=== PATIENT | male | born 1950 | race Caucasian/White ===

== ENCOUNTER → 2016-07-17 | Outpatient (CLI) | payer MEDICARE, OTHER ==
[2016-07-17 09:18] LABS: CH 30.3; CHCM 33.4; HGB 15.2 gm/dL (13.0-17.5); MCH 30.1 pg (25.0-35.0); MCV 91.2 fL (80.0-100.0); Mean Platelet Volume 7.9; RBC 5.04 m/uL (4.30-5.90); RDW 13.2 % (11.5-15.5)
[2016-07-17 09:26] LABS: Anion Gap 8 mmol/L; Blood Urea Nitrogen 16 mg/dL (9-20); Calcium 9.8 mg/dL (8.4-10.2); Carbon Dioxide 29 mmol/L (22-30); Chloride 107 mmol/L (98-107); Glucose 96 mg/dL (74-99); Non-African American GFR(MDRD) >60 (>60 ml/min/1.73 sqM); Potassium 4.5 mmol/L (3.5-5.1); Sodium 144 mmol/L (137-145)
== END | disposition home or self-care (01) ==
LOC: LABWHC1 08:37
PROVIDERS: ATTEND Internal Medicine Clinical Cardiac Electrophysiology
DX: I25.10 Atherosclerotic heart disease of native coronary artery without angina pectoris (principal); I25.5 Ischemic cardiomyopathy; I49.01 Ventricular fibrillation; Z95.1 Presence of aortocoronary bypass graft
CPT/HCPCS: 36415; 80048; 85027

== ENCOUNTER → 2016-07-27 | Day surgery (SDC) | payer MEDICARE, OTHER ==
[2016-07-25 12:21] VITALS: BMI 29.6
[~2016-07-27] MED LIST: LACTATED RINGERS 1,000 ML IV SCH; PROPOFOL 10 MG/ML 20 ML VIAL IV ONE; SODIUM CHLORIDE 0.9% 1,000 ML IV SCH
[2016-07-27 12:51] VITALS: TEMP 97.7
--- NOTE | 2016-07-27 15:18 | CE ---
DATE OF SERVICE: Randal Anne has severe ischemic cardiomyopathy, history of ventricular fibrillation. He is brought in for DFT testing under anesthesia. His ICD was interrogated. There are no new arrhythmias noted. His sensing is within normal limits, his thresholds are within normal limits. Impedance stable. ( ) protocol was used to induce ventricular fibrillation. This was adequately and appropriately detected at least sensitivity and successfully internally defibrillated with a 10 joule shock, no dropouts. Charge time was 1.8 seconds. No postshock noise. Shocking impedance 75 ohms. The device was then reprogrammed, VF zone at 207 beats per minute. The device has been reprogrammed. VT zone at 176 beats per minute, VF zone at 207 beats a minute. Appropriate antitachycardia pacing, cardioversion and defibrillation programmed. Testing was also performed at 1.2 mV, sensitivity was reprogrammed to 0.3 mV. RESULT: DFT at or below 10 joules, ICD interrogation with reprogramming, ICD function within normal limits.
[2016-07-27 15:23] VITALS: RESP 16
[2016-07-27 16:07] VITALS: BP 142/79; PULSE 73
== END ==
LOC: CATHEP 12:18
PROVIDERS: ATTEND Internal Medicine Clinical Cardiac Electrophysiology
DX: I25.5 Ischemic cardiomyopathy (principal); Z45.02 Encounter for adjustment and management of automatic implantable cardiac defibrillator; I25.10 Atherosclerotic heart disease of native coronary artery without angina pectoris; I49.01 Ventricular fibrillation; I10 Essential (primary) hypertension; I25.2 Old myocardial infarction; Z95.1 Presence of aortocoronary bypass graft; E78.5 Hyperlipidemia, unspecified; I73.9 Peripheral vascular disease, unspecified; Z79.02 Long term (current) use of antithrombotics/antiplatelets; Z79.82 Long term (current) use of aspirin; Z79.899 Other long term (current) drug therapy
CPT/HCPCS: 93642; J2704

== ENCOUNTER 2019-02-16 18:01 | Emergency (ER) | payer MEDICARE, OTHER ==
[2019-02-16 18:13] VITALS: RESP 18
--- NOTE | 2019-02-16 18:28 | ED ---
Lower Extremity Injury HPI - General Chief Complaint: Extremity Injury, Lower Stated Complaint: Lt knee pain Time Seen by Provider: 02/16/19 18:14 Source: patient Mode of arrival: wheelchair Limitations: no limitations - History of Present Illness Initial Comments: Patient is a 68-year-old male presenting to emergency Department with chief complaint of knee pain. Patient reports a history of left knee effusion for the past several years however day 10 to resolve on their own. Patient reports most recent episode does not appear to resolve and is now impeding his daily activities. Patient states he initially noticed some swelling about one week ago and it has remained constant. Patient reports over the last day he attempt to go bowling and I was pain with ambulation. Patient denies any trauma to the region. Patient denies skin discoloration. He does report some limited range of motion with full flexion due to a feeling of "tightness". He denies taking medication to alleviate the symptoms. He does have a knee brace which she uses occasionally. Denies Tenderness shortness of breath cough or hemoptysis. - Related Data Home Medications Medication Instructions Recorded Confirmed Aspirin 81 mg PO DAILY 03/20/14 07/27/16 Spironolactone [Aldactone] 25 mg PO QAM 03/20/14 07/27/16 Atorvastatin [Lipitor] 80 mg PO HS 05/20/15 07/27/16 Carvedilol 4.68 mg PO QAM 05/20/15 07/27/16 Clopidogrel [Plavix] 75 mg PO QAM 05/20/15 07/27/16 Losartan [Cozaar] 25 mg PO QAM 05/20/15 07/27/16 Allergies Allergy/AdvReac Type Severity Reaction Status Date / Time No Known Allergies Allergy Verified 02/16/19 18:11 Review of Systems ROS Statement: Those systems with pertinent positive or pertinent negative responses have been documented in the HPI. ROS Other: All systems not noted in ROS Statement are negative. Past Medical History Past Medical History: Coronary Artery Disease (CAD), Hyperlipidemia, Myocardial Infarction ([place]), Osteoarthritis (OA), Vascular Disorder Additional Past Medical History / Comment(s): ISCHEMIC CARDIOMYOPATHY, V-FIB., Peripheral Vascular disease. Last Myocardial Infarction Date:: 03/2012 History of Any Multi-Drug Resistant Organisms: None Reported Past Surgical History: AICD, Coronary Bypass/CABG, Heart Catheterization With Stent Additional Past Surgical History / Comment(s): Has 5 heart stents. Past Anesthesia/Blood Transfusion Reactions: No Reported Reaction Date of Last Stent Placement:: 03/2012 Type of Cardiac Device: AICD Device Placement Date:: 03/20/14 Past Psychological History: No Psychological Hx Reported Smoking Status: Former smoker Past Alcohol Use History: None Reported Past Drug Use History: None Reported - Past Family History Father Family Medical History: Cancer, CVA/TIA, Dialysis, Myocardial Infarction ([place]) Additional Family Medical History / Comment(s): CABG. General Exam Limitations: no limitations General appearance: alert, in no apparent distress Head exam: Present: atraumatic, normocephalic, normal inspection Eye exam: Present: normal appearance Pupils: Present: normal accommodation ENT exam: Present: normal exam, mucous membranes moist Neck exam: Present: normal inspection, full ROM Respiratory exam: Present: normal lung sounds bilaterally Cardiovascular Exam: Present: regular rate, normal rhythm, normal heart sounds Extremities exam: Present: normal capillary refill, joint swelling (Very mild left knee), other (+2 dorsalis pedis and posterior tibialis bilaterally). Absent: normal inspection (Very mild swelling in the left knee), full ROM (Mode of range of motion at full flexion of the left knee.), tenderness, pedal edema Back exam: Present: normal inspection, full ROM Neurological exam: Present: alert, oriented X3 Psychiatric exam: Present: normal affect, normal mood Skin exam: Present: warm, dry, intact, normal color Course Vital Signs 02/16/19 18:11 Temperature 97.9 F Pulse Rate 78 Respiratory 18 Rate Blood Pressure 162/89 O2 Sat by Pulse 97 Oximetry Medical Decision Making - Medical Decision Making Patient is 68-year-old male presenting to emergency Department with a chief complaint of left knee pain. Physical examination shows very mild swelling of the left knee was no skin discoloration. Limited range of motion of full flexion. Pain with ambulation. Patient is ready wearing a brace at home. X- ray shows a calcification and osteophytes but is otherwise unremarkable. Osteoarthritic changes noted. I suspect this to be the cause of the patient's pain and recurrent knee effusions. Most likely these appear after prolonged periods of activity or standing. Patient advised to follow-up with orthopedics for further management. Patient advised to rest the left lower extremity of the next few days. Strict return parameters were thoroughly discussed with patient was understanding and agreeable. Case discussed with physician. Disposition Clinical Impression: Left knee pain Disposition: HOME SELF-CARE Condition: Stable Instructions (If sedation given, give patient instructions): Knee Sprain (ED) Additional Instructions: Please follow up with orthopedics. Please return to emergency department if symptoms worsen. Continue wearing the brace. Is patient prescribed a controlled substance at d/c from ED?: No Referrals: Quan Silva DO [Primary Care Provider] - 1-2 days Wai Spring MD [STAFF PHYSICIAN] - 1-2 days Time of Disposition: 19:12
--- NOTE | 2019-02-16 19:08 | XR ---
EXAMINATION TYPE: XR knee complete LT DATE OF EXAM: 02/16/2019 CLINICAL HISTORY: Pain and swelling TECHNIQUE: Three views of the left knee are obtained. COMPARISON: None. FINDINGS: No fracture or joint malalignment. Small medial compartment osteophyte formation with mild joint spac e loss. Meniscal chondrocalcinosis present in both compartments. Ossification along the proximal aspe ct of the medial collateral ligament likely from remote injury. Patellar enthesophyte at the quadrice ps tendon insertion. No capsular distention at the knee. Arterial vascular calcifications. IMPRESSION: No fracture or dislocation.
[2019-02-16 19:45] VITALS: BP 150/81; PULSE 82; TEMP 98.1
== END 2019-02-16 19:47 | disposition home or self-care (01) ==
LOC: EC 18:01
DX: M17.12 Unilateral primary osteoarthritis, left knee (principal); M25.762 Osteophyte, left knee; M25.862 Other specified joint disorders, left knee; I25.10 Atherosclerotic heart disease of native coronary artery without angina pectoris; E78.5 Hyperlipidemia, unspecified; I25.2 Old myocardial infarction; I49.01 Ventricular fibrillation; I73.9 Peripheral vascular disease, unspecified; I25.5 Ischemic cardiomyopathy; Z95.810 Presence of automatic (implantable) cardiac defibrillator; Z95.5 Presence of coronary angioplasty implant and graft; Z95.1 Presence of aortocoronary bypass graft; Z87.891 Personal history of nicotine dependence; Z79.82 Long term (current) use of aspirin; Z79.02 Long term (current) use of antithrombotics/antiplatelets; Z79.899 Other long term (current) drug therapy
CPT/HCPCS: 99283

== ENCOUNTER 2019-06-30 08:47 | Inpatient (IN) | payer MEDICARE, OTHER ==
[2019-06-30] MEDS ORDERED: ACETAMINOPHEN TAB 325 MG TAB PO STA (09:13)
[2019-06-30] MEDS ORDERED: SODIUM CHLORIDE 0.9% 500 ML 500 ML IV STA (09:15)
--- NOTE | 2019-06-30 09:15 | ED ---
General Adult HPI - General Chief complaint: Upper Respiratory Infection Stated complaint: "hallucinating last night" Time Seen by Provider: 06/30/19 08:59 Source: patient, RN notes reviewed Mode of arrival: wheelchair Limitations: no limitations - History of Present Illness Initial comments: 68-year-old male with a past medical history of hyperlipidemia, [place] with defibrillator, CAD with multiple stents presents to the emergency department for a chief complaint of cough. Patient states he has had a cough for about one week now. States cough is minimally productive with green sputum. Patient does not have any shortness of breath associated with this cough. He does have a [id number] smoking history but quit smoking 20 years ago and does not have a history of COPD. Patient states he has felt like he's had a fever all night as well. States his body has been very achy. States his been waking him up throughout the night and when he wakes up in the middle of the night he feels "out of it." Patient states he had a sore throat several days ago but that has since resolved. Patient does not have congestion or runny nose. Patient is concerned he could have coronavirus. Patient has not had any Tylenol as of yet today.Patient has no other complaints at this time including shortness of breath, chest pain, abdominal pain, nausea or vomiting, headache, or visual changes. - Related Data Home Medications Medication Instructions Recorded Confirmed RX: Aspirin 81 mg PO DAILY 03/20/14 07/27/16 RX: Spironolactone [Aldactone] 25 mg PO QAM 03/20/14 07/27/16 RX: Atorvastatin [Lipitor] 80 mg PO HS 05/20/15 07/27/16 RX: Carvedilol 4.68 mg PO QAM 05/20/15 07/27/16 RX: Clopidogrel [Plavix] 75 mg PO QAM 05/20/15 07/27/16 RX: Losartan [Cozaar] 25 mg PO QAM 05/20/15 07/27/16 Allergies Allergy/AdvReac Type Severity Reaction Status Date / Time No Known Allergies Allergy Verified 02/16/19 18:11 Review of Systems ROS Statement: Those systems with pertinent positive or pertinent negative responses have been documented in the HPI. ROS Other: All systems not noted in ROS Statement are negative. Past Medical History Past Medical History: Coronary Artery Disease (CAD), Hyperlipidemia, Myocardial Infarction ([place]), Osteoarthritis ([place]), Vascular Disorder Additional Past Medical History / Comment(s): ISCHEMIC CARDIOMYOPATHY, V-FIB., Peripheral Vascular disease. Last Myocardial Infarction Date:: 03/2012 History of Any Multi-Drug Resistant Organisms: None Reported Past Surgical History: AICD, Coronary Bypass/CABG, Heart Catheterization With Stent Additional Past Surgical History / Comment(s): Has 5 heart stents. Past Anesthesia/Blood Transfusion Reactions: No Reported Reaction Date of Last Stent Placement:: 03/2012 Type of Cardiac Device: AICD Device Placement Date:: 03/20/14 Past Psychological History: No Psychological Hx Reported Smoking Status: Former smoker Past Alcohol Use History: None Reported Past Drug Use History: None Reported - Past Family History Father Family Medical History: Cancer, CVA/TIA, Dialysis, Myocardial Infarction ([place]) Additional Family Medical History / Comment(s): CABG. General Exam Limitations: no limitations General appearance: alert, in no apparent distress Head exam: Present: atraumatic, normocephalic, normal inspection Eye exam: Present: normal appearance, PERRL, EOMI. Absent: scleral icterus, conjunctival injection, periorbital swelling ENT exam: Present: normal exam, normal oropharynx, mucous membranes moist, TM's normal bilaterally, normal external ear exam Neck exam: Present: normal inspection, full ROM. Absent: tenderness, mening ismus, lymphadenopathy Respiratory exam: Present: normal lung sounds bilaterally, other (Patient did have a coughing fit while I was in the exam room). Absent: respiratory di stress, wheezes, rales, rhonchi, stridor Cardiovascular Exam: Present: regular rate, normal rhythm, normal heart sounds. Absent: systolic murmur, diastolic murmur, rubs, gallop, clicks GI/Abdominal exam: Present: soft, normal bowel sounds. Absent: distended, tenderness, guarding, rebound, rigid Neurological exam: Present: alert, oriented X3, normal gait, other (GCS 15) Psychiatric exam: Present: normal affect, normal mood Skin exam: Present: warm, dry, intact, normal color. Absent: rash Course Vital Signs 06/30/19 06/30/19 06/30/19 08:54 09:41 09:43 Temperature 98.9 F 101.9 F H Pulse Rate 105 H 101 H Respiratory 18 22 Rate Blood Pressure 108/68 O2 Sat by Pulse 92 L 89 L 92 L Oximetry 06/30/19 06/30/19 10:08 10:19 Temperature Pulse Rate 103 H Respiratory 24 20 Rate Blood Pressure 146/73 O2 Sat by Pulse 91 L Oximetry EKG Findings - EKG Comments: EKG Findings:: Normal sinus rhythm, ventricular rate 96, UT int 164, QTC 452 Medical Decision Making - Medical Decision Making Patient with extensive cardiac history presents to the emergency room for cough, fevers, slight short of breath. Patient is hypoxic on room air descending and 89%. He was then put on 2 L of nasal cannula satting at 92%. Patient was found to be Covid positive CRP elevated. CBC CMP otherwise unremarkable. Chest x- ray shows no acute process. Dr. Chow spoke with Dr. Silva who does accept admission, requests pulmonary consult. - Lab Data Result diagrams: 06/30/19 09:31 06/30/19 09:31 Lab Results 06/30/19 06/30/19 06/30/19 Range/Units 09:26 09:31 09:31 WBC 6.1 (3.8-10.6) k/uL RBC 4.90 (4.30-5.90) m/uL Hgb 14.3 (13.0-17.5) gm/dL Hct 43.8 (39.0-53.0) % MCV 89.2 (80.0-100.0) fL MCH 29.2 (25.0-35.0) pg MCHC 32.7 (31.0-37.0) g/dL RDW 13.2 (11.5-15.5) % Plt Count 126 L (150-450) k/uL Neutrophils % 70 % Lymphocytes % 22 % Monocytes % 6 % Eosinophils % 0 % Basophils % 0 % Neutrophils # 4.3 (1.3-7.7) k/uL Lymphocytes # 1.3 (1.0-4.8) k/uL Monocytes # 0.4 (0-1.0) k/uL Eosinophils # 0.0 (0-0.7) k/uL Basophils # 0.0 (0-0.2) k/uL PT 10.2 (9.0-12.0) sec INR 1.0 (<1.2) APTT 26.3 (22.0-30.0) sec D-Dimer (<0.60) mg/L FEU Sodium (137-145) mmol/L Potassium (3.5-5.1) mmol/L Chloride (98-107) mmol/L Carbon Dioxide (22-30) mmol/L Anion Gap mmol/L BUN (9-20) mg/dL Creatinine (0.66-1.25) mg/dL Est GFR (CKD-EPI)AfAm (>60 ml/min/1.73 sqM) Est GFR (CKD-EPI)NonAf (>60 ml/min/1.73 sqM) Glucose (74-99) mg/dL Plasma Lactic Acid Sabas (0.7-2.0) mmol/L Calcium (8.4-10.2) mg/dL Magnesium (1.6-2.3) mg/dL Total Bilirubin (0.2-1.3) mg/dL AST (17-59) U/L ALT (4-49) U/L Alkaline Phosphatase (38-126) U/L Lactate Dehydrogenase (313-618) U/L Troponin I (0.000-0.034) ng/mL C-Reactive Protein (<10.0) mg/L Total Protein (6.3-8.2) g/dL Albumin (3.5-5.0) g/dL Coronavirus (PCR) Detected A (Not Detectd) Influenza Type A RNA Not Detected (Not Detectd) Influenza Type B (PCR) Not Detected (Not Detectd) 06/30/19 06/30/19 06/30/19 Range/Units 09:31 09:31 09:31 WBC (3.8-10.6) k/uL RBC (4.30-5.90) m/uL Hgb (13.0-17.5) gm/dL Hct (39.0-53.0) % MCV (80.0-100.0) fL MCH (25.0-35.0) pg MCHC (31.0-37.0) g/dL RDW (11.5-15.5) % Plt Count (150-450) k/uL Neutrophils % % Lymphocytes % % Monocytes % % Eosinophils % % Basophils % % Neutrophils # (1.3-7.7) k/uL Lymphocytes # (1.0-4.8) k/uL Monocytes # (0-1.0) k/uL Eosinophils # (0-0.7) k/uL Basophils # (0-0.2) k/uL PT (9.0-12.0) sec INR (<1.2) APTT (22.0-30.0) sec D-Dimer (<0.60) mg/L FEU Sodium 134 L (137-145) mmol/L Potassium 4.6 (3.5-5.1) mmol/L Chloride 99 (98-107) mmol/L Carbon Dioxide 24 (22-30) mmol/L Anion Gap 11 mmol/L BUN 22 H (9-20) mg/dL Creatinine 1.03 (0.66-1.25) mg/dL Est GFR (CKD-EPI)AfAm 85 (>60 ml/min/1.73 sqM) Est GFR (CKD-EPI)NonAf 74 (>60 ml/min/1.73 sqM) Glucose 117 H (74-99) mg/dL Plasma Lactic Acid Sabas 1.1 (0.7-2.0) mmol/L Calcium 8.9 (8.4-10.2) mg/dL Magnesium 1.7 (1.6-2.3) mg/dL Total Bilirubin 0.7 (0.2-1.3) mg/dL AST 31 (17-59) U/L ALT 22 (4-49) U/L Alkaline Phosphatase 64 (38-126) U/L Lactate Dehydrogenase (313-618) U/L Troponin I <0.012 (0.000-0.034) ng/mL C-Reactive Protein (<10.0) mg/L Total Protein 6.8 (6.3-8.2) g/dL Albumin 3.9 (3.5-5.0) g/dL Coronavirus (PCR) (Not Detectd) Influenza Type A RNA (Not Detectd) Influenza Type B (PCR) (Not Detectd) 06/30/19 06/30/19 Range/Units 09:31 09:31 WBC (3.8-10.6) k/uL RBC (4.30-5.90) m/uL Hgb (13.0-17.5) gm/dL Hct (39.0-53.0) % MCV (80.0-100.0) fL MCH (25.0-35.0) pg MCHC (31.0-37.0) g/dL RDW (11.5-15.5) % Plt Count (150-450) k/uL Neutrophils % % Lymphocytes % % Monocytes % % Eosinophils % % Basophils % % Neutrophils # (1.3-7.7) k/uL Lymphocytes # (1.0-4.8) k/uL Monocytes # (0-1.0) k/uL Eosinophils # (0-0.7) k/uL Basophils # (0-0.2) k/uL PT (9.0-12.0) sec INR (<1.2) APTT (22.0-30.0) sec D-Dimer 0.38 (<0.60) mg/L FEU Sodium (137-145) mmol/L Potassium (3.5-5.1) mmol/L Chloride (98-107) mmol/L Carbon Dioxide (22-30) mmol/L Anion Gap mmol/L BUN (9-20) mg/dL Creatinine (0.66-1.25) mg/dL Est GFR (CKD-EPI)AfAm (>60 ml/min/1.73 sqM) Est GFR (CKD-EPI)NonAf (>60 ml/min/1.73 sqM) Glucose (74-99) mg/dL Plasma Lactic Acid Sabas (0.7-2.0) mmol/L Calcium (8.4-10.2) mg/dL Magnesium (1.6-2.3) mg/dL Total Bilirubin (0.2-1.3) mg/dL AST (17-59) U/L ALT (4-49) U/L Alkaline Phosphatase (38-126) U/L Lactate Dehydrogenase 534 (313-618) U/L Troponin I (0.000-0.034) ng/mL C-Reactive Protein 64.2 H (<10.0) mg/L Total Protein (6.3-8.2) g/dL Albumin (3.5-5.0) g/dL Coronavirus (PCR) (Not Detectd) Influenza Type A RNA (Not Detectd) Influenza Type B (PCR) (Not Detectd) Disposition Clinical Impression: COVID-19 Disposition: ADMITTED IP TO THIS HOSP Condition: Fair Is patient prescribed a controlled substance at d/c from ED?: No Referrals: Quan Silva DO [Primary Care Provider] - 1-2 days Time of Disposition: 10:44
--- NOTE | 2019-06-30 09:56 | XR ---
EXAMINATION TYPE: XR chest 1V portable DATE OF EXAM: 06/30/2019 HISTORY: Shortness of breath. COMPARISON: 03/25/2014 TECHNIQUE: Single view of the chest is submitted. FINDINGS: Demonstrated are scattered senescent parenchymal change. There is no evidence for focal infiltrate. The heart is stable. Pacer device is in place. Sternotomy wires noted. Hilar and mediastinal structures are within normal limits. Degenerative changes are seen of the dorsal spine. IMPRESSION: 1. Chronic changes without evidence for acute pulmonary disease.
[2019-06-30 09:59] LABS: Basophils % (A) 0 %; Eosinophils % (A) 0 %; HCT 43.8 % (39.0-53.0); HGB 14.3 gm/dL (13.0-17.5); Lymphocytes # (A) 1.3 k/uL (1.0-4.8); Lymphocytes % (A) 22 %; MCH 29.2 pg (25.0-35.0); MCHC 32.7 g/dL (31.0-37.0); MCV 89.2 fL (80.0-100.0); Mean Platelet Volume 9.8; Monocytes # (A) 0.4 k/uL (0-1.0); Monocytes % (A) 6 %; Neutrophils # (A) 4.3 k/uL (1.3-7.7); Neutrophils % (A) 70 %; Platelet Count 126 k/uL (150-450); RDW 13.2 % (11.5-15.5); WBC 6.1 k/uL (3.8-10.6)
[2019-06-30 10:07] LABS: Albumin 3.9 g/dL (3.5-5.0); Calcium 8.9 mg/dL (8.4-10.2); Magnesium 1.7 mg/dL (1.6-2.3); Potassium 4.6 mmol/L (3.5-5.1); Total Bilirubin 0.7 mg/dL (0.2-1.3); Total Protein 6.8 g/dL (6.3-8.2)
[2019-06-30 10:23] LABS: Partial Thromboplastin Time 26.3 sec (22.0-30.0); Prothrombin Time 10.2 sec (9.0-12.0)
[2019-06-30 10:27] LABS: C Reactive Protein 64.2 mg/L (<10.0)
[2019-06-30] MEDS ORDERED: NALOXONE 0.4 MG/ML 1 ML VIAL IV PRN (10:37)
[2019-06-30] MEDS ORDERED: ACETAMINOPHEN TAB 325 MG TAB PO PRN (10:45)
[2019-06-30] MEDS: SODIUM CHLORIDE 0.9% 1,000 ML IV SCH ×2 (10:56→20:46)
--- NOTE | 2019-06-30 12:40 | P.CNPUL ---
History of Present Illness Consult date: 06/30/19 Reason for consult: hypoxemia, pneumonia History of present illness: 68-year-old male patient, known history of coronary artery disease, multiple coronary stents, along with previous history of [place], ischemic cardiomyopathy and the patient has an AICD in place and addition to hyperlipidemia and history of smoking. The patient came into the hospital because of worsening shortness of breath in addition to her cough. The patient had diffuse body aches of few days' duration. No nausea. No vomiting. No diarrhea. His white cell count is at 6.1. Platelet counts of dropped down to 126. Lymphopenia. Creatinine is at 1.03 with a BUN of 22. Lactic acid level is at 1.1 and COVID 19 nasal swab came back positive. Influenza A and B are negative. He was hypoxic at 89% on room air and he was placed on 3 L of oxygen by nasal cannula with a pulse of 71%. Chest x-ray showing interstitial infiltrates bilaterally and peripherally. There is also an AICD in place. The d-dimer is low at 0.38. Coagulation profile is within normal limits. LDH is 534. CRP is at 64. His QT interval is 358 ms Review of Systems Constitutional: Reports fatigue, Reports fever, Reports weakness Eyes: denies as per HPI, denies blurred vision, denies bulging eye, denies decreased vision, denies diplopia, denies discharge, denies dry eye, denies irritation, denies itching, denies pain, denies photophobia, denies loss of peripheral vision, denies loss of vision, denies tunnel vision/blind spots Ears: deny: decreased hearing, ear discharge, earache, tinnitus Ears, nose, mouth and throat: Reports as per HPI Breasts: absent: as per HPI, gynecomastia Cardiovascular: Reports decreased exercise tolerance, Reports dyspnea on exertion Respiratory: Reports cough, Reports dyspnea Gastrointestinal: Reports as per HPI Genitourinary: Reports as per HPI Musculoskeletal: Reports as per HPI Musculoskeletal: absent: ankle pain, ankle stiffness, ankle swelling Integumentary: Reports as per HPI Neurological: Reports as per HPI Psychiatric: Reports as per HPI Endocrine: Reports as per HPI, Reports increase in ring/shoe/hat size Allergic/Immunologic: Reports as per HPI Past Medical History Past Medical History: Coronary Artery Disease (CAD), Hyperlipidemia, Myocardial Infarction ([place]), Osteoarthritis (OA), Vascular Disorder Additional Past Medical History / Comment(s): ISCHEMIC CARDIOMYOPATHY, V-FIB., Peripheral Vascular disease. Last Myocardial Infarction Date:: 03/2012 History of Any Multi-Drug Resistant Organisms: None Reported Past Surgical History: AICD, Coronary Bypass/CABG, Heart Catheterization With Stent Additional Past Surgical History / Comment(s): Has 5 heart stents. Past Anesthesia/Blood Transfusion Reactions: No Reported Reaction Date of Last Stent Placement:: 03/2012 Type of Cardiac Device: AICD Device Placement Date:: 03/20/14 Past Psychological History: No Psychological Hx Reported Smoking Status: Former smoker Past Alcohol Use History: None Reported Past Drug Use History: None Reported - Past Family History Father Family Medical History: Cancer, CVA/TIA, Dialysis, Myocardial Infarction ([place]) Additional Family Medical History / Comment(s): CABG. Medications and Allergies Home Medications Medication Instructions Recorded Confirmed Type Aspirin 81 mg PO DAILY 03/20/14 06/30/19 History Spironolactone [Aldactone] 25 mg PO DAILY 03/20/14 06/30/19 History Atorvastatin [Lipitor] 80 mg PO HS 05/20/15 06/30/19 History Carvedilol 3.125 mg PO DAILY 05/20/15 06/30/19 History Clopidogrel [Plavix] 75 mg PO DAILY 05/20/15 06/30/19 History Losartan [Cozaar] 25 mg PO DAILY 05/20/15 06/30/19 History Ezetimibe [Zetia] 10 mg PO DAILY 06/30/19 06/30/19 History Multivitamins, Thera [Multivitamin 1 tab PO DAILY 06/30/19 06/30/19 History (formulary)] Allergies Allergy/AdvReac Type Severity Reaction Status Date / Time No Known Allergies Allergy Verified 06/30/19 12:14 Physical Exam Vitals: Vital Signs Temp Pulse Resp BP Pulse Ox 06/30/19 10:59 99.0 F 90 20 136/79 91 L 06/30/19 10:19 103 H 20 146/73 91 L 06/30/19 10:08 24 06/30/19 09:43 92 L 06/30/19 09:41 101.9 F H 101 H 22 89 L 06/30/19 08:54 98.9 F 105 H 18 108/68 92 L Intake and Output 06/29/19 06/30/19 06/30/19 22:59 06:59 14:59 Other: Weight 92.079 kg The patient appeared well nourished and normally developed. Vital signs as documented. Head exam is unremarkable. No scleral icterus or corneal arcus noted. Neck is without jugular venous distension, thyromegaly, or carotid bruits. Carotid upstrokes are brisk bilaterally. Lungs are clear to auscultation and percussion. Cardiac exam reveals the PMI to be normally sized and situated. Rhythm is regular. First and second heart sounds normal. No murmurs, rubs or gallops. Abdominal exam reveals normal bowel sounds, no masses, no organomegaly and no aortic enlargement. Extremities are nonedematous and both femoral and pedal pulses are normal.Examination of the skin revealed no evidence of significant rashes, suspicious appearing nevi or other concerning lesions. The patient has an AICD pocket over the anterior chest area. Neurologically the patient is awake and alert and there is no focal neurological deficits. Note that the patient was having episodic coughing fits with some limited shortness of breath. Results - Laboratory Findings CBC and BMP: 06/30/19 09:31 06/30/19 09:31 PT/INR, D-dimer PT 10.2 sec (9.0-12.0) 06/30/19 09:31 INR 1.0 (<1.2) 06/30/19 09:31 D-Dimer 0.38 mg/L FEU (<0.60) 06/30/19 09:31 Abnormal lab findings: Abnormal Labs 06/30/19 06/30/19 06/30/19 09:26 09:31 09:31 Plt Count 126 L Sodium 134 L BUN 22 H Glucose 117 H C-Reactive Protein Coronavirus (PCR) Detected A 06/30/19 09:31 Plt Count Sodium BUN Glucose C-Reactive Protein 64.2 H Coronavirus (PCR) - Diagnostic Findings Chest x-ray: image reviewed Assessment and Plan Plan: 1 acute COVID 19 related pneumonia with some minimal this infiltrate peripherally in the lung bases 2 acute hypoxic respiratory failure secondary to above 3 cough accompanied to above 4 shortness of breath secondary to above 5 mild thrombocytopenia secondary to above 6 elevated inflammatory markers including LDH and CRP secondary to above 7 coronary artery disease with previous [place] and multivessel stenting 8 ischemic cardiomyopathy with an AICD in place. The patient has a previous history of V. fib 9 previous history of coronary artery bypass surgery in 2012 10 history of left carotid endarterectomy 11 hyperlipidemia 12 single chamber AICD Plan Admit the patient entered output isolation Oxygen supplementation to maintain a saturation above 90% Normal saline at the rate of 20 cc an hour Start the patient on Plaquenil per protocol for Covid 19 infections IV Solu Medrol 40 mg every 12 hours Monitor inflammatory markers including CRP and LDH Resume home medications including cardiac medications Monitor QT interval We'll follow
[2019-06-30] MEDS: AZITHROMYCIN 500 MG TAB PO SCH (13:36)
[2019-06-30] MEDS: methylPREDNISolone SOD SUCCI 40 MG/ML 1 ML VIAL IV SCH ×2 (13:36→20:46)
[2019-06-30] MEDS: HYDROXYCHLOROQUINE SULFATE 200 MG TAB PO SCH ×2 (13:36→21:05)
[2019-06-30 16:21] LABS: Ferritin 1146.7 ng/mL (22.0-322.0)
[2019-06-30] MEDS: ATORVASTATIN 80 MG TAB PO SCH (20:45)
[2019-07-01] MEDS: CARVEDILOL 3.125 MG TAB PO SCH (08:05)
[2019-07-01] MEDS: methylPREDNISolone SOD SUCCI 40 MG/ML 1 ML VIAL IV SCH ×2 (08:05→20:08)
[2019-07-01] MEDS: SPIRONOLACTONE 25 MG TAB PO SCH (08:05)
[2019-07-01] MEDS: LOSARTAN 25 MG TAB PO SCH (08:05)
[2019-07-01] MEDS: CLOPIDOGREL 75 MG TAB PO SCH (08:05)
[2019-07-01] MEDS: HYDROXYCHLOROQUINE SULFATE 200 MG TAB PO SCH ×2 (08:05→20:07)
[2019-07-01] MEDS: AZITHROMYCIN 500 MG TAB PO SCH (08:06)
[2019-07-01] MEDS: EZETIMIBE 10 MG TAB PO SCH (08:06)
[2019-07-01] MEDS: ASPIRIN 81 MG PO SCH (08:07)
--- NOTE | 2019-07-01 08:09 | XR ---
EXAMINATION TYPE: XR chest 1V portable DATE OF EXAM: 07/01/2019 COMPARISON: 06/30/2019 INDICATION: Covid 19 TECHNIQUE: Single frontal view of the chest is obtained. FINDINGS: The heart size is normal. The pulmonary vasculature is normal. Some mild linear opacities at the right base most likely on the basis of atelectasis. Lungs otherwise appear clear. Pacemaker overlies left chest. Sternotomy wires are in the midline. IMPRESSION: 1. Mild infiltrate at the right base can be compatible with atelectasis. Atypical pneumonia is within the differential.
[2019-07-01 09:16] LABS: C Reactive Protein 57.7 mg/L (<10.0)
--- NOTE | 2019-07-01 11:10 | P.PN ---
Subjective Progress Note Date: 07/01/19 Principal diagnosis: Acute hypoxic respiratory failure,Covid 19 related pneumonia 68-year-old male patient, known history of coronary artery disease, multiple coronary stents, along with previous history of [place], ischemic cardiomyopathy and the patient has an AICD in place and addition to hyperlipidemia and history of smoking. The patient came into the hospital because of worsening shortness of breath in addition to her cough. The patient had diffuse body aches of few days' duration. No nausea. No vomiting. No diarrhea. His white cell count is at 6.1. Platelet counts of dropped down to 126. Lymphopenia. Creatinine is at 1.03 with a BUN of 22. Lactic acid level is at 1.1 and COVID 19 nasal swab came back positive. Influenza A and B are negative. He was hypoxic at 89% on room air and he was placed on 3 L of oxygen by nasal cannula with a pulse of 71%. Chest x-ray showing interstitial infiltrates bilaterally and peripherally. There is also an AICD in place. The d-dimer is low at 0.38. Coagulation profile is within normal limits. LDH is 534. CRP is at 64. His QT interval is 358 ms On 07/01/2019 patient seen in follow-up on general medical floor, he is awake and alert, her pulse ox is 96%, chest x-ray today looks slightly better, with mild infiltrate at the right base. Afebrile, hemodynamically stable, breathing appears to be comfortable. His labs have been reviewed, d-dimer is 0.37, LDH is within normal limits at 574, and CRP is 57.7 which is trending down. Patient remains on azithromycin, Plaquenil, IV steroids. Objective - Vital Signs Vital signs: Vital Signs Temp 98.0 F 07/01/19 10:57 Pulse 75 07/01/19 10:57 Resp 21 07/01/19 10:57 BP 119/74 07/01/19 10:57 Pulse Ox 91 L 07/01/19 10:57 Intake & Output 06/30/19 07/01/19 07/01/19 18:59 06:59 18:59 Intake Total 560 Balance 560 Weight 92.079 kg Intake: Intake, IV Titration 120 Amount Sodium Chloride 0.9% 1, 120 000 ml @ 10 mls/hr IV . Q24H [facility] Rx#:[id number] Oral 440 Other: Voiding Method Toilet Toilet Toilet # Voids 1 1 - Exam GENERAL EXAM: Alert, very pleasant, 5-year-old white male, on room air, with a pulse ox of 96% comfortable in no apparent distress. HEAD: Normocephalic/atraumatic. EYES: Normal reaction of pupils, equal size. Conjunctiva pink, sclera white. NOSE: Clear with pink turbinates. THROAT: No erythema or exudates. NECK: No masses, no JVD, no thyroid enlargement, no adenopathy. CHEST: No chest wall deformity. Symmetrical expansion. LUNGS: Equal air entry with no crackles, wheeze, rhonchi or dullness. CVS: Regular rate and rhythm, normal S1 and S2, no gallops, no murmurs, no rubs ABDOMEN: Soft, nontender. No hepatosplenomegaly, normal bowel sounds, no guarding or rigidity. EXTREMITIES: No clubbing, no edema, no cyanosis, 2+ pulses and upper and lower extremities. MUSCULOSKELETAL: Muscle strength and tone normal. SPINE: No scoliosis or deformity SKIN: No rashes CENTRAL NERVOUS SYSTEM: Alert and oriented -3. No focal deficits, tone is normal in all 4 extremities. PSYCHIATRIC: Alert and oriented -3. Appropriate affect. Intact judgment and insight. - Labs CBC & Chem 7: 06/30/19 09:31 06/30/19 09:31 Labs: Abnormal Lab Results - Last 24 Hours (Table) 06/30/19 07/01/19 Range/Units 09:31 07:32 Ferritin 1146.7 H (22.0-322.0) ng/mL C-Reactive Protein 57.7 H (<10.0) mg/L Assessment and Plan Plan: Assessment: #1. Acute COVID 19 related pneumonia with some minimal infiltrates peripherally in the lung bases #2. Acute hypoxic respiratory failure secondary to the above #3. Cough related to the above #4. Shortness of breath related to COVID 19 related infection #5. Mild thrombocytopenia secondary to Covid 19 related infection #6. Elevated inflammatory markers including LDH, CRP, tender to Covid 19 related infection #7. Coronary artery disease with previous [place] and multivessel stenting #8. Ischemic cardiomyopathy with an AICD in place, history of V. fib #9. Previous history of coronary artery bypass surgery in 2012 #10. History of left carotid endarterectomy #11. Hyperlipidemia #12. Single-chamber AICD Plan: Continue current medical treatment, continue Plaquenil, azithromycin, inflammatory markers are not significantly elevated, patient is on room air, his been afebrile, and continue IV Solu-Medrol. We will continue to monitor, chest x-ray has been reviewed and some improvement with some residual right lower lobe infiltrate. Continue following clinical course I performed a history & physical examination of the patient and discussed their management with my nurse practitioner, Nicky Carrillo. I reviewed the nurse practitioner's note and agree with the documented findings and plan of care. Lung sounds are positive for diminished breath sounds. The findings and the impression was discussed with the patient. I attest to the documentation by the nurse practitioner. Time with Patient: Less than 30
--- NOTE | 2019-07-01 19:32 | P.HPIM ---
History of Present Illness H&P Date: 07/01/19 Chief Complaint: Worsening dyspnea, wheezing, fevers This is a pleasant 68-year-old gentleman with history of CAD, hyperlipidemia, [place], CABG, osteoarthritis, ischemic cardiomyopathy, AICD, V. fib, peripheral vascular disease, former nicotine dependence and multiple other medical issues presented to the ER with worsening shortness of breath, cough, congestion, body aches, fever, chills, wheezing. Reported sore throat which had resolved. Denies nausea vomiting or diarrhea. Patient had been in [place] prior to with symptoms initiating on the Sunday after . Denies chest pain, palpitations or shortness of breath. Denies lightheadedness, dizziness or focal deficits. EKG reporting normal sinus rhythm, left anterior fascicular block. Chest x-ray on admission reported chronic changes without evidence for acute pulmonary disease. Follow-up chest x-ray reported mild infiltrate at the right base compatible with atelectasis, atypical pneumonia. Tested positive for coronavirus. C reactive protein 64.2, ferritin 1146.7 LDH 534, d-dimer 0.38. BUN 22, creatinine 1.03. Afebrile, T-max 101.9, normal WBC. Hypoxic on room air, down to 89%, placed on 2 L nasal cannula maintaining O2 sats in the low 90s. Pulmonary consulted. Review of Systems ROS Statement: Those systems with pertinent positive or pertinent negative responses have been documented in the HPI. ROS Other: All systems not noted in ROS Statement are negative. Past Medical History Past Medical History: Coronary Artery Disease (CAD), Hyperlipidemia, Myocardial Infarction ([place]), Osteoarthritis ([place]), Vascular Disorder Additional Past Medical History / Comment(s): ISCHEMIC CARDIOMYOPATHY, V-FIB., Peripheral Vascular disease. Last Myocardial Infarction Date:: 03/2012 History of Any Multi-Drug Resistant Organisms: None Reported Past Surgical History: AICD, Coronary Bypass/CABG, Heart Catheterization With Stent Additional Past Surgical History / Comment(s): Has 5 heart stents. Past Anesthesia/Blood Transfusion Reactions: No Reported Reaction Date of Last Stent Placement:: 03/2012 Type of Cardiac Device: AICD Device Placement Date:: 03/20/14 Past Psychological History: No Psychological Hx Reported Smoking Status: Former smoker Past Alcohol Use History: None Reported Past Drug Use History: None Reported - Past Family History Father Family Medical History: Cancer, CVA/TIA, Dialysis, Myocardial Infarction ([place]) Additional Family Medical History / Comment(s): CABG. Medications and Allergies Home Medications Medication Instructions Recorded Confirmed Type Aspirin 81 mg PO DAILY 03/20/14 06/30/19 History Spironolactone [Aldactone] 25 mg PO DAILY 03/20/14 06/30/19 History Atorvastatin [Lipitor] 80 mg PO HS 05/20/15 06/30/19 History Carvedilol 3.125 mg PO DAILY 05/20/15 06/30/19 History Clopidogrel [Plavix] 75 mg PO DAILY 05/20/15 06/30/19 History Losartan [Cozaar] 25 mg PO DAILY 05/20/15 06/30/19 History Ezetimibe [Zetia] 10 mg PO DAILY 06/30/19 06/30/19 History Multivitamins, Thera [Multivitamin 1 tab PO DAILY 06/30/19 06/30/19 History (formulary)] Allergies Allergy/AdvReac Type Severity Reaction Status Date / Time No Known Allergies Allergy Verified 06/30/19 12:14 Physical Exam Vitals: Vital Signs Temp Pulse Resp BP Pulse Ox 07/01/19 15:00 98.1 F 85 18 119/64 90 L 07/01/19 10:57 98.0 F 75 21 119/74 91 L 07/01/19 08:07 79 18 07/01/19 07:00 97.6 F 79 18 120/77 96 07/01/19 03:30 20 07/01/19 02:30 98.3 F 80 20 123/77 94 L 06/30/19 23:00 98.8 F 75 20 133/76 92 L 06/30/19 20:00 20 06/30/19 19:45 98.2 F 83 20 136/66 96 Intake and Output 07/01/19 07/01/19 07/01/19 06:59 14:59 22:59 Intake Total 120 70 Balance 120 70 Intake: Intake, IV Titration 120 70 Amount Sodium Chloride 0.9% 1, 120 70 000 ml @ 10 mls/hr IV . Q24H [facility] Rx#:[id number] Other: Voiding Method Toilet # Voids 1 PHYSICAL EXAM: VITAL SIGNS: [As above] GENERAL: Sitting up in bed, no acute distress HEENT: Conjunctivae normal. eyes normal. NECK: No JVD. No thyroid enlargement. No LNs CARDIOVASCULAR: S1, S2 regular.. No murmur RESPIRATION: Breath sounds diminished in the bases. No rhonchi or crackles. No bronchial breathing. ABDOMEN: Soft, nontender . No guarding. no masses palpable. No ascites, No hepatosplenomegaly.Bowel sounds heard. LEGS: No edema. no swelling PSYCHIATRY: Alert and oriented X3, mood and affect normal. NERVOUS SYSTEM: Cranial N 2-12 grossly normal. Moves all 4 limbs. Diffuse weakness No focal deficits. Strength and sensation grossly intact.. Skin: no lesions, no rash Joints: No active swelling. No inflammation. Lymphatic system. No LN neck axilla or groin. Results CBC & Chem 7: 06/30/19 09:31 06/30/19 09:31 Labs: Abnormal Lab Results - Last 24 Hours (Table) 07/01/19 Range/Units 07:32 C-Reactive Protein 57.7 H (<10.0) mg/L Microbiology - Last 24 Hours (Table) 06/30/19 09:31 Blood Culture - Preliminary Blood No Growth after 24 hours Thrombosis Risk Factor Assmnt - Choose All That Apply Each Factor Represents 1 point: Obesity (BMI >25) Other Risk Factors: Yes Each Risk Factor Represents 2 Points: Age 61-74 years Other congenital or acquired thrombophilia - If yes, enter type in comment: No Thrombosis Risk Factor Assessment Total Risk Factor Score: 3 Thrombosis Risk Factor Assessment Level: Moderate Risk Assessment and Plan Assessment: Acute COVID 19 pneumonia, right lower lobe infiltrate Acute hypoxic and hypercapnic respiratory failure secondary to the above Thrombocytopenia, mild with elevated inflammatory markers secondary to Covid CAD with history of [place], CABG, stenting Ischemic cardiomyopathy, history of V. fib, with AICD Hyperlipidemia Plan: Continue on current medication regime ,monitoring and symptomatic treatment. Gentle IV fluid hydration. Plaquenil, Zithromax, IV steroids, initiated. QT interval monitoring .Evaluated by pulmonary with recommendations noted and appreciated. Home meds have been reviewed and resumed. The impression and plan of care has been dictated as directed. : I performed a history and examination of this patient, discussed the same with the dictator. I agree with the dictator's note ,documented as a scribe. Any additional findings or plans will be noted.
[2019-07-01] MEDS: ATORVASTATIN 80 MG TAB PO SCH (20:07)
[2019-07-01] MEDS: PANTOPRAZOLE 40 MG/10 ML VIAL IVP SCH (20:07)
[2019-07-02] MEDS: SODIUM CHLORIDE 0.9% 1,000 ML IV SCH (01:13)
[2019-07-02 04:03] VITALS: RESP 18
[2019-07-02 06:39] LABS: Basophils % (A) 0 %; Eosinophils % (A) 0 %; HCT 40.8 % (39.0-53.0); HGB 13.4 gm/dL (13.0-17.5); Lymphocytes # (A) 1.1 k/uL (1.0-4.8); Lymphocytes % (A) 8 %; MCH 29.6 pg (25.0-35.0); MCHC 32.7 g/dL (31.0-37.0); MCV 90.4 fL (80.0-100.0); Mean Platelet Volume 9.5; Monocytes # (A) 0.5 k/uL (0-1.0); Monocytes % (A) 3 %; Neutrophils # (A) 12.3 k/uL (1.3-7.7); Neutrophils % (A) 88 %; Platelet Count 151 k/uL (150-450); RBC 4.52 m/uL (4.30-5.90); RDW 13.1 % (11.5-15.5)
[2019-07-02 06:42] LABS: Calcium 8.7 mg/dL (8.4-10.2); Potassium 4.7 mmol/L (3.5-5.1)
[2019-07-02 08:35] VITALS: BP 125/76; PULSE 77; TEMP 97.8
[2019-07-02] MEDS: HYDROXYCHLOROQUINE SULFATE 200 MG TAB PO SCH (08:56)
[2019-07-02] MEDS: CARVEDILOL 3.125 MG TAB PO SCH (08:56)
[2019-07-02] MEDS: LOSARTAN 25 MG TAB PO SCH (08:56)
[2019-07-02] MEDS: SPIRONOLACTONE 25 MG TAB PO SCH (08:56)
[2019-07-02] MEDS: CLOPIDOGREL 75 MG TAB PO SCH (08:56)
[2019-07-02] MEDS: EZETIMIBE 10 MG TAB PO SCH (08:56)
[2019-07-02] MEDS: ASPIRIN 81 MG PO SCH (08:56)
[2019-07-02] MEDS: AZITHROMYCIN 500 MG TAB PO SCH (08:56)
[2019-07-02] MEDS: PANTOPRAZOLE 40 MG/10 ML VIAL IVP SCH (08:57)
[2019-07-02] MEDS: methylPREDNISolone SOD SUCCI 40 MG/ML 1 ML VIAL IV SCH (08:57)
[2019-07-02 11:33] LABS: Ferritin 963.2 ng/mL (22.0-322.0)
--- NOTE | 2019-07-02 11:51 | P.DS ---
Providers Date of admission: 06/30/19 11:24 Expected date of discharge: 07/02/19 Attending physician: Quan Silva Consults: 06/30/19 10:42 Consult Physician Routine Consulting Provider: Jamal Luther Consult Reason/Comments: COVID, hypoxia Do you want consulting provider notified?: Yes Primary care physician: Quan Silva [place] [facility] Course: Final Diagnoses: Acute COVID 19 pneumonia, right lower lobe infiltrate Acute hypoxic and hypercapnic respiratory failure secondary to the above Thrombocytopenia, mild with elevated inflammatory markers secondary to Covid CAD with history of [place], CABG, stenting Ischemic cardiomyopathy, history of V. fib, with AICD Hyperlipidemia Hospital course:This is a pleasant 68-year-old gentleman with history of CAD, hyperlipidemia, [place], CABG, osteoarthritis, ischemic cardiomyopathy, AICD, V. fib, peripheral vascular disease, former nicotine dependence and multiple other medical issues presented to the ER with worsening shortness of breath, cough, congestion, body aches, fever, chills, wheezing. Reported sore throat which had resolved. Denies nausea vomiting or diarrhea. Patient had been in [place] prior to with symptoms initiating on the Sunday after . Denies chest pain, palpitations or shortness of breath. Denies lightheadedness, dizziness or focal deficits. EKG reporting normal sinus rhythm, left anterior fascicular block. Chest x-ray on admission reported chronic changes without evidence for acute pulmonary disease. Follow-up chest x-ray reported mild infiltrate at the right base compatible with atelectasis, atypical pneumonia. Tested positive for coronavirus. C reactive protein 64.2, ferritin 1146.7 LDH 534, d-dimer 0.38. BUN 22, creatinine 1.03. Afebrile, T-max 101.9, normal WBC. Hypoxic on room air, down to 89%, placed on 2 L nasal cannula maintaining O2 sats in the low 90s. Pulmonary consulted. Maintained on Zithromax, Plaquenil, IV steroids .Significant clinical improvement. Cleared, pulmonary for discharge. Patient will be discharged home in stable condition with guarded prognosis. The impression and plan of care has been dictated as directed. : I performed a history and examination of this patient, discussed the same with the dictator. I agree with the dictator's note ,documented as a scribe. Any additional findings or plans will be noted. Patient Condition at Discharge: Stable Plan - Discharge Summary Discharge Rx Participant: No New Discharge Prescriptions: New Hydroxychloroquine Sulfate [Plaquenil] 200 mg PO BID #5 tab predniSONE 10 mg PO DIRECTED #30 tab Continue Spironolactone [Aldactone] 25 mg PO DAILY Aspirin 81 mg PO DAILY Losartan [Cozaar] 25 mg PO DAILY Atorvastatin [Lipitor] 80 mg PO HS Clopidogrel [Plavix] 75 mg PO DAILY Carvedilol 3.125 mg PO DAILY Multivitamins, Thera [Multivitamin (formulary)] 1 tab PO DAILY Ezetimibe [Zetia] 10 mg PO DAILY Discharge Medication List Aspirin 81 mg PO DAILY 03/20/14 [History] Spironolactone [Aldactone] 25 mg PO DAILY 03/20/14 [History] Atorvastatin [Lipitor] 80 mg PO HS 05/20/15 [History] Carvedilol 3.125 mg PO DAILY 05/20/15 [History] Clopidogrel [Plavix] 75 mg PO DAILY 05/20/15 [History] Losartan [Cozaar] 25 mg PO DAILY 05/20/15 [History] Ezetimibe [Zetia] 10 mg PO DAILY 06/30/19 [History] Multivitamins, Thera [Multivitamin (formulary)] 1 tab PO DAILY 06/30/19 [History] Hydroxychloroquine Sulfate [Plaquenil] 200 mg PO BID #5 tab 07/02/19 [Rx] predniSONE 10 mg PO DIRECTED #30 tab 07/02/19 [Rx] Follow up Appointment(s)/Referral(s): Quan Silva DO [Primary Care Provider] - 07/09/19 9:00 am [facility], [NON-STAFF] - As Needed Jamal Luther MD [STAFF PHYSICIAN] - 07/28/19 10:15 am Patient Instructions/Handouts: Viral Pneumonia (DC)
--- NOTE | 2019-07-02 12:44 | P.PN ---
Subjective Progress Note Date: 07/02/19 Principal diagnosis: Acute hypoxic respiratory failure,Covid 19 related pneumonia 68-year-old male patient, known history of coronary artery disease, multiple coronary stents, along with previous history of NM, ischemic cardiomyopathy and the patient has an AICD in place and addition to hyperlipidemia and history of smoking. The patient came into the hospital because of worsening shortness of breath in addition to her cough. The patient had diffuse body aches of few days' duration. No nausea. No vomiting. No diarrhea. His white cell count is at 6.1. Platelet counts of dropped down to 126. Lymphopenia. Creatinine is at 1.03 with a BUN of 22. Lactic acid level is at 1.1 and COVID 19 nasal swab came back positive. Influenza A and B are negative. He was hypoxic at 89% on room air and he was placed on 3 L of oxygen by nasal cannula with a pulse of 71%. Chest x-ray showing interstitial infiltrates bilaterally and peripherally. There is also an AICD in place. The d-dimer is low at 0.38. Coagulation profile is within normal limits. LDH is 534. CRP is at 64. His QT interval is 358 ms On 07/01/2019 patient seen in follow-up on general medical floor, he is awake and alert, her pulse ox is 96%, chest x-ray today looks slightly better, with mild infiltrate at the right base. Afebrile, hemodynamically stable, breathing appears to be comfortable. His labs have been reviewed, d-dimer is 0.37, LDH is within normal limits at 574, and CRP is 57.7 which is trending down. Patient remains on azithromycin, Plaquenil, IV steroids. On 07/02/2019 patient seen in follow-up on the general medical floor, he is doing well, no acute events overnight, breathing easier, is on 1 L of oxygen, his pulse ox is 96%, hemodynamically patient is stable, he is afebrile, respirations are nonlabored. Today's labs have been reviewed showing white blood cell count of 14.0, hemoglobin is 13.4, d-dimer is normal at 0.31, electrolytes were unremarkable, B1 is 27 creatinine is 1.06, ferritin is trending down down to 963.2, which is improving at 481. Procalcitonin was negative at 0.08, patient has been treated for Covid 19 infection with comminution plasma, IV steroids and azithromycin, clinically improved, and from pulmonary perspective a Chem-8 considered for discharge home today. Objective - Vital Signs Vital signs: Vital Signs Temp 97.8 F 07/02/19 07:00 Pulse 77 07/02/19 07:00 Resp 18 07/02/19 07:00 BP 125/76 07/02/19 07:00 Pulse Ox 96 07/02/19 07:00 Intake & Output 07/01/19 07/02/19 07/02/19 18:59 06:59 18:59 Intake Total 70 Output Total 300 Balance 70 -300 Intake: Intake, IV Titration 70 Amount Sodium Chloride 0.9% 1, 70 000 ml @ 10 mls/hr IV . Q24H [facility] Rx#:[id number] Output: Urine 300 Other: Voiding Method Toilet Toilet # Voids 1 - Exam GENERAL EXAM: Alert, very pleasant, 5-year-old white male, on room air, with a pulse ox of 96% on 1 L of oxygen comfortable in no apparent distress. HEAD: Normocephalic/atraumatic. EYES: Normal reaction of pupils, equal size. Conjunctiva pink, sclera white. NOSE: Clear with pink turbinates. THROAT: No erythema or exudates. NECK: No masses, no JVD, no thyroid enlargement, no adenopathy. CHEST: No chest wall deformity. Symmetrical expansion. LUNGS: Equal air entry with no crackles, wheeze, rhonchi or dullness. CVS: Regular rate and rhythm, normal S1 and S2, no gallops, no murmurs, no rubs ABDOMEN: Soft, nontender. No hepatosplenomegaly, normal bowel sounds, no guarding or rigidity. EXTREMITIES: No clubbing, no edema, no cyanosis, 2+ pulses and upper and lower extremities. MUSCULOSKELETAL: Muscle strength and tone normal. SPINE: No scoliosis or deformity SKIN: No rashes CENTRAL NERVOUS SYSTEM: Alert and oriented -3. No focal deficits, tone is normal in all 4 extremities. PSYCHIATRIC: Alert and oriented -3. Appropriate affect. Intact judgment and insight. - Labs CBC & Chem 7: 07/02/19 05:28 07/02/19 05:28 Labs: Abnormal Lab Results - Last 24 Hours (Table) 07/02/19 07/02/19 Range/Units 05:28 05:28 WBC 14.0 H (3.8-10.6) k/uL Neutrophils # 12.3 H (1.3-7.7) k/uL BUN 27 H (9-20) mg/dL Glucose 125 H (74-99) mg/dL Ferritin 963.2 H (22.0-322.0) ng/mL Microbiology - Last 24 Hours (Table) 06/30/19 09:31 Blood Culture - Preliminary Blood No Growth after 48 hours Assessment and Plan Plan: Assessment: #1. Acute COVID 19 related pneumonia with some minimal infiltrates peripherally in the lung bases #2. Acute hypoxic respiratory failure secondary to the above #3. Cough related to the above #4. Shortness of breath related to COVID 19 related infection #5. Mild thrombocytopenia secondary to Covid 19 related infection #6. Elevated inflammatory markers including LDH, CRP, tender to Covid 19 related infection #7. Coronary artery disease with previous NM and multivessel stenting #8. Ischemic cardiomyopathy with an AICD in place, history of V. fib #9. Previous history of coronary artery bypass surgery in 2012 #10. History of left carotid endarterectomy #11. Hyperlipidemia #12. Single-chamber AICD Plan: Patient is feeling better, breathing easier, no acute events overnight, his been afebrile, his inflammatory markers are trending down, vital signs have been stable, his been treated with chronic Plaquenil, Zithromax and Solu-Medrol for his Covid 19 related pneumonitis, he improved, and patient is going home today. I performed a history & physical examination of the patient and discussed their management with my nurse practitioner, Nicky Carrillo. I reviewed the nurse practitioner's note and agree with the documented findings and plan of care. Lung sounds are positive for diminished breath sounds. The findings and the impression was discussed with the patient. I attest to the documentation by the nurse practitioner. Time with Patient: Less than 30
[2019-07-03] MEDS ORDERED: predniSONE 20 MG TAB PO SCH (09:00)
== END 2019-07-02 12:35 | disposition home or self-care (01) | DRG 177 ==
LOC: EC 08:47 → 4SSUR 11:22 → UNDOADMIN 11:22 → 4SSUR 11:24
PROVIDERS: ADMIT Family Medicine; ATTEND Family Medicine
DX: U07.1 COVID-19 (principal); J12.89 Other viral pneumonia; J96.01 Acute respiratory failure with hypoxia; J96.02 Acute respiratory failure with hypercapnia; J98.11 Atelectasis; D69.59 Other secondary thrombocytopenia; D72.810 Lymphocytopenia; E78.5 Hyperlipidemia, unspecified; I25.10 Atherosclerotic heart disease of native coronary artery without angina pectoris; I25.2 Old myocardial infarction; I25.5 Ischemic cardiomyopathy; I44.4 Left anterior fascicular block; I73.9 Peripheral vascular disease, unspecified; Z87.891 Personal history of nicotine dependence; Z79.02 Long term (current) use of antithrombotics/antiplatelets; Z79.82 Long term (current) use of aspirin; Z79.899 Other long term (current) drug therapy; Z82.49 Family history of ischemic heart disease and other diseases of the circulatory system; Z95.1 Presence of aortocoronary bypass graft; Z95.5 Presence of coronary angioplasty implant and graft; Z95.810 Presence of automatic (implantable) cardiac defibrillator; R94.5 Abnormal results of liver function studies
CPT/HCPCS: 36415; 71045; 80048; 80053; 82728; 83605; 83615; 83735; 84145; 84484; 85025; 85379; 85610; 85730; 86140; 87040; 87502; 87635; 93005; 96360; 99284

== ENCOUNTER 2019-07-04 05:25 | Inpatient (IN) | payer MEDICARE, OTHER ==
--- NOTE | 2019-07-04 05:47 | XR ---
EXAMINATION TYPE: XR chest 1V portable DATE OF EXAM: 07/04/2019 COMPARISON: 07/01/2019 HISTORY: Pneumonia TECHNIQUE: FINDINGS: There is patchy airspace infiltrates in the lower lung gilliam and more on the left side. Th ere is no heart failure. There is left axillary pacemaker. There are sternal wires. IMPRESSION: Bilateral patchy pneumonia is slightly worse than last exam. No heart failure seen.
[2019-07-04 05:54] LABS: Basophils % (A) 0 %; Eosinophils % (A) 0 %; HCT 44.2 % (39.0-53.0); HGB 14.5 gm/dL (13.0-17.5); Lymphocytes # (A) 0.9 k/uL (1.0-4.8); Lymphocytes % (A) 5 %; MCHC 32.8 g/dL (31.0-37.0); MCV 91.5 fL (80.0-100.0); Monocytes # (A) 0.4 k/uL (0-1.0); Monocytes % (A) 2 %; Neutrophils # (A) 16.4 k/uL (1.3-7.7); Neutrophils % (A) 92 %; Platelet Count 231 k/uL (150-450); RBC 4.83 m/uL (4.30-5.90); RDW 13.3 % (11.5-15.5); WBC 17.9 k/uL (3.8-10.6)
[2019-07-04 06:04] LABS: ALT 26 U/L (4-49); AST 35 U/L (17-59); African American GFR (CKD) >90 (>60 ml/min/1.73 sqM); Albumin 3.7 g/dL (3.5-5.0); Alkaline Phosphatase 57 U/L (38-126); Anion Gap 13 mmol/L; Blood Urea Nitrogen 22 mg/dL (9-20); Calcium 8.9 mg/dL (8.4-10.2); Carbon Dioxide 24 mmol/L (22-30); Chloride 100 mmol/L (98-107); Glucose 117 mg/dL (74-99); LDH 642 U/L (313-618); Magnesium 1.8 mg/dL (1.6-2.3); Non-African American GFR(CKD) 80 (>60 ml/min/1.73 sqM); Potassium 4.6 mmol/L (3.5-5.1); Sodium 137 mmol/L (137-145); Total Protein 6.7 g/dL (6.3-8.2)
[2019-07-04 06:05] LABS: Prothrombin Time 10.5 sec (9.0-12.0)
[2019-07-04 06:07] LABS: D-Dimer 1.46 mg/L FEU (<0.60)
[2019-07-04] MEDS ORDERED: NALOXONE 0.4 MG/ML 1 ML VIAL IV PRN (06:10)
--- NOTE | 2019-07-04 07:24 | ED ---
SOB HPI - General Chief Complaint: Shortness of Breath Stated Complaint: SOB Time Seen by Provider: 07/04/19 05:31 Source: patient, EMS Mode of arrival: EMS Limitations: no limitations - History of Present Illness Initial Comments: This patient is a 68-year-old man who arrives here by ambulance to be evaluated for worsening of shortness of breath. The patient had recently been admitted for similar symptoms, was diagnosed with coronavirus infection, and after short stay had been discharged home. The patient states that over the course of last night his breathing significantly worsened. When he was not able to have any improvement at home he called EMS. EMS reports that when they arrived there they found his oxygen saturations in the mid 70s. He was tachypneic and tachycardic. When EMS placed the patient on nonrebreather oxygen they state that his respiratory effort did improve. Patient denies chest pain. Denies other changes on the review of systems. MD Complaint: shortness of breath -: hour(s) Severity scale (1-10): 0 Consistency: constant Improves With: nothing Worsens With: lying flat Known History Of: other Associated Symptoms: fever, cough Treatments Prior to Arrival: oxygen - Related Data Home Medications Medication Instructions Recorded Confirmed Aspirin 81 mg PO DAILY 03/20/14 07/04/19 Spironolactone [Aldactone] 25 mg PO DAILY 03/20/14 07/04/19 Atorvastatin [Lipitor] 80 mg PO HS 05/20/15 07/04/19 Carvedilol 3.125 mg PO DAILY 05/20/15 07/04/19 Clopidogrel [Plavix] 75 mg PO DAILY 05/20/15 07/04/19 Losartan [Cozaar] 25 mg PO DAILY 05/20/15 07/04/19 Ezetimibe [Zetia] 10 mg PO DAILY 06/30/19 07/04/19 Multivitamins, Thera [Multivitamin 1 tab PO DAILY 06/30/19 07/04/19 (formulary)] Previous Rx's Medication Instructions Recorded Hydroxychloroquine Sulfate 200 mg PO BID #5 tab 07/02/19 [Plaquenil] predniSONE 10 mg PO DIRECTED #30 tab 07/02/19 Allergies Allergy/AdvReac Type Severity Reaction Status Date / Time No Known Allergies Allergy Verified 07/04/19 07:19 Review of Systems ROS Statement: Those systems with pertinent positive or pertinent negative responses have been documented in the HPI. ROS Other: All systems not noted in ROS Statement are negative. Constitutional: Reports: fever ENT: Denies: throat pain Respiratory: Reports: cough, dyspnea. Denies: hemoptysis Cardiovascular: Reports: orthopnea. Denies: chest pain, edema, syncope Gastrointestinal: Denies: abdominal pain, vomiting, diarrhea Genitourinary: Denies: dysuria, hematuria Musculoskeletal: Denies: back pain Skin: Denies: rash Neurological: Denies: headache, weakness, numbness Past Medical History Past Medical History: Coronary Artery Disease (CAD), Hyperlipidemia, Myocardial Infarction (MS), Osteoarthritis (OA), Vascular Disorder Additional Past Medical History / Comment(s): ISCHEMIC CARDIOMYOPATHY, V-FIB., Peripheral Vascular disease. Last Myocardial Infarction Date:: 03/2012 History of Any Multi-Drug Resistant Organisms: None Reported Past Surgical History: AICD, Coronary Bypass/CABG, Heart Catheterization With Stent Additional Past Surgical History / Comment(s): Has 5 heart stents. Past Anesthesia/Blood Transfusion Reactions: No Reported Reaction Date of Last Stent Placement:: 03/2012 Type of Cardiac Device: AICD Device Placement Date:: 03/20/14 Past Psychological History: No Psychological Hx Reported Smoking Status: Former smoker Past Alcohol Use History: None Reported Past Drug Use History: None Reported - Past Family History Father Family Medical History: Cancer, CVA/TIA, Dialysis, Myocardial Infarction ([place]) Additional Family Medical History / Comment(s): CABG. General Exam Limitations: no limitations General appearance: alert, in distress (Patient is mildly tachypneic) Head exam: Present: atraumatic, normocephalic Eye exam: Present: normal appearance. Absent: scleral icterus, conjunctival inj ection ENT exam: Present: normal oropharynx Neck exam: Present: normal inspection Respiratory exam: Present: respiratory distress, wheezes, rales. Absent: rhonchi, stridor, accessory muscle use Cardiovascular Exam: Present: regular rate, normal rhythm, normal heart sounds. Absent: systolic murmur, diastolic murmur, rubs, gallop GI/Abdominal exam: Present: soft. Absent: distended, tenderness, guarding, rebound, rigid, mass Extremities exam: Present: normal inspection, normal capillary refill. Absent: pedal edema, calf tenderness Back exam: Present: normal inspection. Absent: CVA tenderness (R), CVA tenderness (L) Neurological exam: Present: alert Skin exam: Present: warm, dry, intact, normal color. Absent: rash Course Vital Signs 07/04/19 07/04/19 07/04/19 05:33 06:03 07:21 Temperature 98.3 F Pulse Rate 100 93 98 Respiratory 25 H 22 20 Rate Blood Pressure 145/83 145/83 145/83 O2 Sat by Pulse 96 94 L 97 Oximetry Medical Decision Making - Medical Decision Making Patient is 68-year-old man in with respiratory distress related to cocaine infection. The patient has not manifesting evidence of sepsis. No hypovolemia, and will at this point hold from fluid bolus with concerns of fluid overloading patient. Patient admitted with pulmonary consultation. - Lab Data Result diagrams: 07/04/19 05:38 07/04/19 05:38 Lab Results 07/04/19 07/04/19 07/04/19 Range/Units 05:38 05:38 05:38 WBC 17.9 H (3.8-10.6) k/uL RBC 4.83 (4.30-5.90) m/uL Hgb 14.5 (13.0-17.5) gm/dL Hct 44.2 (39.0-53.0) % MCV 91.5 (80.0-100.0) fL MCH 30.0 (25.0-35.0) pg MCHC 32.8 (31.0-37.0) g/dL RDW 13.3 (11.5-15.5) % Plt Count 231 (150-450) k/uL Neutrophils % 92 % Lymphocytes % 5 % Monocytes % 2 % Eosinophils % 0 % Basophils % 0 % Neutrophils # 16.4 H (1.3-7.7) k/uL Lymphocytes # 0.9 L (1.0-4.8) k/uL Monocytes # 0.4 (0-1.0) k/uL Eosinophils # 0.0 (0-0.7) k/uL Basophils # 0.0 (0-0.2) k/uL PT 10.5 (9.0-12.0) sec INR 1.0 (<1.2) APTT 23.0 (22.0-30.0) sec D-Dimer 1.46 H (<0.60) mg/L FEU Sodium 137 (137-145) mmol/L Potassium 4.6 (3.5-5.1) mmol/L Chloride 100 (98-107) mmol/L Carbon Dioxide 24 (22-30) mmol/L Anion Gap 13 mmol/L BUN 22 H (9-20) mg/dL Creatinine 0.96 (0.66-1.25) mg/dL Est GFR (CKD-EPI)AfAm >90 (>60 ml/min/1.73 sqM) Est GFR (CKD-EPI)NonAf 80 (>60 ml/min/1.73 sqM) Glucose 117 H (74-99) mg/dL Plasma Lactic Acid Sabas (0.7-2.0) mmol/L Calcium 8.9 (8.4-10.2) mg/dL Magnesium 1.8 (1.6-2.3) mg/dL Total Bilirubin 1.0 (0.2-1.3) mg/dL AST 35 (17-59) U/L ALT 26 (4-49) U/L Alkaline Phosphatase 57 (38-126) U/L Lactate Dehydrogenase 642 H (313-618) U/L C-Reactive Protein 221.0 H (<10.0) mg/L Total Protein 6.7 (6.3-8.2) g/dL Albumin 3.7 (3.5-5.0) g/dL Influenza Type A RNA (Not Detectd) Influenza Type B (PCR) (Not Detectd) 07/04/19 07/04/19 Range/Units 05:38 06:01 WBC (3.8-10.6) k/uL RBC (4.30-5.90) m/uL Hgb (13.0-17.5) gm/dL Hct (39.0-53.0) % MCV (80.0-100.0) fL MCH (25.0-35.0) pg MCHC (31.0-37.0) g/dL RDW (11.5-15.5) % Plt Count (150-450) k/uL Neutrophils % % Lymphocytes % % Monocytes % % Eosinophils % % Basophils % % Neutrophils # (1.3-7.7) k/uL Lymphocytes # (1.0-4.8) k/uL Monocytes # (0-1.0) k/uL Eosinophils # (0-0.7) k/uL Basophils # (0-0.2) k/uL PT (9.0-12.0) sec INR (<1.2) APTT (22.0-30.0) sec D-Dimer (<0.60) mg/L FEU Sodium (137-145) mmol/L Potassium (3.5-5.1) mmol/L Chloride (98-107) mmol/L Carbon Dioxide (22-30) mmol/L Anion Gap mmol/L BUN (9-20) mg/dL Creatinine (0.66-1.25) mg/dL Est GFR (CKD-EPI)AfAm (>60 ml/min/1.73 sqM) Est GFR (CKD-EPI)NonAf (>60 ml/min/1.73 sqM) Glucose (74-99) mg/dL Plasma Lactic Acid Sabas 3.2 H* (0.7-2.0) mmol/L Calcium (8.4-10.2) mg/dL Magnesium (1.6-2.3) mg/dL Total Bilirubin (0.2-1.3) mg/dL AST (17-59) U/L ALT (4-49) U/L Alkaline Phosphatase (38-126) U/L Lactate Dehydrogenase (313-618) U/L C-Reactive Protein (<10.0) mg/L Total Protein (6.3-8.2) g/dL Albumin (3.5-5.0) g/dL Influenza Type A RNA Not Detected (Not Detectd) Influenza Type B (PCR) Not Detected (Not Detectd) Disposition Clinical Impression: COVID-19, Acute respiratory failure, Hypoxemia Disposition: ADMITTED IP TO THIS HOSP Condition: Serious
[2019-07-04] MEDS: SODIUM CHLORIDE 0.9% 1,000 ML IV SCH (08:32)
[2019-07-04] MEDS: CARVEDILOL 3.125 MG TAB PO SCH (10:44)
[2019-07-04] MEDS: LOSARTAN 25 MG TAB PO SCH (10:44)
[2019-07-04] MEDS: EZETIMIBE 10 MG TAB PO SCH (10:45)
[2019-07-04] MEDS: CLOPIDOGREL 75 MG TAB PO SCH (10:45)
[2019-07-04] MEDS: SPIRONOLACTONE 25 MG TAB PO SCH (10:45)
[2019-07-04] MEDS: HYDROXYCHLOROQUINE SULFATE 200 MG TAB PO SCH ×2 (10:45→22:12)
[2019-07-04] MEDS: ACETAMINOPHEN TAB 325 MG TAB PO PRN (10:45)
[2019-07-04] MEDS: ASPIRIN 81 MG PO SCH (10:47)
[2019-07-04 11:39] LABS: Ferritin 1480.5 ng/mL (22.0-322.0)
--- NOTE | 2019-07-04 14:41 | P.CNPUL ---
History of Present Illness Consult date: 07/04/19 Reason for consult: dyspnea, hypoxemia History of present illness: This is a 68-year-old male patient who came into the emergency department sharon use of worsening shortness of breath. He is known to me. He was diagnosed having a COVID 19 infection and I was involved in his care during an earlier hospitalization of 06/30/2019. The patient did well and the patient was discharged home to be readmitted because of worsening shortness of breath. He was found to be quite hypoxic with a pulse ox of in the 70s at a time of his ED evaluation. He was also tachypneic and tachycardic. He was placed on 100% nonrebreather facemask and currently his pulse ox is around 94%. Chest x-ray shows interstitial infiltrates bilaterally with probably some interval worsening compared to the chest x-ray from 2 days back. Note that the patient was develop ing diffuse body aches at a time of his initial diagnosis. No nausea. No vomiting. No diarrhea. He had some lymphopenia which have improved. He also had thrombocytopenia which has improved. His lactic acid level at time of admission was 3.2 and dropped down to 1.5. Rest of the blood work and electrodes are all within normal limits. He has history of coronary artery disease, previous PA, ischemic cardiomyopathy and he has an AICD in place. He has also history of hyperlipidemia. Based on my previous evaluation here in the hospital, the patient d-dimer was nonelevated and he had mild elevation of the CRP and the LDH levels. His current for calcitonin level is at 0.15. His proBNP level is 1230. His LDH level from today is 42 which is slightly elevated compared to the previous evaluation and his CRP level is 2020 which is also elevated compared to his previous evaluation. His ferritin level is 1480. Note that the patient received Plaquenil during his earlier hospitalization. Review of Systems Constitutional: Reports fatigue, Reports fever, Reports weakness Eyes: denies as per HPI, denies blurred vision, denies bulging eye, denies decreased vision, denies diplopia, denies discharge, denies dry eye, denies irritation, denies itching, denies pain, denies photophobia, denies loss of peripheral vision, denies loss of vision, denies tunnel vision/blind spots Ears: deny: decreased hearing, ear discharge, earache, tinnitus Ears, nose, mouth and throat: Reports as per HPI Breasts: absent: as per HPI, gynecomastia Cardiovascular: Reports decreased exercise tolerance, Reports dyspnea on exertion Respiratory: Reports cough, Reports dyspnea and there is worsening shortness of breath and worsening and hypoxemia Gastrointestinal: Reports as per HPI Genitourinary: Reports as per HPI Musculoskeletal: Reports as per HPI Musculoskeletal: absent: ankle pain, ankle stiffness, ankle swelling Integumentary: Reports as per HPI Neurological: Reports as per HPI Psychiatric: Reports as per HPI Endocrine: Reports as per HPI, Reports increase in ring/shoe/hat size Allergic/Immunologic: Reports as per HPI Past Medical History Past Medical History: Coronary Artery Disease (CAD), Hyperlipidemia, Myocardial Infarction ([place]), Osteoarthritis (OA), Vascular Disorder Additional Past Medical History / Comment(s): ISCHEMIC CARDIOMYOPATHY, V-FIB., Peripheral Vascular disease, Covid 19 infection Last Myocardial Infarction Date:: 03/2012 History of Any Multi-Drug Resistant Organisms: None Reported Past Surgical History: AICD, Coronary Bypass/CABG, Heart Catheterization With Stent Additional Past Surgical History / Comment(s): Has 5 heart stents. Past Anesthesia/Blood Transfusion Reactions: No Reported Reaction Date of Last Stent Placement:: 03/2012 Type of Cardiac Device: AICD Device Placement Date:: 03/20/14 Past Psychological History: No Psychological Hx Reported Smoking Status: Former smoker Past Alcohol Use History: None Reported Additional Past Alcohol Use History / Comment(s): Quit in 1998, smoked 1-5 PPD, started as a teenager. Past Drug Use History: None Reported - Past Family History Father Family Medical History: Cancer, CVA/TIA, Dialysis, Myocardial Infarction ([place]) Additional Family Medical History / Comment(s): CABG. Medications and Allergies Home Medications Medication Instructions Recorded Confirmed Type Aspirin 81 mg PO DAILY 03/20/14 07/04/19 History Spironolactone [Aldactone] 25 mg PO DAILY 03/20/14 07/04/19 History Atorvastatin [Lipitor] 80 mg PO HS 05/20/15 07/04/19 History Carvedilol 3.125 mg PO DAILY 05/20/15 07/04/19 History Clopidogrel [Plavix] 75 mg PO DAILY 05/20/15 07/04/19 History Losartan [Cozaar] 25 mg PO DAILY 05/20/15 07/04/19 History Ezetimibe [Zetia] 10 mg PO DAILY 06/30/19 07/04/19 History Multivitamins, Thera [Multivitamin 1 tab PO DAILY 06/30/19 07/04/19 History (formulary)] Hydroxychloroquine Sulfate 200 mg PO BID #5 tab 07/02/19 07/04/19 Rx [Plaquenil] predniSONE See Taper PO DIRECTED 07/04/19 07/04/19 History Allergies Allergy/AdvReac Type Severity Reaction Status Date / Time No Known Allergies Allergy Verified 07/04/19 07:19 Physical Exam Vitals: Vital Signs Temp Pulse Pulse Resp BP BP Pulse Ox 07/04/19 13:15 75 26 H 86/56 92 L 07/04/19 13:00 78 27 H 108/65 92 L 07/04/19 12:45 80 28 H 108/65 93 L 07/04/19 12:30 84 28 H 108/65 92 L 07/04/19 12:24 97 22 07/04/19 12:15 90 22 108/65 92 L 07/04/19 12:00 100.6 F H 94 22 102/62 93 L 07/04/19 11:19 102.5 F H 97 26 H 136/63 91 L 07/04/19 09:55 24 07/04/19 09:50 101.6 F H 98 24 127/64 93 L 07/04/19 09:09 98.7 F 98 22 131/77 94 L 07/04/19 08:08 99 22 116/72 95 07/04/19 07:21 98 20 145/83 97 07/04/19 06:03 93 22 145/83 94 L 07/04/19 05:33 98.3 F 100 25 H 145/83 96 Intake and Output 07/03/19 07/04/19 07/04/19 22:59 06:59 14:59 Intake Total 50 Balance 50 Intake: IV 10 Invasive Line 1 10 Intake, IV Titration 40 Amount Sodium Chloride 0.9% 1, 40 000 ml @ 20 mls/hr IV . Q24H [facility] Rx#:[id number] Other: Weight 94.8 kg 95 kg The patient appeared well nourished and normally developed. The patient is a mild degree of respiratory distress. He is in the 100% nonrebreather facemask. He would easily desaturate while being off the mask. Vital signs as documented. Head exam is unremarkable. No scleral icterus or corneal arcus noted. Neck is without jugular venous distension, thyromegaly, or carotid bruits. Carotid upstrokes are brisk bilaterally. Lungs sounds are diminished and the patient limited crackles in lung bases bilaterally. Cardiac exam reveals the PMI to be normally sized and situated. Rhythm is regular. First and second heart sounds normal. No murmurs, rubs or gallops. Abdominal exam reveals normal bowel sounds, no masses, no organomegaly and no aortic enlargement. Extremities are nonedematous and both femoral and pedal pulses are normal.Examination of the skin revealed no evidence of significant rashes, suspicious appearing nevi or other concerning lesions. The patient has an AICD pocket over the anterior chest area. Neurologically the patient is awake and alert and there is no focal neurological deficits. Note that the patient was having episodic coughing fits with some limited shortness of breath. Results - Laboratory Findings CBC and BMP: 07/04/19 05:38 07/04/19 05:38 PT/INR, D-dimer PT 10.5 sec (9.0-12.0) 07/04/19 05:38 INR 1.0 (<1.2) 07/04/19 05:38 D-Dimer 1.46 mg/L FEU (<0.60) H 07/04/19 05:38 Abnormal lab findings: Abnormal Labs 07/04/19 07/04/19 07/04/19 05:38 05:38 05:38 WBC 17.9 H Neutrophils # 16.4 H Lymphocytes # 0.9 L D-Dimer 1.46 H BUN 22 H Glucose 117 H Plasma Lactic Acid Sabas Ferritin 1480.5 H Lactate Dehydrogenase 642 H C-Reactive Protein 221.0 H Procalcitonin 07/04/19 07/04/19 05:38 05:38 WBC Neutrophils # Lymphocytes # D-Dimer BUN Glucose Plasma Lactic Acid Sabas 3.2 H* Ferritin Lactate Dehydrogenase C-Reactive Protein Procalcitonin 0.15 H - Diagnostic Findings Chest x-ray: image reviewed Assessment and Plan Plan: 1 acute hypoxic respiratory failure most likely related to an acute Covid 19 related pneumonia as the patient's chest x-ray showed worsening in the interstitial infiltrates that were peripheral and more so in the lung bases. Nevertheless, his progress at lower level is slightly elevated and the patient has a white cell count. This obviously raises the concern for a superinfection including the possibility of hospital-acquired pathogens. I am more inclined in covering this patient with broad-spectrum antibiotics pending further workup. Patient is currently on 100% nonrebreather facemask. 2 shortness of breath secondary to above 3 cough secondary to above 4 thrombocytopenia and lymphopenia related to Covid 19 infection, improved 5 elevated inflammatory markers including ferritin and LDH and C-reactive protein all related to Covid 19 infection 6 coronary artery disease with previous PA and previous multivessel stenting 7 ischemic cardiomyopathy and the patient has an AICD in place along with previous history of ventricular fibrillation 8 coronary artery bypass surgery was done in 2012 9 left carotid endarterectomy 10 history of single chamber AICD placement 11 hyperlipidemia Plan Transfer this patient to the intensive care unit Keep the patient on 100% nonrebreather facemask Put the patient IV Solu Medrol for the grams every 12 hours No need for Plaquenil Cover the patient with IV Zosyn as an empiric antibiotic coverage regarding the possibility of superinfection as the patient's white cell count and pro- calcitonin levels are elevated, and consider hospital-acquired pathogens Monitor inflammatory markers We'll continue to follow make further recommendations based on his progress. For now he is going to be transferred to the intensive care unit. We will monitor the inflammatory markers. No need for repeating Plaquenil treatment at this point in time. Keep the patient in droplet isolation.
--- NOTE | 2019-07-04 16:15 | P.HPIM ---
History of Present Illness H&P Date: 07/04/19 Chief Complaint: Worsening dyspnea This is a pleasant 68-year-old gentleman recently admitted on the testing positive for Covid 19, received Plaquenil ,discharged on 07/02/2019 ,with history of CAD, hyperlipidemia, MN, CABG, osteoarthritis, ischemic cardiomyopathy, AICD, V. fib, peripheral vascular disease, former nicotine dependence and multiple other medical issues presented to the ER with worsening shortness of breath accompanied by fevers, fatigue. EMS reports patient tachypneic, tachycardic with O2 sats in the mid 70s on arrival .patient was placed on nonrebreather mask with improvement.afebrile admission, T-max 102.5. WBC 17.9 .Lactic acid 3.2 down to 1.5.Blood cultures obtained. Chest x-ray reporting bilateral patchy pneumonia slightly worse than last exam without heart failure. Denies chest pain, palpitations or shortness of breath. Denies lighthe adedness, dizziness or focal deficits. EKG reporting normal sinus rhythm, left anterior fascicular block. Ferritin 1480.5. ( prev. 1146.7) C reactive protein 221( prev. 64.2) LDH 642 (prev 534) ,d-dimer 1.46( prev. 0.38.) BUN 22, creatinine 0.96. Na WNL. Procalcitonin levels elevated. Influenza A and B not detected. Pulmonary consulted. Interleukin 6 pending. Patient is being transferred to the ICU. Review of Systems ROS Statement: Those systems with pertinent positive or pertinent negative responses have been documented in the HPI. ROS Other: All systems not noted in ROS Statement are negative. Past Medical History Past Medical History: Coronary Artery Disease (CAD), Hyperlipidemia, Myocardial Infarction (MN), Osteoarthritis (OA), Vascular Disorder Additional Past Medical History / Comment(s): ISCHEMIC CARDIOMYOPATHY, V-FIB., Peripheral Vascular disease. Last Myocardial Infarction Date:: 03/2012 History of Any Multi-Drug Resistant Organisms: None Reported Past Surgical History: AICD, Coronary Bypass/CABG, Heart Catheterization With Stent Additional Past Surgical History / Comment(s): Has 5 heart stents. Past Anesthesia/Blood Transfusion Reactions: No Reported Reaction Date of Last Stent Placement:: 03/2012 Type of Cardiac Device: AICD Device Placement Date:: 03/20/14 Past Psychological History: No Psychological Hx Reported Smoking Status: Former smoker Past Alcohol Use History: None Reported Past Drug Use History: None Reported - Past Family History Father Family Medical History: Cancer, CVA/TIA, Dialysis, Myocardial Infarction (MN) Additional Family Medical History / Comment(s): CABG. Medications and Allergies Home Medications Medication Instructions Recorded Confirmed Type Aspirin 81 mg PO DAILY 03/20/14 07/04/19 History Spironolactone [Aldactone] 25 mg PO DAILY 03/20/14 07/04/19 History Atorvastatin [Lipitor] 80 mg PO HS 05/20/15 07/04/19 History Carvedilol 3.125 mg PO DAILY 05/20/15 07/04/19 History Clopidogrel [Plavix] 75 mg PO DAILY 05/20/15 07/04/19 History Losartan [Cozaar] 25 mg PO DAILY 05/20/15 07/04/19 History Ezetimibe [Zetia] 10 mg PO DAILY 06/30/19 07/04/19 History Multivitamins, Thera [Multivitamin 1 tab PO DAILY 06/30/19 07/04/19 History (formulary)] Hydroxychloroquine Sulfate 200 mg PO BID #5 tab 07/02/19 07/04/19 Rx [Plaquenil] predniSONE See Taper PO DIRECTED 07/04/19 07/04/19 History Allergies Allergy/AdvReac Type Severity Reaction Status Date / Time No Known Allergies Allergy Verified 07/04/19 07:19 Physical Exam Vitals: Vital Signs Temp Pulse Resp BP Pulse Ox 07/04/19 07:21 98 20 145/83 97 07/04/19 06:03 93 22 145/83 94 L 07/04/19 05:33 98.3 F 100 25 H 145/83 96 Intake and Output 07/03/19 07/04/19 07/04/19 22:59 06:59 14:59 Other: Weight 94.8 kg PHYSICAL EXAM: VITAL SIGNS: [as above] GENERAL: Lying in bed with eyes covered, wearing a nonrebreather HEENT: Conjunctivae normal. eyes normal. NECK: No JVD. No thyroid enlargement. No LNs CARDIOVASCULAR: S1, S2 regular.. No murmur. RESPIRATION: Breath sounds diminished in the bases. No rhonchi, fine basilar crackles. ABDOMEN: Soft, nontender . No guarding. no masses palpable. No ascites, No hepatosplenomegaly.Bowel sounds heard. LEGS: No edema. no swelling PSYCHIATRY: Alert and oriented X3, mood and affect normal. NERVOUS SYSTEM: Cranial N 2-12 grossly normal. Moves all 4 limbs. Diffuse weakness No focal deficits. Strength and sensation grossly intact.. Skin: no rash Lymphatic system. No LN neck axilla Results CBC & Chem 7: 07/04/19 05:38 07/04/19 05:38 Labs: Abnormal Lab Results - Last 24 Hours (Table) 07/04/19 07/04/19 07/04/19 Range/Units 05:38 05:38 05:38 WBC 17.9 H (3.8-10.6) k/uL Neutrophils # 16.4 H (1.3-7.7) k/uL Lymphocytes # 0.9 L (1.0-4.8) k/uL D-Dimer 1.46 H (<0.60) mg/L FEU BUN 22 H (9-20) mg/dL Glucose 117 H (74-99) mg/dL Plasma Lactic Acid Sabas (0.7-2.0) mmol/L Lactate Dehydrogenase 642 H (313-618) U/L C-Reactive Protein 221.0 H (<10.0) mg/L 07/04/19 Range/Units 05:38 WBC (3.8-10.6) k/uL Neutrophils # (1.3-7.7) k/uL Lymphocytes # (1.0-4.8) k/uL D-Dimer (<0.60) mg/L FEU BUN (9-20) mg/dL Glucose (74-99) mg/dL Plasma Lactic Acid Sabas 3.2 H* (0.7-2.0) mmol/L Lactate Dehydrogenase (313-618) U/L C-Reactive Protein (<10.0) mg/L Assessment and Plan Assessment: Acute COVID 19 bilateral pneumonia, worsening x-ray, greater on the left side. Leukocytosis secondary to the above Acute hypoxic and hypercapnic respiratory failure secondary to Covid 19 pneumonia Thrombocytopenia secondary to Covid 19 infection CAD with history of MN, CABG, stenting Ischemic cardiomyopathy, history of V. fib, with AICD Hyperlipidemia Plan: Continue on current medication regime ,monitoring and symptomatic treatment. IV antibiotics of Zosyn initiated. Possible steroids as per pulmonary. Transfer to ICU. GI Prophylaxis with PPI. Prognosis guarded given multiple complex medical issues. The impression and plan of care has been dictated as directed. : I performed a history and examination of this patient, discussed the same with the dictator. I agree with the dictator's note ,documented as a scribe. Any additional findings or plans will be noted.
[2019-07-04] MEDS: PANTOPRAZOLE 40 MG/10 ML VIAL IVP SCH (17:28)
[2019-07-04] MEDS: PIPERACILLIN-TAZOBACTAM 3.375 GM in SODIUM CHLORIDE 0.9% 100 ML IVPB SCH ×2 (17:29→23:31)
[2019-07-04] MEDS: methylPREDNISolone SOD SUCCI 40 MG/ML 1 ML VIAL IV SCH (21:03)
[2019-07-04 21:39] LABS: ABG Base Excess 0.1 mmol/L; ABG HCO3 24 mmol/L (21-25); ABG Oxygen Saturation 89.2 % (94-97); ABG PCO2 31 mmHg (35-45); ABG PH 7.49 (7.35-7.45); ABG TCO2 25 mmol/L (19-24); Allen Test Performed? Yes
[2019-07-04] MEDS: ATORVASTATIN 80 MG TAB PO SCH (22:12)
[2019-07-04 22:26] LABS: ABG PO2 52 mmHg (83-108)
[2019-07-05 05:34] LABS: Basophils % (A) 0 %; Eosinophils % (A) 0 %; HCT 41.6 % (39.0-53.0); HGB 13.8 gm/dL (13.0-17.5); Lymphocytes # (A) 0.9 k/uL (1.0-4.8); Lymphocytes % (A) 5 %; MCH 30.5 pg (25.0-35.0); MCHC 33.1 g/dL (31.0-37.0); MCV 92.1 fL (80.0-100.0); Mean Platelet Volume 8.9; Monocytes # (A) 0.5 k/uL (0-1.0); Monocytes % (A) 3 %; Neutrophils % (A) 91 %; Platelet Count 236 k/uL (150-450); RBC 4.52 m/uL (4.30-5.90); RDW 13.2 % (11.5-15.5); WBC 17.6 k/uL (3.8-10.6)
[2019-07-05 05:43] LABS: Potassium 4.5 mmol/L (3.5-5.1)
[2019-07-05 05:46] LABS: ALT 22 U/L (4-49); AST 31 U/L (17-59); African American GFR (CKD) >90 (>60 ml/min/1.73 sqM); Albumin 3.3 g/dL (3.5-5.0); Alkaline Phosphatase 55 U/L (38-126); Anion Gap 10 mmol/L; Blood Urea Nitrogen 21 mg/dL (9-20); Calcium 8.6 mg/dL (8.4-10.2); Carbon Dioxide 24 mmol/L (22-30); Chloride 102 mmol/L (98-107); Creatine Kinase 53 U/L (55-170); Glucose 134 mg/dL (74-99); LDH 645 U/L (313-618); Non-African American GFR(CKD) 83 (>60 ml/min/1.73 sqM); Sodium 136 mmol/L (137-145); Total Bilirubin 1.3 mg/dL (0.2-1.3); Total Protein 6.1 g/dL (6.3-8.2)
--- NOTE | 2019-07-05 06:39 | XR ---
EXAMINATION TYPE: XR chest 1V portable DATE OF EXAM: 07/05/2019 HISTORY: SOB. REFERENCE: Previous study dated 07/04/2019. FINDINGS: There has been a midline sternotomy. There is a unipolar pacemaker place on the left. There is patchy bilateral pneumonia, worse on the left than the right. Heart size upper limits of nor mal. Both CP angles are blunted and I could not exclude small effusions. There does not appear to hav e been a significant change from previous. IMPRESSION: NO SIGNIFICANT INTERVAL CHANGE IN THE APPEARANCE OF THE CHEST.
[2019-07-05] MEDS: SODIUM CHLORIDE 0.9% 1,000 ML IV SCH (06:46)
[2019-07-05] MEDS: PIPERACILLIN-TAZOBACTAM 3.375 GM in SODIUM CHLORIDE 0.9% 100 ML IVPB SCH ×2 (07:55→20:11)
[2019-07-05] MEDS: PANTOPRAZOLE 40 MG/10 ML VIAL IVP SCH (07:56)
[2019-07-05] MEDS: methylPREDNISolone SOD SUCCI 40 MG/ML 1 ML VIAL IV SCH ×2 (07:56→20:09)
[2019-07-05 08:44] LABS: C Reactive Protein 381.6 mg/L (<10.0)
[2019-07-05] MEDS: ASPIRIN 81 MG PO SCH (09:04)
[2019-07-05] MEDS: LOSARTAN 25 MG TAB PO SCH (09:04)
[2019-07-05] MEDS: SPIRONOLACTONE 25 MG TAB PO SCH (09:04)
[2019-07-05] MEDS: CARVEDILOL 3.125 MG TAB PO SCH (09:04)
[2019-07-05] MEDS: EZETIMIBE 10 MG TAB PO SCH (09:04)
[2019-07-05] MEDS: CLOPIDOGREL 75 MG TAB PO SCH (09:04)
[2019-07-05] MEDS: HYDROXYCHLOROQUINE SULFATE 200 MG TAB PO SCH (09:05)
--- NOTE | 2019-07-05 10:19 | P.PN ---
Subjective On-call hospitalist covering Dr. Silva over the weekend, Dr. Silva and his team will resume the care of the patient on 07/07/2019 From the records This is a pleasant 68-year-old gentleman recently admitted on the testing positive for Covid 19, received Plaquenil ,discharged on 07/02/2019 ,with history of CAD, hyperlipidemia, AR, CABG, osteoarthritis, ischemic cardiomyopathy, AICD, V. fib, peripheral vascular disease, former nicotine dependence and multiple other medical issues presented to the ER with worsening shortness of breath accompanied by fevers, fatigue. EMS reports patient tachypneic, tachycardic with O2 sats in the mid 70s on arrival .patient was placed on nonrebreather mask with improvement.afebrile admission, T-max 102.5. WBC 17.9 .Lactic acid 3.2 down to 1.5.Blood cultures obtained. Chest x-ray reporting bilateral patchy pneumonia slightly worse than last exam without heart failure. Denies chest pain, palpitations or shortness of breath. Denies lightheadedness, dizziness or focal deficits. EKG reporting normal sinus rhythm, left anterior fascicular block. Ferritin 1480.5. ( prev. 1146.7) C reactive protein 221( prev. 64.2) LDH 642 (prev 534) ,d-dimer 1.46( prev. 0.38.) BUN 22, creatinine 0.96. Na WNL. Procalcitonin levels elevated. Influenza A and B not detected. Pulmonary consulted. Interleukin 6 pending. Patient is being transferred to the ICU. 07/05/2019 this is a pleasant 68 years old male who was recently discharged from the hospital after found to be Covid positive, patient was discharge home after short stay in the hospital, however his dyspnea got worse and he came to the ospital back on 07/03. He was hypoxic with saturations in the 70s and patient eventually was admitted to the ICU with pulmonary/critical care consult Patient still tachypneic and has respiratory distress. About 10 PM he gets more hypoxic and he was placed on nonrebreather at 15 L oxygen and he was placed on a prone position. This morning when they put him on his back his saturation dropped to 80-87% Vitals showing redirected 20-28. He saturating 92% on 15 L oxygen via nonrebreather. At fever earlier of 99.9, compared to 102.5 yesterday. He has leukocytosis of 17.6 K, sodium 136, electrolytes of potassium and creatinine are normal. Humeral markers are elevated loading LDH, 13, and C-reactive protein. Procolcitinin 0.15, elevated. Patient is currently on aspirin and Plavix, he is also on Solu-Medrol at 40 mg twice a day, he is on Zosyn and got 1 dose of tocilizumab . he recently rec eived treatment for Plaquenil Review of systems CONSTITUTIONAL: No fever, no malaise, no fatigue. HEENT: No recent visual problems or hearing problems. Denied any sore throat. CARDIOVASCULAR: No orthopnea, PND, no palpitations, no syncope. GASTROINTESTINAL: No diarrhea, no nausea, no vomiting, no abdominal pain. Normoactive bowel sounds. NEUROLOGICAL: No headaches, no weakness, no numbness. HEMATOLOGICAL: Denies any bleeding or petechiae. GENITOURINARY: Denies any burning micturition, frequency, or urgency. MUSCULOSKELETAL/RHEUMATOLOGICAL: Denies any joint pain, swelling, or any muscle pain. ENDOCRINE: Denies any polyuria or polydipsia. Active Medications Generic Name Dose Route Start Last Admin Trade Name Freq PRN Reason Stop Dose Admin Acetaminophen 650 mg 07/04/19 05:38 07/04/19 10:45 Tylenol Tab PO 650 mg Q4HR PRN Administration Fever>101 Aspirin 81 mg 07/04/19 09:00 07/05/19 09:04 Aspirin PO 81 mg DAILY JEAN Administration Atorvastatin Calcium 80 mg 07/04/19 21:00 07/04/19 22:12 Lipitor PO Not Given HS JEAN Carvedilol 3.125 mg 07/04/19 09:00 07/05/19 09:04 Coreg PO 3.125 mg DAILY JEAN Administration Clopidogrel Bisulfate 75 mg 07/04/19 09:00 07/05/19 09:04 Plavix PO 75 mg DAILY JEAN Administration Ezetimibe 10 mg 07/04/19 09:00 07/05/19 09:04 Zetia PO 10 mg DAILY JEAN Administration Sodium Chloride 1,000 mls @ 20 mls/hr 07/04/19 06:15 07/05/19 06:46 Saline 0.9% IV 20 mls/hr .Q24H JEAN Administration Piperacillin Sod/Tazobactam 100 mls @ 25 mls/hr 07/04/19 16:00 07/05/19 07:55 Sod 3.375 gm/ Sodium Chloride IVPB 25 mls/hr Q8HR JEAN Administration Tocilizumab 400 mg/ Sodium 100 mls @ 100 mls/hr 07/05/19 08:18 Chloride IV 07/05/19 09:17 ONCE ONE Losartan Potassium 25 mg 07/04/19 09:00 07/05/19 09:04 Cozaar PO 25 mg DAILY JEAN Administration Methylprednisolone Sodium Succinate 40 mg 07/04/19 21:00 07/05/19 07:56 Solu-Medrol IV 40 mg Q12HR JEAN Administration Naloxone HCl 0.2 mg 07/04/19 06:10 Narcan IV Q2M PRN Opioid Reversal Pantoprazole Sodium 40 mg 07/04/19 16:00 07/05/19 07:56 Protonix IVP 40 mg DAILY JEAN Administration Spironolactone 25 mg 07/04/19 09:00 07/05/19 09:04 Aldactone PO 25 mg DAILY JEAN Administration Objective - Vital Signs Vital signs: Vital Signs Temp 97.7 F 07/05/19 08:00 Pulse 97 07/05/19 08:12 Resp 28 H 07/05/19 08:12 BP 112/67 07/05/19 08:00 Pulse Ox 92 L 07/05/19 08:00 Intake & Output 07/04/19 07/05/19 07/05/19 18:59 06:59 18:59 Intake Total 150 340 40 Output Total 100 600 Balance 50 -260 40 Weight 95 kg 93.7 kg Intake: IV 10 Invasive Line 1 10 Intake, IV Titration 140 340 40 Amount Piperacillin-Tazobactam 3 100 .375 gm In Sodium Chloride 0.9% 100 ml @ 25 mls/hr IVPB Q8HR JEAN Rx# :[id number] Sodium Chloride 0.9% 1, 140 240 40 000 ml @ 20 mls/hr IV . Q24H [facility] Rx#:[id number] Output: Urine 100 600 Other: Voiding Method Urinal Urinal - Exam GENERAL: The patient is alert and oriented x3, not in any acute distress. Well developed, well nourished. HEENT: Pupils are round and equally reacting to light. EOMI. No scleral icterus. No conjunctival pallor. Normocephalic, atraumatic. No pharyngeal erythema. No thyromegaly. CARDIOVASCULAR: S1 and S2 present. No murmurs, rubs, or gallops. -PULMONARY: Chest is clear to auscultation, tachypneic with decreased breath sounds on both sides ABDOMEN: Soft, nontender, nondistended, normoactive bowel sounds. No palpable organomegaly. MUSCULOSKELETAL: No joint swelling or deformity. EXTREMITIES: No cyanosis, clubbing, or pedal edema. NEUROLOGICAL: Gross neurological examination did not reveal any focal deficits. SKIN: No rashes. no petechiae. - Labs CBC & Chem 7: 07/05/19 05:11 07/05/19 05:11 Labs: Abnormal Lab Results - Last 24 Hours (Table) 07/04/19 07/04/19 07/04/19 Range/Units 05:38 05:38 21:36 WBC (3.8-10.6) k/uL Neutrophils # (1.3-7.7) k/uL Lymphocytes # (1.0-4.8) k/uL ABG pH 7.49 H (7.35-7.45) ABG pCO2 31 L (35-45) mmHg ABG pO2 52 L* (83-108) mmHg ABG Total CO2 25 H (19-24) mmol/L ABG O2 Saturation 89.2 L (94-97) % Sodium (137-145) mmol/L BUN (9-20) mg/dL Glucose (74-99) mg/dL Ferritin 1480.5 H (22.0-322.0) ng/mL Lactate Dehydrogenase (313-618) U/L Creatine Kinase (55-170) U/L C-Reactive Protein (<10.0) mg/L Total Protein (6.3-8.2) g/dL Albumin (3.5-5.0) g/dL Procalcitonin 0.15 H (0.02-0.09) ng/mL 07/05/19 07/05/19 Range/Units 05:11 05:11 WBC 17.6 H (3.8-10.6) k/uL Neutrophils # 16.0 H (1.3-7.7) k/uL Lymphocytes # 0.9 L (1.0-4.8) k/uL ABG pH (7.35-7.45) ABG pCO2 (35-45) mmHg ABG pO2 (83-108) mmHg ABG Total CO2 (19-24) mmol/L ABG O2 Saturation (94-97) % Sodium 136 L (137-145) mmol/L BUN 21 H (9-20) mg/dL Glucose 134 H (74-99) mg/dL Ferritin (22.0-322.0) ng/mL Lactate Dehydrogenase 645 H (313-618) U/L Creatine Kinase 53 L (55-170) U/L C-Reactive Protein 381.6 H (<10.0) mg/L Total Protein 6.1 L (6.3-8.2) g/dL Albumin 3.3 L (3.5-5.0) g/dL Procalcitonin (0.02-0.09) ng/mL Microbiology - Last 24 Hours (Table) 07/04/19 06:17 Blood Culture - Preliminary Blood No Growth after 24 hours Assessment and Plan Assessment: -Covid 19 pneumonia with sepsis. With possible superimposed bacterial infection, suspected hospital-acquired pneumonia currently on Zosyn. on plaquenil alva tlerlin as he finished his treatment earlier -Acute hypoxic respiratory failure -Sepsis with SIRS criteria with fever, tachypnea and leukocytosis -History of coronary artery disease status post CABG and stenting -Ischemic cardiomyopathy with history of V. fib status post AICD Hyperlipidemia Plan: This is a pleasant 68 years old male who presents with worsening Covid-19 infe ction with possible superimposed bacterial infection. Patient already received Plaquenil previously. Currently on Zosyn. Follow-up culture results. Continue with oxygen therapy. Monitor closely in the ICU, possible patient might need intubation. pulmonary/critical care team on the case. Labs and medication were reviewed.. Continue same treatment. Continue with symptomatic treatment. Resume home medication. Monitor lytes and vitals. DVT and GI prophylaxis. Further recommendations of the clinical course of the patient DVT prophylaxis: Subcutaneous heparin GI Prophylaxis: Ppi Prognosis is guarded
--- NOTE | 2019-07-05 13:01 | P.PN ---
Subjective Progress Note Date: 07/05/19 This is a 68-year-old male patient who came into the emergency department because of worsening shortness of breath. He is known to me. He was diagnosed having a COVID 19 infection and I was involved in his care during an earlier hospitalization of 06/30/2019. The patient did well and the patient was d ischarged home to be readmitted because of worsening shortness of breath. He was found to be quite hypoxic with a pulse ox of in the 70s at a time of his ED evaluation. He was also tachypneic and tachycardic. He was placed on 100% nonrebreather facemask and currently his pulse ox is around 94%. Chest x-ray shows interstitial infiltrates bilaterally with probably some interval worsening compared to the chest x-ray from 2 days back. Note that the patient was developing diffuse body aches at a time of his initial diagnosis. No nausea. No vomiting. No diarrhea. He had some lymphopenia which have improved. He also had thrombocytopenia which has improved. His lactic acid level at time of admission was 3.2 and dropped down to 1.5. Rest of the blood work and electrodes are all within normal limits. He has history of coronary artery disease, previous NC, ischemic cardiomyopathy and he has an AICD in place. He has also history of hyperlipidemia. Based on my previous evaluation here in the hospital, the patient d-dimer was nonelevated and he had mild elevation of the CRP and the LDH levels. His current for calcitonin level is at 0.15. His proBNP level is 1230. His LDH level from today is 42 which is slightly elevated compared to the previous evaluation and his CRP level is 2020 which is also elevated compared to his previous evaluation. His ferritin level is 1480. Note that the patient received Plaquenil during his earlier hospitalization. On 07/04/2009 the patient is being seen in intensive care unit. The patient got transferred because of his worsening hypoxemia. He was placed on on the percent nonrebreather facemask. Overnight, his oxygenation got worse and the patient had further desaturation. Based on that, I added another 10 L of nasal cannula in addition to the 100% nonrebreather facemask and the patient was placed in a prone body position. This improved his oxygenation and the patient's pulse ox currently around 94%. He desaturates whenever he turns back supine. He is however comfortable. He is not having any major respiratory distress. No tachypnea. His white cell count is at 17.6 and the patient also had some mild elevation of the pro-calcitonin level. Based on that he was placed on empiric antibiotic coverage with IV Zosyn. Noted the blood gases was done yesterday at a time of desaturation 100% nonrebreather facemask showed a pH of 7.49 with a pCO2 of 31 and pO2 52 and this is consistent with acute respiratory alkalosis and acute hypoxemia secondary to Covid 19 pneumonia. Hemodynamically stable. He is having episodes of fever. LDH level is at 645. CRP is at 381. The patient's ferritin level is still pending. Meanwhile, tidal consistent with a consent and consideration for [id number] therapy. No nausea. No vomiting. No altered mentation. No other complaints otherwise for now. Objective - Vital Signs Vital signs: Vital Signs Temp 97.9 F 07/05/19 12:00 Pulse 97 07/05/19 12:00 Resp 19 07/05/19 12:00 BP 104/64 07/05/19 12:00 Pulse Ox 93 L 07/05/19 12:00 Intake & Output 07/04/19 07/05/19 07/05/19 18:59 06:59 18:59 Intake Total 150 340 120 Output Total 100 600 475 Balance 50 -260 -355 Weight 95 kg 93.7 kg Intake: IV 10 Invasive Line 1 10 Intake, IV Titration 140 340 120 Amount Piperacillin-Tazobactam 3 100 .375 gm In Sodium Chloride 0.9% 100 ml @ 25 mls/hr IVPB Q8HR [facility] Rx# :[id number] Sodium Chloride 0.9% 1, 140 240 120 000 ml @ 20 mls/hr IV . Q24H [facility] Rx#:[id number] Output: Urine 100 600 475 Other: Voiding Method Urinal Urinal - Exam The patient appeared well nourished and normally developed. The patient is a mild degree of respiratory distress. He is in the 100% nonrebreather facemask. He would easily desaturate while being off the mask. The patient is in a prone erinn position for now. 10 L of oxygen by nasal cannula was also added in conjunction with the 100% nonrebreather facemask. His current pulse ox is in the order of 91-94%. Vital signs as documented. Head exam is unremarkable. No scleral icterus or corneal arcus noted. Neck is without jugular venous distension, thyromegaly, or carotid bruits. Carotid upstrokes are brisk bilaterally. Lungs sounds are diminished and the patient limited crackles in lung bases bilaterally. Cardiac exam reveals the PMI to be normally sized and situated. Rhythm is regular. First and second heart sounds normal. No murmurs, rubs or gallops. Abdominal exam reveals normal bowel sounds, no masses, no organomegaly and no aortic enlargement. Extremities are nonedematous and both fe moral and pedal pulses are normal.Examination of the skin revealed no evidence of significant rashes, suspicious appearing nevi or other concerning lesions. The patient has an AICD pocket over the anterior chest area. Neurologically the patient is awake and alert and there is no focal neurological deficits. Note that the patient was having episodic coughing fits with some limited shortness of breath. - Labs CBC & Chem 7: 07/05/19 05:11 07/05/19 05:11 Labs: Abnormal Lab Results - Last 24 Hours (Table) 07/04/19 07/05/19 07/05/19 Range/Units 21:36 05:11 05:11 WBC 17.6 H (3.8-10.6) k/uL Neutrophils # 16.0 H (1.3-7.7) k/uL Lymphocytes # 0.9 L (1.0-4.8) k/uL D-Dimer (<0.60) mg/L FEU ABG pH 7.49 H (7.35-7.45) ABG pCO2 31 L (35-45) mmHg ABG pO2 52 L* (83-108) mmHg ABG Total CO2 25 H (19-24) mmol/L ABG O2 Saturation 89.2 L (94-97) % Sodium 136 L (137-145) mmol/L BUN 21 H (9-20) mg/dL Glucose 134 H (74-99) mg/dL Lactate Dehydrogenase 645 H (313-618) U/L Creatine Kinase 53 L (55-170) U/L C-Reactive Protein 381.6 H (<10.0) mg/L Total Protein 6.1 L (6.3-8.2) g/dL Albumin 3.3 L (3.5-5.0) g/dL 07/05/19 Range/Units 08:53 WBC (3.8-10.6) k/uL Neutrophils # (1.3-7.7) k/uL Lymphocytes # (1.0-4.8) k/uL D-Dimer 1.26 H (<0.60) mg/L FEU ABG pH (7.35-7.45) ABG pCO2 (35-45) mmHg ABG pO2 (83-108) mmHg ABG Total CO2 (19-24) mmol/L ABG O2 Saturation (94-97) % Sodium (137-145) mmol/L BUN (9-20) mg/dL Glucose (74-99) mg/dL Lactate Dehydrogenase (313-618) U/L Creatine Kinase (55-170) U/L C-Reactive Protein (<10.0) mg/L Total Protein (6.3-8.2) g/dL Albumin (3.5-5.0) g/dL Microbiology - Last 24 Hours (Table) 07/04/19 06:17 Blood Culture - Preliminary Blood No Growth after 24 hours Assessment and Plan Plan: 1 acute hypoxic respiratory failure most likely related to an acute Covid 19 related pneumonia as the patient's chest x-ray showed worsening in the interstitial infiltrates that were peripheral and more so in the lung bases. Nevertheless, his progress at lower level is slightly elevated and the patient has a white cell count. This obviously raises the concern for a superinfection including the possibility of hospital-acquired pathogens. I am more inclined in covering this patient with broad-spectrum antibiotics pending further workup. Patient is currently on 100% nonrebreather facemask. On 07/05/2019, the patient got transferred to the intensive care unit because of worsening hypoxemia. His blood gases showed hypoxemia on 100% nonrebreather facemask and the patient also had some respiratory alkalosis. He was placed on a 10 L of oxygen by nasal cannula in conjunction with the nonrebreather facemask at 100% and the patient was placed in a prone body position. His oxygenation improved and will going to monitor his progress and avoids intubation if possible. The chest x-ray findings show no significant interval change in the apices of the chest and the patient has patchy bilateral pulmonary pneumonia worse on the left than the right. He is also on IV Zosyn as an empiric antibiotic coverage. 2 shortness of breath secondary to above 3 cough secondary to above, still stable 4 thrombocytopenia and lymphopenia related to Covid 19 infection, improved 5 elevated inflammatory markers including ferritin and LDH and C-reactive protein all related to Covid 19 infection 6 coronary artery disease with previous NC and previous multivessel stenting 7 ischemic cardiomyopathy and the patient has an AICD in place along with previous history of ventricular fibrillation 8 coronary artery bypass surgery was done in 2012 9 left carotid endarterectomy 10 history of single chamber AICD placement 11 hyperlipidemia Plan Monitor this patient in intensive care unit Keep the patient on 100% nonrebreather facemask, keep nasal cannula at 15 L and keep the patient a prone body position. Put the patient IV Solu Medrol for the grams every 12 hours No need for Plaquenil Awaiting interleukin-6 levels. A prescription will be sent for [id number] therapy consideration. Cover the patient with IV Zosyn as an empiric antibiotic coverage regarding the possibility of superinfection as the patient's white cell count and pro- calcitonin levels are elevated, and consider hospital-acquired pathogens Monitor inflammatory markers, the markers are still elevated and the patient continues to have fever. We'll continue to follow make further recommendations based on his progress. Time with Patient: Greater than 30
[2019-07-05 17:28] LABS: Ferritin 2208.8 ng/mL (22.0-322.0)
[2019-07-05] MEDS: HEPARIN SODIUM,PORCINE 5,000 UNIT/ML 1 ML VIAL SQ SCH (20:09)
[2019-07-05] MEDS: ATORVASTATIN 80 MG TAB PO SCH (20:10)
[2019-07-05] MEDS: ACETAMINOPHEN TAB 325 MG TAB PO PRN (21:56)
[2019-07-06] MEDS: PIPERACILLIN-TAZOBACTAM 3.375 GM in SODIUM CHLORIDE 0.9% 100 ML IVPB SCH ×3 (02:43→17:21)
[2019-07-06 05:37] LABS: Basophils # (A) 0.1 k/uL (0-0.2); Basophils % (A) 0 %; Eosinophils % (A) 0 %; HCT 43.3 % (39.0-53.0); HGB 13.9 gm/dL (13.0-17.5); Hypochromasia Slight; Lymphocytes # (A) 0.8 k/uL (1.0-4.8); Lymphocytes % (A) 4 %; MCH 29.5 pg (25.0-35.0); MCHC 32.1 g/dL (31.0-37.0); Mean Platelet Volume 8.8; Monocytes # (A) 0.7 k/uL (0-1.0); Monocytes % (A) 4 %; Neutrophils # (A) 17.2 k/uL (1.3-7.7); Neutrophils % (A) 91 %; Platelet Count 265 k/uL (150-450); RDW 13.1 % (11.5-15.5)
--- NOTE | 2019-07-06 06:31 | XR ---
EXAMINATION TYPE: XR chest 1V portable DATE OF EXAM: 07/06/2019 HISTORY: SOB. REFERENCE: Previous study dated 07/05/2019. FINDINGS: There has been a midline sternotomy. A unipolar pacemaker is in place on the left. Peripheral infiltrates persist but have improved slightly. The heart is not enlarged. Pleural spaces are clear. IMPRESSION: IMPROVING BILATERAL INFILTRATES.
[2019-07-06 07:36] LABS: ALT 25 U/L (4-49); AST 40 U/L (17-59); African American GFR (CKD) >90 (>60 ml/min/1.73 sqM); Albumin 3.1 g/dL (3.5-5.0); Alkaline Phosphatase 51 U/L (38-126); Anion Gap 6 mmol/L; Blood Urea Nitrogen 29 mg/dL (9-20); Calcium 8.7 mg/dL (8.4-10.2); Carbon Dioxide 24 mmol/L (22-30); Chloride 107 mmol/L (98-107); Creatine Kinase 120 U/L (55-170); Glucose 125 mg/dL (74-99); LDH 709 U/L (313-618); Non-African American GFR(CKD) 87 (>60 ml/min/1.73 sqM); Potassium 4.4 mmol/L (3.5-5.1); Sodium 137 mmol/L (137-145); Total Bilirubin 0.8 mg/dL (0.2-1.3)
[2019-07-06 07:47] LABS: C Reactive Protein 197.7 mg/L (<10.0)
[2019-07-06] MEDS: CLOPIDOGREL 75 MG TAB PO SCH (10:58)
[2019-07-06] MEDS: SPIRONOLACTONE 25 MG TAB PO SCH (10:58)
[2019-07-06] MEDS: LOSARTAN 25 MG TAB PO SCH (10:58)
[2019-07-06] MEDS: HEPARIN SODIUM,PORCINE 5,000 UNIT/ML 1 ML VIAL SQ SCH ×2 (10:58→20:42)
[2019-07-06] MEDS: EZETIMIBE 10 MG TAB PO SCH (10:58)
[2019-07-06] MEDS: PANTOPRAZOLE 40 MG/10 ML VIAL IVP SCH (10:58)
[2019-07-06] MEDS: ASPIRIN 81 MG PO SCH (10:58)
[2019-07-06] MEDS: methylPREDNISolone SOD SUCCI 40 MG/ML 1 ML VIAL IV SCH ×2 (10:58→20:42)
[2019-07-06] MEDS: CARVEDILOL 3.125 MG TAB PO SCH (10:59)
[2019-07-06] MEDS: SODIUM CHLORIDE 0.9% 1,000 ML IV SCH (12:43)
--- NOTE | 2019-07-06 13:03 | P.PN ---
Subjective Progress Note Date: 07/06/19 This is a 68-year-old male patient who came into the emergency department because of worsening shortness of breath. He is known to me. He was diagnosed having a COVID 19 infection and I was involved in his care during an earlier hospitalization of 06/30/2019. The patient did well and the patient was d ischarged home to be readmitted because of worsening shortness of breath. He was found to be quite hypoxic with a pulse ox of in the 70s at a time of his ED evaluation. He was also tachypneic and tachycardic. He was placed on 100% nonrebreather facemask and currently his pulse ox is around 94%. Chest x-ray shows interstitial infiltrates bilaterally with probably some interval worsening compared to the chest x-ray from 2 days back. Note that the patient was developing diffuse body aches at a time of his initial diagnosis. No nausea. No vomiting. No diarrhea. He had some lymphopenia which have improved. He also had thrombocytopenia which has improved. His lactic acid level at time of admission was 3.2 and dropped down to 1.5. Rest of the blood work and electrodes are all within normal limits. He has history of coronary artery disease, previous CO, ischemic cardiomyopathy and he has an AICD in place. He has also history of hyperlipidemia. Based on my previous evaluation here in the hospital, the patient d-dimer was nonelevated and he had mild elevation of the CRP and the LDH levels. His current for calcitonin level is at 0.15. His proBNP level is 1230. His LDH level from today is 42 which is slightly elevated compared to the previous evaluation and his CRP level is 2020 which is also elevated compared to his previous evaluation. His ferritin level is 1480. Note that the patient received Plaquenil during his earlier hospitalization. On 07/04/2009 the patient is being seen in intensive care unit. The patient got transferred because of his worsening hypoxemia. He was placed on on the percent nonrebreather facemask. Overnight, his oxygenation got worse and the patient had further desaturation. Based on that, I added another 10 L of nasal cannula in addition to the 100% nonrebreather facemask and the patient was placed in a prone body position. This improved his oxygenation and the patient's pulse ox currently around 94%. He desaturates whenever he turns back supine. He is however comfortable. He is not having any major respiratory distress. No tachypnea. His white cell count is at 17.6 and the patient also had some mild elevation of the pro-calcitonin level. Based on that he was placed on empiric antibiotic coverage with IV Zosyn. Noted the blood gases was done yesterday at a time of desaturation 100% nonrebreather facemask showed a pH of 7.49 with a pCO2 of 31 and pO2 52 and this is consistent with acute respiratory alkalosis and acute hypoxemia secondary to Covid 19 pneumonia. Hemodynamically stable. He is having episodes of fever. LDH level is at 645. CRP is at 381. The patient's ferritin level is still pending. Meanwhile, tidal consistent with a consent and consideration for [id number] therapy. No nausea. No vomiting. No altered mentation. No other complaints otherwise for now. On 07/05/2009, the patient is being monitored very closely regarding his Covid 19 pneumonia and severe hypoxemia. Note that throughout the day yesterday the patient was on the percent nonrebreather facemask and 15 L of oxygen by nasal cannula. Note that the patient is being also placed in the prone body position. He does better on his side and in the prone body position with his pulse ox improves and comes up to 90%. We are allowing lower pulse ox saturations as long as the patient is not having any major symptoms. No altered mentation. No signs of any significant respiratory distress. No chest pain. He has limited cough and congestion. No significant sputum production. He is not having any fever. He was having. 48 hours ago. His LDH level is 709. His C-reactive protein is 197. His white cell count is at 19.0. D-dimer is at 1.26. His pro- calcitonin level was also elevated at 0.15. Based on elevation of protein calcitonin and white cell count, cover this patient with IV Zosyn. The chest x- ray findings showing persistent bilateral pulmonary infiltrates without any significant improvement. Cardiac structures essentially unchanged. The patient is also a pacemaker in place. No nausea. No vomiting. No diarrhea. No altered mentation. Interleukin-6 levels have been sent and is also still pending for now. The patient remains on IV Zosyn, IV Solu-Medrol, heparin subcu for DVT prophylaxis and this will be continued. The d-dimer level from yesterday was down to 1.26. Objective - Vital Signs Vital signs: Vital Signs Temp 98.0 F 07/06/19 12:00 Pulse 90 07/06/19 12:00 Resp 19 07/06/19 12:00 BP 90/33 07/06/19 12:00 Pulse Ox 89 L 07/06/19 12:00 Intake & Output 07/05/19 07/06/19 07/06/19 18:59 06:59 18:59 Intake Total 240 240 120 Output Total 675 250 550 Balance -435 -10 -430 Weight 92.8 kg Intake: IV 100 0.9 NACL 100 Intake, IV Titration 240 240 20 Amount Sodium Chloride 0.9% 1, 240 240 20 000 ml @ 20 mls/hr IV . Q24H [facility] Rx#:[id number] Output: Urine 675 250 550 Other: Voiding Method Urinal Urinal - Exam The patient appeared well nourished and normally developed. The patient is a mild degree of respiratory distress. He is in the 100% nonrebreather facemask. He would easily desaturate while being off the mask. The patient is in a prone erinn position for now. 15 L of oxygen by nasal cannula was also added in conjunction with the 100% nonrebreather facemask. His current pulse ox is in the order of 91-94%. Vital signs as documented. Head exam is unremarkable. No scleral icterus or corneal arcus noted. Neck is without jugular venous distension, thyromegaly, or carotid bruits. Carotid upstrokes are brisk bilaterally. Lungs sounds are diminished and the patient limited crackles in lung bases bilaterally. Cardiac exam reveals the PMI to be normally sized and situated. Rhythm is regular. First and second heart sounds normal. No murmurs, rubs or gallops. Abdominal exam reveals normal bowel sounds, no masses, no organomegaly and no aortic enlargement. Extremities are nonedematous and both femoral and pedal pulses are normal.Examination of the skin revealed no evidence of significant rashes, suspicious appearing nevi or other concerning lesions. The patient has an AICD pocket over the anterior chest area. Neurologically the patient is awake and alert and there is no focal neurological deficits. Note that the patient was having episodic coughing fits with some limited shortness of breath. - Labs CBC & Chem 7: 07/06/19 05:06 07/06/19 06:59 Labs: Abnormal Lab Results - Last 24 Hours (Table) 07/05/19 07/06/19 07/06/19 Range/Units 05:11 05:06 06:59 WBC 19.0 H (3.8-10.6) k/uL Neutrophils # 17.2 H (1.3-7.7) k/uL Lymphocytes # 0.8 L (1.0-4.8) k/uL BUN 29 H (9-20) mg/dL Glucose 125 H (74-99) mg/dL Ferritin 2208.8 H (22.0-322.0) ng/mL Lactate Dehydrogenase 709 H (313-618) U/L C-Reactive Protein 197.7 H (<10.0) mg/L Total Protein 6.0 L (6.3-8.2) g/dL Albumin 3.1 L (3.5-5.0) g/dL Microbiology - Last 24 Hours (Table) 07/04/19 06:17 Blood Culture - Preliminary Blood No Growth after 48 hours Assessment and Plan Plan: 1 acute hypoxic respiratory failure most likely related to an acute Covid 19 related pneumonia as the patient's chest x-ray showed worsening in the interstitial infiltrates that were peripheral and more so in the lung bases. Nevertheless, his progress at lower level is slightly elevated and the patient has a white cell count. This obviously raises the concern for a superinfection including the possibility of hospital-acquired pathogens. I am more inclined in covering this patient with broad-spectrum antibiotics pending further workup. The patient was given IV Zosyn as an empiric antibiotic coverage. On 07/06/2019, the patient is on 15 L about 2 by nasal cannula in addition to 100% nonrebreather facemask. We are allowing lower pulse ox is long as the patient is not having any neurologic symptoms or any significant pulmonary symptoms and he continues to be quite comfortable without any significant respiratory difficulties with tachypnea or use of accessory muscles of breathing. He does better on a prone body position and the patient is going to be prone as much as possible for extended period of time. The is awake proning.. Inflammatory markers were checked. There interleukin-6 level is pending for now. The patient was ordered to receive Actemra and I'm going to discuss this further with Dr. Keith to approve this medication as the patient does not eat everything extremity that has been put forth through our health system. Nevertheless, I he should be a good candidate for that. D-dimer is down to 1.26 and the patient is on subcu heparin for DVT prophylaxis. 2 shortness of breath secondary to above 3 cough secondary to above, still stable 4 thrombocytopenia and lymphopenia related to Covid 19 infection, improved 5 elevated inflammatory markers including ferritin and LDH and C-reactive protein all related to Covid 19 infection 6 coronary artery disease with previous CO and previous multivessel stenting 7 ischemic cardiomyopathy and the patient has an AICD in place along with previous history of ventricular fibrillation 8 coronary artery bypass surgery was done in 2012 9 left carotid endarterectomy 10 history of single chamber AICD placement 11 hyperlipidemia Plan Monitor this patient in intensive care unit Keep the patient on 100% nonrebreather facemask, keep nasal cannula at 15 L and keep the patient a prone body position. Put the patient IV Solu Medrol for the grams every 12 hours No need for Plaquenil as the patient has received Plaquenil with no improvement Awaiting interleukin-6 levels. A prescription will be sent for [id number] therapy consideration. I believe this patient would be a good candidate for interleukin-6 therapy antagonism Cover the patient with IV Zosyn as an empiric antibiotic coverage regarding the possibility of superinfection as the patient's white cell count and pro- calcitonin levels are elevated, and consider hospital-acquired pathogens Monitor inflammatory markers, the markers are still elevated and the patient continues to have fever. There is a possibility the patient will need intubation mechanical ventilation. I'm trying to delay this intubation process as long as the patient is not having major symptoms along with his hypoxemia. We'll continue prone positioning in addition to high oxygen flow through 100% nonrebreather facemask and a nasal cannula. Condition is critical. We'll continue to follow. We'll continue to follow make further recommendations based on his progress. Time with Patient: Greater than 30
[2019-07-06] MEDS: ACETAMINOPHEN TAB 325 MG TAB PO PRN (13:05)
--- NOTE | 2019-07-06 14:29 | P.PN ---
Subjective On-call hospitalist covering Dr. Silva over the weekend, Dr. Silva and his team will resume the care of the patient on 07/07/2019 From the records This is a pleasant 68-year-old gentleman recently admitted on the testing positive for Covid 19, received Plaquenil ,discharged on 07/02/2019 ,with history of CAD, hyperlipidemia, DC, CABG, osteoarthritis, ischemic cardiomyopathy, AICD, V. fib, peripheral vascular disease, former nicotine dependence and multiple other medical issues presented to the ER with worsening shortness of breath accompanied by fevers, fatigue. EMS reports patient tachypneic, tachycardic with O2 sats in the mid 70s on arrival .patient was placed on nonrebreather mask with improvement.afebrile admission, T-max 102.5. WBC 17.9 .Lactic acid 3.2 down to 1.5.Blood cultures obtained. Chest x-ray reporting bilateral patchy pneumonia slightly worse than last exam without heart failure. Denies chest pain, palpitations or shortness of breath. Denies lightheadedness, dizziness or focal deficits. EKG reporting normal sinus rhythm, left anterior fascicular block. Ferritin 1480.5. ( prev. 1146.7) C reactive protein 221( prev. 64.2) LDH 642 (prev 534) ,d-dimer 1.46( prev. 0.38.) BUN 22, creatinine 0.96. Na WNL. Procalcitonin levels elevated. Influenza A and B not detected. Pulmonary consulted. Interleukin 6 pending. Patient is being transferred to the ICU. 07/05/2019 this is a pleasant 68 years old male who was recently discharged from the hospital after found to be Covid positive, patient was discharge home after short stay in the hospital, however his dyspnea got worse and he came to the ospital back on 07/03. He was hypoxic with saturations in the 70s and patient eventually was admitted to the ICU with pulmonary/critical care consult Patient still tachypneic and has respiratory distress. About 10 PM he gets more hypoxic and he was placed on nonrebreather at 15 L oxygen and he was placed on a prone position. This morning when they put him on his back his saturation dropped to 80-87% Vitals showing redirected 20-28. He saturating 92% on 15 L oxygen via nonrebreather. At fever earlier of 99.9, compared to 102.5 yesterday. He has leukocytosis of 17.6 K, sodium 136, electrolytes of potassium and creatinine are normal. Humeral markers are elevated loading LDH, 13, and C-reactive protein. Procolcitinin 0.15, elevated. Patient is currently on aspirin and Plavix, he is also on Solu-Medrol at 40 mg twice a day, he is on Zosyn and got 1 dose of tocilizumab . he recently rec eived treatment for Plaquenil 07/06/2019 Patient remains in the ICU but moved to negative pressure room for possible need for intubation. A still awake and oriented 3, follow commands. However he still dyspneic. His line on the site and at times on the prone position per staff. History: 50 L oxygen via nonrebreather, with possible anticipating intubation especially if his pulmonary status, he is tachypneic a febrile for more than 24 hours. WBC and 19 K, inflammatory markers are elevated which goes with his Covid 19 infection, but also he is on Solu-Medrol 40 mg, also he is on Zosyn and he got TOCILLIZUMAB Also patient is on aspirin Plavix and subcu heparin Repeat chest x-ray this morning showed improved bilateral infiltrates Review of systems CONSTITUTIONAL: No fever, no malaise, no fatigue. HEENT: No recent visual problems or hearing problems. Denied any sore throat. CARDIOVASCULAR: No orthopnea, PND, no palpitations, no syncope. GASTROINTESTINAL: No diarrhea, no nausea, no vomiting, no abdominal pain. Normoactive bowel sounds. NEUROLOGICAL: No headaches, no weakness, no numbness. HEMATOLOGICAL: Denies any bleeding or petechiae. GENITOURINARY: Denies any burning micturition, frequency, or urgency. MUSCULOSKELETAL/RHEUMATOLOGICAL: Denies any joint pain, swelling, or any muscle pain. ENDOCRINE: Denies any polyuria or polydipsia. Active Medications Generic Name Dose Route Start Last Admin Trade Name Freq PRN Reason Stop Dose Admin Acetaminophen 650 mg 07/04/19 05:38 07/06/19 13:05 Tylenol Tab PO 650 mg Q4HR PRN Administration Fever>101 Aspirin 81 mg 07/04/19 09:00 07/06/19 10:58 Aspirin PO 81 mg DAILY JEAN Administration Atorvastatin Calcium 80 mg 07/04/19 21:00 07/05/19 20:10 Lipitor PO 80 mg HS JEAN Administration Carvedilol 3.125 mg 07/04/19 09:00 07/06/19 10:59 Coreg PO 3.125 mg DAILY JEAN Administration Clopidogrel Bisulfate 75 mg 07/04/19 09:00 07/06/19 10:58 Plavix PO 75 mg DAILY JEAN Administration Ezetimibe 10 mg 07/04/19 09:00 07/06/19 10:58 Zetia PO 10 mg DAILY JEAN Administration Heparin Sodium (Porcine) 5,000 unit 07/05/19 21:00 07/06/19 10:58 Heparin SQ 5,000 unit Q12HR JEAN Administration Sodium Chloride 1,000 mls @ 20 mls/hr 07/04/19 06:15 07/06/19 12:43 Saline 0.9% IV 20 mls/hr .Q24H JEAN Administration Piperacillin Sod/Tazobactam 100 mls @ 25 mls/hr 07/04/19 16:00 07/06/19 12:43 Sod 3.375 gm/ Sodium Chloride IVPB 25 mls/hr Q8HR JEAN Administration Tocilizumab 400 mg/ Sodium 100 mls @ 100 mls/hr 07/06/19 15:00 Chloride IV 07/06/19 15:59 ONCE ONE Losartan Potassium 25 mg 07/04/19 09:00 07/06/19 10:58 Cozaar PO 25 mg DAILY JEAN Administration Methylprednisolone Sodium Succinate 40 mg 07/04/19 21:00 07/06/19 10:58 Solu-Medrol IV 40 mg Q12HR JEAN Administration Naloxone HCl 0.2 mg 07/04/19 06:10 Narcan IV Q2M PRN Opioid Reversal Pantoprazole Sodium 40 mg 07/07/19 09:00 Protonix PO DAILY JEAN Spironolactone 25 mg 07/04/19 09:00 07/06/19 10:58 Aldactone PO 25 mg DAILY JEAN Administration Objective - Vital Signs Vital signs: Vital Signs Temp 98.0 F 07/06/19 12:00 Pulse 83 07/06/19 13:00 Resp 20 07/06/19 13:00 BP 130/79 07/06/19 13:00 Pulse Ox 89 L 07/06/19 13:00 Intake & Output 07/05/19 07/06/1920 18:59 06:59 18:59 Intake Total 240 240 140 Output Total 675 250 650 Balance -447 -10 -993 Weight 92.8 kg Intake: IV 120 0.9 NACL 120 Intake, IV Titration 240 240 20 Amount Sodium Chloride 0.9% 1, 240 240 20 000 ml @ 20 mls/hr IV . Q24H [facility] Rx#:[id number] Output: Urine 675 250 650 Other: Voiding Method Urinal Urinal - Exam GENERAL: The patient is alert and oriented x3, not in any acute distress. Well developed, well nourished. HEENT: Pupils are round and equally reacting to light. EOMI. No scleral icterus. No conjunctival pallor. Normocephalic, atraumatic. No pharyngeal erythema. No thyromegaly. CARDIOVASCULAR: S1 and S2 present. No murmurs, rubs, or gallops. -PULMONARY: Chest is clear to auscultation, tachypneic with decreased breath sounds on both sides ABDOMEN: Soft, nontender, nondistended, normoactive bowel sounds. No palpable organomegaly. MUSCULOSKELETAL: No joint swelling or deformity. EXTREMITIES: No cyanosis, clubbing, or pedal edema. NEUROLOGICAL: Gross neurological examination did not reveal any focal deficits. SKIN: No rashes. no petechiae. - Labs CBC & Chem 7: 07/06/19 05:06 07/06/19 06:59 Labs: Abnormal Lab Results - Last 24 Hours (Table) 07/05/19 07/06/19 07/06/19 Range/Units 05:11 05:06 06:59 WBC 19.0 H (3.8-10.6) k/uL Neutrophils # 17.2 H (1.3-7.7) k/uL Lymphocytes # 0.8 L (1.0-4.8) k/uL BUN 29 H (9-20) mg/dL Glucose 125 H (74-99) mg/dL Ferritin 2208.8 H (22.0-322.0) ng/mL Lactate Dehydrogenase 709 H (313-618) U/L C-Reactive Protein 197.7 H (<10.0) mg/L Total Protein 6.0 L (6.3-8.2) g/dL Albumin 3.1 L (3.5-5.0) g/dL Microbiology - Last 24 Hours (Table) 07/04/19 06:17 Blood Culture - Preliminary Blood No Growth after 48 hours Assessment and Plan Assessment: -Covid 19 pneumonia with sepsis. With possible superimposed bacterial infection, suspected hospital-acquired pneumonia currently on Zosyn. on plaquenil currently as he finished his treatment earlier -Acute hypoxic respiratory failure -Sepsis with SIRS criteria with fever, tachypnea and leukocytosis -History of coronary artery disease status post CABG and stenting -Ischemic cardiomyopathy with history of V. fib status post AICD Hyperlipidemia Plan: This is a pleasant 68 years old male who presents with worsening Covid-19 infection with possible superimposed bacterial infection. Patient already received Plaquenil previously. Currently on Zosyn. Follow-up culture results. Continue with oxygen therapy. Monitor closely in the ICU, possible patient might need intubation. pulmonary/critical care team on the case. Labs and medication were reviewed.. Continue same treatment. Continue with symptomatic treatment. Resume home medication. Monitor lytes and vitals. DVT and GI prophylaxis. Further recommendations of the clinical course of the patient DVT prophylaxis: Subcutaneous heparin GI Prophylaxis: Ppi Prognosis is guarded
[2019-07-06] MEDS ORDERED: TOCILIZUMAB 400 MG in SODIUM CHLORIDE 0.9% 80 ML IV ONE (15:00)
[2019-07-06] MEDS: ATORVASTATIN 80 MG TAB PO SCH (20:42)
[2019-07-06 21:15] LABS: Glucose,Whole Blood 108 mg/dL (75-99)
[2019-07-07] MEDS: PIPERACILLIN-TAZOBACTAM 3.375 GM in SODIUM CHLORIDE 0.9% 100 ML IVPB SCH ×4 (00:58→23:19)
[2019-07-07 04:36] LABS: Basophils # (A) 0.1 k/uL (0-0.2); Basophils % (A) 0 %; Eosinophils % (A) 0 %; Lymphocytes # (A) 0.7 k/uL (1.0-4.8); Lymphocytes % (A) 4 %; MCH 29.6 pg (25.0-35.0); MCHC 32.4 g/dL (31.0-37.0); MCV 91.4 fL (80.0-100.0); Mean Platelet Volume 9.1; Monocytes % (A) 6 %; Neutrophils # (A) 13.7 k/uL (1.3-7.7); Neutrophils % (A) 88 %; Platelet Count 335 k/uL (150-450); RBC 4.38 m/uL (4.30-5.90); RDW 13.3 % (11.5-15.5); WBC 15.6 k/uL (3.8-10.6)
[2019-07-07 04:41] LABS: ALT 28 U/L (4-49); AST 41 U/L (17-59); African American GFR (CKD) >90 (>60 ml/min/1.73 sqM); Alkaline Phosphatase 54 U/L (38-126); Anion Gap 7 mmol/L; Blood Urea Nitrogen 27 mg/dL (9-20); Calcium 8.6 mg/dL (8.4-10.2); Carbon Dioxide 27 mmol/L (22-30); Chloride 106 mmol/L (98-107); Creatine Kinase 145 U/L (55-170); Glucose 122 mg/dL (74-99); LDH 800 U/L (313-618); Non-African American GFR(CKD) 88 (>60 ml/min/1.73 sqM); Potassium 4.6 mmol/L (3.5-5.1); Sodium 140 mmol/L (137-145); Total Bilirubin 0.6 mg/dL (0.2-1.3)
[2019-07-07 05:54] LABS: Glucose,Whole Blood 107 mg/dL (75-99)
[2019-07-07] MEDS: INSULIN ASPART (NovoLOG) 100 UNIT/ML VIAL SQ SCH ×4 (06:34→23:34)
[2019-07-07] MEDS: CLOPIDOGREL 75 MG TAB PO SCH (08:03)
[2019-07-07] MEDS: EZETIMIBE 10 MG TAB PO SCH (08:03)
[2019-07-07] MEDS: ASPIRIN 81 MG PO SCH (08:03)
[2019-07-07] MEDS: CARVEDILOL 3.125 MG TAB PO SCH (08:03)
[2019-07-07] MEDS: HEPARIN SODIUM,PORCINE 5,000 UNIT/ML 1 ML VIAL SQ SCH (08:03)
[2019-07-07] MEDS: PANTOPRAZOLE 40 MG TABLET PO SCH (08:03)
[2019-07-07] MEDS: methylPREDNISolone SOD SUCCI 40 MG/ML 1 ML VIAL IV SCH ×2 (08:04→20:07)
[2019-07-07] MEDS ORDERED: FUROSEMIDE 10 MG/ML 4 ML VIAL IV STA (09:19)
--- NOTE | 2019-07-07 09:54 | XR ---
EXAMINATION TYPE: XR chest 1V portable DATE OF EXAM: 07/07/2019 COMPARISON: 07/06/2019 HISTORY: Shortness of breath TECHNIQUE: Single frontal view of the chest is obtained. FINDINGS: Slightly more pronounced multifocal reticular opacities are seen within the right lower chela ng and right peripheral midlung as well as a focal consolidation of the left lower lung partially obs cured by the left-sided single lead cardiac device. Cardiomediastinal silhouette is enlarged with pos t CABG changes. There is diffuse osseous demineralization. No sizable pneumothorax or pleural effusio n. IMPRESSION: Slightly worsening multifocal bilateral airspace disease with primary consideration for multifocal pneumonia.
[2019-07-07] MEDS: SPIRONOLACTONE 25 MG TAB PO SCH (10:59)
[2019-07-07] MEDS: LOSARTAN 25 MG TAB PO SCH (10:59)
[2019-07-07 12:08] LABS: Glucose,Whole Blood 163 mg/dL (75-99)
[2019-07-07] MEDS: SODIUM CHLORIDE 0.9% 1,000 ML IV SCH (12:26)
[2019-07-07 12:36] LABS: Ferritin 1581.9 ng/mL (22.0-322.0)
--- NOTE | 2019-07-07 13:09 | P.PN ---
Subjective Progress Note Date: 07/07/19 Principal diagnosis: Acute hypoxic respiratory failure secondary to covid 19 pneumonia. This is a 68-year-old male patient who came into the emergency department because of worsening shortness of breath. He is known to me. He was diagnosed having a COVID 19 infection and I was involved in his care during an earlier hospitalization of 06/30/2019. The patient did well and the patient was discharged home to be readmitted because of worsening shortness of breath. He was found to be quite hypoxic with a pulse ox of in the 70s at a time of his ED evaluation. He was also tachypneic and tachycardic. He was placed on 100% nonrebreather facemask and currently his pulse ox is around 94%. Chest x-ray shows interstitial infiltrates bilaterally with probably some interval worsening compared to the chest x-ray from 2 days back. Note that the patient was developing diffuse body aches at a time of his initial diagnosis. No nausea. No vomiting. No diarrhea. He had some lymphopenia which have improved. He also had thrombocytopenia which has improved. His lactic acid level at time of admission was 3.2 and dropped down to 1.5. Rest of the blood work and electrodes are all within normal limits. He has history of coronary artery disease, previous CA, ischemic cardiomyopathy and he has an AICD in place. He has also history of hyperlipidemia. Based on my previous evaluation here in the hospital, the patient d-dimer was nonelevated and he had mild elevation of the CRP and the LDH levels. His current for calcitonin level is at 0.15. His proBNP level is 1230. His LDH level from today is 42 which is slightly elevated compared to the previous evaluation and his CRP level is 2020 which is also elevated compared to his previous evaluation. His ferritin level is 1480. Note that the patient received Plaquenil during his earlier hospitalization. On 07/04/2009 the patient is being seen in intensive care unit. The patient got transferred because of his worsening hypoxemia. He was placed on on the percent nonrebreather facemask. Overnight, his oxygenation got worse and the patient had further desaturation. Based on that, I added another 10 L of nasal cannula in addition to the 100% nonrebreather facemask and the patient was placed in a prone body position. This improved his oxygenation and the patient's pulse ox currently around 94%. He desaturates whenever he turns back supine. He is however comfortable. He is not having any major respiratory distress. No tachypnea. His white cell count is at 17.6 and the patient also had some mild elevation of the pro-calcitonin level. Based on that he was placed on empiric antibiotic coverage with IV Zosyn. Noted the blood gases was done yesterday at a time of desaturation 100% nonrebreather facemask showed a pH of 7.49 with a pCO2 of 31 and pO2 52 and this is consistent with acute respiratory alkalosis and acute hypoxemia secondary to Covid 19 pneumonia. Hemodynamically stable. He is having episodes of fever. LDH level is at 645. CRP is at 381. The patient's ferritin level is still pending. Meanwhile, tidal consistent with a consent and consideration for [id number] therapy. No nausea. No vomiting. No altered mentation. No other complaints otherwise for now. On 07/05/2009, the patient is being monitored very closely regarding his Covid 19 pneumonia and severe hypoxemia. Note that throughout the day yesterday the patient was on the percent nonrebreather facemask and 15 L of oxygen by nasal cannula. Note that the patient is being also placed in the prone body position. He does better on his side and in the prone body position with his pulse ox improves and comes up to 90%. We are allowing lower pulse ox saturations as long as the patient is not having any major symptoms. No altered mentation. No signs of any significant respiratory distress. No chest pain. He has limited cough and congestion. No significant sputum production. He is not having any fever. He was having. 48 hours ago. His LDH level is 709. His C-reactive protein is 197. His white cell count is at 19.0. D-dimer is at 1.26. His pro- calcitonin level was also elevated at 0.15. Based on elevation of protein calcitonin and white cell count, cover this patient with IV Zosyn. The chest x- ray findings showing persistent bilateral pulmonary infiltrates without any significant improvement. Cardiac structures essentially unchanged. The patient is also a pacemaker in place. No nausea. No vomiting. No diarrhea. No altered mentation. Interleukin-6 levels have been sent and is also still pending for now. The patient remains on IV Zosyn, IV Solu-Medrol, heparin subcu for DVT prophylaxis and this will be continued. The d-dimer level from yesterday was down to 1.26. Reevaluated today on 07/07/19. Patient remains in the ICU, he remains on high flow nasal cannula. Patient is marginal. Clinically he looks fine, does not seem to be in any distress, patient is maintaining O2 saturation in the low 90s on 15 L high flow nasal cannula and intermittently on non-rebreather mask at 100%. Patient received today Lasix 40 mg IV push 1, chest x-ray remains quite abnormal with diffuse interstitial infiltrates. Patient also received actemra yesterday. Surprisingly the patient seems to be doing better than expected considering that his O2 saturation is very marginal. And I am not planning to intubate the patient at this point mostly because of his clinical status seems to be better than expected. Labs were all reviewed WBC count is 15.6 hemoglobin is 13.0 electrodes are normal renal profile is normal LDH is 800 C-reactive protein is 80, coming down. Ferritin level is coming down at 1581 and his d- dimer is 1.26, also coming down Objective - Vital Signs Vital signs: Vital Signs Temp 99.3 F 07/07/19 12:00 Pulse 87 07/07/19 12:00 Resp 14 07/07/19 12:00 BP 124/74 07/07/19 12:00 Pulse Ox 88 L 07/07/19 12:00 Intake & Output 07/06/19 07/07/19 07/07/19 18:59 06:59 18:59 Intake Total 680 240 410 Output Total 840 635 555 Balance -160 -395 -145 Weight 90.2 kg 90.2 kg Intake: IV 220 240 60 0.9 NACL 220 240 40 Sodium Chloride 0.9% 1, 20 000 ml @ 20 mls/hr IV . Q24H [facility] Rx#:[id number] Intake, IV Titration 460 100 Amount Piperacillin-Tazobactam 3 100 100 .375 gm In Sodium Chloride 0.9% 100 ml @ 25 mls/hr IVPB Q8HR [facility] Rx# :[id number] Sodium Chloride 0.9% 1, 260 000 ml @ 20 mls/hr IV . Q24H [facility] Rx#:[id number] Tocilizumab 400 mg In 100 Sodium Chloride 0.9% 80 ml @ 100 mls/hr IV ONCE ONE Rx#:[id number] Oral 250 Output: Urine 840 635 555 Other: Voiding Method Indwelling Catheter Indwelling Catheter Indwelling Catheter # Bowel Movements 1 - Exam Physical Exam: Revealed a 68-year-old white male on a nonrebreather mask, in no distress, very comfortable. Head: Atraumatic, normocephalic. HEENT:[Neck is supple.] [No neck masses.] [No thyromegaly.] [No JVD.] Chest: [Symmetrical chest expansion, crackles at the bases bilaterally. AICD pocket over the anterior chest noted. Cardiac Exam: [Normal S1 and S2, no S3 gallop, no murmur.] Abdomen: [Soft, nontender, no megaly, no rebound, no guarding, normal bowel sounds.] Extremities: [No clubbing, no edema, no cyanosis.] Neurological Exam: [No focal neurologic deficit.] Alert and oriented 3. Psychiatric: Normal mood affect and normal mental status examination. Skin: No rashes. Musculoskeletal: No deformities normal range of motion bilaterally. - Labs CBC & Chem 7: 07/07/19 03:56 07/07/19 03:56 Labs: Abnormal Lab Results - Last 24 Hours (Table) 07/04/19 07/06/19 07/06/19 Range/Units 11:44 06:59 21:13 WBC (3.8-10.6) k/uL Neutrophils # (1.3-7.7) k/uL Lymphocytes # (1.0-4.8) k/uL BUN (9-20) mg/dL Glucose (74-99) mg/dL POC Glucose (mg/dL) 108 H (75-99) mg/dL Magnesium (1.6-2.3) mg/dL Ferritin 2079.0 H (22.0-322.0) ng/mL Lactate Dehydrogenase (313-618) U/L C-Reactive Protein (<10.0) mg/L Total Protein (6.3-8.2) g/dL Albumin (3.5-5.0) g/dL Interleukin 6 116 H (<=5) pg/mL 07/07/19 07/07/19 07/07/19 Range/Units 03:56 03:56 03:56 WBC 15.6 H (3.8-10.6) k/uL Neutrophils # 13.7 H (1.3-7.7) k/uL Lymphocytes # 0.7 L (1.0-4.8) k/uL BUN 27 H (9-20) mg/dL Glucose 122 H (74-99) mg/dL POC Glucose (mg/dL) (75-99) mg/dL Magnesium 2.5 H (1.6-2.3) mg/dL Ferritin 1581.9 H (22.0-322.0) ng/mL Lactate Dehydrogenase 800 H (313-618) U/L C-Reactive Protein 80.0 H (<10.0) mg/L Total Protein 6.0 L (6.3-8.2) g/dL Albumin 3.0 L (3.5-5.0) g/dL Interleukin 6 (<=5) pg/mL 07/07/19 07/07/19 Range/Units 05:52 12:07 WBC (3.8-10.6) k/uL Neutrophils # (1.3-7.7) k/uL Lymphocytes # (1.0-4.8) k/uL BUN (9-20) mg/dL Glucose (74-99) mg/dL POC Glucose (mg/dL) 107 H 163 H (75-99) mg/dL Magnesium (1.6-2.3) mg/dL Ferritin (22.0-322.0) ng/mL Lactate Dehydrogenase (313-618) U/L C-Reactive Protein (<10.0) mg/L Total Protein (6.3-8.2) g/dL Albumin (3.5-5.0) g/dL Interleukin 6 (<=5) pg/mL Microbiology - Last 24 Hours (Table) 07/04/19 06:17 Blood Culture - Preliminary Blood No Growth after 72 hours Assessment and Plan Assessment: Impression: Acute hypoxic respiratory failure secondary to acute covid 19 pneumonitis. Superimposed bacterial infection is not entirely ruled out, hence will continue empiric antibiotics/Zosyn. Lymphopenia and thrombocytopenia secondary to covid 19 infection. Elevated inflammatory markers. Secondary to covid 19 pneumonia. History of ischemic cardiomyopathy and AICD placement with previous history of ventricular fibrillation. Coronary artery disease and previous CABG in 2012. Dyslipidemia. Recommendation: Continue present supportive care measures. Continue non-rebreather mask, and no plans to intubate the patient unless his condition deteriorates further clinically. Continue [id number] of therapy. Continue Zosyn empirically. No further plaque were noted to be given at this point. Continue to monitor closely in the ICU, and if condition worsens will recommend intubation mechanical ventilation. Prognosis remains significantly poor and guarded, we'll continue to follow. Critical care time is 32 minutes Time with Patient: Greater than 30
--- NOTE | 2019-07-07 15:32 | P.PN ---
Subjective Progress Note Date: 07/07/19 This is a pleasant 68-year-old gentleman recently admitted on the testing positive for Covid 19, received Plaquenil ,discharged on 07/02/2019 ,with history of CAD, hyperlipidemia, NV, CABG, osteoarthritis, ischemic cardiomyopathy, AICD, V. fib, peripheral vascular disease, former nicotine dependence and multiple other medical issues presented to the ER with worsening shortness of breath accompanied by fevers, fatigue. EMS reports patient tachypneic, tachycardic with O2 sats in the mid 70s on arrival .patient was placed on nonrebreather mask with improvement.afebrile admission, T-max 102.5. WBC 17.9 .Lactic acid 3.2 down to 1.5.Blood cultures obtained. Chest x-ray reporting bilateral patchy pneumonia slightly worse than last exam without heart failure. Denies chest pain, palpitations or shortness of breath. Denies lightheadedness, dizziness or focal deficits. EKG reporting normal sinus rhythm, left anterior fascicular block. Ferritin 1480.5. ( prev. 1146.7) C reactive protein 221( prev. 64.2) LDH 642 (prev 534) ,d-dimer 1.46( prev. 0.38.) BUN 22, creatinine 0.96. Na WNL. Procalcitonin levels elevated. Influenza A and B not detected. Pulmonary consulted. Interleukin 6 pending. Patient is being transferred to the ICU. 07/07/2019 maintaining O2 sats in the 90s on nonrebreather mask with additional high flow nasal cannula. Received Actemra yesterday. Chest x-ray reporting slightly worsening multifocal bilateral airspace disease with multifocal pneumonia. T-max 99.3. Ferritin down to 1581.9, LDH up to 800 mL, Creactive protein down to 80, d-dimer down to 1.26 on 07/04. Lymphocytes 7. WBC 15.6, on steroids. Hemoglobin 13. Objective - Vital Signs Vital signs: Vital Signs Temp 99.3 F 07/07/19 12:00 Pulse 87 07/07/19 14:00 Resp 21 07/07/19 14:00 BP 125/78 07/07/19 14:00 Pulse Ox 86 L 07/07/19 14:00 Intake & Output 07/06/19 07/07/19 07/07/19 18:59 06:59 18:59 Intake Total 583 889 9779 Output Total 922 180 2234 Balance -681 -099 -675 Weight 90.2 kg 90.2 kg Intake: IV 220 240 130 0.9 NACL 220 240 40 Sodium Chloride 0.9% 1, 90 000 ml @ 20 mls/hr IV . Q24H JEAN Rx#:[id number] Intake, IV Titration 460 200 Amount Piperacillin-Tazobactam 3 100 200 .375 gm In Sodium Chloride 0.9% 100 ml @ 25 mls/hr IVPB Q8HR JEAN Rx# :[id number] Sodium Chloride 0.9% 1, 260 000 ml @ 20 mls/hr IV . Q24H JEAN Rx#:[id number] Tocilizumab 400 mg In 100 Sodium Chloride 0.9% 80 ml @ 100 mls/hr IV ONCE ONE Rx#:[id number] Oral 770 Output: Urine 393 056 4251 Other: Voiding Method Indwelling Catheter Indwelling Catheter Indwelling Catheter # Bowel Movements 1 - Exam VITAL SIGNS: [as above] GENERAL: Lying in bed,wearing a nonrebreather mask, HEENT: Conjunctivae normal. eyes normal. NECK: No JVD. No thyroid enlargement. No LNs CARDIOVASCULAR: S1, S2 regular.No murmur. RESPIRATION: Breath sounds diminished in the bases. Congested, basilar crackles. ABDOMEN: Soft, nontender . No guarding. no masses palpable.Bowel sounds heard. LEGS: No edema. no swelling PSYCHIATRY: Alert and oriented X3, mood and affect normal. NERVOUS SYSTEM: Cranial N 2-12 grossly normal. Moves all 4 limbs. Diffuse weakness ,No focal deficits. Strength and sensation grossly intact.. Skin: no rash - Labs CBC & Chem 7: 07/07/19 03:56 07/07/19 03:56 Labs: Abnormal Lab Results - Last 24 Hours (Table) 07/04/19 07/06/19 07/06/19 Range/Units 11:44 06:59 21:13 WBC (3.8-10.6) k/uL Neutrophils # (1.3-7.7) k/uL Lymphocytes # (1.0-4.8) k/uL BUN (9-20) mg/dL Glucose (74-99) mg/dL POC Glucose (mg/dL) 108 H (75-99) mg/dL Magnesium (1.6-2.3) mg/dL Ferritin 2079.0 H (22.0-322.0) ng/mL Lactate Dehydrogenase (313-618) U/L C-Reactive Protein (<10.0) mg/L Total Protein (6.3-8.2) g/dL Albumin (3.5-5.0) g/dL Interleukin 6 116 H (<=5) pg/mL 07/07/19 07/07/19 07/07/19 Range/Units 03:56 03:56 03:56 WBC 15.6 H (3.8-10.6) k/uL Neutrophils # 13.7 H (1.3-7.7) k/uL Lymphocytes # 0.7 L (1.0-4.8) k/uL BUN 27 H (9-20) mg/dL Glucose 122 H (74-99) mg/dL POC Glucose (mg/dL) (75-99) mg/dL Magnesium 2.5 H (1.6-2.3) mg/dL Ferritin 1581.9 H (22.0-322.0) ng/mL Lactate Dehydrogenase 800 H (313-618) U/L C-Reactive Protein 80.0 H (<10.0) mg/L Total Protein 6.0 L (6.3-8.2) g/dL Albumin 3.0 L (3.5-5.0) g/dL Interleukin 6 (<=5) pg/mL 07/07/19 07/07/19 Range/Units 05:52 12:07 WBC (3.8-10.6) k/uL Neutrophils # (1.3-7.7) k/uL Lymphocytes # (1.0-4.8) k/uL BUN (9-20) mg/dL Glucose (74-99) mg/dL POC Glucose (mg/dL) 107 H 163 H (75-99) mg/dL Magnesium (1.6-2.3) mg/dL Ferritin (22.0-322.0) ng/mL Lactate Dehydrogenase (313-618) U/L C-Reactive Protein (<10.0) mg/L Total Protein (6.3-8.2) g/dL Albumin (3.5-5.0) g/dL Interleukin 6 (<=5) pg/mL Microbiology - Last 24 Hours (Table) 07/04/19 06:17 Blood Culture - Preliminary Blood No Growth after 72 hours Assessment and Plan Assessment: Acute COVID 19 bilateral pneumonia, worsening x-ray, greater on the left side. Leukocytosis secondary to the above, plus on steroids Acute hypoxic and hypercapnic respiratory failure secondary to Covid 19 pneumonia Thrombocytopenia secondary to Covid 19 infection Lymphopenia secondary to Covid 19 infection CAD with history of NV, CABG, stenting Ischemic cardiomyopathy, history of V. fib, with AICD Hyperlipidemia Plan: Continue on current medication regime ,monitoring and symptomatic treatment. Continues on IV antibiotics of Zosyn/steroids/NRB mask and additional high flow nasal cannula as per pulmonary/director park. GI Prophylaxis with PPI/DVT prophylaxis with heparin subcu. Prognosis guarded given multiple complex medical issues. The impression and plan of care has been dictated as directed. : I performed a history and examination of this patient, discussed the same with the dictator. I agree with the dictator's note ,documented as a scribe. Any additional findings or plans will be noted.
[2019-07-07] MEDS: ACETAMINOPHEN TAB 325 MG TAB PO PRN (15:50)
[2019-07-07 17:35] LABS: Glucose,Whole Blood 94 mg/dL (75-99)
[2019-07-07] MEDS: ATORVASTATIN 80 MG TAB PO SCH (20:07)
[2019-07-07] MEDS: ENOXAPARIN 100 MG/ML SYRINGE SQ SCH (20:58)
[2019-07-07 23:28] LABS: Glucose,Whole Blood 163 mg/dL (75-99)
[2019-07-08 04:34] LABS: Basophils # (A) 0.1 k/uL (0-0.2); Basophils % (A) 0 %; Eosinophils # (A) 0.1 k/uL (0-0.7); Eosinophils % (A) 1 %; HCT 43.5 % (39.0-53.0); HGB 13.8 gm/dL (13.0-17.5); Lymphocytes # (A) 0.7 k/uL (1.0-4.8); Lymphocytes % (A) 6 %; MCH 28.8 pg (25.0-35.0); MCHC 31.6 g/dL (31.0-37.0); MCV 91.1 fL (80.0-100.0); Monocytes # (A) 0.5 k/uL (0-1.0); Monocytes % (A) 4 %; Neutrophils # (A) 11.3 k/uL (1.3-7.7); Neutrophils % (A) 88 %; Platelet Count 353 k/uL (150-450); RBC 4.78 m/uL (4.30-5.90); RDW 13.3 % (11.5-15.5); WBC 12.7 k/uL (3.8-10.6)
[2019-07-08 05:10] LABS: Albumin 3.2 g/dL (3.5-5.0); Glucose 116 mg/dL (74-99); Total Protein 6.1 g/dL (6.3-8.2)
[2019-07-08 05:35] LABS: Glucose,Whole Blood 107 mg/dL (75-99)
[2019-07-08 05:40] LABS: ALT 60 U/L (4-49); AST 66 U/L (17-59); African American GFR (CKD) >90 (>60 ml/min/1.73 sqM); Alkaline Phosphatase 58 U/L (38-126); Anion Gap 8 mmol/L; Blood Urea Nitrogen 32 mg/dL (9-20); C Reactive Protein 51.8 mg/L (<10.0); Calcium 8.9 mg/dL (8.4-10.2); Carbon Dioxide 29 mmol/L (22-30); Chloride 103 mmol/L (98-107); Creatine Kinase 66 U/L (55-170); LDH 836 U/L (313-618); Non-African American GFR(CKD) 80 (>60 ml/min/1.73 sqM); Potassium 4.7 mmol/L (3.5-5.1); Sodium 140 mmol/L (137-145); Total Bilirubin 0.6 mg/dL (0.2-1.3)
[2019-07-08] MEDS: INSULIN ASPART (NovoLOG) 100 UNIT/ML VIAL SQ SCH ×3 (06:04→16:56)
--- NOTE | 2019-07-08 08:05 | XR ---
EXAMINATION TYPE: XR chest 1V portable DATE OF EXAM: 07/08/2019 Comparison: 07/07/2019 Clinical History: 68-year-old male shortness of breath Findings: Left anterior chest wall AICD generator with right ventricular lead. Median sternotomy wires are pres ent with post-CABG clips in the mediastinum. Heart normal size. Patchy and confluent peripheral and l ower lung opacities remain. No pleural effusion. Impression: Peripheral and lower lung patchy and confluent airspace disease persists.
[2019-07-08] MEDS: SODIUM CHLORIDE 0.9% 1,000 ML IV SCH (08:13)
[2019-07-08] MEDS: PIPERACILLIN-TAZOBACTAM 3.375 GM in SODIUM CHLORIDE 0.9% 100 ML IVPB SCH ×3 (08:13→23:42)
[2019-07-08] MEDS: PANTOPRAZOLE 40 MG TABLET PO SCH (08:14)
[2019-07-08] MEDS: CARVEDILOL 3.125 MG TAB PO SCH (08:14)
[2019-07-08] MEDS: SPIRONOLACTONE 25 MG TAB PO SCH ×2 (08:14→19:55)
[2019-07-08] MEDS: CLOPIDOGREL 75 MG TAB PO SCH (08:14)
[2019-07-08] MEDS: ENOXAPARIN 100 MG/ML SYRINGE SQ SCH ×2 (08:14→22:35)
[2019-07-08] MEDS: ASPIRIN 81 MG PO SCH (08:14)
[2019-07-08] MEDS: methylPREDNISolone SOD SUCCI 40 MG/ML 1 ML VIAL IV SCH ×2 (08:15→19:55)
[2019-07-08] MEDS: EZETIMIBE 10 MG TAB PO SCH (08:15)
[2019-07-08] MEDS: LOSARTAN 25 MG TAB PO SCH (08:15)
[2019-07-08] MEDS ORDERED: FUROSEMIDE 10 MG/ML 4 ML VIAL IV STA (08:36)
[2019-07-08] MEDS ORDERED: FUROSEMIDE 10 MG/ML 4 ML VIAL ONE (08:39)
[2019-07-08 08:57] LABS: ABG Base Excess 4.3 mmol/L; ABG HCO3 28 mmol/L (21-25); ABG Oxygen Saturation 80.7 % (94-97); ABG PCO2 41 mmHg (35-45); ABG PH 7.45 (7.35-7.45); ABG TCO2 30 mmol/L (19-24); Allen Test Performed? Yes
[2019-07-08 08:59] LABS: ABG PO2 46 mmHg (83-108)
[2019-07-08 11:10] LABS: Ferritin 1512.9 ng/mL (22.0-322.0)
--- NOTE | 2019-07-08 11:33 | P.PN ---
Subjective Progress Note Date: 07/08/19 Principal diagnosis: Acute hypoxic respiratory failure secondary to covid 19 pneumonia. This is a 68-year-old male patient who came into the emergency department because of worsening shortness of breath. He is known to me. He was diagnosed having a COVID 19 infection and I was involved in his care during an earlier hospitalization of 06/30/2019. The patient did well and the patient was discharged home to be readmitted because of worsening shortness of breath. He was found to be quite hypoxic with a pulse ox of in the 70s at a time of his ED evaluation. He was also tachypneic and tachycardic. He was placed on 100% nonrebreather facemask and currently his pulse ox is around 94%. Chest x-ray shows interstitial infiltrates bilaterally with probably some interval worsening compared to the chest x-ray from 2 days back. Note that the patient was developing diffuse body aches at a time of his initial diagnosis. No nausea. No vomiting. No diarrhea. He had some lymphopenia which have improved. He also had thrombocytopenia which has improved. His lactic acid level at time of admission was 3.2 and dropped down to 1.5. Rest of the blood work and electrodes are all within normal limits. He has history of coronary artery disease, previous IA, ischemic cardiomyopathy and he has an AICD in place. He has also history of hyperlipidemia. Based on my previous evaluation here in the hospital, the patient d-dimer was nonelevated and he had mild elevation of the CRP and the LDH levels. His current for calcitonin level is at 0.15. His proBNP level is 1230. His LDH level from today is 42 which is slightly elevated compared to the previous evaluation and his CRP level is 2020 which is also elevated compared to his previous evaluation. His ferritin level is 1480. Note that the patient received Plaquenil during his earlier hospitalization. On 07/04/2009 the patient is being seen in intensive care unit. The patient got transferred because of his worsening hypoxemia. He was placed on on the percent nonrebreather facemask. Overnight, his oxygenation got worse and the patient had further desaturation. Based on that, I added another 10 L of nasal cannula in addition to the 100% nonrebreather facemask and the patient was placed in a prone body position. This improved his oxygenation and the patient's pulse ox currently around 94%. He desaturates whenever he turns back supine. He is however comfortable. He is not having any major respiratory distress. No tachypnea. His white cell count is at 17.6 and the patient also had some mild elevation of the pro-calcitonin level. Based on that he was placed on empiric antibiotic coverage with IV Zosyn. Noted the blood gases was done yesterday at a time of desaturation 100% nonrebreather facemask showed a pH of 7.49 with a pCO2 of 31 and pO2 52 and this is consistent with acute respiratory alkalosis and acute hypoxemia secondary to Covid 19 pneumonia. Hemodynamically stable. He is having episodes of fever. LDH level is at 645. CRP is at 381. The patient's ferritin level is still pending. Meanwhile, tidal consistent with a consent and consideration for [id number] therapy. No nausea. No vomiting. No altered mentation. No other complaints otherwise for now. On 07/05/2009, the patient is being monitored very closely regarding his Covid 19 pneumonia and severe hypoxemia. Note that throughout the day yesterday the patient was on the percent nonrebreather facemask and 15 L of oxygen by nasal cannula. Note that the patient is being also placed in the prone body position. He does better on his side and in the prone body position with his pulse ox improves and comes up to 90%. We are allowing lower pulse ox saturations as long as the patient is not having any major symptoms. No altered mentation. No signs of any significant respiratory distress. No chest pain. He has limited cough and congestion. No significant sputum production. He is not having any fever. He was having. 48 hours ago. His LDH level is 709. His C-reactive protein is 197. His white cell count is at 19.0. D-dimer is at 1.26. His pro- calcitonin level was also elevated at 0.15. Based on elevation of protein calcitonin and white cell count, cover this patient with IV Zosyn. The chest x- ray findings showing persistent bilateral pulmonary infiltrates without any significant improvement. Cardiac structures essentially unchanged. The patient is also a pacemaker in place. No nausea. No vomiting. No diarrhea. No altered mentation. Interleukin-6 levels have been sent and is also still pending for now. The patient remains on IV Zosyn, IV Solu-Medrol, heparin subcu for DVT prophylaxis and this will be continued. The d-dimer level from yesterday was down to 1.26. Reevaluated today on 07/07/19. Patient remains in the ICU, he remains on high flow nasal cannula. Patient is marginal. Clinically he looks fine, does not seem to be in any distress, patient is maintaining O2 saturation in the low 90s on 15 L high flow nasal cannula and intermittently on non-rebreather mask at 100%. Patient received today Lasix 40 mg IV push 1, chest x-ray remains quite abnormal with diffuse interstitial infiltrates. Patient also received actemra yesterday. Surprisingly the patient seems to be doing better than expected considering that his O2 saturation is very marginal. And I am not planning to intubate the patient at this point mostly because of his clinical status seems to be better than expected. Labs were all reviewed WBC count is 15.6 hemoglobin is 13.0 electrodes are normal renal profile is normal LDH is 800 C-reactive protein is 80, coming down. Ferritin level is coming down at 1581 and his d- dimer is 1.26, also coming down Reevaluated today on 07/08/19, patient remains in the ICU, presently he was switched to high flow airvo, he has very marginal O2 saturations ranging between 85% to 90%. Surprisingly the patient is not complaining of shortness of breath, he feels quite comfortable in spite of his profound hypoxemia. And relatively low O2 saturation. Chest x-ray continues to show worsening bilateral infiltrates. Today I recommended a trial of Lasix 40 mg IV push, and he will receive his second dose of actemra. ABG is quite concerning. PO2 is 46 pCO2 is 41 pH of 7.45, however clinically the patient does not seem to be in any respiratory distress. Patient is so close to be intubated, but since the clinical picture does not correlate with his ABG, I will try to hold on intubating the patient at this point. His CBC is relatively normal electrolytes are normal renal profile is normal and his inflammatory markers including ferritin C-reactive protein and LDH, seems to be trending down. His d-dimer was 1.33 yesterday, and we have increased the dose of Lovenox on this patient. Objective - Vital Signs Vital signs: Vital Signs Temp 98.7 F 07/08/19 08:00 Pulse 74 07/08/19 10:00 Resp 22 07/08/19 10:00 BP 109/67 07/08/19 10:00 Pulse Ox 87 L 07/08/19 10:00 Intake & Output 07/07/19 07/08/19 07/08/19 18:59 06:59 18:59 Intake Total 1245 220 350 Output Total 2290 665 610 Balance -1045 -445 -260 Weight 90.2 kg 91.2 kg Intake: IV 200 220 50 0.9 NACL 40 Sodium Chloride 0.9% 1, 160 220 50 000 ml @ 20 mls/hr IV . Q24H JEAN Rx#:[id number] Intake, IV Titration 200 100 Amount Piperacillin-Tazobactam 3 200 100 .375 gm In Sodium Chloride 0.9% 100 ml @ 25 mls/hr IVPB Q8HR JEAN Rx# :[id number] Oral 845 200 Output: Urine 2290 665 610 Other: Voiding Method Indwelling Catheter Indwelling Catheter Indwelling Catheter # Bowel Movements 1 - Exam Physical Exam: Revealed a 68-year-old white male on a nonrebreather mask, in no distress, very comfortable. Switched to airvo at 90% FiO2 and 60 L/m flow. Head: Atraumatic, normocephalic. HEENT:[Neck is supple.] [No neck masses.] [No thyromegaly.] [No JVD.] Chest: [Symmetrical chest expansion, crackles at the bases bilaterally. AICD pocket over the anterior chest noted. Cardiac Exam: [Normal S1 and S2, no S3 gallop, no murmur.] Abdomen: [Soft, nontender, no megaly, no rebound, no guarding, normal bowel sounds.] Extremities: [No clubbing, no edema, no cyanosis.] Neurological Exam: [No focal neurologic deficit.] Alert and oriented 3. Psychiatric: Normal mood affect and normal mental status examination. Skin: No rashes. Musculoskeletal: No deformities normal range of motion bilaterally. - Labs CBC & Chem 7: 07/08/19 03:53 07/08/19 03:53 Labs: Abnormal Lab Results - Last 24 Hours (Table) 07/07/19 07/07/19 07/07/19 Range/Units 03:56 12:07 20:13 WBC (3.8-10.6) k/uL Neutrophils # (1.3-7.7) k/uL Lymphocytes # (1.0-4.8) k/uL D-Dimer 1.33 H (<0.60) mg/L FEU ABG pO2 (83-108) mmHg ABG HCO3 (21-25) mmol/L ABG Total CO2 (19-24) mmol/L ABG O2 Saturation (94-97) % BUN (9-20) mg/dL Glucose (74-99) mg/dL POC Glucose (mg/dL) 163 H (75-99) mg/dL Ferritin 1581.9 H (22.0-322.0) ng/mL AST (17-59) U/L ALT (4-49) U/L Lactate Dehydrogenase (313-618) U/L C-Reactive Protein (<10.0) mg/L Total Protein (6.3-8.2) g/dL Albumin (3.5-5.0) g/dL 07/07/19 07/08/19 07/08/19 Range/Units 23:26 03:53 03:53 WBC 12.7 H (3.8-10.6) k/uL Neutrophils # 11.3 H (1.3-7.7) k/uL Lymphocytes # 0.7 L (1.0-4.8) k/uL D-Dimer (<0.60) mg/L FEU ABG pO2 (83-108) mmHg ABG HCO3 (21-25) mmol/L ABG Total CO2 (19-24) mmol/L ABG O2 Saturation (94-97) % BUN 32 H (9-20) mg/dL Glucose 116 H (74-99) mg/dL POC Glucose (mg/dL) 163 H (75-99) mg/dL Ferritin 1512.9 H (22.0-322.0) ng/mL AST 66 H (17-59) U/L ALT 60 H (4-49) U/L Lactate Dehydrogenase 836 H (313-618) U/L C-Reactive Protein 51.8 H (<10.0) mg/L Total Protein 6.1 L (6.3-8.2) g/dL Albumin 3.2 L (3.5-5.0) g/dL 07/08/19 07/08/19 Range/Units 05:33 08:54 WBC (3.8-10.6) k/uL Neutrophils # (1.3-7.7) k/uL Lymphocytes # (1.0-4.8) k/uL D-Dimer (<0.60) mg/L FEU ABG pO2 46 L* (83-108) mmHg ABG HCO3 28 H (21-25) mmol/L ABG Total CO2 30 H (19-24) mmol/L ABG O2 Saturation 80.7 L (94-97) % BUN (9-20) mg/dL Glucose (74-99) mg/dL POC Glucose (mg/dL) 107 H (75-99) mg/dL Ferritin (22.0-322.0) ng/mL AST (17-59) U/L ALT (4-49) U/L Lactate Dehydrogenase (313-618) U/L C-Reactive Protein (<10.0) mg/L Total Protein (6.3-8.2) g/dL Albumin (3.5-5.0) g/dL Microbiology - Last 24 Hours (Table) 07/04/19 06:17 Blood Culture - Preliminary Blood No Growth after 96 hours Assessment and Plan Assessment: Impression: Acute hypoxic respiratory failure secondary to acute covid 19 pneumonitis. S uperimposed bacterial infection is not entirely ruled out, remains on Zosyn empirically. Lymphopenia and thrombocytopenia secondary to covid 19 infection. Elevated inflammatory markers. Secondary to covid 19 pneumonia. Trending down steadily. History of ischemic cardiomyopathy and AICD placement with previous history of ventricular fibrillation. Coronary artery disease and previous CABG in 2012. Dyslipidemia. Recommendation: Continue present supportive care measures. Continue high flow oxygen and monitor closely in the ICU. Continue [id number] of therapy. His second dose was given today. Continue Zosyn empirically. Continue Lovenox at 90 mg subcu every 12 hours. Diurese the patient again today. Patient is known to have history of ischemic cardiomyopathy and LV dysfunction. And will continue Aldactone at 25 mg twice a day. Continue to monitor closely in the ICU, and if condition worsens will recommend intubation mechanical ventilation. Prognosis remains significantly poor and guarded, we'll continue to follow. Critical care time is 33 minutes Time with Patient: Greater than 30
[2019-07-08 11:57] LABS: Glucose,Whole Blood 138 mg/dL (75-99)
[2019-07-08] MEDS ORDERED: TOCILIZUMAB 400 MG in SODIUM CHLORIDE 0.9% 80 ML IV ONE (14:00)
--- NOTE | 2019-07-08 16:37 | P.PN ---
Subjective Progress Note Date: 07/08/19 This is a pleasant 68-year-old gentleman recently admitted on the testing positive for Covid 19, received Plaquenil ,discharged on 07/02/2019 ,with history of CAD, hyperlipidemia, DC, CABG, osteoarthritis, ischemic cardiomyopathy, AICD, V. fib, peripheral vascular disease, former nicotine dependence and multiple other medical issues presented to the ER with worsening shortness of breath accompanied by fevers, fatigue. EMS reports patient tachypneic, tachycardic with O2 sats in the mid 70s on arrival .patient was placed on nonrebreather mask with improvement.afebrile admission, T-max 102.5. WBC 17.9 .Lactic acid 3.2 down to 1.5.Blood cultures obtained. Chest x-ray reporting bilateral patchy pneumonia slightly worse than last exam without heart failure. Denies chest pain, palpitations or shortness of breath. Denies lightheadedness, dizziness or focal deficits. EKG reporting normal sinus rhythm, left anterior fascicular block. Ferritin 1480.5. ( prev. 1146.7) C reactive protein 221( prev. 64.2) LDH 642 (prev 534) ,d-dimer 1.46( prev. 0.38.) BUN 22, creatinine 0.96. Na WNL. Procalcitonin levels elevated. Influenza A and B not detected. Pulmonary consulted. Interleukin 6 pending. Patient is being transferred to the ICU. 07/07/2019 maintaining O2 sats in the 90s on nonrebreather mask with additional high flow nasal cannula. Received Actemra yesterday. Chest x-ray reporting slightly worsening multifocal bilateral airspace disease with multifocal pneumonia. T-max 99.3. Ferritin down to 1581.9, LDH up to 800 mL, Creactive protein down to 80, d-dimer down to 1.26 on 07/04. Lymphocytes 7. WBC 15.6, on steroids. Hemoglobin 13 07/08/2019 Converted to 95% high flow airflow, maintaining O2 sats of mid to high 80s. ABGS reporting PH 7.45, PO2 46 pCO2 41, bicarb 28, total CO2 30 with O2 sat of 80.7 on 100% FiO2, base excess 4.3, yet patient denies increased shortness of breath, waving hi. Chest x-ray reporting persistent peripheral and lower lung patchy and confluent airspace disease. Inflammatory markers trending down, d-dimer minimally increased yesterday to 1.33. Lovenox dose increased Receiving second dose of Actemra. Tested negative for C. difficile colitis. Blood sugars controlled. Objective - Vital Signs Vital signs: Vital Signs Temp 98.7 F 07/08/19 08:00 Pulse 74 07/08/19 10:00 Resp 22 07/08/19 10:00 BP 109/67 07/08/19 10:00 Pulse Ox 87 L 07/08/19 10:00 Intake & Output 07/07/19 07/08/19 07/08/19 18:59 06:59 18:59 Intake Total 1245 220 350 Output Total 2290 665 610 Balance -5961 -302 -216 Weight 90.2 kg 91.2 kg Intake: IV 200 220 50 0.9 NACL 40 Sodium Chloride 0.9% 1, 160 220 50 000 ml @ 20 mls/hr IV . Q24H [facility] Rx#:[id number] Intake, IV Titration 200 100 Amount Piperacillin-Tazobactam 3 200 100 .375 gm In Sodium Chloride 0.9% 100 ml @ 25 mls/hr IVPB Q8HR [facility] Rx# :[id number] Oral 845 200 Output: Urine 2290 665 610 Other: Voiding Method Indwelling Catheter Indwelling Catheter Indwelling Catheter # Bowel Movements 1 - Exam VITAL SIGNS: [as above] GENERAL: Lying in bed, no acute distress on Airvo. HEENT: Conjunctivae normal. eyes normal. NECK: No JVD. No thyroid enlargement. No LNs CARDIOVASCULAR: S1, S2 regular.No murmur. RESPIRATION: Breath sounds diminished in the bases. Congested, basilar crackles. ABDOMEN: Soft, nontender . No guarding. no masses palpable.Bowel sounds heard. LEGS: No edema. no swelling PSYCHIATRY: Alert and oriented X3, mood and affect normal. NERVOUS SYSTEM: Cranial N 2-12 grossly normal. Moves all 4 limbs. Diffuse weakness ,No focal deficits. Strength and sensation grossly intact.. Skin: no rash Microbiology 07/04/19 06:17 Blood Blood Culture - Preliminary No Growth after 96 hours - Labs CBC & Chem 7: 07/08/19 03:53 07/08/19 03:53 Labs: Abnormal Lab Results - Last 24 Hours (Table) 07/07/19 07/07/1920 Range/Units 20:13 23:26 03:53 WBC 12.7 H (3.8-10.6) k/uL Neutrophils # 11.3 H (1.3-7.7) k/uL Lymphocytes # 0.7 L (1.0-4.8) k/uL D-Dimer 1.33 H (<0.60) mg/L FEU ABG pO2 (83-108) mmHg ABG HCO3 (21-25) mmol/L ABG Total CO2 (19-24) mmol/L ABG O2 Saturation (94-97) % BUN (9-20) mg/dL Glucose (74-99) mg/dL POC Glucose (mg/dL) 163 H (75-99) mg/dL Ferritin (22.0-322.0) ng/mL AST (17-59) U/L ALT (4-49) U/L Lactate Dehydrogenase (313-618) U/L C-Reactive Protein (<10.0) mg/L Total Protein (6.3-8.2) g/dL Albumin (3.5-5.0) g/dL 07/08/19 07/08/19 07/08/19 Range/Units 03:53 05:33 08:54 WBC (3.8-10.6) k/uL Neutrophils # (1.3-7.7) k/uL Lymphocytes # (1.0-4.8) k/uL D-Dimer (<0.60) mg/L FEU ABG pO2 46 L* (83-108) mmHg ABG HCO3 28 H (21-25) mmol/L ABG Total CO2 30 H (19-24) mmol/L ABG O2 Saturation 80.7 L (94-97) % BUN 32 H (9-20) mg/dL Glucose 116 H (74-99) mg/dL POC Glucose (mg/dL) 107 H (75-99) mg/dL Ferritin 1512.9 H (22.0-322.0) ng/mL AST 66 H (17-59) U/L ALT 60 H (4-49) U/L Lactate Dehydrogenase 836 H (313-618) U/L C-Reactive Protein 51.8 H (<10.0) mg/L Total Protein 6.1 L (6.3-8.2) g/dL Albumin 3.2 L (3.5-5.0) g/dL 07/08/19 Range/Units 11:55 WBC (3.8-10.6) k/uL Neutrophils # (1.3-7.7) k/uL Lymphocytes # (1.0-4.8) k/uL D-Dimer (<0.60) mg/L FEU ABG pO2 (83-108) mmHg ABG HCO3 (21-25) mmol/L ABG Total CO2 (19-24) mmol/L ABG O2 Saturation (94-97) % BUN (9-20) mg/dL Glucose (74-99) mg/dL POC Glucose (mg/dL) 138 H (75-99) mg/dL Ferritin (22.0-322.0) ng/mL AST (17-59) U/L ALT (4-49) U/L Lactate Dehydrogenase (313-618) U/L C-Reactive Protein (<10.0) mg/L Total Protein (6.3-8.2) g/dL Albumin (3.5-5.0) g/dL Microbiology - Last 24 Hours (Table) 07/04/19 06:17 Blood Culture - Preliminary Blood No Growth after 96 hours Assessment and Plan Assessment: Acute COVID 19 bilateral pneumonia Leukocytosis secondary to the above, plus on steroids Acute hypoxic and hypercapnic respiratory failure secondary to Covid 19 pneumonia Thrombocytopenia secondary to Covid 19 infection Lymphopenia secondary to Covid 19 infection CAD with history of DC, CABG, stenting Ischemic cardiomyopathy, history of V. fib, with AICD Hyperlipidemia Plan: Continue on current medication regime ,monitoring and symptomatic treatment. Maintain on IV antibiotics, steroids, Hi flow Airvo as per car conditioner. Scheduled for second dose of Actemra today. DVT prophylaxis with Lovenox. Prognosis guarded given multiple complex medical issues. The impression and plan of care has been dictated as directed. : I performed a history and examination of this patient, discussed the same with the dictator. I agree with the dictator's note ,documented as a scribe. Any additional findings or plans will be noted.
[2019-07-08 16:54] LABS: Glucose,Whole Blood 106 mg/dL (75-99)
[2019-07-08] MEDS: ATORVASTATIN 80 MG TAB PO SCH (19:55)
[2019-07-08 23:45] LABS: Glucose,Whole Blood 115 mg/dL (75-99)
[2019-07-09] MEDS: INSULIN ASPART (NovoLOG) 100 UNIT/ML VIAL SQ SCH ×4 (00:21→18:32)
[2019-07-09] MEDS: SODIUM CHLORIDE 0.9% 1,000 ML IV SCH (03:31)
[2019-07-09 04:39] LABS: Basophils % (A) 0 %; Eosinophils % (A) 0 %; HCT 45.1 % (39.0-53.0); HGB 14.2 gm/dL (13.0-17.5); Lymphocytes % (A) 6 %; MCH 28.7 pg (25.0-35.0); MCHC 31.5 g/dL (31.0-37.0); Mean Platelet Volume 7.8; Monocytes # (A) 0.7 k/uL (0-1.0); Monocytes % (A) 4 %; Neutrophils # (A) 13.7 k/uL (1.3-7.7); Neutrophils % (A) 88 %; Platelet Count 401 k/uL (150-450); RBC 4.95 m/uL (4.30-5.90); RDW 13.2 % (11.5-15.5); WBC 15.6 k/uL (3.8-10.6)
[2019-07-09 04:54] LABS: Albumin 3.4 g/dL (3.5-5.0); C Reactive Protein 31.1 mg/L (<10.0); Calcium 8.9 mg/dL (8.4-10.2); Potassium 4.5 mmol/L (3.5-5.1); Total Bilirubin 0.8 mg/dL (0.2-1.3); Total Protein 6.4 g/dL (6.3-8.2)
--- NOTE | 2019-07-09 07:19 | XR ---
EXAMINATION TYPE: XR chest 1V portable DATE OF EXAM: 07/09/2019 COMPARISON: 07/08/2019 INDICATION: Covid pneumonia follow-up TECHNIQUE: Single frontal view of the chest is obtained. FINDINGS: The heart size is normal. The pulmonary vasculature is slightly prominent. Patchy bilateral lung infiltrates are present, stable from comparison. Pacemaker overlies left chest. IMPRESSION: 1. Stable patchy bilateral lung infiltrates.
[2019-07-09] MEDS: PIPERACILLIN-TAZOBACTAM 3.375 GM in SODIUM CHLORIDE 0.9% 100 ML IVPB SCH ×3 (08:06→23:44)
[2019-07-09] MEDS: ENOXAPARIN 100 MG/ML SYRINGE SQ SCH ×2 (08:53→20:09)
[2019-07-09] MEDS: CLOPIDOGREL 75 MG TAB PO SCH (08:54)
[2019-07-09] MEDS: CARVEDILOL 3.125 MG TAB PO SCH (08:54)
[2019-07-09] MEDS: PANTOPRAZOLE 40 MG TABLET PO SCH (08:54)
[2019-07-09] MEDS: EZETIMIBE 10 MG TAB PO SCH (08:54)
[2019-07-09] MEDS: LOSARTAN 25 MG TAB PO SCH (08:54)
[2019-07-09] MEDS: ASPIRIN 81 MG PO SCH (08:54)
[2019-07-09] MEDS: methylPREDNISolone SOD SUCCI 40 MG/ML 1 ML VIAL IV SCH ×2 (08:54→20:08)
[2019-07-09] MEDS: SPIRONOLACTONE 25 MG TAB PO SCH ×2 (08:55→20:08)
[2019-07-09 11:19] LABS: Ferritin 1537.5 ng/mL (22.0-322.0)
[2019-07-09 11:47] LABS: Glucose,Whole Blood 108 mg/dL (75-99)
--- NOTE | 2019-07-09 12:07 | P.PN ---
Subjective Progress Note Date: 07/09/19 Principal diagnosis: Acute hypoxic respiratory failure secondary to covid 19 pneumonia. This is a 68-year-old male patient who came into the emergency department because of worsening shortness of breath. He is known to me. He was diagnosed having a COVID 19 infection and I was involved in his care during an earlier hospitalization of 06/30/2019. The patient did well and the patient was discharged home to be readmitted because of worsening shortness of breath. He was found to be quite hypoxic with a pulse ox of in the 70s at a time of his ED evaluation. He was also tachypneic and tachycardic. He was placed on 100% nonrebreather facemask and currently his pulse ox is around 94%. Chest x-ray shows interstitial infiltrates bilaterally with probably some interval worsening compared to the chest x-ray from 2 days back. Note that the patient was developing diffuse body aches at a time of his initial diagnosis. No nausea. No vomiting. No diarrhea. He had some lymphopenia which have improved. He also had thrombocytopenia which has improved. His lactic acid level at time of admission was 3.2 and dropped down to 1.5. Rest of the blood work and electrodes are all within normal limits. He has history of coronary artery disease, previous MS, ischemic cardiomyopathy and he has an AICD in place. He has also history of hyperlipidemia. Based on my previous evaluation here in the hospital, the patient d-dimer was nonelevated and he had mild elevation of the CRP and the LDH levels. His current for calcitonin level is at 0.15. His proBNP level is 1230. His LDH level from today is 42 which is slightly elevated compared to the previous evaluation and his CRP level is 2020 which is also elevated compared to his previous evaluation. His ferritin level is 1480. Note that the patient received Plaquenil during his earlier hospitalization. On 07/04/2009 the patient is being seen in intensive care unit. The patient got transferred because of his worsening hypoxemia. He was placed on on the percent nonrebreather facemask. Overnight, his oxygenation got worse and the patient had further desaturation. Based on that, I added another 10 L of nasal cannula in addition to the 100% nonrebreather facemask and the patient was placed in a prone body position. This improved his oxygenation and the patient's pulse ox currently around 94%. He desaturates whenever he turns back supine. He is however comfortable. He is not having any major respiratory distress. No tachypnea. His white cell count is at 17.6 and the patient also had some mild elevation of the pro-calcitonin level. Based on that he was placed on empiric antibiotic coverage with IV Zosyn. Noted the blood gases was done yesterday at a time of desaturation 100% nonrebreather facemask showed a pH of 7.49 with a pCO2 of 31 and pO2 52 and this is consistent with acute respiratory alkalosis and acute hypoxemia secondary to Covid 19 pneumonia. Hemodynamically stable. He is having episodes of fever. LDH level is at 645. CRP is at 381. The patient's ferritin level is still pending. Meanwhile, tidal consistent with a consent and consideration for [id number] therapy. No nausea. No vomiting. No altered mentation. No other complaints otherwise for now. On 07/05/2009, the patient is being monitored very closely regarding his Covid 19 pneumonia and severe hypoxemia. Note that throughout the day yesterday the patient was on the percent nonrebreather facemask and 15 L of oxygen by nasal cannula. Note that the patient is being also placed in the prone body position. He does better on his side and in the prone body position with his pulse ox improves and comes up to 90%. We are allowing lower pulse ox saturations as long as the patient is not having any major symptoms. No altered mentation. No signs of any significant respiratory distress. No chest pain. He has limited cough and congestion. No significant sputum production. He is not having any fever. He was having. 48 hours ago. His LDH level is 709. His C-reactive protein is 197. His white cell count is at 19.0. D-dimer is at 1.26. His pro- calcitonin level was also elevated at 0.15. Based on elevation of protein calcitonin and white cell count, cover this patient with IV Zosyn. The chest x- ray findings showing persistent bilateral pulmonary infiltrates without any significant improvement. Cardiac structures essentially unchanged. The patient is also a pacemaker in place. No nausea. No vomiting. No diarrhea. No altered mentation. Interleukin-6 levels have been sent and is also still pending for now. The patient remains on IV Zosyn, IV Solu-Medrol, heparin subcu for DVT prophylaxis and this will be continued. The d-dimer level from yesterday was down to 1.26. Reevaluated today on 07/07/19. Patient remains in the ICU, he remains on high flow nasal cannula. Patient is marginal. Clinically he looks fine, does not seem to be in any distress, patient is maintaining O2 saturation in the low 90s on 15 L high flow nasal cannula and intermittently on non-rebreather mask at 100%. Patient received today Lasix 40 mg IV push 1, chest x-ray remains quite abnormal with diffuse interstitial infiltrates. Patient also received actemra yesterday. Surprisingly the patient seems to be doing better than expected considering that his O2 saturation is very marginal. And I am not planning to intubate the patient at this point mostly because of his clinical status seems to be better than expected. Labs were all reviewed WBC count is 15.6 hemoglobin is 13.0 electrodes are normal renal profile is normal LDH is 800 C-reactive protein is 80, coming down. Ferritin level is coming down at 1581 and his d- dimer is 1.26, also coming down Reevaluated today on 07/08/19, patient remains in the ICU, presently he was switched to high flow airvo, he has very marginal O2 saturations ranging between 85% to 90%. Surprisingly the patient is not complaining of shortness of breath, he feels quite comfortable in spite of his profound hypoxemia. And relatively low O2 saturation. Chest x-ray continues to show worsening bilateral infiltrates. Today I recommended a trial of Lasix 40 mg IV push, and he will receive his second dose of actemra. ABG is quite concerning. PO2 is 46 pCO2 is 41 pH of 7.45, however clinically the patient does not seem to be in any respiratory distress. Patient is so close to be intubated, but since the clinical picture does not correlate with his ABG, I will try to hold on intubating the patient at this point. His CBC is relatively normal electrolytes are normal renal profile is normal and his inflammatory markers including ferritin C-reactive protein and LDH, seems to be trending down. His d-dimer was 1.33 yesterday, and we have increased the dose of Lovenox on this patient. Reevaluated today on 07/09/19. Patient remains in the intensive care unit, remains on non-rebreather mask. And high flow nasal cannula. O2 saturation is in the high 80s. However when he was placed in a prone position, O2 saturation went up to 91%. And we'll try to keep him prone as much as possible hopefully 16 hours per day. Patient denies being short of breath, does not seem to be in any distress, and that is unusual considering he has very marginal O2 saturation, and low pO2 based on ABG yesterday. Chest x-ray continues to show bilateral interstitial infiltrates, not much of a change noted in the last 24 hours. All labs were reviewed, CBC is relatively normal. Lymphocytes remain relatively low. Platelets are normal. Basic metabolic profile is relatively normal. Profile is relatively normal, inflammatory markers including ferritin LDH and C-reactive protein are basically about the same. ProBNP level is normal. Objective - Vital Signs Vital signs: Vital Signs Temp 98.5 F 07/09/19 08:00 Pulse 83 07/09/19 11:00 Resp 21 07/09/19 11:00 BP 138/81 07/09/19 11:00 Pulse Ox 91 L 07/09/19 11:00 Intake & Output 07/08/19 07/09/19 07/09/19 18:59 06:59 18:59 Intake Total 1422 530 325 Output Total 1420 710 275 Balance 2 -180 50 Weight 91 kg 91 kg Intake: IV 150 230 100 Sodium Chloride 0.9% 1, 150 230 100 000 ml @ 20 mls/hr IV . Q24H [facility] Rx#:[id number] Intake, IV Titration 300 100 100 Amount Piperacillin-Tazobactam 3 200 100 100 .375 gm In Sodium Chloride 0.9% 100 ml @ 25 mls/hr IVPB Q8HR [facility] Rx# :[id number] Tocilizumab 400 mg In 100 Sodium Chloride 0.9% 80 ml @ 100 mls/hr IV ONCE ONE Rx#:[id number] Oral 972 200 125 Output: Urine 1420 710 275 Other: Voiding Method Indwelling Catheter Indwelling Catheter Indwelling Catheter # Bowel Movements 1 - Exam Physical Exam: Revealed a 68-year-old white male on a nonrebreather mask, in no distress, very comfortable. Denies being short of breath. Head: Atraumatic, normocephalic. HEENT:[Neck is supple.] [No neck masses.] [No thyromegaly.] [No JVD.] Chest: [Symmetrical chest expansion, crackles at the bases bilaterally. AICD pocket over the anterior chest noted. Cardiac Exam: [Normal S1 and S2, no S3 gallop, no murmur.] Abdomen: [Soft, nontender, no megaly, no rebound, no guarding, normal bowel sounds.] Extremities: [No clubbing, no edema, no cyanosis.] Neurological Exam: [No focal neurologic deficit.] Alert and oriented 3. Psychiatric: Normal mood affect and normal mental status examination. Skin: No rashes. Musculoskeletal: No deformities normal range of motion bilaterally. - Labs CBC & Chem 7: 07/09/19 04:09 07/09/19 04:09 Labs: Abnormal Lab Results - Last 24 Hours (Table) 07/08/19 07/08/19 07/09/19 Range/Units 16:52 23:43 04:09 WBC 15.6 H (3.8-10.6) k/uL Neutrophils # 13.7 H (1.3-7.7) k/uL D-Dimer (<0.60) mg/L FEU Sodium (137-145) mmol/L BUN (9-20) mg/dL Glucose (74-99) mg/dL POC Glucose (mg/dL) 106 H 115 H (75-99) mg/dL Ferritin (22.0-322.0) ng/mL AST (17-59) U/L ALT (4-49) U/L Lactate Dehydrogenase (313-618) U/L Creatine Kinase (55-170) U/L C-Reactive Protein (<10.0) mg/L Albumin (3.5-5.0) g/dL 07/09/19 07/09/19 07/09/19 Range/Units 04:09 09:30 11:45 WBC (3.8-10.6) k/uL Neutrophils # (1.3-7.7) k/uL D-Dimer 1.38 H (<0.60) mg/L FEU Sodium 136 L (137-145) mmol/L BUN 33 H (9-20) mg/dL Glucose 115 H (74-99) mg/dL POC Glucose (mg/dL) 108 H (75-99) mg/dL Ferritin 1537.5 H (22.0-322.0) ng/mL AST 88 H (17-59) U/L ALT 103 H (4-49) U/L Lactate Dehydrogenase 971 H (313-618) U/L Creatine Kinase 37 L (55-170) U/L C-Reactive Protein 31.1 H (<10.0) mg/L Albumin 3.4 L (3.5-5.0) g/dL Microbiology - Last 24 Hours (Table) 07/04/19 06:17 Blood Culture - Preliminary Blood No Growth after 120 hours Assessment and Plan Assessment: Impression: Acute hypoxic respiratory failure secondary to acute covid 19 pneumonitis. Lymphopenia and thrombocytopenia secondary to covid 19 infection. Elevated inflammatory markers. Secondary to covid 19 pneumonia. Trending down steadily. History of ischemic cardiomyopathy and AICD placement with previous history of ventricular fibrillation. Doubt underlying congestive heart failure based on normal proBNP level today Coronary artery disease and previous CABG in 2012. Dyslipidemia. Recommendation: Continue present supportive care measures. Placed patient in prone position intermittently and hopefully can tolerate over 16 hours per day. Continue O2 via nonrebreather mask at 100%. Titrate accordingly. Patient finished his course of actemra Continue Zosyn empirically. Continue Lovenox at 90 mg subcu every 12 hours. Hold on IV Lasix today. Continue maintenance dose of diuretics. Continue to monitor closely in the ICU, Patient was made aware that if his condition worsens, he will require intubation mechanical ventilation, but clinically I don't feel that he is ready yet. Prognosis remains significantly poor and guarded, we'll continue to follow. Critical care time is 31 minutes Time with Patient: Greater than 30
--- NOTE | 2019-07-09 15:46 | P.PN ---
Subjective Progress Note Date: 07/09/19 This is a pleasant 68-year-old gentleman recently admitted on the testing positive for Covid 19, received Plaquenil ,discharged on 07/02/2019 ,with history of CAD, hyperlipidemia, [place], CABG, osteoarthritis, ischemic cardiomyopathy, AICD, V. fib, peripheral vascular disease, former nicotine dependence and multiple other medical issues presented to the ER with worsening shortness of breath accompanied by fevers, fatigue. EMS reports patient tachypneic, tachycardic with O2 sats in the mid 70s on arrival .patient was placed on nonrebreather mask with improvement.afebrile admission, T-max 102.5. WBC 17.9 .Lactic acid 3.2 down to 1.5.Blood cultures obtained. Chest x-ray reporting bilateral patchy pneumonia slightly worse than last exam without heart failure. Denies chest pain, palpitations or shortness of breath. Denies lightheadedness, dizziness or focal deficits. EKG reporting normal sinus rhythm, left anterior fascicular block. Ferritin 1480.5. ( prev. 1146.7) C reactive protein 221( prev. 64.2) LDH 642 (prev 534) ,d-dimer 1.46( prev. 0.38.) BUN 22, creatinine 0.96. Na WNL. Procalcitonin levels elevated. Influenza A and B not detected. Pulmonary consulted. Interleukin 6 pending. Patient is being transferred to the ICU. 07/07/2019 maintaining O2 sats in the 90s on nonrebreather mask with additional high flow nasal cannula. Received Actemra yesterday. Chest x-ray reporting slightly worsening multifocal bilateral airspace disease with multifocal pneumonia. T-max 99.3. Ferritin down to 1581.9, LDH up to 800 mL, Creactive protein down to 80, d-dimer down to 1.26 on 07/04. Lymphocytes 7. WBC 15.6, on steroids. Hemoglobin 13 07/08/2019 Converted to 95% high flow airflow, maintaining O2 sats of mid to high 80s. ABGS reporting PH 7.45, PO2 46 pCO2 41, bicarb 28, total CO2 30 with O2 sat of 80.7 on 100% FiO2, base excess 4.3, yet patient denies increased shortness of breath, waving hi. Chest x-ray reporting persistent peripheral and lower lung patchy and confluent airspace disease. Inflammatory markers trending down, d-dimer minimally increased yesterday to 1.33. Lovenox dose increased Receiving second dose of Actemra. Tested negative for C. difficile colitis. Blood sugars controlled. 07/09/2019. Maintained on high flow 90% maintaining O2 sats of 80s to low 90s, currently in the prone position. Chest x-ray reports stable patchy bilateral lung infiltrates. Inflammatory markers about the same. Afebrile, WBC increased to 15.6. Objective - Vital Signs Vital signs: Vital Signs Temp 98.6 F 07/09/19 12:00 Pulse 80 07/09/19 12:00 Resp 21 07/09/19 12:00 BP 130/76 07/09/19 12:00 Pulse Ox 90 L 07/09/19 12:19 Intake & Output 07/08/19 07/09/19 07/09/19 18:59 06:59 18:59 Intake Total 1422 530 345 Output Total 1420 710 305 Balance 2 -180 40 Weight 91 kg 91 kg Intake: IV 150 230 120 Sodium Chloride 0.9% 1, 150 230 120 000 ml @ 20 mls/hr IV . Q24H [facility] Rx#:[id number] Intake, IV Titration 300 100 100 Amount Piperacillin-Tazobactam 3 200 100 100 .375 gm In Sodium Chloride 0.9% 100 ml @ 25 mls/hr IVPB Q8HR [facility] Rx# :[id number] Tocilizumab 400 mg In 100 Sodium Chloride 0.9% 80 ml @ 100 mls/hr IV ONCE ONE Rx#:[id number] Oral 972 200 125 Output: Urine 1420 710 305 Other: Voiding Method Indwelling Catheter Indwelling Catheter Indwelling Catheter # Bowel Movements 1 - Exam VITAL SIGNS: [as above] GENERAL: Lying in bed, no acute distress on Airvo. HEENT: Conjunctivae normal. eyes normal. NECK: No JVD. No thyroid enlargement. No LNs CARDIOVASCULAR: S1, S2 regular.No murmur. RESPIRATION: Breath sounds diminished in the bases. basilar crackles. ABDOMEN: Soft, nontender . No guarding. no masses palpable.Bowel sounds heard. LEGS: No edema. no swelling PSYCHIATRY: Alert and oriented X3, mood and affect normal. NERVOUS SYSTEM: Cranial N 2-12 grossly normal. Moves all 4 limbs. Diffuse weakness ,No focal deficits. Strength and sensation grossly intact.. Skin: no rash Microbiology 07/04/19 06:17 Blood Blood Culture - Preliminary No Growth after 96 hours - Labs CBC & Chem 7: 07/09/19 04:09 07/09/19 04:09 Labs: Abnormal Lab Results - Last 24 Hours (Table) 07/08/19 07/08/19 07/09/19 Range/Units 16:52 23:43 04:09 WBC 15.6 H (3.8-10.6) k/uL Neutrophils # 13.7 H (1.3-7.7) k/uL D-Dimer (<0.60) mg/L FEU Sodium (137-145) mmol/L BUN (9-20) mg/dL Glucose (74-99) mg/dL POC Glucose (mg/dL) 106 H 115 H (75-99) mg/dL Ferritin (22.0-322.0) ng/mL AST (17-59) U/L ALT (4-49) U/L Lactate Dehydrogenase (313-618) U/L Creatine Kinase (55-170) U/L C-Reactive Protein (<10.0) mg/L Albumin (3.5-5.0) g/dL 07/09/19 07/09/19 07/09/19 Range/Units 04:09 09:30 11:45 WBC (3.8-10.6) k/uL Neutrophils # (1.3-7.7) k/uL D-Dimer 1.38 H (<0.60) mg/L FEU Sodium 136 L (137-145) mmol/L BUN 33 H (9-20) mg/dL Glucose 115 H (74-99) mg/dL POC Glucose (mg/dL) 108 H (75-99) mg/dL Ferritin 1537.5 H (22.0-322.0) ng/mL AST 88 H (17-59) U/L ALT 103 H (4-49) U/L Lactate Dehydrogenase 971 H (313-618) U/L Creatine Kinase 37 L (55-170) U/L C-Reactive Protein 31.1 H (<10.0) mg/L Albumin 3.4 L (3.5-5.0) g/dL Microbiology - Last 24 Hours (Table) 07/04/19 06:17 Blood Culture - Preliminary Blood No Growth after 120 hours Assessment and Plan Assessment: Acute COVID 19 bilateral pneumonia Leukocytosis secondary to the above, plus on steroids Acute hypoxic and hypercapnic respiratory failure secondary to Covid 19 pneumonia Thrombocytopenia secondary to Covid 19 infection Lymphopenia secondary to Covid 19 infection CAD with history of TX, CABG, stenting Ischemic cardiomyopathy, history of V. fib, with AICD Hyperlipidemia Plan: Continue on current medication regime ,monitoring and symptomatic treatment. Prone positioning in progress. Maintain Zosyn, steroids, Hi flow Airvo as per ripsawyer. DVT prophylaxis with Lovenox. Prognosis guarded given multiple complex medical issues. The impression and plan of care has been dictated as directed. : I performed a history and examination of this patient, discussed the same with the dictator. I agree with the dictator's note ,documented as a scribe. Any additional findings or plans will be noted.
[2019-07-09 17:51] LABS: Glucose,Whole Blood 100 mg/dL (75-99)
[2019-07-09] MEDS: ATORVASTATIN 80 MG TAB PO SCH (20:08)
[2019-07-09 23:54] LABS: Glucose,Whole Blood 114 mg/dL (75-99)
[2019-07-10] MEDS: INSULIN ASPART (NovoLOG) 100 UNIT/ML VIAL SQ SCH ×5 (05:08→23:48)
[2019-07-10 05:43] LABS: Basophils % (A) 0 %; Eosinophils # (A) 0.1 k/uL (0-0.7); Eosinophils % (A) 1 %; HCT 44.5 % (39.0-53.0); HGB 14.4 gm/dL (13.0-17.5); Lymphocytes # (A) 1.3 k/uL (1.0-4.8); Lymphocytes % (A) 6 %; MCH 29.8 pg (25.0-35.0); MCHC 32.3 g/dL (31.0-37.0); MCV 92.4 fL (80.0-100.0); Mean Platelet Volume 8.2; Monocytes # (A) 0.5 k/uL (0-1.0); Monocytes % (A) 2 %; Neutrophils # (A) 18.4 k/uL (1.3-7.7); Neutrophils % (A) 90 %; Platelet Count 377 k/uL (150-450); RBC 4.82 m/uL (4.30-5.90); WBC 20.4 k/uL (3.8-10.6)
[2019-07-10 05:45] LABS: Glucose,Whole Blood 117 mg/dL (75-99)
[2019-07-10 06:20] LABS: ALT 117 U/L (4-49); AST 81 U/L (17-59); African American GFR (CKD) >90 (>60 ml/min/1.73 sqM); Albumin 3.4 g/dL (3.5-5.0); Alkaline Phosphatase 68 U/L (38-126); Anion Gap 9 mmol/L; Blood Urea Nitrogen 32 mg/dL (9-20); Carbon Dioxide 25 mmol/L (22-30); Chloride 100 mmol/L (98-107); Creatine Kinase 36 U/L (55-170); Glucose 121 mg/dL (74-99); LDH 1138 U/L (313-618); Non-African American GFR(CKD) 85 (>60 ml/min/1.73 sqM); Potassium 4.7 mmol/L (3.5-5.1); Sodium 134 mmol/L (137-145); Total Bilirubin 0.8 mg/dL (0.2-1.3); Total Protein 6.2 g/dL (6.3-8.2)
--- NOTE | 2019-07-10 06:30 | XR ---
EXAMINATION TYPE: XR chest 1V portable DATE OF EXAM: 07/10/2019 CLINICAL HISTORY: Difficulty breathing and Covid pneumonia progress study. TECHNIQUE: Single AP portable upright view of the chest is obtained. COMPARISON: Chest x-ray from one day earlier and older x-rays. FINDINGS: Overlying sternal wires and mediastinal clips redemonstrated. Cardiac silhouette size risa ins normal with single lead pacemaker/AICD. Background chronic foraminal change with left mid to lowe r lung and right peripheral mid to lower lung opacities. No pleural effusion or pneumothorax seen. Up per lungs remain predominantly clear. Osseous structures are intact. IMPRESSION: Chronic parenchymal changes with multifocal mid to lower lung bilateral acute infiltrates , no significant change from most recent x-ray.
[2019-07-10] MEDS: SODIUM CHLORIDE 0.9% 1,000 ML IV SCH (07:08)
[2019-07-10] MEDS: methylPREDNISolone SOD SUCCI 40 MG/ML 1 ML VIAL IV SCH ×2 (08:23→21:00)
[2019-07-10] MEDS: CLOPIDOGREL 75 MG TAB PO SCH (08:24)
[2019-07-10] MEDS: LOSARTAN 25 MG TAB PO SCH (08:24)
[2019-07-10] MEDS: EZETIMIBE 10 MG TAB PO SCH (08:24)
[2019-07-10] MEDS: ASPIRIN 81 MG PO SCH (08:24)
[2019-07-10] MEDS: ENOXAPARIN 100 MG/ML SYRINGE SQ SCH ×2 (08:24→21:00)
[2019-07-10] MEDS: CARVEDILOL 3.125 MG TAB PO SCH (08:24)
[2019-07-10] MEDS: SPIRONOLACTONE 25 MG TAB PO SCH ×2 (08:24→21:00)
[2019-07-10] MEDS: PANTOPRAZOLE 40 MG TABLET PO SCH (08:24)
[2019-07-10] MEDS: PIPERACILLIN-TAZOBACTAM 3.375 GM in SODIUM CHLORIDE 0.9% 100 ML IVPB SCH ×3 (08:25→23:22)
--- NOTE | 2019-07-10 10:17 | P.PN ---
Subjective Progress Note Date: 07/10/19 This is a pleasant 68-year-old gentleman recently admitted on the testing positive for Covid 19, received Plaquenil ,discharged on 07/02/2019 ,with history of CAD, hyperlipidemia, [place], CABG, osteoarthritis, ischemic cardiomyopathy, AICD, V. fib, peripheral vascular disease, former nicotine dependence and multiple other medical issues presented to the ER with worsening shortness of breath accompanied by fevers, fatigue. EMS reports patient tachypneic, tachycardic with O2 sats in the mid 70s on arrival .patient was placed on nonrebreather mask with improvement.afebrile admission, T-max 102.5. WBC 17.9 .Lactic acid 3.2 down to 1.5.Blood cultures obtained. Chest x-ray reporting bilateral patchy pneumonia slightly worse than last exam without heart failure. Denies chest pain, palpitations or shortness of breath. Denies lightheadedness, dizziness or focal deficits. EKG reporting normal sinus rhythm, left anterior fascicular block. Ferritin 1480.5. ( prev. 1146.7) C reactive protein 221( prev. 64.2) LDH 642 (prev 534) ,d-dimer 1.46( prev. 0.38.) BUN 22, creatinine 0.96. Na WNL. Procalcitonin levels elevated. Influenza A and B not detected. Pulmonary consulted. Interleukin 6 pending. Patient is being transferred to the ICU. 07/07/2019 maintaining O2 sats in the 90s on nonrebreather mask with additional high flow nasal cannula. Received Actemra yesterday. Chest x-ray reporting slightly worsening multifocal bilateral airspace disease with multifocal pneumonia. T-max 99.3. Ferritin down to 1581.9, LDH up to 800 mL, Creactive protein down to 80, d-dimer down to 1.26 on 07/04. Lymphocytes 7. WBC 15.6, on steroids. Hemoglobin 13 07/08/2019 Converted to 95% high flow airflow, maintaining O2 sats of mid to high 80s. ABGS reporting PH 7.45, PO2 46 pCO2 41, bicarb 28, total CO2 30 with O2 sat of 80.7 on 100% FiO2, base excess 4.3, yet patient denies increased shortness of breath, waving hi. Chest x-ray reporting persistent peripheral and lower lung patchy and confluent airspace disease. Inflammatory markers trending down, d-dimer minimally increased yesterday to 1.33. Lovenox dose increased Receiving second dose of Actemra. Tested negative for C. difficile colitis. Blood sugars controlled. 07/09/2019. Maintained on high flow 90% maintaining O2 sats of 80s to low 90s, currently in the prone position. Chest x-ray reports stable patchy bilateral lung infiltrates. Inflammatory markers about the same. Afebrile, WBC increased to 15.6. 07/10/2019 Maintained on IV steroids, Zosyn . Anticoagulated on Lovenox. Patient reports he feels better today. Tolerating prone positioning. Maintained on FiO2 100% nonrebreather +60% airvo, maintaining O2 sats of high 80s. Chest x-ray reporting no significant change. T-max 99, WBC trending up to 20.4. LDH, CRP trending up. LFTs mildly increased. Objective - Vital Signs Vital signs: Vital Signs Temp 99 F 07/10/19 08:00 Pulse 79 07/10/19 09:00 Resp 23 07/10/19 09:00 BP 102/61 07/10/19 09:00 Pulse Ox 88 L 07/10/19 09:00 Intake & Output 07/09/19 07/10/19 07/10/19 18:59 06:59 18:59 Intake Total 715 240 60 Output Total 515 660 220 Balance 200 -420 -160 Weight 91 kg 92.2 kg Intake: IV 240 240 60 Sodium Chloride 0.9% 1, 240 240 60 000 ml @ 20 mls/hr IV . Q24H [facility] Rx#:[id number] Intake, IV Titration 100 Amount Piperacillin-Tazobactam 3 100 .375 gm In Sodium Chloride 0.9% 100 ml @ 25 mls/hr IVPB Q8HR [facility] Rx# :[id number] Oral 375 Output: Urine 515 660 220 Other: Voiding Method Indwelling Catheter Indwelling Catheter Indwelling Catheter # Bowel Movements 1 - Exam VITAL SIGNS: [as above] GENERAL: Lying in bed, currently prone position, no acute distress. HEENT: Conjunctivae normal. eyes normal. NECK: No JVD. No thyroid enlargement. No LNs CARDIOVASCULAR: S1, S2 regular.No murmur. RESPIRATION: Breath sounds diminished in the bases. basilar crackles. ABDOMEN: Soft, nontender . No guarding. no masses palpable.Bowel sounds heard. LEGS: No edema. no swelling PSYCHIATRY: Alert and oriented X3, mood and affect normal. NERVOUS SYSTEM: Cranial N 2-12 grossly normal. Moves all 4 limbs. Diffuse weakness ,No focal deficits. Strength and sensation grossly intact. Skin: no rash - Labs CBC & Chem 7: 07/10/19 05:09 07/10/19 05:09 Labs: Abnormal Lab Results - Last 24 Hours (Table) 07/09/19 07/09/19 07/09/19 Range/Units 04:09 11:45 17:50 WBC (3.8-10.6) k/uL Neutrophils # (1.3-7.7) k/uL Sodium (137-145) mmol/L BUN (9-20) mg/dL Glucose (74-99) mg/dL POC Glucose (mg/dL) 108 H 100 H (75-99) mg/dL Ferritin 1537.5 H (22.0-322.0) ng/mL AST (17-59) U/L ALT (4-49) U/L Lactate Dehydrogenase (313-618) U/L Creatine Kinase (55-170) U/L C-Reactive Protein (<10.0) mg/L Total Protein (6.3-8.2) g/dL Albumin (3.5-5.0) g/dL 07/09/19 07/10/19 07/10/19 Range/Units 23:52 05:09 05:09 WBC 20.4 H (3.8-10.6) k/uL Neutrophils # 18.4 H (1.3-7.7) k/uL Sodium 134 L (137-145) mmol/L BUN 32 H (9-20) mg/dL Glucose 121 H (74-99) mg/dL POC Glucose (mg/dL) 114 H (75-99) mg/dL Ferritin (22.0-322.0) ng/mL AST 81 H (17-59) U/L ALT 117 H (4-49) U/L Lactate Dehydrogenase 1138 H (313-618) U/L Creatine Kinase 36 L (55-170) U/L C-Reactive Protein 20.0 H (<10.0) mg/L Total Protein 6.2 L (6.3-8.2) g/dL Albumin 3.4 L (3.5-5.0) g/dL 07/10/19 Range/Units 05:43 WBC (3.8-10.6) k/uL Neutrophils # (1.3-7.7) k/uL Sodium (137-145) mmol/L BUN (9-20) mg/dL Glucose (74-99) mg/dL POC Glucose (mg/dL) 117 H (75-99) mg/dL Ferritin (22.0-322.0) ng/mL AST (17-59) U/L ALT (4-49) U/L Lactate Dehydrogenase (313-618) U/L Creatine Kinase (55-170) U/L C-Reactive Protein (<10.0) mg/L Total Protein (6.3-8.2) g/dL Albumin (3.5-5.0) g/dL Microbiology - Last 24 Hours (Table) 07/04/19 06:17 Blood Culture - Final Blood No Growth after 144 hours Assessment and Plan Assessment: Acute COVID 19 bilateral pneumonia Leukocytosis secondary to the above, plus on steroids Acute hypoxic and hypercapnic respiratory failure secondary to Covid 19 pneumonia Thrombocytopenia secondary to Covid 19 infection Lymphopenia secondary to Covid 19 infection CAD with history of [place], CABG, stenting Ischemic cardiomyopathy, history of V. fib, with AICD Hyperlipidemia Plan: Continue on current medication regime ,monitoring and symptomatic treatment. Lovenox for DVT prophylaxis,.continues on IV steroids, Zosyn . Oxygen titration/ Prone positioning as per soda clerk .Prognosis guarded given multiple complex medical issues. The impression and plan of care has been dictated as directed. : I performed a history and examination of this patient, discussed the same with the dictator. I agree with the dictator's note ,documented as a scribe. Any additional findings or plans will be noted.
[2019-07-10 11:46] LABS: Ferritin 1376.4 ng/mL (22.0-322.0)
[2019-07-10 11:50] LABS: Glucose,Whole Blood 101 mg/dL (75-99)
--- NOTE | 2019-07-10 12:28 | P.PN ---
Subjective Progress Note Date: 07/10/19 Principal diagnosis: Acute hypoxic respiratory failure secondary to covid 19 pneumonia. This is a 68-year-old male patient who came into the emergency department because of worsening shortness of breath. He is known to me. He was diagnosed having a COVID 19 infection and I was involved in his care during an earlier hospitalization of 06/30/2019. The patient did well and the patient was discharged home to be readmitted because of worsening shortness of breath. He was found to be quite hypoxic with a pulse ox of in the 70s at a time of his ED evaluation. He was also tachypneic and tachycardic. He was placed on 100% nonrebreather facemask and currently his pulse ox is around 94%. Chest x-ray shows interstitial infiltrates bilaterally with probably some interval worsening compared to the chest x-ray from 2 days back. Note that the patient was developing diffuse body aches at a time of his initial diagnosis. No nausea. No vomiting. No diarrhea. He had some lymphopenia which have improved. He also had thrombocytopenia which has improved. His lactic acid level at time of admission was 3.2 and dropped down to 1.5. Rest of the blood work and electrodes are all within normal limits. He has history of coronary artery disease, previous [place], ischemic cardiomyopathy and he has an AICD in place. He has also history of hyperlipidemia. Based on my previous evaluation here in the hospital, the patient d-dimer was nonelevated and he had mild elevation of the CRP and the LDH levels. His current for calcitonin level is at 0.15. His proBNP level is 1230. His LDH level from today is 42 which is slightly elevated compared to the previous evaluation and his CRP level is 2020 which is also elevated compared to his previous evaluation. His ferritin level is 1480. Note that the patient received Plaquenil during his earlier hospitalization. On 07/04/2009 the patient is being seen in intensive care unit. The patient got transferred because of his worsening hypoxemia. He was placed on on the percent nonrebreather facemask. Overnight, his oxygenation got worse and the patient had further desaturation. Based on that, I added another 10 L of nasal cannula in addition to the 100% nonrebreather facemask and the patient was placed in a prone body position. This improved his oxygenation and the patient's pulse ox currently around 94%. He desaturates whenever he turns back supine. He is however comfortable. He is not having any major respiratory distress. No tachypnea. His white cell count is at 17.6 and the patient also had some mild elevation of the pro-calcitonin level. Based on that he was placed on empiric antibiotic coverage with IV Zosyn. Noted the blood gases was done yesterday at a time of desaturation 100% nonrebreather facemask showed a pH of 7.49 with a pCO2 of 31 and pO2 52 and this is consistent with acute respiratory alkalosis and acute hypoxemia secondary to Covid 19 pneumonia. Hemodynamically stable. He is having episodes of fever. LDH level is at 645. CRP is at 381. The patient's ferritin level is still pending. Meanwhile, tidal consistent with a consent and consideration for [id number] therapy. No nausea. No vomiting. No altered mentation. No other complaints otherwise for now. On 07/05/2009, the patient is being monitored very closely regarding his Covid 19 pneumonia and severe hypoxemia. Note that throughout the day yesterday the patient was on the percent nonrebreather facemask and 15 L of oxygen by nasal cannula. Note that the patient is being also placed in the prone body position. He does better on his side and in the prone body position with his pulse ox improves and comes up to 90%. We are allowing lower pulse ox saturations as long as the patient is not having any major symptoms. No altered mentation. No signs of any significant respiratory distress. No chest pain. He has limited cough and congestion. No significant sputum production. He is not having any fever. He was having. 48 hours ago. His LDH level is 709. His C-reactive protein is 197. His white cell count is at 19.0. D-dimer is at 1.26. His pro- calcitonin level was also elevated at 0.15. Based on elevation of protein calcitonin and white cell count, cover this patient with IV Zosyn. The chest x- ray findings showing persistent bilateral pulmonary infiltrates without any significant improvement. Cardiac structures essentially unchanged. The patient is also a pacemaker in place. No nausea. No vomiting. No diarrhea. No altered mentation. Interleukin-6 levels have been sent and is also still pending for now. The patient remains on IV Zosyn, IV Solu-Medrol, heparin subcu for DVT prophylaxis and this will be continued. The d-dimer level from yesterday was down to 1.26. Reevaluated today on 07/07/19. Patient remains in the ICU, he remains on high flow nasal cannula. Patient is marginal. Clinically he looks fine, does not seem to be in any distress, patient is maintaining O2 saturation in the low 90s on 15 L high flow nasal cannula and intermittently on non-rebreather mask at 100%. Patient received today Lasix 40 mg IV push 1, chest x-ray remains quite abnormal with diffuse interstitial infiltrates. Patient also received actemra yesterday. Surprisingly the patient seems to be doing better than expected considering that his O2 saturation is very marginal. And I am not planning to intubate the patient at this point mostly because of his clinical status seems to be better than expected. Labs were all reviewed WBC count is 15.6 hemoglobin is 13.0 electrodes are normal renal profile is normal LDH is 800 C-reactive protein is 80, coming down. Ferritin level is coming down at 1581 and his d- dimer is 1.26, also coming down Reevaluated today on 07/08/19, patient remains in the ICU, presently he was switched to high flow airvo, he has very marginal O2 saturations ranging between 85% to 90%. Surprisingly the patient is not complaining of shortness of breath, he feels quite comfortable in spite of his profound hypoxemia. And relatively low O2 saturation. Chest x-ray continues to show worsening bilateral infiltrates. Today I recommended a trial of Lasix 40 mg IV push, and he will receive his second dose of actemra. ABG is quite concerning. PO2 is 46 pCO2 is 41 pH of 7.45, however clinically the patient does not seem to be in any respiratory distress. Patient is so close to be intubated, but since the clinical picture does not correlate with his ABG, I will try to hold on intubating the patient at this point. His CBC is relatively normal electrolytes are normal renal profile is normal and his inflammatory markers including ferritin C-reactive protein and LDH, seems to be trending down. His d-dimer was 1.33 yesterday, and we have increased the dose of Lovenox on this patient. Reevaluated today on 07/09/19. Patient remains in the intensive care unit, remains on non-rebreather mask. And high flow nasal cannula. O2 saturation is in the high 80s. However when he was placed in a prone position, O2 saturation went up to 91%. And we'll try to keep him prone as much as possible hopefully 16 hours per day. Patient denies being short of breath, does not seem to be in any distress, and that is unusual considering he has very marginal O2 saturation, and low pO2 based on ABG yesterday. Chest x-ray continues to show bilateral interstitial infiltrates, not much of a change noted in the last 24 hours. All labs were reviewed, CBC is relatively normal. Lymphocytes remain relatively low. Platelets are normal. Basic metabolic profile is relatively normal. Profile is relatively normal, inflammatory markers including ferritin LDH and C-reactive protein are basically about the same. ProBNP level is normal. Patient was reevaluated today on 07/10/19. Patient remains in the intensive care unit, on a nonrebreather mask, O2 saturation is still marginal ranging between 89 and 92% at best. Patient remains comfortable, he does improve when placed in prone position. And he has been intermittently placed in prone position. Chest x-ray is basically about the same, continues to show bilateral infiltrates. Not much of a change is noted. Today I discussed with the patient the option of starting him on a trial of convalescent plasma for Covid 19 pneumonitis. Patient is agreeable, and consent was signed. Covid 19 inflammatory markers remain elevated. Ferritin is 1376. LDH is 1138. C-reactive protein is 20. Ba sic metabolic profile is basically unremarkable. WBC count is 20.4 hemoglobin is 14.4. PMNs are 90%. Overall patient is basically about the same with very minimal improvement in his O2 saturation over the last couple of days. Objective - Vital Signs Vital signs: Vital Signs Temp 99 F 07/10/19 08:00 Pulse 78 07/10/19 11:00 Resp 22 07/10/19 11:00 BP 111/71 07/10/19 11:00 Pulse Ox 90 L 07/10/19 11:00 Intake & Output 07/09/19 07/10/19 07/10/19 18:59 06:59 18:59 Intake Total 715 240 100 Output Total 515 660 360 Balance 200 -420 -260 Weight 91 kg 92.2 kg 92.2 kg Intake: IV 240 240 100 Sodium Chloride 0.9% 1, 240 240 100 000 ml @ 20 mls/hr IV . Q24H [facility] Rx#:[id number] Intake, IV Titration 100 Amount Piperacillin-Tazobactam 3 100 .375 gm In Sodium Chloride 0.9% 100 ml @ 25 mls/hr IVPB Q8HR [facility] Rx# :[id number] Oral 375 Output: Urine 515 660 360 Other: Voiding Method Indwelling Catheter Indwelling Catheter Indwelling Catheter # Bowel Movements 1 - Exam Physical Exam: Revealed a 68-year-old white male on a nonrebreather mask, in no distress, very comfortable. Patient stated that he feels better. Head: Atraumatic, normocephalic. HEENT:[Neck is supple.] [No neck masses.] [No thyromegaly.] [No JVD.] Chest: [Symmetrical chest expansion, crackles at the bases bilaterally. AICD pocket over the anterior chest noted. Cardiac Exam: [Normal S1 and S2, no S3 gallop, no murmur.] Abdomen: [Soft, nontender, no megaly, no rebound, no guarding, normal bowel sounds.] Extremities: [No clubbing, no edema, no cyanosis.] Neurological Exam: [No focal neurologic deficit.] Alert and oriented 3. Psychiatric: Normal mood affect and normal mental status examination. Skin: No rashes. Musculoskeletal: No deformities normal range of motion bilaterally. - Labs CBC & Chem 7: 07/10/19 05:09 07/10/19 05:09 Labs: Abnormal Lab Results - Last 24 Hours (Table) 07/09/19 07/09/19 07/10/19 Range/Units 17:50 23:52 05:09 WBC 20.4 H (3.8-10.6) k/uL Neutrophils # 18.4 H (1.3-7.7) k/uL Sodium (137-145) mmol/L BUN (9-20) mg/dL Glucose (74-99) mg/dL POC Glucose (mg/dL) 100 H 114 H (75-99) mg/dL Ferritin (22.0-322.0) ng/mL AST (17-59) U/L ALT (4-49) U/L Lactate Dehydrogenase (313-618) U/L Creatine Kinase (55-170) U/L C-Reactive Protein (<10.0) mg/L Total Protein (6.3-8.2) g/dL Albumin (3.5-5.0) g/dL 07/10/19 07/10/19 07/10/19 Range/Units 05:09 05:43 11:47 WBC (3.8-10.6) k/uL Neutrophils # (1.3-7.7) k/uL Sodium 134 L (137-145) mmol/L BUN 32 H (9-20) mg/dL Glucose 121 H (74-99) mg/dL POC Glucose (mg/dL) 117 H 101 H (75-99) mg/dL Ferritin 1376.4 H (22.0-322.0) ng/mL AST 81 H (17-59) U/L ALT 117 H (4-49) U/L Lactate Dehydrogenase 1138 H (313-618) U/L Creatine Kinase 36 L (55-170) U/L C-Reactive Protein 20.0 H (<10.0) mg/L Total Protein 6.2 L (6.3-8.2) g/dL Albumin 3.4 L (3.5-5.0) g/dL Microbiology - Last 24 Hours (Table) 07/04/19 06:17 Blood Culture - Final Blood No Growth after 144 hours Assessment and Plan Assessment: Impression: Acute hypoxic respiratory failure secondary to acute covid 19 pneumonitis. Elevated inflammatory markers. Secondary to covid 19 pneumonia. Trending down steadily. History of ischemic cardiomyopathy and AICD placement with previous history of ventricular fibrillation. Doubt underlying congestive heart failure Coronary artery disease and previous CABG in 2012. Dyslipidemia. Recommendation: Continue present supportive care measures. Continue intermittent prone positions. Consider transfusion with convalescent plasma if available. Patient is agreeable and consent was signed. Continue O2 via nonrebreather mask at 100%. Titrate accordingly. Patient finished his course of actemra Continue Zosyn empirically. Continue Lovenox at 90 mg subcu every 12 hours. Continue to hold Lasix. Continue to monitor closely in the ICU, Consider intubation and mechanical ventilation if condition worsens. Critical care time is 34 minutes. Time with Patient: Greater than 30
[2019-07-10] MEDS: ATORVASTATIN 80 MG TAB PO SCH (21:00)
[2019-07-11 04:26] LABS: Basophils # (A) 0.1 k/uL (0-0.2); Basophils % (A) 1 %; Eosinophils # (A) 0.2 k/uL (0-0.7); Eosinophils % (A) 1 %; HCT 45.6 % (39.0-53.0); HGB 14.9 gm/dL (13.0-17.5); Lymphocytes # (A) 1.1 k/uL (1.0-4.8); Lymphocytes % (A) 5 %; MCH 29.6 pg (25.0-35.0); MCHC 32.7 g/dL (31.0-37.0); MCV 90.6 fL (80.0-100.0); Monocytes # (A) 0.8 k/uL (0-1.0); Monocytes % (A) 3 %; Neutrophils # (A) 22.3 k/uL (1.3-7.7); Neutrophils % (A) 90 %; Platelet Count 385 k/uL (150-450); RBC 5.03 m/uL (4.30-5.90); RDW 13.1 % (11.5-15.5); WBC 24.6 k/uL (3.8-10.6)
[2019-07-11 04:39] LABS: ALT 121 U/L (4-49); AST 81 U/L (17-59); African American GFR (CKD) >90 (>60 ml/min/1.73 sqM); Albumin 3.3 g/dL (3.5-5.0); Alkaline Phosphatase 57 U/L (38-126); Anion Gap 9 mmol/L; Blood Urea Nitrogen 27 mg/dL (9-20); C Reactive Protein 11.1 mg/L (<10.0); Carbon Dioxide 26 mmol/L (22-30); Chloride 99 mmol/L (98-107); Creatine Kinase 24 U/L (55-170); Glucose 107 mg/dL (74-99); LDH 897 U/L (313-618); Non-African American GFR(CKD) 90 (>60 ml/min/1.73 sqM); Sodium 134 mmol/L (137-145); Total Bilirubin 0.9 mg/dL (0.2-1.3); Total Protein 6.2 g/dL (6.3-8.2)
[2019-07-11] MEDS: INSULIN ASPART (NovoLOG) 100 UNIT/ML VIAL SQ SCH ×3 (05:49→18:11)
--- NOTE | 2019-07-11 07:43 | XR ---
EXAMINATION TYPE: XR chest 1V DATE OF EXAM: 07/11/2019 COMPARISON: 07/10/2019 HISTORY: Shortness of breath, known pneumonia. TECHNIQUE: Single frontal view of the chest is obtained. FINDINGS: Worsening confluence of the left lower lung opacity partially obscured by the single lead left-sided cardiac device. Right-sided opacity remains similar to the prior. Cardiomediastinal silhou ette also demonstrates post CABG change and stable size. No new pleural effusion or pneumothorax. No acute osseous process. IMPRESSION: Worsening left lower lung opacity and persistent change right lower lobe opacity in this patient with known multifocal pneumonia.
[2019-07-11 07:49] LABS: Glucose,Whole Blood 89 mg/dL (75-99)
[2019-07-11 07:49] LABS: Glucose,Whole Blood 92 mg/dL (75-99)
[2019-07-11] MEDS: PIPERACILLIN-TAZOBACTAM 3.375 GM in SODIUM CHLORIDE 0.9% 100 ML IVPB SCH ×2 (08:54→16:28)
[2019-07-11] MEDS: LOSARTAN 25 MG TAB PO SCH (08:55)
[2019-07-11] MEDS: SODIUM CHLORIDE 0.9% 1,000 ML IV SCH (08:55)
[2019-07-11] MEDS: methylPREDNISolone SOD SUCCI 40 MG/ML 1 ML VIAL IV SCH ×2 (08:55→20:53)
[2019-07-11] MEDS: ENOXAPARIN 100 MG/ML SYRINGE SQ SCH ×2 (08:55→20:54)
[2019-07-11] MEDS: PANTOPRAZOLE 40 MG TABLET PO SCH (08:55)
[2019-07-11] MEDS: ASPIRIN 81 MG PO SCH (08:56)
[2019-07-11] MEDS: SPIRONOLACTONE 25 MG TAB PO SCH ×2 (08:56→20:54)
[2019-07-11] MEDS: CLOPIDOGREL 75 MG TAB PO SCH (08:56)
[2019-07-11] MEDS: EZETIMIBE 10 MG TAB PO SCH (08:56)
[2019-07-11] MEDS: CARVEDILOL 3.125 MG TAB PO SCH (08:56)
[2019-07-11 12:02] LABS: Glucose,Whole Blood 126 mg/dL (75-99)
--- NOTE | 2019-07-11 12:43 | P.PN ---
Subjective Progress Note Date: 07/11/19 This is a pleasant 68-year-old gentleman recently admitted on the testing positive for Covid 19, received Plaquenil ,discharged on 07/02/2019 ,with history of CAD, hyperlipidemia, [place], CABG, osteoarthritis, ischemic cardiomyopathy, AICD, V. fib, peripheral vascular disease, former nicotine dependence and multiple other medical issues presented to the ER with worsening shortness of breath accompanied by fevers, fatigue. EMS reports patient tachypneic, tachycardic with O2 sats in the mid 70s on arrival .patient was placed on nonrebreather mask with improvement.afebrile admission, T-max 102.5. WBC 17.9 .Lactic acid 3.2 down to 1.5.Blood cultures obtained. Chest x-ray reporting bilateral patchy pneumonia slightly worse than last exam without heart failure. Denies chest pain, palpitations or shortness of breath. Denies lightheadedness, dizziness or focal deficits. EKG reporting normal sinus rhythm, left anterior fascicular block. Ferritin 1480.5. ( prev. 1146.7) C reactive protein 221( prev. 64.2) LDH 642 (prev 534) ,d-dimer 1.46( prev. 0.38.) BUN 22, creatinine 0.96. Na WNL. Procalcitonin levels elevated. Influenza A and B not detected. Pulmonary consulted. Interleukin 6 pending. Patient is being transferred to the ICU. 07/07/2019 maintaining O2 sats in the 90s on nonrebreather mask with additional high flow nasal cannula. Received Actemra yesterday. Chest x-ray reporting slightly worsening multifocal bilateral airspace disease with multifocal pneumonia. T-max 99.3. Ferritin down to 1581.9, LDH up to 800 mL, Creactive protein down to 80, d-dimer down to 1.26 on 07/04. Lymphocytes 7. WBC 15.6, on steroids. Hemoglobin 13 07/08/2019 Converted to 95% high flow airflow, maintaining O2 sats of mid to high 80s. ABGS reporting PH 7.45, PO2 46 pCO2 41, bicarb 28, total CO2 30 with O2 sat of 80.7 on 100% FiO2, base excess 4.3, yet patient denies increased shortness of breath, waving hi. Chest x-ray reporting persistent peripheral and lower lung patchy and confluent airspace disease. Inflammatory markers trending down, d-dimer minimally increased yesterday to 1.33. Lovenox dose increased Receiving second dose of Actemra. Tested negative for C. difficile colitis. Blood sugars controlled. 07/09/2019. Maintained on high flow 90% maintaining O2 sats of 80s to low 90s, currently in the prone position. Chest x-ray reports stable patchy bilateral lung infiltrates. Inflammatory markers about the same. Afebrile, WBC increased to 15.6. 07/10/2019 Maintained on IV steroids, Zosyn . Anticoagulated on Lovenox. Patient reports he feels better today. Tolerating prone positioning. Maintained on FiO2 100% nonrebreather +60% airvo, maintaining O2 sats of high 80s. Chest x-ray reporting no significant change. T-max 99, WBC trending up to 20.4. LDH, CRP trending up. LFTs mildly increased. 07/11/2019 continues on nonrebreather +60% airflow. Feels well, laid on his side throughout the night versus prone. Maintaining O2 sats in the high 80s to low 90s. Chest x-ray reporting worsening left lower lung capacity with persistent change right lower lobe opacity. Currently on back, diet intake increased to 50%, with assistance. Afebrile, WBC increased to 24.6, d-dimer trending up 1.44. LDH, CRP decreased. Blood sugars controlled. Objective - Vital Signs Vital signs: Vital Signs Temp 98 F 07/11/19 08:00 Pulse 88 07/11/19 09:00 Resp 27 H 07/11/19 09:00 BP 113/68 07/11/19 09:00 Pulse Ox 84 L 07/11/19 09:00 Intake & Output 07/10/19 07/11/19 07/11/19 18:59 06:59 18:59 Intake Total 480 320 210 Output Total 1037 840 210 Balance -557 -520 0 Weight 92.2 kg 90.7 kg Intake: IV 230 320 60 Piperacillin-Tazobactam 3 100 .375 gm In Sodium Chloride 0.9% 100 ml @ 25 mls/hr IVPB Q8HR [facility] Rx# :[id number] Sodium Chloride 0.9% 1, 230 220 60 000 ml @ 20 mls/hr IV . Q24H [facility] Rx#:[id number] Oral 250 150 Output: Urine 1035 840 210 Stool 2 Other: Voiding Method Indwelling Catheter Indwelling Catheter Indwelling Catheter # Bowel Movements 1 - Exam VITAL SIGNS: [as above] GENERAL: Lying in bed, currently supine position, no acute distress. Given me the "thumbs up" HEENT: Conjunctivae normal. eyes normal. NECK: No JVD. No thyroid enlargement. No LNs CARDIOVASCULAR: S1, S2 regular.No murmur. RESPIRATION: Breath sounds diminished in the bases. basilar crackles. ABDOMEN: Soft, nontender . No guarding. no masses palpable.Bowel sounds heard. LEGS: No edema. no swelling PSYCHIATRY: Alert and oriented X3, mood and affect normal. NERVOUS SYSTEM: Cranial N 2-12 grossly normal. Moves all 4 limbs. Diffuse weakness ,No focal deficits. Strength and sensation grossly intact. Skin: no rash - Labs CBC & Chem 7: 07/11/19 04:00 07/11/19 04:00 Labs: Abnormal Lab Results - Last 24 Hours (Table) 07/10/19 07/10/19 07/11/19 Range/Units 05:09 11:47 04:00 WBC 24.6 H (3.8-10.6) k/uL Neutrophils # 22.3 H (1.3-7.7) k/uL D-Dimer (<0.60) mg/L FEU Sodium (137-145) mmol/L BUN (9-20) mg/dL Glucose (74-99) mg/dL POC Glucose (mg/dL) 101 H (75-99) mg/dL Ferritin 1376.4 H (22.0-322.0) ng/mL AST (17-59) U/L ALT (4-49) U/L Lactate Dehydrogenase (313-618) U/L Creatine Kinase (55-170) U/L C-Reactive Protein (<10.0) mg/L Total Protein (6.3-8.2) g/dL Albumin (3.5-5.0) g/dL 07/11/19 07/11/19 Range/Units 04:00 04:00 WBC (3.8-10.6) k/uL Neutrophils # (1.3-7.7) k/uL D-Dimer 1.44 H (<0.60) mg/L FEU Sodium 134 L (137-145) mmol/L BUN 27 H (9-20) mg/dL Glucose 107 H (74-99) mg/dL POC Glucose (mg/dL) (75-99) mg/dL Ferritin (22.0-322.0) ng/mL AST 81 H (17-59) U/L ALT 121 H (4-49) U/L Lactate Dehydrogenase 897 H (313-618) U/L Creatine Kinase 24 L (55-170) U/L C-Reactive Protein 11.1 H (<10.0) mg/L Total Protein 6.2 L (6.3-8.2) g/dL Albumin 3.3 L (3.5-5.0) g/dL Microbiology - Last 24 Hours (Table) 07/04/19 06:17 Blood Culture - Final Blood No Growth after 144 hours Assessment and Plan Assessment: Acute COVID 19 bilateral pneumonia Leukocytosis secondary to the above, plus on steroids Acute hypoxic and hypercapnic respiratory failure secondary to Covid 19 pneumonia Thrombocytopenia secondary to Covid 19 infection Lymphopenia secondary to Covid 19 infection CAD with history of [place], CABG, stenting Ischemic cardiomyopathy, history of V. fib, with AICD Hyperlipidemia Plan: Continue on current medication regime ,monitoring and symptomatic treatment. ICU management as per air transport professionals; Oxygen titration/ Prone positioning. Lovenox for DVT prophylaxis, IV steroids, Zosyn . Prognosis guarded given multiple complex medical issues. The impression and plan of care has been dictated as directed. : I performed a history and examination of this patient, discussed the same with the dictator. I agree with the dictator's note ,documented as a scribe. Any additional findings or plans will be noted.
--- NOTE | 2019-07-11 13:27 | P.PN ---
Subjective Progress Note Date: 07/11/19 Principal diagnosis: Acute hypoxic respiratory failure secondary to covid 19 pneumonia. This is a 68-year-old male patient who came into the emergency department because of worsening shortness of breath. He is known to me. He was diagnosed having a COVID 19 infection and I was involved in his care during an earlier hospitalization of 06/30/2019. The patient did well and the patient was discharged home to be readmitted because of worsening shortness of breath. He was found to be quite hypoxic with a pulse ox of in the 70s at a time of his ED evaluation. He was also tachypneic and tachycardic. He was placed on 100% nonrebreather facemask and currently his pulse ox is around 94%. Chest x-ray shows interstitial infiltrates bilaterally with probably some interval worsening compared to the chest x-ray from 2 days back. Note that the patient was developing diffuse body aches at a time of his initial diagnosis. No nausea. No vomiting. No diarrhea. He had some lymphopenia which have improved. He also had thrombocytopenia which has improved. His lactic acid level at time of admission was 3.2 and dropped down to 1.5. Rest of the blood work and electrodes are all within normal limits. He has history of coronary artery disease, previous [place], ischemic cardiomyopathy and he has an AICD in place. He has also history of hyperlipidemia. Based on my previous evaluation here in the hospital, the patient d-dimer was nonelevated and he had mild elevation of the CRP and the LDH levels. His current for calcitonin level is at 0.15. His proBNP level is 1230. His LDH level from today is 42 which is slightly elevated compared to the previous evaluation and his CRP level is 2020 which is also elevated compared to his previous evaluation. His ferritin level is 1480. Note that the patient received Plaquenil during his earlier hospitalization. On 07/04/2009 the patient is being seen in intensive care unit. The patient got transferred because of his worsening hypoxemia. He was placed on on the percent nonrebreather facemask. Overnight, his oxygenation got worse and the patient had further desaturation. Based on that, I added another 10 L of nasal cannula in addition to the 100% nonrebreather facemask and the patient was placed in a prone body position. This improved his oxygenation and the patient's pulse ox currently around 94%. He desaturates whenever he turns back supine. He is however comfortable. He is not having any major respiratory distress. No tachypnea. His white cell count is at 17.6 and the patient also had some mild elevation of the pro-calcitonin level. Based on that he was placed on empiric antibiotic coverage with IV Zosyn. Noted the blood gases was done yesterday at a time of desaturation 100% nonrebreather facemask showed a pH of 7.49 with a pCO2 of 31 and pO2 52 and this is consistent with acute respiratory alkalosis and acute hypoxemia secondary to Covid 19 pneumonia. Hemodynamically stable. He is having episodes of fever. LDH level is at 645. CRP is at 381. The patient's ferritin level is still pending. Meanwhile, tidal consistent with a consent and consideration for vexy-[id number] therapy. No nausea. No vomiting. No altered mentation. No other complaints otherwise for now. On 07/05/2009, the patient is being monitored very closely regarding his Covid 19 pneumonia and severe hypoxemia. Note that throughout the day yesterday the patient was on the percent nonrebreather facemask and 15 L of oxygen by nasal cannula. Note that the patient is being also placed in the prone body position. He does better on his side and in the prone body position with his pulse ox improves and comes up to 90%. We are allowing lower pulse ox saturations as long as the patient is not having any major symptoms. No altered mentation. No signs of any significant respiratory distress. No chest pain. He has limited cough and congestion. No significant sputum production. He is not having any fever. He was having. 48 hours ago. His LDH level is 709. His C-reactive protein is 197. His white cell count is at 19.0. D-dimer is at 1.26. His pro- calcitonin level was also elevated at 0.15. Based on elevation of protein calcitonin and white cell count, cover this patient with IV Zosyn. The chest x- ray findings showing persistent bilateral pulmonary infiltrates without any significant improvement. Cardiac structures essentially unchanged. The patient is also a pacemaker in place. No nausea. No vomiting. No diarrhea. No altered mentation. Interleukin-6 levels have been sent and is also still pending for now. The patient remains on IV Zosyn, IV Solu-Medrol, heparin subcu for DVT prophylaxis and this will be continued. The d-dimer level from yesterday was down to 1.26. Reevaluated today on 07/07/19. Patient remains in the ICU, he remains on high flow nasal cannula. Patient is marginal. Clinically he looks fine, does not seem to be in any distress, patient is maintaining O2 saturation in the low 90s on 15 L high flow nasal cannula and intermittently on non-rebreather mask at 100%. Patient received today Lasix 40 mg IV push 1, chest x-ray remains quite abnormal with diffuse interstitial infiltrates. Patient also received actemra yesterday. Surprisingly the patient seems to be doing better than expected considering that his O2 saturation is very marginal. And I am not planning to intubate the patient at this point mostly because of his clinical status seems to be better than expected. Labs were all reviewed WBC count is 15.6 hemoglobin is 13.0 electrodes are normal renal profile is normal LDH is 800 C-reactive protein is 80, coming down. Ferritin level is coming down at 1581 and his d- dimer is 1.26, also coming down Reevaluated today on 07/08/19, patient remains in the ICU, presently he was switched to high flow airvo, he has very marginal O2 saturations ranging between 85% to 90%. Surprisingly the patient is not complaining of shortness of breath, he feels quite comfortable in spite of his profound hypoxemia. And relatively low O2 saturation. Chest x-ray continues to show worsening bilateral infiltrates. Today I recommended a trial of Lasix 40 mg IV push, and he will receive his second dose of actemra. ABG is quite concerning. PO2 is 46 pCO2 is 41 pH of 7.45, however clinically the patient does not seem to be in any respiratory distress. Patient is so close to be intubated, but since the clinical picture does not correlate with his ABG, I will try to hold on intubating the patient at this point. His CBC is relatively normal electrolytes are normal renal profile is normal and his inflammatory markers including ferritin C-reactive protein and LDH, seems to be trending down. His d-dimer was 1.33 yesterday, and we have increased the dose of Lovenox on this patient. Reevaluated today on 07/09/19. Patient remains in the intensive care unit, remains on non-rebreather mask. And high flow nasal cannula. O2 saturation is in the high 80s. However when he was placed in a prone position, O2 saturation went up to 91%. And we'll try to keep him prone as much as possible hopefully 16 hours per day. Patient denies being short of breath, does not seem to be in any distress, and that is unusual considering he has very marginal O2 saturation, and low pO2 based on ABG yesterday. Chest x-ray continues to show bilateral interstitial infiltrates, not much of a change noted in the last 24 hours. All labs were reviewed, CBC is relatively normal. Lymphocytes remain relatively low. Platelets are normal. Basic metabolic profile is relatively normal. Profile is relatively normal, inflammatory markers including ferritin LDH and C-reactive protein are basically about the same. ProBNP level is normal. Patient was reevaluated today on 07/10/19. Patient remains in the intensive care unit, on a nonrebreather mask, O2 saturation is still marginal ranging between 89 and 92% at best. Patient remains comfortable, he does improve when placed in prone position. And he has been intermittently placed in prone position. Chest x-ray is basically about the same, continues to show bilateral infiltrates. Not much of a change is noted. Today I discussed with the patient the option of starting him on a trial of convalescent plasma for Covid 19 pneumonitis. Patient is agreeable, and consent was signed. Covid 19 inflammatory markers remain elevated. Ferritin is 1376. LDH is 1138. C-reactive protein is 20. Ba sic metabolic profile is basically unremarkable. WBC count is 20.4 hemoglobin is 14.4. PMNs are 90%. Overall patient is basically about the same with very minimal improvement in his O2 saturation over the last couple of days. Reevaluated today on 07/11/19, patient remains in the ICU, remains on high flow oxygen utilizing nonrebreather mask and airvo. O2 saturation remains marginal in the 89-91%. Clinically however the patient denies being short of breath. Denies any chest pain, denies any cough, patient does improve slightly when placed on a prone position. His IV fluids remains at 20 mL per hour. Patient remains on low dose steroids, remains on empiric antibiotics. Remains on diuret ics. He is on Zosyn and he is on prednisone 40 mg IV push every 12 hours. He is also on Coreg, Plavix, Lovenox, Aldactone, and on Protonix. Patient is also on Cozaar at 25 mg by mouth daily. Not much of a change number operator the last 24 hours. Patient is now on the list to hopefully receive convalescent plasma was becomes available. He was registered for convalescent plasma. His LDH today is 897 fe rritin is 1336 and C-reactive protein is 11.1. They all seem to be trending down. Chest x-ray continues to show bilateral interstitial infiltrates, not much of a change noted on the chest x-ray itself. In reality, there hasn't been much of a change in the overall clinical status of this patient over the last 5 days. Objective - Vital Signs Vital signs: Vital Signs Temp 97.8 F 07/11/19 12:00 Pulse 92 07/11/19 12:00 Resp 12 07/11/19 12:00 BP 139/77 07/11/19 12:00 Pulse Ox 89 L 07/11/19 12:07 Intake & Output 07/10/19 07/11/19 07/11/19 18:59 06:59 18:59 Intake Total 480 320 270 Output Total 1037 840 400 Balance -557 -520 -130 Weight 92.2 kg 90.7 kg 90.7 kg Intake: IV 230 320 120 Piperacillin-Tazobactam 3 100 .375 gm In Sodium Chloride 0.9% 100 ml @ 25 mls/hr IVPB Q8HR JEAN Rx# :[id number] Sodium Chloride 0.9% 1, 230 220 120 000 ml @ 20 mls/hr IV . Q24H JEAN Rx#:[id number] Oral 250 150 Output: Urine 1035 840 400 Stool 2 Other: Voiding Method Indwelling Catheter Indwelling Catheter Indwelling Catheter # Bowel Movements 1 - Exam Physical Exam: Revealed a 68-year-old white male on a nonrebreather mask, in no distress, very comfortable. Head: Atraumatic, normocephalic. HEENT:[Neck is supple.] [No neck masses.] [No thyromegaly.] [No JVD.] Chest: [Symmetrical chest expansion, crackles at the bases bilaterally. AICD pocket over the anterior chest noted. Cardiac Exam: [Normal S1 and S2, no S3 gallop, no murmur.] Abdomen: [Soft, nontender, no megaly, no rebound, no guarding, normal bowel sounds.] Extremities: [No clubbing, no edema, no cyanosis.] Neurological Exam: [No focal neurologic deficit.] Alert and oriented 3. Psychiatric: Normal mood affect and normal mental status examination. Skin: No rashes. Musculoskeletal: No deformities normal range of motion bilaterally. - Labs CBC & Chem 7: 07/11/19 04:00 07/11/19 04:00 Labs: Abnormal Lab Results - Last 24 Hours (Table) 07/11/19 07/11/19 07/11/19 Range/Units 04:00 04:00 04:00 WBC 24.6 H (3.8-10.6) k/uL Neutrophils # 22.3 H (1.3-7.7) k/uL D-Dimer 1.44 H (<0.60) mg/L FEU Sodium 134 L (137-145) mmol/L BUN 27 H (9-20) mg/dL Glucose 107 H (74-99) mg/dL POC Glucose (mg/dL) (75-99) mg/dL Ferritin 1336.0 H (22.0-322.0) ng/mL AST 81 H (17-59) U/L ALT 121 H (4-49) U/L Lactate Dehydrogenase 897 H (313-618) U/L Creatine Kinase 24 L (55-170) U/L C-Reactive Protein 11.1 H (<10.0) mg/L Total Protein 6.2 L (6.3-8.2) g/dL Albumin 3.3 L (3.5-5.0) g/dL 07/11/19 Range/Units 12:00 WBC (3.8-10.6) k/uL Neutrophils # (1.3-7.7) k/uL D-Dimer (<0.60) mg/L FEU Sodium (137-145) mmol/L BUN (9-20) mg/dL Glucose (74-99) mg/dL POC Glucose (mg/dL) 126 H (75-99) mg/dL Ferritin (22.0-322.0) ng/mL AST (17-59) U/L ALT (4-49) U/L Lactate Dehydrogenase (313-618) U/L Creatine Kinase (55-170) U/L C-Reactive Protein (<10.0) mg/L Total Protein (6.3-8.2) g/dL Albumin (3.5-5.0) g/dL Assessment and Plan Assessment: Impression: Acute hypoxic respiratory failure secondary to acute covid 19 pneumonitis. Elevated inflammatory markers, Trending down steadily. History of ischemic cardiomyopathy and AICD placement with previous history of ventricular fibrillation. Doubt underlying congestive heart failure Coronary artery disease and previous CABG in 2013. Dyslipidemia. Recommendation: Continue present supportive care measures. Continue intermittent prone positions. Patient was registered and he consented to convalescent plasma infusion once we have it available. Continue O2 via nonrebreather mask at 100%. Titrate accordingly. Patient finished his course of actemra Continue Zosyn empirically. Continue Lovenox at 90 mg subcu every 12 hours. Continue to hold Lasix. Continue to monitor closely in the ICU, Consider intubation and mechanical ventilation if condition worsens. Critical care time is 32 minutes. Time with Patient: Greater than 30
[2019-07-11 17:53] LABS: Glucose,Whole Blood 80 mg/dL (75-99)
[2019-07-11] MEDS: ATORVASTATIN 80 MG TAB PO SCH (20:54)
[2019-07-12 00:15] LABS: Glucose,Whole Blood 96 mg/dL (75-99)
[2019-07-12] MEDS: INSULIN ASPART (NovoLOG) 100 UNIT/ML VIAL SQ SCH ×5 (00:31→20:33)
[2019-07-12 06:13] LABS: Glucose,Whole Blood 105 mg/dL (75-99)
[2019-07-12 06:17] LABS: Basophils % (A) 0 %; Eosinophils # (A) 0.1 k/uL (0-0.7); Eosinophils % (A) 0 %; HCT 45.5 % (39.0-53.0); HGB 14.8 gm/dL (13.0-17.5); Lymphocytes # (A) 1.3 k/uL (1.0-4.8); Lymphocytes % (A) 5 %; MCH 29.7 pg (25.0-35.0); MCHC 32.6 g/dL (31.0-37.0); MCV 91.1 fL (80.0-100.0); Mean Platelet Volume 8.4; Monocytes # (A) 0.6 k/uL (0-1.0); Monocytes % (A) 2 %; Neutrophils # (A) 26.4 k/uL (1.3-7.7); Neutrophils % (A) 93 %; Platelet Count 333 k/uL (150-450); WBC 28.5 k/uL (3.8-10.6)
[2019-07-12] MEDS: SODIUM CHLORIDE 0.9% 1,000 ML IV SCH (06:18)
--- NOTE | 2019-07-12 06:31 | XR ---
EXAMINATION TYPE: XR chest 1V DATE OF EXAM: 07/12/2019 HISTORY: SOB. REFERENCE: Previous study dated 07/11/2019. FINDINGS: There has been a midline sternotomy. There is a unipolar pacemaker place on the left. There is patchy, bilateral airspace disease, unchanged from previous. There are small, bilateral effu sions. The heart is not enlarged. IMPRESSION: NO SIGNIFICANT INTERVAL CHANGE IN THE APPEARANCE OF THE CHEST.
[2019-07-12 07:22] LABS: ALT 120 U/L (4-49); AST 63 U/L (17-59); African American GFR (CKD) >90 (>60 ml/min/1.73 sqM); Albumin 3.3 g/dL (3.5-5.0); Alkaline Phosphatase 64 U/L (38-126); Anion Gap 9 mmol/L; Blood Urea Nitrogen 27 mg/dL (9-20); C Reactive Protein 8.5 mg/L (<10.0); Calcium 9.2 mg/dL (8.4-10.2); Carbon Dioxide 25 mmol/L (22-30); Chloride 99 mmol/L (98-107); Creatine Kinase <20 U/L (55-170); Glucose 105 mg/dL (74-99); LDH 962 U/L (313-618); Non-African American GFR(CKD) >90 (>60 ml/min/1.73 sqM); Potassium 5.2 mmol/L (3.5-5.1); Sodium 133 mmol/L (137-145); Total Bilirubin 0.6 mg/dL (0.2-1.3); Total Protein 6.2 g/dL (6.3-8.2)
[2019-07-12] MEDS: ASPIRIN 81 MG PO SCH (08:05)
[2019-07-12] MEDS: methylPREDNISolone SOD SUCCI 40 MG/ML 1 ML VIAL IV SCH ×2 (08:05→20:18)
[2019-07-12] MEDS: ENOXAPARIN 100 MG/ML SYRINGE SQ SCH ×2 (08:05→20:18)
[2019-07-12] MEDS: PANTOPRAZOLE 40 MG TABLET PO SCH (08:05)
[2019-07-12] MEDS: CARVEDILOL 3.125 MG TAB PO SCH (08:05)
[2019-07-12] MEDS: EZETIMIBE 10 MG TAB PO SCH (08:05)
[2019-07-12] MEDS: SPIRONOLACTONE 25 MG TAB PO SCH ×2 (08:05→20:18)
[2019-07-12] MEDS: LOSARTAN 25 MG TAB PO SCH (08:05)
[2019-07-12] MEDS: CLOPIDOGREL 75 MG TAB PO SCH (08:05)
[2019-07-12] MEDS ORDERED: FUROSEMIDE 10 MG/ML 4 ML VIAL IV STA (09:31)
[2019-07-12] MEDS: PIPERACILLIN-TAZOBACTAM 3.375 GM in SODIUM CHLORIDE 0.9% 100 ML IVPB SCH ×2 (09:41→16:03)
[2019-07-12 11:32] LABS: Glucose,Whole Blood 124 mg/dL (75-99)
--- NOTE | 2019-07-12 14:26 | P.PN ---
Subjective Progress Note Date: 07/12/19 Principal diagnosis: Acute hypoxic respiratory failure secondary to covid 19 pneumonia. This is a 68-year-old male patient who came into the emergency department because of worsening shortness of breath. He is known to me. He was diagnosed having a COVID 19 infection and I was involved in his care during an earlier hospitalization of 06/30/2019. The patient did well and the patient was discharged home to be readmitted because of worsening shortness of breath. He was found to be quite hypoxic with a pulse ox of in the 70s at a time of his ED evaluation. He was also tachypneic and tachycardic. He was placed on 100% nonrebreather facemask and currently his pulse ox is around 94%. Chest x-ray shows interstitial infiltrates bilaterally with probably some interval worsening compared to the chest x-ray from 2 days back. Note that the patient was developing diffuse body aches at a time of his initial diagnosis. No nausea. No vomiting. No diarrhea. He had some lymphopenia which have improved. He also had thrombocytopenia which has improved. His lactic acid level at time of admission was 3.2 and dropped down to 1.5. Rest of the blood work and electrodes are all within normal limits. He has history of coronary artery disease, previous AK, ischemic cardiomyopathy and he has an AICD in place. He has also history of hyperlipidemia. Based on my previous evaluation here in the hospital, the patient d-dimer was nonelevated and he had mild elevation of the CRP and the LDH levels. His current for calcitonin level is at 0.15. His proBNP level is 1230. His LDH level from today is 42 which is slightly elevated compared to the previous evaluation and his CRP level is 2020 which is also elevated compared to his previous evaluation. His ferritin level is 1480. Note that the patient received Plaquenil during his earlier hospitalization. On 07/04/2009 the patient is being seen in intensive care unit. The patient got transferred because of his worsening hypoxemia. He was placed on on the percent nonrebreather facemask. Overnight, his oxygenation got worse and the patient had further desaturation. Based on that, I added another 10 L of nasal cannula in addition to the 100% nonrebreather facemask and the patient was placed in a prone body position. This improved his oxygenation and the patient's pulse ox currently around 94%. He desaturates whenever he turns back supine. He is however comfortable. He is not having any major respiratory distress. No tachypnea. His white cell count is at 17.6 and the patient also had some mild elevation of the pro-calcitonin level. Based on that he was placed on empiric antibiotic coverage with IV Zosyn. Noted the blood gases was done yesterday at a time of desaturation 100% nonrebreather facemask showed a pH of 7.49 with a pCO2 of 31 and pO2 52 and this is consistent with acute respiratory alkalosis and acute hypoxemia secondary to Covid 19 pneumonia. Hemodynamically stable. He is having episodes of fever. LDH level is at 645. CRP is at 381. The patient's ferritin level is still pending. Meanwhile, tidal consistent with a consent and consideration for [id number] therapy. No nausea. No vomiting. No altered mentation. No other complaints otherwise for now. On 07/05/2009, the patient is being monitored very closely regarding his Covid 19 pneumonia and severe hypoxemia. Note that throughout the day yesterday the patient was on the percent nonrebreather facemask and 15 L of oxygen by nasal cannula. Note that the patient is being also placed in the prone body position. He does better on his side and in the prone body position with his pulse ox improves and comes up to 90%. We are allowing lower pulse ox saturations as long as the patient is not having any major symptoms. No altered mentation. No signs of any significant respiratory distress. No chest pain. He has limited cough and congestion. No significant sputum production. He is not having any fever. He was having. 48 hours ago. His LDH level is 709. His C-reactive protein is 197. His white cell count is at 19.0. D-dimer is at 1.26. His pro- calcitonin level was also elevated at 0.15. Based on elevation of protein calcitonin and white cell count, cover this patient with IV Zosyn. The chest x- ray findings showing persistent bilateral pulmonary infiltrates without any significant improvement. Cardiac structures essentially unchanged. The patient is also a pacemaker in place. No nausea. No vomiting. No diarrhea. No altered mentation. Interleukin-6 levels have been sent and is also still pending for now. The patient remains on IV Zosyn, IV Solu-Medrol, heparin subcu for DVT prophylaxis and this will be continued. The d-dimer level from yesterday was down to 1.26. Reevaluated today on 07/07/19. Patient remains in the ICU, he remains on high flow nasal cannula. Patient is marginal. Clinically he looks fine, does not seem to be in any distress, patient is maintaining O2 saturation in the low 90s on 15 L high flow nasal cannula and intermittently on non-rebreather mask at 100%. Patient received today Lasix 40 mg IV push 1, chest x-ray remains quite abnormal with diffuse interstitial infiltrates. Patient also received actemra yesterday. Surprisingly the patient seems to be doing better than expected considering that his O2 saturation is very marginal. And I am not planning to intubate the patient at this point mostly because of his clinical status seems to be better than expected. Labs were all reviewed WBC count is 15.6 hemoglobin is 13.0 electrodes are normal renal profile is normal LDH is 800 C-reactive protein is 80, coming down. Ferritin level is coming down at 1581 and his d- dimer is 1.26, also coming down Reevaluated today on 07/08/19, patient remains in the ICU, presently he was switched to high flow airvo, he has very marginal O2 saturations ranging between 85% to 90%. Surprisingly the patient is not complaining of shortness of breath, he feels quite comfortable in spite of his profound hypoxemia. And relatively low O2 saturation. Chest x-ray continues to show worsening bilateral infiltrates. Today I recommended a trial of Lasix 40 mg IV push, and he will receive his second dose of actemra. ABG is quite concerning. PO2 is 46 pCO2 is 41 pH of 7.45, however clinically the patient does not seem to be in any respiratory distress. Patient is so close to be intubated, but since the clinical picture does not correlate with his ABG, I will try to hold on intubating the patient at this point. His CBC is relatively normal electrolytes are normal renal profile is normal and his inflammatory markers including ferritin C-reactive protein and LDH, seems to be trending down. His d-dimer was 1.33 yesterday, and we have increased the dose of Lovenox on this patient. Reevaluated today on 07/09/19. Patient remains in the intensive care unit, remains on non-rebreather mask. And high flow nasal cannula. O2 saturation is in the high 80s. However when he was placed in a prone position, O2 saturation went up to 91%. And we'll try to keep him prone as much as possible hopefully 16 hours per day. Patient denies being short of breath, does not seem to be in any distress, and that is unusual considering he has very marginal O2 saturation, and low pO2 based on ABG yesterday. Chest x-ray continues to show bilateral interstitial infiltrates, not much of a change noted in the last 24 hours. All labs were reviewed, CBC is relatively normal. Lymphocytes remain relatively low. Platelets are normal. Basic metabolic profile is relatively normal. Profile is relatively normal, inflammatory markers including ferritin LDH and C-reactive protein are basically about the same. ProBNP level is normal. Patient was reevaluated today on 07/10/19. Patient remains in the intensive care unit, on a nonrebreather mask, O2 saturation is still marginal ranging between 89 and 92% at best. Patient remains comfortable, he does improve when placed in prone position. And he has been intermittently placed in prone position. Chest x-ray is basically about the same, continues to show bilateral infiltrates. Not much of a change is noted. Today I discussed with the patient the option of starting him on a trial of convalescent plasma for Covid 19 pneumonitis. Patient is agreeable, and consent was signed. Covid 19 inflammatory markers remain elevated. Ferritin is 1376. LDH is 1138. C-reactive protein is 20. Ba sic metabolic profile is basically unremarkable. WBC count is 20.4 hemoglobin is 14.4. PMNs are 90%. Overall patient is basically about the same with very minimal improvement in his O2 saturation over the last couple of days. Reevaluated today on 07/11/19, patient remains in the ICU, remains on high flow oxygen utilizing nonrebreather mask and airvo. O2 saturation remains marginal in the 89-91%. Clinically however the patient denies being short of breath. Denies any chest pain, denies any cough, patient does improve slightly when placed on a prone position. His IV fluids remains at 20 mL per hour. Patient remains on low dose steroids, remains on empiric antibiotics. Remains on diuret ics. He is on Zosyn and he is on prednisone 40 mg IV push every 12 hours. He is also on Coreg, Plavix, Lovenox, Aldactone, and on Protonix. Patient is also on Cozaar at 25 mg by mouth daily. Not much of a change manager the last 24 hours. Patient is now on the list to hopefully receive convalescent plasma was becomes available. He was registered for convalescent plasma. His LDH today is 897 fe rritin is 1336 and C-reactive protein is 11.1. They all seem to be trending down. Chest x-ray continues to show bilateral interstitial infiltrates, not much of a change noted on the chest x-ray itself. In reality, there hasn't been much of a change in the overall clinical status of this patient over the last 5 days. Reevaluated today on 07/12/19, patient remains in the ICU, on maximal FiO2 with a nonrebreather mask, and airvo. Surprisingly the patient continues to do clinically well. His O2 saturation is about 92%. Patient denies any shortness of breath, no cough, no wheezing, no chest pain. No fever no chills no hemoptysis. He is now on 60 L and 90% FiO2. And also on a nonrebreather mask. Intermittently has been placed in prone positions, however not able to tolerate more than 4 hours in prone position. His chest x-ray continues to show interstitial infiltrates, underlying edema is not entirely ruled out, hence I recommended a dose of Lasix to be given today 1. Patient remains on diuretics/Aldactone. His IV fluid is at 20 mL per hour. His inflammatory markers for Covid 19 are getting lower. Objective - Vital Signs Vital signs: Vital Signs Temp 97.9 F 07/12/19 12:00 Pulse 80 07/12/19 14:00 Resp 22 07/12/19 14:00 BP 96/67 07/12/19 14:00 Pulse Ox 91 L 07/12/19 14:00 Intake & Output 07/11/19 07/12/19 07/12/19 18:59 06:59 18:59 Intake Total 840 240 160 Output Total 863 138 677 Balance -26 -420 -517 Weight 90.7 kg 89.3 kg Intake: IV 240 240 160 Sodium Chloride 0.9% 1, 240 240 160 000 ml @ 20 mls/hr IV . Q24H [facility] Rx#:[id number] Oral 600 Output: Urine 865 660 675 Stool 1 2 Other: Voiding Method Indwelling Catheter Indwelling Catheter Indwelling Catheter # Bowel Movements 1 1 - Exam Physical Exam: Revealed a 68-year-old white male on a nonrebreather mask, in no distress, very comfortable. Head: Atraumatic, normocephalic. HEENT:[Neck is supple.] [No neck masses.] [No thyromegaly.] [No JVD.] Chest: [Symmetrical chest expansion, crackles at the bases bilaterally. AICD pocket over the anterior chest noted. Cardiac Exam: [Normal S1 and S2, no S3 gallop, no murmur.] Abdomen: [Soft, nontender, no megaly, no rebound, no guarding, normal bowel sounds.] Extremities: [No clubbing, no edema, no cyanosis.] Neurological Exam: [No focal neurologic deficit.] Alert and oriented 3. Psychiatric: Normal mood affect and normal mental status examination. Skin: No rashes. Musculoskeletal: No deformities normal range of motion bilaterally. - Labs CBC & Chem 7: 07/12/19 05:16 07/12/19 05:16 Labs: Abnormal Lab Results - Last 24 Hours (Table) 07/12/19 07/12/19 07/12/19 Range/Units 05:16 05:16 06:01 WBC 28.5 H (3.8-10.6) k/uL Neutrophils # 26.4 H (1.3-7.7) k/uL Sodium 133 L (137-145) mmol/L Potassium 5.2 H (3.5-5.1) mmol/L BUN 27 H (9-20) mg/dL Glucose 105 H (74-99) mg/dL POC Glucose (mg/dL) 105 H (75-99) mg/dL AST 63 H (17-59) U/L ALT 120 H (4-49) U/L Lactate Dehydrogenase 962 H (313-618) U/L Creatine Kinase <20 L (55-170) U/L Total Protein 6.2 L (6.3-8.2) g/dL Albumin 3.3 L (3.5-5.0) g/dL 07/12/19 Range/Units 11:31 WBC (3.8-10.6) k/uL Neutrophils # (1.3-7.7) k/uL Sodium (137-145) mmol/L Potassium (3.5-5.1) mmol/L BUN (9-20) mg/dL Glucose (74-99) mg/dL POC Glucose (mg/dL) 124 H (75-99) mg/dL AST (17-59) U/L ALT (4-49) U/L Lactate Dehydrogenase (313-618) U/L Creatine Kinase (55-170) U/L Total Protein (6.3-8.2) g/dL Albumin (3.5-5.0) g/dL Assessment and Plan Assessment: Impression: Acute hypoxic respiratory failure secondary to acute covid 19 pneumonitis. Elevated inflammatory markers, improving steadily. History of ischemic cardiomyopathy and AICD placement with previous history of ventricular fibrillation. Hence the patient will be given a dose of Lasix today. 40 mg IV push times one. In the meantime we'll continue diuretics. Coronary artery disease and previous CABG in 2012. Dyslipidemia. Recommendation: Continue present supportive care measures. Continue oxygen to maintain O2 saturation above 89%. intermittent prone positions. Awaiting to hear the patient will eventually get convalescent plasma. Patient finished his course of actemra Continue Zosyn empirically. Order was reviewed. Continue Lovenox at 90 mg subcu every 12 hours.. Continue to monitor closely in the ICU, Consider intubation and mechanical ventilation if condition worsens. Critical care time is 33 minutes. Time with Patient: Greater than 30
--- NOTE | 2019-07-12 16:22 | PN ---
PROGRESS NOTE DATE OF SERVICE: 07/12/2019 I am covering for Dr. Silva. HISTORY OF PRESENT ILLNESS: This 68-year-old gentleman admitted with COVID pneumonia is being closely monitored in ICU. The patient is on 100% non-rebreather mask at this time. The chest x-ray showed significant bilateral lesions. The patient is being closely monitored. The patient also being treated symptomatically. Dr. Shen is following the patient closely. The patient is on Lovenox 90 mg subcutaneously b.i.d. and steroids as well as broad- spectrum IV antibiotics, which restarted today. The patient has received chloroquine and as well as Actemra. The patient has also received a dose of Lasix as well. The patient is being closely monitored in ICU. PAST MEDICAL HISTORY: Reviewed. REVIEW OF SYSTEM: Could not be taken. The patient is on a nonrebreather mask. CURRENT MEDICATIONS ARE: 1. Tylenol 650 q.4 p.r.n. 2. Aspirin 81 mg. 3. Lipitor 80 mg. 4. Coreg 3.5 mg daily. 5. Plavix 75 mg. 6. Lovenox 90 mg b.i.d. 7. Zetia 10 mg daily. 8. NovoLog scale. 9. Cozaar 25 mg. 10.Solu-Medrol 40 IV b.i.d. 11.Narcan 0.2 q.2 p.r.n. 12.Protonix 40 mg daily. 13.Zosyn 3.5 IV q.8. 14.Aldactone 25 mg p.o. b.i.d. PHYSICAL EXAMINATION: Patient is on nonrebreather mask, high-flow oxygen. The pulse is 85. Blood pressure 85/56, respiration 20, temperature 97.9, pulse ox 98%. HEENT: Conjunctivae normal. Oral mucosa moist. NECK: No jugular venous distention. No lymph node enlargement. CARDIOVASCULAR: S1, S2. RESPIRATORY: Diminished breath sounds at the bases. A few scattered rhonchi and crackles. ABDOMEN: Soft, nontender. LEGS: No edema, no swelling. NERVOUS SYSTEM: Diffusely weak. LABS: WBC 28.5, sodium 134, potassium 5.2. AST 63, ALT is 120 and LDH is 962. ASSESSMENT: 1. Acute bilateral COVID-19 pneumonia with acute hypoxic respiratory failure with possible sepsis. 2. History of ischemic cardiomyopathy and AICD placement for ventricular fibrillation. 3. History of coronary artery disease, coronary artery bypass grafting. 4. History of dyslipidemia. 5. Hyponatremia. 6. Hyperkalemia, mild. 7. Increased AST ALT. 8. Increased WBC. 9. History of degenerative joint disease. 10.History of coronary artery disease, stent. 11.Remote history of nicotine dependence. 12.FULL CODE. RECOMMENDATIONS AND DISCUSSION: In this 68-year-old gentleman who presented with multiple medical issues, we will monitor the patient closely. Continue current management. Continue with IV steroids. Monitor blood sugars closely. IV antibiotics have been reintroduced and DVT prophylaxis. Patient is on full-dose anticoagulation. Prognosis guarded. Further recommendations to follow. MMODL / IJN: [id number] /
[2019-07-12 17:13] LABS: Ferritin 1260.5 ng/mL (22.0-322.0)
[2019-07-12 17:18] LABS: Glucose,Whole Blood 115 mg/dL (75-99)
[2019-07-12] MEDS: ATORVASTATIN 80 MG TAB PO SCH (20:17)
[2019-07-12 20:30] LABS: Glucose,Whole Blood 122 mg/dL (75-99)
[2019-07-13] MEDS: PIPERACILLIN-TAZOBACTAM 3.375 GM in SODIUM CHLORIDE 0.9% 100 ML IVPB SCH ×4 (00:31→23:26)
[2019-07-13 04:38] LABS: Basophils # (A) 0.1 k/uL (0-0.2); Basophils % (A) 0 %; Eosinophils # (A) 0.1 k/uL (0-0.7); Eosinophils % (A) 0 %; HCT 47.8 % (39.0-53.0); HGB 15.1 gm/dL (13.0-17.5); Lymphocytes # (A) 1.2 k/uL (1.0-4.8); Lymphocytes % (A) 4 %; MCH 29.2 pg (25.0-35.0); MCHC 31.6 g/dL (31.0-37.0); MCV 92.4 fL (80.0-100.0); Mean Platelet Volume 8.7; Monocytes # (A) 0.8 k/uL (0-1.0); Monocytes % (A) 3 %; Neutrophils # (A) 27.1 k/uL (1.3-7.7); Neutrophils % (A) 92 %; Platelet Count 324 k/uL (150-450); RBC 5.17 m/uL (4.30-5.90); RDW 13.3 % (11.5-15.5); WBC 29.4 k/uL (3.8-10.6)
[2019-07-13 04:52] LABS: ALT 112 U/L (4-49); AST 58 U/L (17-59); African American GFR (CKD) >90 (>60 ml/min/1.73 sqM); Albumin 3.4 g/dL (3.5-5.0); Alkaline Phosphatase 67 U/L (38-126); Anion Gap 9 mmol/L; Blood Urea Nitrogen 31 mg/dL (9-20); C Reactive Protein 6.1 mg/L (<10.0); Calcium 9.3 mg/dL (8.4-10.2); Carbon Dioxide 27 mmol/L (22-30); Chloride 98 mmol/L (98-107); Creatine Kinase <20 U/L (55-170); Glucose 113 mg/dL (74-99); LDH 1111 U/L (313-618); Non-African American GFR(CKD) 87 (>60 ml/min/1.73 sqM); Potassium 5.1 mmol/L (3.5-5.1); Sodium 134 mmol/L (137-145); Total Bilirubin 0.9 mg/dL (0.2-1.3); Total Protein 6.3 g/dL (6.3-8.2)
--- NOTE | 2019-07-13 06:39 | XR ---
EXAMINATION TYPE: XR chest 1V DATE OF EXAM: 07/13/2019 HISTORY: SOB. REFERENCE: Previous study dated 07/12/2019. FINDINGS: There has been a previous midline sternotomy. There is a unipolar pacemaker place on the le ft. There is patchy, bilateral airspace disease. The heart is not enlarged. Pleural spaces appear clear. IMPRESSION: NO SIGNIFICANT INTERVAL CHANGE IN THE APPEARANCE OF THE CHEST.
[2019-07-13] MEDS: SODIUM CHLORIDE 0.9% 1,000 ML IV SCH (06:43)
[2019-07-13 06:51] LABS: Glucose,Whole Blood 100 mg/dL (75-99)
[2019-07-13] MEDS: INSULIN ASPART (NovoLOG) 100 UNIT/ML VIAL SQ SCH ×4 (06:52→23:23)
[2019-07-13] MEDS ORDERED: FUROSEMIDE 10 MG/ML 4 ML VIAL IV STA (08:09)
[2019-07-13] MEDS ORDERED: VANCOMYCIN IV PER PHARMACY 1 EACH MISC MISCELLANE SCH (08:15)
[2019-07-13] MEDS: ENOXAPARIN 100 MG/ML SYRINGE SQ SCH ×2 (08:16→20:11)
[2019-07-13] MEDS: PANTOPRAZOLE 40 MG TABLET PO SCH (08:16)
[2019-07-13] MEDS: methylPREDNISolone SOD SUCCI 40 MG/ML 1 ML VIAL IV SCH ×2 (08:16→20:12)
[2019-07-13] MEDS: EZETIMIBE 10 MG TAB PO SCH (08:17)
[2019-07-13] MEDS: CLOPIDOGREL 75 MG TAB PO SCH (08:17)
[2019-07-13] MEDS: LOSARTAN 25 MG TAB PO SCH (08:17)
[2019-07-13] MEDS: CARVEDILOL 3.125 MG TAB PO SCH (08:17)
[2019-07-13] MEDS: SPIRONOLACTONE 25 MG TAB PO SCH ×2 (08:17→20:33)
[2019-07-13] MEDS: ASPIRIN 81 MG PO SCH (08:18)
[2019-07-13] MEDS: VANCOMYCIN 1,500 MG in SODIUM CHLORIDE 0.9% 250 ML IVPB SCH ×2 (09:41→20:12)
--- NOTE | 2019-07-13 11:31 | P.PN ---
Subjective Progress Note Date: 07/13/19 Principal diagnosis: Acute hypoxic respiratory failure secondary to covid 19 pneumonia. This is a 68-year-old male patient who came into the emergency department because of worsening shortness of breath. He is known to me. He was diagnosed having a COVID 19 infection and I was involved in his care during an earlier hospitalization of 06/30/2019. The patient did well and the patient was discharged home to be readmitted because of worsening shortness of breath. He was found to be quite hypoxic with a pulse ox of in the 70s at a time of his ED evaluation. He was also tachypneic and tachycardic. He was placed on 100% nonrebreather facemask and currently his pulse ox is around 94%. Chest x-ray shows interstitial infiltrates bilaterally with probably some interval worsening compared to the chest x-ray from 2 days back. Note that the patient was developing diffuse body aches at a time of his initial diagnosis. No nausea. No vomiting. No diarrhea. He had some lymphopenia which have improved. He also had thrombocytopenia which has improved. His lactic acid level at time of admission was 3.2 and dropped down to 1.5. Rest of the blood work and electrodes are all within normal limits. He has history of coronary artery disease, previous AK, ischemic cardiomyopathy and he has an AICD in place. He has also history of hyperlipidemia. Based on my previous evaluation here in the hospital, the patient d-dimer was nonelevated and he had mild elevation of the CRP and the LDH levels. His current for calcitonin level is at 0.15. His proBNP level is 1230. His LDH level from today is 42 which is slightly elevated compared to the previous evaluation and his CRP level is 2020 which is also elevated compared to his previous evaluation. His ferritin level is 1480. Note that the patient received Plaquenil during his earlier hospitalization. On 07/04/2009 the patient is being seen in intensive care unit. The patient got transferred because of his worsening hypoxemia. He was placed on on the percent nonrebreather facemask. Overnight, his oxygenation got worse and the patient had further desaturation. Based on that, I added another 10 L of nasal cannula in addition to the 100% nonrebreather facemask and the patient was placed in a prone body position. This improved his oxygenation and the patient's pulse ox currently around 94%. He desaturates whenever he turns back supine. He is however comfortable. He is not having any major respiratory distress. No tachypnea. His white cell count is at 17.6 and the patient also had some mild elevation of the pro-calcitonin level. Based on that he was placed on empiric antibiotic coverage with IV Zosyn. Noted the blood gases was done yesterday at a time of desaturation 100% nonrebreather facemask showed a pH of 7.49 with a pCO2 of 31 and pO2 52 and this is consistent with acute respiratory alkalosis and acute hypoxemia secondary to Covid 19 pneumonia. Hemodynamically stable. He is having episodes of fever. LDH level is at 645. CRP is at 381. The patient's ferritin level is still pending. Meanwhile, tidal consistent with a consent and consideration for [id number] therapy. No nausea. No vomiting. No altered mentation. No other complaints otherwise for now. On 07/05/2009, the patient is being monitored very closely regarding his Covid 19 pneumonia and severe hypoxemia. Note that throughout the day yesterday the patient was on the percent nonrebreather facemask and 15 L of oxygen by nasal cannula. Note that the patient is being also placed in the prone body position. He does better on his side and in the prone body position with his pulse ox improves and comes up to 90%. We are allowing lower pulse ox saturations as long as the patient is not having any major symptoms. No altered mentation. No signs of any significant respiratory distress. No chest pain. He has limited cough and congestion. No significant sputum production. He is not having any fever. He was having. 48 hours ago. His LDH level is 709. His C-reactive protein is 197. His white cell count is at 19.0. D-dimer is at 1.26. His pro- calcitonin level was also elevated at 0.15. Based on elevation of protein calcitonin and white cell count, cover this patient with IV Zosyn. The chest x- ray findings showing persistent bilateral pulmonary infiltrates without any significant improvement. Cardiac structures essentially unchanged. The patient is also a pacemaker in place. No nausea. No vomiting. No diarrhea. No altered mentation. Interleukin-6 levels have been sent and is also still pending for now. The patient remains on IV Zosyn, IV Solu-Medrol, heparin subcu for DVT prophylaxis and this will be continued. The d-dimer level from yesterday was down to 1.26. Reevaluated today on 07/07/19. Patient remains in the ICU, he remains on high flow nasal cannula. Patient is marginal. Clinically he looks fine, does not seem to be in any distress, patient is maintaining O2 saturation in the low 90s on 15 L high flow nasal cannula and intermittently on non-rebreather mask at 100%. Patient received today Lasix 40 mg IV push 1, chest x-ray remains quite abnormal with diffuse interstitial infiltrates. Patient also received actemra yesterday. Surprisingly the patient seems to be doing better than expected considering that his O2 saturation is very marginal. And I am not planning to intubate the patient at this point mostly because of his clinical status seems to be better than expected. Labs were all reviewed WBC count is 15.6 hemoglobin is 13.0 electrodes are normal renal profile is normal LDH is 800 C-reactive protein is 80, coming down. Ferritin level is coming down at 1581 and his d- dimer is 1.26, also coming down Reevaluated today on 07/08/19, patient remains in the ICU, presently he was switched to high flow airvo, he has very marginal O2 saturations ranging between 85% to 90%. Surprisingly the patient is not complaining of shortness of breath, he feels quite comfortable in spite of his profound hypoxemia. And relatively low O2 saturation. Chest x-ray continues to show worsening bilateral infiltrates. Today I recommended a trial of Lasix 40 mg IV push, and he will receive his second dose of actemra. ABG is quite concerning. PO2 is 46 pCO2 is 41 pH of 7.45, however clinically the patient does not seem to be in any respiratory distress. Patient is so close to be intubated, but since the clinical picture does not correlate with his ABG, I will try to hold on intubating the patient at this point. His CBC is relatively normal electrolytes are normal renal profile is normal and his inflammatory markers including ferritin C-reactive protein and LDH, seems to be trending down. His d-dimer was 1.33 yesterday, and we have increased the dose of Lovenox on this patient. Reevaluated today on 07/09/19. Patient remains in the intensive care unit, remains on non-rebreather mask. And high flow nasal cannula. O2 saturation is in the high 80s. However when he was placed in a prone position, O2 saturation went up to 91%. And we'll try to keep him prone as much as possible hopefully 16 hours per day. Patient denies being short of breath, does not seem to be in any distress, and that is unusual considering he has very marginal O2 saturation, and low pO2 based on ABG yesterday. Chest x-ray continues to show bilateral interstitial infiltrates, not much of a change noted in the last 24 hours. All labs were reviewed, CBC is relatively normal. Lymphocytes remain relatively low. Platelets are normal. Basic metabolic profile is relatively normal. Profile is relatively normal, inflammatory markers including ferritin LDH and C-reactive protein are basically about the same. ProBNP level is normal. Patient was reevaluated today on 07/10/19. Patient remains in the intensive care unit, on a nonrebreather mask, O2 saturation is still marginal ranging between 89 and 92% at best. Patient remains comfortable, he does improve when placed in prone position. And he has been intermittently placed in prone position. Chest x-ray is basically about the same, continues to show bilateral infiltrates. Not much of a change is noted. Today I discussed with the patient the option of starting him on a trial of convalescent plasma for Covid 19 pneumonitis. Patient is agreeable, and consent was signed. Covid 19 inflammatory markers remain elevated. Ferritin is 1376. LDH is 1138. C-reactive protein is 20. Ba sic metabolic profile is basically unremarkable. WBC count is 20.4 hemoglobin is 14.4. PMNs are 90%. Overall patient is basically about the same with very minimal improvement in his O2 saturation over the last couple of days. Reevaluated today on 07/11/19, patient remains in the ICU, remains on high flow oxygen utilizing nonrebreather mask and airvo. O2 saturation remains marginal in the 89-91%. Clinically however the patient denies being short of breath. Denies any chest pain, denies any cough, patient does improve slightly when placed on a prone position. His IV fluids remains at 20 mL per hour. Patient remains on low dose steroids, remains on empiric antibiotics. Remains on diuret ics. He is on Zosyn and he is on prednisone 40 mg IV push every 12 hours. He is also on Coreg, Plavix, Lovenox, Aldactone, and on Protonix. Patient is also on Cozaar at 25 mg by mouth daily. Not much of a drying rack changer the last 24 hours. Patient is now on the list to hopefully receive convalescent plasma was becomes available. He was registered for convalescent plasma. His LDH today is 897 fe rritin is 1336 and C-reactive protein is 11.1. They all seem to be trending down. Chest x-ray continues to show bilateral interstitial infiltrates, not much of a change noted on the chest x-ray itself. In reality, there hasn't been much of a change in the overall clinical status of this patient over the last 5 days. Reevaluated today on 07/12/19, patient remains in the ICU, on maximal FiO2 with a nonrebreather mask, and airvo. Surprisingly the patient continues to do clinically well. His O2 saturation is about 92%. Patient denies any shortness of breath, no cough, no wheezing, no chest pain. No fever no chills no hemoptysis. He is now on 60 L and 90% FiO2. And also on a nonrebreather mask. Intermittently has been placed in prone positions, however not able to tolerate more than 4 hours in prone position. His chest x-ray continues to show interstitial infiltrates, underlying edema is not entirely ruled out, hence I recommended a dose of Lasix to be given today 1. Patient remains on diuretics/Aldactone. His IV fluid is at 20 mL per hour. His inflammatory markers for Covid 19 are getting lower. Reevaluated today on 07/13/19 patient remains on high flow oxygen and nonrebre ather mask, basically about the same, no changes over the last 24 hours. Chest x-ray continues to show no significant change in his interstitial infiltrates bilaterally. Clinically the patient is about the same. Labs and inflammatory markers were reviewed, surprisingly his WBC count jumped up to 29.4. Hence I have recommended that we broaden the spectrum of his antibiotics, and I will add vancomycin empirically in the meantime we'll recommend sputum cultures on this patient. Recent blood cultures have been negative. Objective - Vital Signs Vital signs: Vital Signs Temp 98.2 F 07/13/19 04:00 Pulse 81 07/13/19 07:00 Resp 22 07/13/19 07:00 BP 118/77 07/13/19 07:00 Pulse Ox 94 L 07/13/19 08:13 Intake & Output 07/12/19 07/13/19 07/13/19 18:59 06:59 18:59 Intake Total 240 260 Output Total 952 635 Balance -712 -375 Weight 88.5 kg Intake: IV 240 260 Sodium Chloride 0.9% 1, 240 260 000 ml @ 20 mls/hr IV . Q24H [facility] Rx#:[id number] Output: Urine 950 635 Stool 2 Other: Voiding Method Indwelling Catheter Indwelling Catheter # Bowel Movements 1 - Exam Physical Exam: Revealed a 68-year-old white male on a nonrebreather mask, in no distress, very comfortable. Head: Atraumatic, normocephalic. HEENT:[Neck is supple.] [No neck masses.] [No thyromegaly.] [No JVD.] Chest: [Symmetrical chest expansion, crackles at the bases bilaterally. AICD pocket over the anterior chest noted. Cardiac Exam: [Normal S1 and S2, no S3 gallop, no murmur.] Abdomen: [Soft, nontender, no megaly, no rebound, no guarding, normal bowel sounds.] Extremities: [No clubbing, no edema, no cyanosis.] Neurological Exam: [No focal neurologic deficit.] Alert and oriented 3. Psychiatric: Normal mood affect and normal mental status examination. Skin: No rashes. Musculoskeletal: No deformities normal range of motion bilaterally. - Labs CBC & Chem 7: 07/13/19 03:55 07/13/19 03:55 Labs: Abnormal Lab Results - Last 24 Hours (Table) 07/12/19 07/12/19 07/12/19 Range/Units 05:16 11:31 17:17 WBC (3.8-10.6) k/uL Neutrophils # (1.3-7.7) k/uL Sodium (137-145) mmol/L BUN (9-20) mg/dL Glucose (74-99) mg/dL POC Glucose (mg/dL) 124 H 115 H (75-99) mg/dL Ferritin 1260.5 H (22.0-322.0) ng/mL ALT (4-49) U/L Lactate Dehydrogenase (313-618) U/L Creatine Kinase (55-170) U/L Albumin (3.5-5.0) g/dL 07/12/19 07/13/19 07/13/19 Range/Units 20:28 03:55 03:55 WBC 29.4 H (3.8-10.6) k/uL Neutrophils # 27.1 H (1.3-7.7) k/uL Sodium 134 L (137-145) mmol/L BUN 31 H (9-20) mg/dL Glucose 113 H (74-99) mg/dL POC Glucose (mg/dL) 122 H (75-99) mg/dL Ferritin (22.0-322.0) ng/mL ALT 112 H (4-49) U/L Lactate Dehydrogenase 1111 H (313-618) U/L Creatine Kinase <20 L (55-170) U/L Albumin 3.4 L (3.5-5.0) g/dL 07/13/19 Range/Units 06:49 WBC (3.8-10.6) k/uL Neutrophils # (1.3-7.7) k/uL Sodium (137-145) mmol/L BUN (9-20) mg/dL Glucose (74-99) mg/dL POC Glucose (mg/dL) 100 H (75-99) mg/dL Ferritin (22.0-322.0) ng/mL ALT (4-49) U/L Lactate Dehydrogenase (313-618) U/L Creatine Kinase (55-170) U/L Albumin (3.5-5.0) g/dL Assessment and Plan Assessment: Impression: Acute hypoxic respiratory failure secondary to acute covid 19 pneumonitis. Underlying pneumonitis/bacterial pneumonitis is not entirely ruled out. Specially with a sudden increase in his WBC count today. Elevated inflammatory markers, improving steadily. History of ischemic cardiomyopathy and AICD placement with previous history of ventricular fibrillation. Continue diuretics. Coronary artery disease and previous CABG in 2013. Dyslipidemia. Recommendation: Continue present supportive care measures. Continue oxygen to maintain O2 saturation above 89%. intermittent prone positions. Awaiting to hear the patient will eventually get convalescent plasma. Add vancomycin and to be dosed by pharmacy. Continue Zosyn. Patient finished his course of actemra Continue Lovenox at 90 mg subcu every 12 hours.. Continue to monitor closely in the ICU, Patient seems overall about the same, he is not getting any better and not getting any worse. Prognosis remains guarded. He is very well aware that his condition may deteriorate and may require intubation and mechanical ventilation. Time with Patient: Less than 30
[2019-07-13 11:34] LABS: Glucose,Whole Blood 104 mg/dL (75-99)
--- NOTE | 2019-07-13 16:01 | PN ---
PROGRESS NOTE DATE OF SERVICE: 07/13/2019 I am covering for Dr. Silva. This 68-year-old gentleman with a past medical history of multiple medical problems was admitted with acute COVID-19 pneumonia. The patient is hypoxic. Patient is on 100% nonrebreather mask. At this time the patient is also on bronchodilators and other usual medications. Chest x-ray reviewed personally by me done today showed bilateral lesions and the patient also had some diarrhea. Antibiotic coverage brought in by Dr. Shen including vancomycin. Otherwise, cultures were obtained today. Patient is being closely monitored. The LDH is still elevated and the rest of the inflammatory markers as well. PAST MEDICAL HISTORY: Reviewed. REVIEW OF SYSTEM: Could not be taken. CURRENT MEDICATIONS ARE: 1. Tylenol. 2. Aspirin. 3. Lipitor. 4. Coreg. 5. Plavix. 6. Lovenox. 7. Zetia. 8. NovoLog. 9. Cozaar. 10.Solu-Medrol. 11.Narcan. 12.Protonix. 13.Zosyn IV. 14.Vancomycin IV. 15.Aldactone. PHYSICAL EXAM: Patient is alert, oriented x2. Pulse 99, blood pressure 85/62, respiration 31, temperature 97.8, pulse ox 85% on high-flow oxygen. HEENT: Conjunctivae normal. Oral mucosa moist. NECK: No jugular venous distention. No lymph node enlargement. CARDIOVASCULAR: S1, S2. RESPIRATORY: Diminished breath sounds at the bases. Bilateral scattered rhonchi and crackles. ABDOMEN: Soft, obese, nontender. LEGS: No edema, no swelling. NERVOUS SYSTEM: No focal deficits. LAB STUDIES: WBC 29.4, sodium 134, ALT is 112 and LDH is 1111. ASSESSMENT: 1. Acute bilateral COVID-19 pneumonia, viral pneumonia with acute hypoxic respiratory failure with possible sepsis, present on admission. 2. History of ischemic cardiomyopathy, AICD placement, ventricular fibrillation. 3. History of coronary artery disease, coronary artery bypass grafting. 4. History of dyslipidemia. 5. Hyponatremia. 6. Hyperkalemia, mild. 7. Increased AST, ALT, possibly hepatitis. 8. Increased WBC. 9. History of degenerative joint disease. 10.History of coronary artery disease, stent. 11.Remote history of nicotine dependence. 12.FULL CODE. RECOMMENDATIONS AND DISCUSSION: Recommend to continue current medications, continue to monitor, continue symptomatic treatment. Continue with antibiotics, follow the cultures, C difficile. Monitor oxygenation closely. Closely follow with Dr. Shen. Guarded prognosis and Dr. Silva will follow tomorrow. MMLISSETTL / IJN: [id number] /
[2019-07-13 16:45] LABS: Glucose,Whole Blood 98 mg/dL (75-99)
[2019-07-13] MEDS: ATORVASTATIN 80 MG TAB PO SCH (20:12)
[2019-07-13 20:43] LABS: Glucose,Whole Blood 94 mg/dL (75-99)
[2019-07-14 04:58] LABS: Basophils % (A) 0 %; Eosinophils # (A) 0.1 k/uL (0-0.7); Eosinophils % (A) 0 %; HCT 46.7 % (39.0-53.0); HGB 15.4 gm/dL (13.0-17.5); Lymphocytes % (A) 3 %; MCH 30.1 pg (25.0-35.0); MCV 91.1 fL (80.0-100.0); Mean Platelet Volume 9.3; Monocytes # (A) 0.8 k/uL (0-1.0); Monocytes % (A) 3 %; Neutrophils # (A) 28.8 k/uL (1.3-7.7); Neutrophils % (A) 93 %; Platelet Count 283 k/uL (150-450); RBC 5.13 m/uL (4.30-5.90); WBC 30.8 k/uL (3.8-10.6)
[2019-07-14 06:51] LABS: Glucose,Whole Blood 108 mg/dL (75-99)
[2019-07-14 07:36] LABS: ALT 108 U/L (4-49); AST 53 U/L (17-59); African American GFR (CKD) >90 (>60 ml/min/1.73 sqM); Albumin 3.3 g/dL (3.5-5.0); Alkaline Phosphatase 83 U/L (38-126); Anion Gap 9 mmol/L; Blood Urea Nitrogen 33 mg/dL (9-20); Calcium 8.9 mg/dL (8.4-10.2); Carbon Dioxide 25 mmol/L (22-30); Chloride 99 mmol/L (98-107); Creatine Kinase 24 U/L (55-170); Glucose 102 mg/dL (74-99); LDH 1353 U/L (313-618); Non-African American GFR(CKD) 81 (>60 ml/min/1.73 sqM); Potassium 5.1 mmol/L (3.5-5.1); Sodium 133 mmol/L (137-145); Total Bilirubin 0.8 mg/dL (0.2-1.3); Total Protein 6.1 g/dL (6.3-8.2)
--- NOTE | 2019-07-14 08:09 | XR ---
EXAMINATION TYPE: XR chest 1V portable DATE OF EXAM: 07/14/2019 COMPARISON: 07/13/2019 HISTORY: Shortness of breath TECHNIQUE: Single frontal view of the chest is obtained. FINDINGS: Masslike right pleural-based opacity is redemonstrated as well as Left basilar opacity partially obscured by the left-sided cardiac device. Interstitial prominence is greatest in the lower lungs. Cardiomediastinal silhouette is stable in size with post CABG change. No new pleural effusion or pneumothorax. IMPRESSION: Stable bilateral consolidations. These appear somewhat masslike and follow-up CT thorax after symptom resolution is recommended to exclude underlying mass.
[2019-07-14] MEDS: INSULIN ASPART (NovoLOG) 100 UNIT/ML VIAL SQ SCH ×4 (08:14→22:54)
[2019-07-14] MEDS: VANCOMYCIN 1,500 MG in SODIUM CHLORIDE 0.9% 250 ML IVPB SCH ×2 (08:15→20:19)
[2019-07-14] MEDS: PIPERACILLIN-TAZOBACTAM 3.375 GM in SODIUM CHLORIDE 0.9% 100 ML IVPB SCH ×3 (08:15→23:00)
[2019-07-14] MEDS: PANTOPRAZOLE 40 MG TABLET PO SCH (08:16)
[2019-07-14] MEDS: ASPIRIN 81 MG PO SCH (08:16)
[2019-07-14] MEDS: LOSARTAN 25 MG TAB PO SCH (08:16)
[2019-07-14] MEDS: CARVEDILOL 3.125 MG TAB PO SCH (08:16)
[2019-07-14] MEDS: ENOXAPARIN 100 MG/ML SYRINGE SQ SCH ×2 (08:16→20:19)
[2019-07-14] MEDS: CLOPIDOGREL 75 MG TAB PO SCH (08:16)
[2019-07-14] MEDS: EZETIMIBE 10 MG TAB PO SCH (08:16)
[2019-07-14] MEDS: SPIRONOLACTONE 25 MG TAB PO SCH ×2 (08:17→20:20)
[2019-07-14] MEDS: methylPREDNISolone SOD SUCCI 40 MG/ML 1 ML VIAL IV SCH ×2 (08:17→20:20)
[2019-07-14] MEDS: SODIUM CHLORIDE 0.9% 1,000 ML IV SCH (08:18)
[2019-07-14 09:13] LABS: C Reactive Protein 6.1 mg/L (<10.0)
[2019-07-14 11:17] LABS: Ferritin 1193.4 ng/mL (22.0-322.0)
[2019-07-14 11:33] LABS: Glucose,Whole Blood 103 mg/dL (75-99)
--- NOTE | 2019-07-14 11:45 | P.PN ---
Subjective Progress Note Date: 07/14/19 This is a pleasant 68-year-old gentleman recently admitted on the testing positive for Covid 19, received Plaquenil ,discharged on 07/02/2019 ,with history of CAD, hyperlipidemia, NJ, CABG, osteoarthritis, ischemic cardiomyopathy, AICD, V. fib, peripheral vascular disease, former nicotine dependence and multiple other medical issues presented to the ER with worsening shortness of breath accompanied by fevers, fatigue. EMS reports patient tachypneic, tachycardic with O2 sats in the mid 70s on arrival .patient was placed on nonrebreather mask with improvement.afebrile admission, T-max 102.5. WBC 17.9 .Lactic acid 3.2 down to 1.5.Blood cultures obtained. Chest x-ray reporting bilateral patchy pneumonia slightly worse than last exam without heart failure. Denies chest pain, palpitations or shortness of breath. Denies lightheadedness, dizziness or focal deficits. EKG reporting normal sinus rhythm, left anterior fascicular block. Ferritin 1480.5. ( prev. 1146.7) C reactive protein 221( prev. 64.2) LDH 642 (prev 534) ,d-dimer 1.46( prev. 0.38.) BUN 22, creatinine 0.96. Na WNL. Procalcitonin levels elevated. Influenza A and B not detected. Pulmonary consulted. Interleukin 6 pending. Patient is being transferred to the ICU. 07/07/2019 maintaining O2 sats in the 90s on nonrebreather mask with additional high flow nasal cannula. Received Actemra yesterday. Chest x-ray reporting slightly worsening multifocal bilateral airspace disease with multifocal pneumonia. T-max 99.3. Ferritin down to 1581.9, LDH up to 800 mL, Creactive protein down to 80, d-dimer down to 1.26 on 07/04. Lymphocytes 7. WBC 15.6, on steroids. Hemoglobin 13 07/08/2019 Converted to 95% high flow airflow, maintaining O2 sats of mid to high 80s. ABGS reporting PH 7.45, PO2 46 pCO2 41, bicarb 28, total CO2 30 with O2 sat of 80.7 on 100% FiO2, base excess 4.3, yet patient denies increased shortness of breath, waving hi. Chest x-ray reporting persistent peripheral and lower lung patchy and confluent airspace disease. Inflammatory markers trending down, d-dimer minimally increased yesterday to 1.33. Lovenox dose increased Receiving second dose of Actemra. Tested negative for C. difficile colitis. Blood sugars controlled. 07/09/2019. Maintained on high flow 90% maintaining O2 sats of 80s to low 90s, currently in the prone position. Chest x-ray reports stable patchy bilateral lung infiltrates. Inflammatory markers about the same. Afebrile, WBC increased to 15.6. 07/10/2019 Maintained on IV steroids, Zosyn . Anticoagulated on Lovenox. Patient reports he feels better today. Tolerating prone positioning. Maintained on FiO2 100% nonrebreather +60% airvo, maintaining O2 sats of high 80s. Chest x-ray reporting no significant change. T-max 99, WBC trending up to 20.4. LDH, CRP trending up. LFTs mildly increased. 07/11/2019 continues on nonrebreather +60% airflow. Feels well, laid on his side throughout the night versus prone. Maintaining O2 sats in the high 80s to low 90s. Chest x-ray reporting worsening left lower lung capacity with persistent change right lower lobe opacity. Currently on back, diet intake increased to 50%, with assistance. Afebrile, WBC increased to 24.6, d-dimer trending up 1.44. LDH, CRP decreased. Blood sugars controlled. 07/14/2019 No further proning as patient was not able to tolerate. Maintaining O2 sats in the low 90s on nonrebreather +60% airvo. Chest x-ray reporting stable bilateral consolidations, somewhat masslike, follow-up CT thorax after symptom resolution recommended to exclude underlying mass. Scheduled for mid line placement Diet intake improving. Afebrile, WBC up to 30.8 . D-dimer, LDH trending up. CRP normal. creatinine 0.88. Sputum culture pending. Objective - Vital Signs Vital signs: Vital Signs Temp 98.1 F 07/14/19 08:00 Pulse 95 07/14/19 10:00 Resp 26 H 07/14/19 10:00 BP 109/69 07/14/19 10:00 Pulse Ox 88 L 07/14/19 10:00 Intake & Output 07/13/19 07/14/19 07/14/19 18:59 06:59 18:59 Intake Total 220 590 890 Output Total 946 721 150 Balance -726 -131 740 Weight 89.2 kg 89.2 kg Intake: IV 220 490 290 Sodium Chloride 0.9% 1, 220 240 40 000 ml @ 20 mls/hr IV . Q24H [facility] Rx#:[id number] Vancomycin 1,500 mg In 250 250 Sodium Chloride 0.9% 250 ml @ 125 mls/hr IVPB BID@ 0800,2000 JE[facility] Rx#: [id number] Intake, IV Titration 100 600 Amount Piperacillin-Tazobactam 3 100 100 .375 gm In Sodium Chloride 0.9% 100 ml @ 25 mls/hr IVPB Q8HR [facility] Rx# :[id number] Sodium Chloride 0.9% 1, 500 000 ml @ 20 mls/hr IV . Q24H [facility] Rx#:[id number] Output: Urine 945 720 150 Stool 1 1 Other: Voiding Method Indwelling Catheter Indwelling Catheter Indwelling Catheter - Exam VITAL SIGNS: [as above] GENERAL: Sitting up in bed, no acute distress HEENT: Conjunctivae normal. eyes normal. Mucosa moist NECK: No JVD. No thyroid enlargement. No LNs CARDIOVASCULAR: S1, S2 regular.No murmur. RESPIRATION: Breath sounds diminished in the bases. Occasional scattered rhonchi, basilar crackles. ABDOMEN: Soft, nontender . No guarding. no masses palpable.Bowel sounds heard. LEGS: No edema. no swelling PSYCHIATRY: Alert and oriented X3, mood and affect normal. NERVOUS SYSTEM: Cranial N 2-12 grossly normal. Moves all 4 limbs. Diffuse weakness ,No focal deficits. Strength and sensation grossly intact. Skin: no rash - Labs CBC & Chem 7: 07/14/19 04:04 07/14/19 04:04 Labs: Abnormal Lab Results - Last 24 Hours (Table) 07/13/19 07/13/19 07/14/19 Range/Units 03:55 11:33 04:04 WBC 30.8 H (3.8-10.6) k/uL Neutrophils # 28.8 H (1.3-7.7) k/uL D-Dimer (<0.60) mg/L FEU Sodium (137-145) mmol/L BUN (9-20) mg/dL Glucose (74-99) mg/dL POC Glucose (mg/dL) 104 H (75-99) mg/dL Ferritin 1193.4 H (22.0-322.0) ng/mL ALT (4-49) U/L Lactate Dehydrogenase (313-618) U/L Creatine Kinase (55-170) U/L Total Protein (6.3-8.2) g/dL Albumin (3.5-5.0) g/dL 07/14/19 07/14/19 07/14/19 Range/Units 04:04 04:04 06:48 WBC (3.8-10.6) k/uL Neutrophils # (1.3-7.7) k/uL D-Dimer 1.49 H (<0.60) mg/L FEU Sodium 133 L (137-145) mmol/L BUN 33 H (9-20) mg/dL Glucose 102 H (74-99) mg/dL POC Glucose (mg/dL) 108 H (75-99) mg/dL Ferritin (22.0-322.0) ng/mL ALT 108 H (4-49) U/L Lactate Dehydrogenase 1353 H (313-618) U/L Creatine Kinase 24 L (55-170) U/L Total Protein 6.1 L (6.3-8.2) g/dL Albumin 3.3 L (3.5-5.0) g/dL Microbiology - Last 24 Hours (Table) 07/14/19 01:00 Sputum Culture - Preliminary Sputum Assessment and Plan Assessment: Acute COVID 19 bilateral pneumonia, possible underlying pneumonitis, bacterial pneumonitis as well Leukocytosis secondary to the above, plus on steroids, worsening Acute hypoxic and hypercapnic respiratory failure secondary to Covid 19 pneumonia Thrombocytopenia secondary to Covid 19 infection, resolved CAD with history of NJ, CABG, stenting Ischemic cardiomyopathy, history of V. fib, with AICD Hyperlipidemia Plan: Continue on current medication regime ,monitoring and symptomatic treatment. 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 Lovenox for DVT prophylaxis, IV steroids, Zosyn, vancomycin . Prognosis guarded given multiple complex medical issues. The impression and plan of care has been dictated as directed. : I performed a history and examination of this patient, discussed the same with the dictator. I agree with the dictator's note ,documented as a scribe. Any additional findings or plans will be noted.
--- NOTE | 2019-07-14 13:47 | PN ---
PROGRESS NOTE PULMONARY/CRITICAL CARE PROGRESS NOTE: DATE OF SERVICE: 07/14/2019 CRITICAL CARE TIME: 33 minute This is a 68-year-old male who was admitted to the hospital back on July 03. He was admitted to the ICU on July 03. He tested positive for COVID-19 infection. He had acute hypoxemic respiratory failure to same. The patient never required intubation. Currently, he is on AIRVO at 60 L/minute with a FiO2 of 90%. He has also got a non- rebreather mask in place. The patient is getting saline at O. He has received tocilizumab x2 and apparently they put in a request for convalescent plasma, but the patient has not received that as yet. He does have a history of ischemic cardiomyopathy, status post AICD placement, ventricular fibrillation, CAD with previous bypass grafting in 2012, and hyperlipidemia. Currently, he is relatively stable. Vital signs are reviewed, temperature 98.1, heart rate 98.5, respiratory rate 26, blood pressure 109/69 mean 82, saturations are between 80% and 90%. Appears in no acute distress. Mildly tachypneic. HEENT: Examination is grossly unremarkable. The AIRVO cannula is in place as is a non- rebreather mask. NECK: Supple, full range of motion. No adenopathy. Neck veins are flat. CARDIOVASCULAR: Examination reveals regular rhythm and rate. Heart rate about 90 beats per minute. S1, S2 normal. No murmur. Heart sounds are distant. LUNGS: Reveal diffuse bilateral rhonchi. A few scattered crackles. No wheezes. Breath sounds equal. ABDOMEN: Soft, bowel sounds are heard. EXTREMITIES: Intact. No cyanosis, clubbing, or edema. SKIN: Without rash. NEUROLOGIC: Examination is nonfocal. Microbiology is negative. LABS: Reviewed. White count 30.8, hemoglobin 15.4, hematocrit 46.7, platelet count 283,000. D-dimer is 1.49. Sodium 133, potassium 5.1, chloride 99, CO2 is 25, anion gap is 9. BUN and creatinine were 33 and 0.95. ALT 108, LDH 1353, CK 24, albumin 3.3. A chest x-ray dated July 13 shows stable bilateral consolidations. The chest x-ray is compared to the x-ray from the day before and is essentially unchanged. CURRENT MEDICATIONS: Reviewed. The patient is on Tylenol, aspirin, Lipitor, Coreg, Plavix, Lovenox, Zetia, NovoLog insulin, Cozaar, Solu-Medrol, Narcan, Protonix, Zosyn, Aldactone, and vancomycin. ASSESSMENT: 1. Acute hypoxemic respiratory failure secondary to acute COVID-19 pneumonitis, currently not requiring intubation or mechanical ventilation but being maintained on AIRVO and non-rebreather mask. 2. Elevated inflammatory markers consistent with this infection. 3. History of ischemic cardiomyopathy, status post AICD placement. 4. History of ventricular fibrillation. 5. History of coronary artery disease with previous bypass grafting 2012. 6. Hyperlipidemia. PLAN: The patient will continue with current supportive measures. He did receive tocilizumab x2. We put in a request for convalescent plasma, but that has not been given as yet. He is currently on Zosyn and vancomycin. He remains on Lovenox. Additional recommendations and suggestions are forthcoming. Prognosis is guarded. In the end, the patient may require intubation and mechanical ventilation. CRITICAL CARE TIME: 33 minutes. MMLISSETTL / BELLEN: [id number] /
[2019-07-14 17:06] LABS: Glucose,Whole Blood 102 mg/dL (75-99)
[2019-07-14 17:32] LABS: Ferritin 1261.8 ng/mL (22.0-322.0)
[2019-07-14] MEDS: ATORVASTATIN 80 MG TAB PO SCH (20:20)
[2019-07-14 20:33] LABS: Glucose,Whole Blood 113 mg/dL (75-99)
[2019-07-15 04:54] LABS: HCT 46.8 % (39.0-53.0); HGB 14.6 gm/dL (13.0-17.5); Hypochromasia Slight; MCH 29.2 pg (25.0-35.0); MCHC 31.2 g/dL (31.0-37.0); MCV 93.6 fL (80.0-100.0); Mean Platelet Volume 8.7; Platelet Count 211 k/uL (150-450); RDW 13.6 % (11.5-15.5); WBC 29.7 k/uL (3.8-10.6)
[2019-07-15 05:02] LABS: ALT 76 U/L (4-49); AST 48 U/L (17-59); African American GFR (CKD) >90 (>60 ml/min/1.73 sqM); Albumin 3.2 g/dL (3.5-5.0); Alkaline Phosphatase 88 U/L (38-126); Anion Gap 7 mmol/L; Blood Urea Nitrogen 29 mg/dL (9-20); C Reactive Protein <5.0 mg/L (<10.0); Calcium 8.9 mg/dL (8.4-10.2); Carbon Dioxide 25 mmol/L (22-30); Chloride 101 mmol/L (98-107); Creatine Kinase 36 U/L (55-170); Glucose 110 mg/dL (74-99); Non-African American GFR(CKD) >90 (>60 ml/min/1.73 sqM); Sodium 133 mmol/L (137-145); Total Bilirubin 0.8 mg/dL (0.2-1.3); Total Protein 5.8 g/dL (6.3-8.2)
[2019-07-15 05:07] LABS: LDH 1523 U/L (313-618); Potassium 5.3 mmol/L (3.5-5.1)
[2019-07-15 05:25] LABS: Monocytes # (M) 0.59 k/uL (0-1.0); Neutrophils # (M) 28.81 k/uL (1.3-7.7); Neutrophils % (M) 97 %; Nucleated Red Blood Cells 0 /100 WBC (0-0); Total Cells Counted 100
[2019-07-15 06:05] LABS: Glucose,Whole Blood 103 mg/dL (75-99)
[2019-07-15] MEDS ORDERED: VANCOMYCIN TROUGH DUE 1 EACH MISC MISCELLANE ONE (07:00)
--- NOTE | 2019-07-15 07:30 | XR ---
EXAMINATION TYPE: XR chest 1V portable DATE OF EXAM: 07/15/2019 HISTORY: Shortness of breath. COMPARISON: 07/14/2019 TECHNIQUE: Single view of the chest is submitted. FINDINGS: Demonstrated are scattered senescent parenchymal change. Stable scattered airspace and interstitial infiltrates persist without significant change. The heart is stable. Hilar and mediastinal structures are within normal limits. Degenerative changes are seen of the dorsal spine. IMPRESSION: 1. Stable scattered airspace and interstitial infiltrates persist without significant change.
[2019-07-15 07:52] LABS: Glucose,Whole Blood 106 mg/dL (75-99)
[2019-07-15] MEDS: INSULIN ASPART (NovoLOG) 100 UNIT/ML VIAL SQ SCH ×4 (08:08→20:16)
[2019-07-15] MEDS: SODIUM CHLORIDE 0.9% 1,000 ML IV SCH (08:59)
[2019-07-15] MEDS: VANCOMYCIN 1,500 MG in SODIUM CHLORIDE 0.9% 250 ML IVPB SCH ×2 (08:59→19:51)
[2019-07-15] MEDS: ENOXAPARIN 100 MG/ML SYRINGE SQ SCH ×2 (09:00→19:51)
[2019-07-15] MEDS: EZETIMIBE 10 MG TAB PO SCH (09:00)
[2019-07-15] MEDS: PIPERACILLIN-TAZOBACTAM 3.375 GM in SODIUM CHLORIDE 0.9% 100 ML IVPB SCH ×3 (09:00→23:24)
[2019-07-15] MEDS: LOSARTAN 25 MG TAB PO SCH (09:00)
[2019-07-15] MEDS: PANTOPRAZOLE 40 MG TABLET PO SCH (09:00)
[2019-07-15] MEDS: SPIRONOLACTONE 25 MG TAB PO SCH ×2 (09:00→19:52)
[2019-07-15] MEDS: CLOPIDOGREL 75 MG TAB PO SCH (09:00)
[2019-07-15] MEDS: CARVEDILOL 3.125 MG TAB PO SCH (09:00)
[2019-07-15] MEDS: ASPIRIN 81 MG PO SCH (09:00)
[2019-07-15] MEDS: methylPREDNISolone SOD SUCCI 40 MG/ML 1 ML VIAL IV SCH ×2 (09:02→19:53)
--- NOTE | 2019-07-15 10:54 | P.PN ---
Subjective Progress Note Date: 07/15/19 This is a pleasant 68-year-old gentleman recently admitted on the testing positive for Covid 19, received Plaquenil ,discharged on 07/02/2019 ,with history of CAD, hyperlipidemia, MS, CABG, osteoarthritis, ischemic cardiomyopathy, AICD, V. fib, peripheral vascular disease, former nicotine dependence and multiple other medical issues presented to the ER with worsening shortness of breath accompanied by fevers, fatigue. EMS reports patient tachypneic, tachycardic with O2 sats in the mid 70s on arrival .patient was placed on nonrebreather mask with improvement.afebrile admission, T-max 102.5. WBC 17.9 .Lactic acid 3.2 down to 1.5.Blood cultures obtained. Chest x-ray reporting bilateral patchy pneumonia slightly worse than last exam without heart failure. Denies chest pain, palpitations or shortness of breath. Denies lightheadedness, dizziness or focal deficits. EKG reporting normal sinus rhythm, left anterior fascicular block. Ferritin 1480.5. ( prev. 1146.7) C reactive protein 221( prev. 64.2) LDH 642 (prev 534) ,d-dimer 1.46( prev. 0.38.) BUN 22, creatinine 0.96. Na WNL. Procalcitonin levels elevated. Influenza A and B not detected. Pulmonary consulted. Interleukin 6 pending. Patient is being transferred to the ICU. 07/07/2019 maintaining O2 sats in the 90s on nonrebreather mask with additional high flow nasal cannula. Received Actemra yesterday. Chest x-ray reporting slightly worsening multifocal bilateral airspace disease with multifocal pneumonia. T-max 99.3. Ferritin down to 1581.9, LDH up to 800 mL, Creactive protein down to 80, d-dimer down to 1.26 on 07/04. Lymphocytes 7. WBC 15.6, on steroids. Hemoglobin 13 07/08/2019 Converted to 95% high flow airflow, maintaining O2 sats of mid to high 80s. ABGS reporting PH 7.45, PO2 46 pCO2 41, bicarb 28, total CO2 30 with O2 sat of 80.7 on 100% FiO2, base excess 4.3, yet patient denies increased shortness of breath, waving hi. Chest x-ray reporting persistent peripheral and lower lung patchy and confluent airspace disease. Inflammatory markers trending down, d-dimer minimally increased yesterday to 1.33. Lovenox dose increased Receiving second dose of Actemra. Tested negative for C. difficile colitis. Blood sugars controlled. 07/09/2019. Maintained on high flow 90% maintaining O2 sats of 80s to low 90s, currently in the prone position. Chest x-ray reports stable patchy bilateral lung infiltrates. Inflammatory markers about the same. Afebrile, WBC increased to 15.6. 07/10/2019 Maintained on IV steroids, Zosyn . Anticoagulated on Lovenox. Patient reports he feels better today. Tolerating prone positioning. Maintained on FiO2 100% nonrebreather +60% airvo, maintaining O2 sats of high 80s. Chest x-ray reporting no significant change. T-max 99, WBC trending up to 20.4. LDH, CRP trending up. LFTs mildly increased. 07/11/2019 continues on nonrebreather +60% airflow. Feels well, laid on his side throughout the night versus prone. Maintaining O2 sats in the high 80s to low 90s. Chest x-ray reporting worsening left lower lung capacity with persistent change right lower lobe opacity. Currently on back, diet intake increased to 50%, with assistance. Afebrile, WBC increased to 24.6, d-dimer trending up 1.44. LDH, CRP decreased. Blood sugars controlled. 07/14/2019 No further proning as patient was not able to tolerate. Maintaining O2 sats in the low 90s on nonrebreather +60% airvo. Chest x-ray reporting stable bilateral consolidations, somewhat masslike, follow-up CT thorax after symptom resolution recommended to exclude underlying mass. Scheduled for mid line placement Diet intake improving. Afebrile, WBC up to 30.8 . D-dimer, LDH trending up. CRP normal. creatinine 0.88. Sputum culture pending. 07/15/2019 no overnight events. Continues on Zosyn and vancomycin. Sputum culture pending. Remains on nonrebreather mask/15 L +60%Airvo, maintaining O2 sats in the high 80s to low 90s. Chest x-ray reporting stable persistent scattered airspace and interstitial infiltrates. Afebrile, WBC mildly decreased to 29.7. Maintained on IV steroids. CRP within normal limits, LDH trending up. Mild hyperkalemia, potassium 5.3. Creatinine 0.77. Up in chair yesterday, Feels better. Objective - Vital Signs Vital signs: Vital Signs Temp 98.8 F 07/15/19 08:00 Pulse 105 H 07/15/19 09:00 Resp 27 H 07/15/19 09:00 BP 124/74 07/15/19 09:00 Pulse Ox 88 L 07/15/19 09:00 Intake & Output 07/14/19 07/15/19 07/15/19 18:59 06:59 18:59 Intake Total 1630 590 890 Output Total 745 660 128 Balance 885 -70 762 Weight 89.2 kg 90.5 kg Intake: IV 430 590 390 Piperacillin-Tazobactam 3 100 100 .375 gm In Sodium Chloride 0.9% 100 ml @ 25 mls/hr IVPB Q8HR [facility] Rx# :[id number] Sodium Chloride 0.9% 1, 180 240 40 000 ml @ 20 mls/hr IV . Q24H [facility] Rx#:[id number] Vancomycin 1,500 mg In 250 250 250 Sodium Chloride 0.9% 250 ml @ 125 mls/hr IVPB BID@ 0800,2000 [facility] Rx#: [id number] Intake, IV Titration 700 Amount Piperacillin-Tazobactam 3 200 .375 gm In Sodium Chloride 0.9% 100 ml @ 25 mls/hr IVPB Q8HR [facility] Rx# :[id number] Sodium Chloride 0.9% 1, 500 000 ml @ 20 mls/hr IV . Q24H [facility] Rx#:[id number] Oral 500 500 Output: Urine 745 660 128 Other: Voiding Method Indwelling Catheter Indwelling Catheter Indwelling Catheter # Bowel Movements 1 2 - Exam VITAL SIGNS: [as above] GENERAL: Sitting up in bed, no acute distress HEENT: Conjunctivae normal. eyes normal. Mucosa moist NECK: No JVD. No thyroid enlargement. No LNs CARDIOVASCULAR: S1, S2 regular.No murmur. RESPIRATION: Improving air entry, Breath sounds diminished in the bases. Occasional scattered rhonchi, basilar crackles. ABDOMEN: Soft, nontender . No guarding. no masses palpable.Bowel sounds heard. LEGS: No edema. no swelling PSYCHIATRY: Alert and oriented X3, mood and affect normal. NERVOUS SYSTEM: Cranial N 2-12 grossly normal. Moves all 4 limbs. Diffuse weakness ,No focal deficits. Strength and sensation grossly intact. Skin: no rash - Labs CBC & Chem 7: 07/15/19 03:43 07/15/19 03:43 Labs: Abnormal Lab Results - Last 24 Hours (Table) 07/13/19 07/14/19 07/14/19 Range/Units 03:55 04:04 11:32 WBC (3.8-10.6) k/uL Neutrophils # (Manual) (1.3-7.7) k/uL Lymphocytes # (Manual) (1.0-4.8) k/uL Sodium (137-145) mmol/L Potassium (3.5-5.1) mmol/L BUN (9-20) mg/dL Glucose (74-99) mg/dL POC Glucose (mg/dL) 103 H (75-99) mg/dL Ferritin 1193.4 H 1261.8 H (22.0-322.0) ng/mL ALT (4-49) U/L Lactate Dehydrogenase (313-618) U/L Creatine Kinase (55-170) U/L Total Protein (6.3-8.2) g/dL Albumin (3.5-5.0) g/dL 07/14/19 07/14/19 07/15/19 Range/Units 17:04 20:32 03:43 WBC 29.7 H (3.8-10.6) k/uL Neutrophils # (Manual) 28.81 H (1.3-7.7) k/uL Lymphocytes # (Manual) 0.30 L (1.0-4.8) k/uL Sodium (137-145) mmol/L Potassium (3.5-5.1) mmol/L BUN (9-20) mg/dL Glucose (74-99) mg/dL POC Glucose (mg/dL) 102 H 113 H (75-99) mg/dL Ferritin (22.0-322.0) ng/mL ALT (4-49) U/L Lactate Dehydrogenase (313-618) U/L Creatine Kinase (55-170) U/L Total Protein (6.3-8.2) g/dL Albumin (3.5-5.0) g/dL 07/15/19 07/15/1907/14/20 Range/Units 03:43 06:03 07:49 WBC (3.8-10.6) k/uL Neutrophils # (Manual) (1.3-7.7) k/uL Lymphocytes # (Manual) (1.0-4.8) k/uL Sodium 133 L (137-145) mmol/L Potassium 5.3 H (3.5-5.1) mmol/L BUN 29 H (9-20) mg/dL Glucose 110 H (74-99) mg/dL POC Glucose (mg/dL) 103 H 106 H (75-99) mg/dL Ferritin (22.0-322.0) ng/mL ALT 76 H (4-49) U/L Lactate Dehydrogenase 1523 H (313-618) U/L Creatine Kinase 36 L (55-170) U/L Total Protein 5.8 L (6.3-8.2) g/dL Albumin 3.2 L (3.5-5.0) g/dL Microbiology - Last 24 Hours (Table) 07/14/19 01:00 Gram Stain - Preliminary Sputum Sputum Culture - Preliminary 07/13/19 09:31 Blood Culture - Preliminary Blood No Growth after 24 hours 07/13/19 09:43 Blood Culture - Preliminary Blood No Growth after 24 hours Assessment and Plan Assessment: Acute COVID 19 bilateral pneumonia, possible underlying pneumonitis, bacterial pneumonitis as well Leukocytosis secondary to the above, plus on steroids Acute hypoxic and hypercapnic respiratory failure secondary to Covid 19 pneumonia Thrombocytopenia secondary to Covid 19 infection, resolved CAD with history of MS, CABG, stenting Ischemic cardiomyopathy, history of V. fib, with AICD Hyperlipidemia Plan: Continue on current medication regime ,monitoring and symptomatic treatment. 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 Prognosis guarded given multiple complex medical issues. The impression and plan of care has been dictated as directed. : I performed a history and examination of this patient, discussed the same with the dictator. I agree with the dictator's note ,documented as a scribe. Any additional findings or plans will be noted.
[2019-07-15 11:09] LABS: Glucose,Whole Blood 106 mg/dL (75-99)
--- NOTE | 2019-07-15 11:35 | P.PN ---
Subjective Progress Note Date: 07/15/19 Principal diagnosis: Acute hypoxic respiratory failure related to COVID 19 infection On 07/15/2019 patient seen in follow-up in the intensive care unit, he remains on AIRVO at 60 L/m, and FiO2 of 90% in addition to the nonrebreather and his pulse ox is around 80-89%, seems comfortable, does not appear to be in any respiratory distress, afebrile, hemodynamically stable, as become tachypneic with any activity, but tolerates getting up out of bed with assistance well, yesterday she set up in the chair, today we will attempt to get him up in the chair again and let him sit up for a few hours. Today's labs have been reviewed including dental, 29.7, hemoglobin of 14.6, lymphocyte count of 0.30, sodium 133, potassium is 5.3, BUN of 29 creatinine 0.7. LDH is trending up, 1523, CRP is less than 5. Patient remains on empiric antibiotics in the form of vancomycin and Zosyn. So far blood and sputum cultures have shown no growth, final cultures are pending. Today's chest x-ray has been reviewed showing stable scattered airspace and interstitial infiltrates stable in appearance. Appetite is improving, and per nursing report patient is consuming about 75% of his meals in addition to a transient supplements in the form of ensure. Patient is on a waiting list for convalescent plasma, he has signed consent, we're awaiting for convalescent plasma to become available for him through [place] Objective - Vital Signs Vital signs: Vital Signs Temp 98.8 F 07/15/19 08:00 Pulse 105 H 07/15/19 09:00 Resp 27 H 07/15/19 09:00 BP 124/74 07/15/19 09:00 Pulse Ox 88 L 07/15/19 09:00 Intake & Output 07/14/19 07/15/19 07/15/19 18:59 06:59 18:59 Intake Total 1630 590 890 Output Total 745 660 128 Balance 885 -70 762 Weight 89.2 kg 90.5 kg Intake: IV 430 590 390 Piperacillin-Tazobactam 3 100 100 .375 gm In Sodium Chloride 0.9% 100 ml @ 25 mls/hr IVPB Q8HR [facility] Rx# :[id number] Sodium Chloride 0.9% 1, 180 240 40 000 ml @ 20 mls/hr IV . Q24H [facility] Rx#:[id number] Vancomycin 1,500 mg In 250 250 250 Sodium Chloride 0.9% 250 ml @ 125 mls/hr IVPB BID@ 0800,2000 [facility] Rx#: [id number] Intake, IV Titration 700 Amount Piperacillin-Tazobactam 3 200 .375 gm In Sodium Chloride 0.9% 100 ml @ 25 mls/hr IVPB Q8HR [facility] Rx# :[id number] Sodium Chloride 0.9% 1, 500 000 ml @ 20 mls/hr IV . Q24H [facility] Rx#:[id number] Oral 500 500 Output: Urine 745 660 128 Other: Voiding Method Indwelling Catheter Indwelling Catheter Indwelling Catheter # Bowel Movements 1 2 - Exam GENERAL EXAM: Alert, very pleasant, 68-year-old white male, on AIrvo at 60 l/min, Fio2 90% of the pulse ox of 80-89%, comfortable in no apparent distress. HEAD: Normocephalic/atraumatic. EYES: Normal reaction of pupils, equal size. Conjunctiva pink, sclera white. NOSE: Clear with pink turbinates. THROAT: No erythema or exudates. NECK: No masses, no JVD, no thyroid enlargement, no adenopathy. CHEST: No chest wall deformity. Symmetrical expansion. LUNGS: Equal air entry with some scattered bibasilar crackles, wheeze, rhonchi or dullness. CVS: Regular rate and rhythm, normal S1 and S2, no gallops, no murmurs, no rubs ABDOMEN: Soft, nontender. No hepatosplenomegaly, normal bowel sounds, no guarding or rigidity. EXTREMITIES: No clubbing, no edema, no cyanosis, 2+ pulses and upper and lower extremities. MUSCULOSKELETAL: Muscle strength and tone normal. SPINE: No scoliosis or deformity SKIN: No rashes CENTRAL NERVOUS SYSTEM: Alert and oriented -3. No focal deficits, tone is normal in all 4 extremities. PSYCHIATRIC: Alert and oriented -3. Appropriate affect. Intact judgment and insight. - Labs CBC & Chem 7: 07/15/19 03:43 07/15/19 03:43 Labs: Abnormal Lab Results - Last 24 Hours (Table) 07/14/19 07/14/19 07/14/19 Range/Units 04:04 11:32 17:04 WBC (3.8-10.6) k/uL Neutrophils # (Manual) (1.3-7.7) k/uL Lymphocytes # (Manual) (1.0-4.8) k/uL Sodium (137-145) mmol/L Potassium (3.5-5.1) mmol/L BUN (9-20) mg/dL Glucose (74-99) mg/dL POC Glucose (mg/dL) 103 H 102 H (75-99) mg/dL Ferritin 1261.8 H (22.0-322.0) ng/mL ALT (4-49) U/L Lactate Dehydrogenase (313-618) U/L Creatine Kinase (55-170) U/L Total Protein (6.3-8.2) g/dL Albumin (3.5-5.0) g/dL 07/14/19 07/15/19 07/15/19 Range/Units 20:32 03:43 03:43 WBC 29.7 H (3.8-10.6) k/uL Neutrophils # (Manual) 28.81 H (1.3-7.7) k/uL Lymphocytes # (Manual) 0.30 L (1.0-4.8) k/uL Sodium 133 L (137-145) mmol/L Potassium 5.3 H (3.5-5.1) mmol/L BUN 29 H (9-20) mg/dL Glucose 110 H (74-99) mg/dL POC Glucose (mg/dL) 113 H (75-99) mg/dL Ferritin (22.0-322.0) ng/mL ALT 76 H (4-49) U/L Lactate Dehydrogenase 1523 H (313-618) U/L Creatine Kinase 36 L (55-170) U/L Total Protein 5.8 L (6.3-8.2) g/dL Albumin 3.2 L (3.5-5.0) g/dL 07/15/19 07/15/19 07/15/19 Range/Units 06:03 07:49 11:07 WBC (3.8-10.6) k/uL Neutrophils # (Manual) (1.3-7.7) k/uL Lymphocytes # (Manual) (1.0-4.8) k/uL Sodium (137-145) mmol/L Potassium (3.5-5.1) mmol/L BUN (9-20) mg/dL Glucose (74-99) mg/dL POC Glucose (mg/dL) 103 H 106 H 106 H (75-99) mg/dL Ferritin (22.0-322.0) ng/mL ALT (4-49) U/L Lactate Dehydrogenase (313-618) U/L Creatine Kinase (55-170) U/L Total Protein (6.3-8.2) g/dL Albumin (3.5-5.0) g/dL Microbiology - Last 24 Hours (Table) 07/14/19 01:00 Gram Stain - Preliminary Sputum Sputum Culture - Preliminary 07/13/19 09:31 Blood Culture - Preliminary Blood No Growth after 24 hours 07/13/19 09:43 Blood Culture - Preliminary Blood No Growth after 24 hours Assessment and Plan Plan: Assessment: #1. Acute hypoxic respiratory failure secondary to acute COVID 19 pneumonitis, underlying bacterial pneumonitis is not entirely ruled out, since covered with empiric antibiotics including Zosyn and vancomycin #2. Elevated inflammatory markers including LDH, CRP, and interleukin-6 level related to acute COVID 19 pneumonia #3. History of ischemic cardiomyopathy and AICD placement for previous history of ventricular fibrillation #4. History of coronary artery disease with previous bypass grafting in 2012 #5. Hyperlipidemia #6. Carotid artery disease with previous left carotid endarterectomy Plan: Continue current medical treatment, continue IV steroids, continue therapeutic doses of Lovenox for anticoagulation. Continue with Zosyn and vancomycin, patient is afebrile, vital signs are stable, still requiring high flow oxygen with Airvo and non-rebreather, Despite requiring high amounts of oxygen patient's in no respiratory distress, denies chest x-ray shows stable appearance of bilateral interstitial infiltrates and bilateral airspace disease, patient is on empiric antibiotics. Still awaiting convalescent plasma from [place], ty pically were told to turnaround time 7-9 days, hopefully will become available by the end of this week, some of his inflammatory markers remain elevated. We inquired with inpatient diploma pharmacy technician regarding use of Remdesivir, and were told that right now the only facility of [facility], where Remdesivir is available is [place], and it is not available to any other [facility] facilities. We'll continue same medical treatment. We'll continue close monitoring in the ICU. I performed a history & physical examination of the patient and discussed their management with my nurse practitioner, Nicky Carrillo. I reviewed the nurse practitioner's note and agree with the documented findings and plan of care. Lung sounds are positive for diffuse wheezes throughout the lung gilliam. The findings and the impression was discussed with the patient. I attest to the documentation by the nurse practitioner. Time with Patient: Less than 30
[2019-07-15 17:10] LABS: Glucose,Whole Blood 95 mg/dL (75-99)
[2019-07-15] MEDS: ATORVASTATIN 80 MG TAB PO SCH (19:52)
[2019-07-15] MEDS: ACETAMINOPHEN TAB 325 MG TAB PO PRN (19:52)
[2019-07-15 20:15] LABS: Glucose,Whole Blood 91 mg/dL (75-99)
[2019-07-16] MEDS: SODIUM CHLORIDE 0.9% 1,000 ML IV SCH (03:36)
[2019-07-16 05:03] LABS: Basophils % (A) 0 %; Eosinophils # (A) 0.1 k/uL (0-0.7); Eosinophils % (A) 1 %; HCT 43.8 % (39.0-53.0); HGB 14.4 gm/dL (13.0-17.5); Lymphocytes # (A) 0.9 k/uL (1.0-4.8); Lymphocytes % (A) 4 %; MCHC 32.9 g/dL (31.0-37.0); MCV 91.1 fL (80.0-100.0); Mean Platelet Volume 9.2; Monocytes # (A) 0.5 k/uL (0-1.0); Monocytes % (A) 2 %; Neutrophils # (A) 20.6 k/uL (1.3-7.7); Neutrophils % (A) 92 %; Platelet Count 212 k/uL (150-450); RBC 4.81 m/uL (4.30-5.90); RDW 13.6 % (11.5-15.5); WBC 22.3 k/uL (3.8-10.6)
[2019-07-16 05:23] LABS: ALT 58 U/L (4-49); AST 41 U/L (17-59); African American GFR (CKD) >90 (>60 ml/min/1.73 sqM); Albumin 3.1 g/dL (3.5-5.0); Alkaline Phosphatase 99 U/L (38-126); Anion Gap 3 mmol/L; Blood Urea Nitrogen 22 mg/dL (9-20); C Reactive Protein <5.0 mg/L (<10.0); Carbon Dioxide 31 mmol/L (22-30); Chloride 98 mmol/L (98-107); Creatine Kinase 34 U/L (55-170); Glucose 111 mg/dL (74-99); LDH 1458 U/L (313-618); Non-African American GFR(CKD) >90 (>60 ml/min/1.73 sqM); Potassium 5.5 mmol/L (3.5-5.1); Sodium 132 mmol/L (137-145); Total Bilirubin 0.8 mg/dL (0.2-1.3); Total Protein 5.6 g/dL (6.3-8.2)
--- NOTE | 2019-07-16 06:22 | XR ---
EXAMINATION TYPE: XR chest 1V portable DATE OF EXAM: 07/16/2019 CLINICAL HISTORY: Difficulty breathing progress study. TECHNIQUE: Single AP portable upright view of the chest is obtained. COMPARISON: Chest x-ray from one day earlier and older studies. FINDINGS: Overlying sternal wires and mediastinal clips redemonstrated. Cardiac silhouette size stabl e and within normal limits with single lead pacemaker/AICD. Background chronic parenchymal changes wi th mid to lower lung increased opacities greater in the periphery in the right lung. No pleural effus ion or pneumothorax seen bilaterally. Old fracture left mid clavicle redemonstrated. IMPRESSION: Chronic parenchymal changes with bilateral mid to lower lung areas of acute infiltrate an d/or edema. No significant change from one day earlier.
[2019-07-16] MEDS: ENOXAPARIN 100 MG/ML SYRINGE SQ SCH ×2 (08:19→20:33)
[2019-07-16] MEDS: ASPIRIN 81 MG PO SCH (08:20)
[2019-07-16] MEDS: CARVEDILOL 3.125 MG TAB PO SCH (08:20)
[2019-07-16] MEDS: SPIRONOLACTONE 25 MG TAB PO SCH ×2 (08:20→20:33)
[2019-07-16] MEDS: PANTOPRAZOLE 40 MG TABLET PO SCH (08:20)
[2019-07-16] MEDS: methylPREDNISolone SOD SUCCI 40 MG/ML 1 ML VIAL IV SCH ×2 (08:20→20:34)
[2019-07-16] MEDS: CLOPIDOGREL 75 MG TAB PO SCH (08:20)
[2019-07-16] MEDS: LOSARTAN 25 MG TAB PO SCH (08:20)
[2019-07-16] MEDS: PIPERACILLIN-TAZOBACTAM 3.375 GM in SODIUM CHLORIDE 0.9% 100 ML IVPB SCH ×3 (08:20→22:33)
[2019-07-16] MEDS: VANCOMYCIN 1,500 MG in SODIUM CHLORIDE 0.9% 250 ML IVPB SCH ×2 (08:22→20:34)
[2019-07-16] MEDS: INSULIN ASPART (NovoLOG) 100 UNIT/ML VIAL SQ SCH ×4 (08:24→20:27)
[2019-07-16] MEDS: EZETIMIBE 10 MG TAB PO SCH (08:43)
--- NOTE | 2019-07-16 11:01 | P.PN ---
Subjective Progress Note Date: 07/16/19 Principal diagnosis: Acute hypoxic respiratory failure related to COVID 19 infection On 07/15/2019 patient seen in follow-up in the intensive care unit, he remains on AIRVO at 60 L/m, and FiO2 of 90% in addition to the nonrebreather and his pulse ox is around 80-89%, seems comfortable, does not appear to be in any respiratory distress, afebrile, hemodynamically stable, as become tachypneic with any activity, but tolerates getting up out of bed with assistance well, yesterday she set up in the chair, today we will attempt to get him up in the chair again and let him sit up for a few hours. Today's labs have been reviewed including dental, 29.7, hemoglobin of 14.6, lymphocyte count of 0.30, sodium 133, potassium is 5.3, BUN of 29 creatinine 0.7. LDH is trending up, 1523, CRP is less than 5. Patient remains on empiric antibiotics in the form of vancomycin and Zosyn. So far blood and sputum cultures have shown no growth, final cultures are pending. Today's chest x-ray has been reviewed showing stable scattered airspace and interstitial infiltrates stable in appearance. Appetite is improving, and per nursing report patient is consuming about 75% of his meals in addition to a transient supplements in the form of ensure. Patient is on a waiting list for convalescent plasma, he has signed consent, we're awaiting for convalescent plasma to become available for him through [place] On 07/16/2019 patient seen in follow-up in intensive care unit, slightly better oxygenation on today's exam, with a pulse ox of 92-94% on a combination of Airvo at 60 L/m, and FiO2 is 85% in addition to 100% nonrebreather. Patient is afebrile, hemodynamically he is stable, his breathing seems to be nonlabored, only occasionally tachypneic, he is tolerating activity, he is currently sitting up in the recliner, appears fatigued but no acute distress, today's chest x-ray has been reviewed showing chronic parenchymal changes with bilateral mid to lower lung areas of acute infiltrate no significant change from prior exam. Today's labs have been reviewed showing white blood cell count of 22.3, hemoglobin is 14.4, lymphocyte count of 0.9, d-dimer is 1.46, sodium is 132, potassium is 5.5, chloride is 98, CO2 31, BUN is 22, creatinine 0.72. LDH is slightly down to 1458, CK-MB is 34, CRP is less than 5.0. Patient's sputum culture is showing gram-negative bacilli, final culture is pending. Patient is covered with empiric antibiotics in the form of Zosyn and vancomycin, Objective - Vital Signs Vital signs: Vital Signs Temp 97.7 F 07/16/19 08:00 Pulse 86 07/16/19 10:00 Resp 24 07/16/19 10:00 BP 111/58 07/16/19 10:00 Pulse Ox 94 L 07/16/19 10:00 Intake & Output 07/15/19 07/16/19 07/16/19 18:59 06:59 18:59 Intake Total 2110 580 410 Output Total 759 1085 336 Balance 1351 -505 74 Weight 90.1 kg Intake: IV 610 580 410 Piperacillin-Tazobactam 3 200 100 100 .375 gm In Sodium Chloride 0.9% 100 ml @ 25 mls/hr IVPB Q8HR [facility] Rx# :[id number] Sodium Chloride 0.9% 1, 160 230 60 000 ml @ 20 mls/hr IV . Q24H [facility] Rx#:[id number] Vancomycin 1,500 mg In 250 250 250 Sodium Chloride 0.9% 250 ml @ 125 mls/hr IVPB BID@ 0800,2000 [facility] Rx#: [id number] Oral 1500 0 Output: Urine 758 1085 335 Stool 1 1 Other: Voiding Method Indwelling Catheter Indwelling Catheter Indwelling Catheter # Bowel Movements 1 1 - Exam GENERAL EXAM: Alert, very pleasant, 68-year-old white male, on AIrvo at 60 l/min, Fio2 85% of the pulse ox of 89-94%, comfortable in no apparent distress. HEAD: Normocephalic/atraumatic. EYES: Normal reaction of pupils, equal size. Conjunctiva pink, sclera white. NOSE: Clear with pink turbinates. THROAT: No erythema or exudates. NECK: No masses, no JVD, no thyroid enlargement, no adenopathy. CHEST: No chest wall deformity. Symmetrical expansion. LUNGS: Equal air entry with some scattered bibasilar crackles, wheeze, rhonchi or dullness. CVS: Regular rate and rhythm, normal S1 and S2, no gallops, no murmurs, no rubs ABDOMEN: Soft, nontender. No hepatosplenomegaly, normal bowel sounds, no guarding or rigidity. EXTREMITIES: No clubbing, no edema, no cyanosis, 2+ pulses and upper and lower extremities. MUSCULOSKELETAL: Muscle strength and tone normal. SPINE: No scoliosis or deformity SKIN: No rashes CENTRAL NERVOUS SYSTEM: Alert and oriented -3. No focal deficits, tone is normal in all 4 extremities. PSYCHIATRIC: Alert and oriented -3. Appropriate affect. Intact judgment and insight. - Labs CBC & Chem 7: 07/16/19 04:28 07/16/19 04:35 Labs: Abnormal Lab Results - Last 24 Hours (Table) 07/15/19 07/15/19 07/16/19 Range/Units 03:43 11:07 04:28 WBC 22.3 H (3.8-10.6) k/uL Neutrophils # 20.6 H (1.3-7.7) k/uL Lymphocytes # 0.9 L (1.0-4.8) k/uL D-Dimer (<0.60) mg/L FEU Sodium (137-145) mmol/L Potassium (3.5-5.1) mmol/L Carbon Dioxide (22-30) mmol/L BUN (9-20) mg/dL Glucose (74-99) mg/dL POC Glucose (mg/dL) 106 H (75-99) mg/dL Ferritin 1443.0 H (22.0-322.0) ng/mL ALT (4-49) U/L Lactate Dehydrogenase (313-618) U/L Creatine Kinase (55-170) U/L Total Protein (6.3-8.2) g/dL Albumin (3.5-5.0) g/dL 07/16/19 07/16/19 Range/Units 04:28 04:35 WBC (3.8-10.6) k/uL Neutrophils # (1.3-7.7) k/uL Lymphocytes # (1.0-4.8) k/uL D-Dimer 1.46 H (<0.60) mg/L FEU Sodium 132 L (137-145) mmol/L Potassium 5.5 H (3.5-5.1) mmol/L Carbon Dioxide 31 H (22-30) mmol/L BUN 22 H (9-20) mg/dL Glucose 111 H (74-99) mg/dL POC Glucose (mg/dL) (75-99) mg/dL Ferritin (22.0-322.0) ng/mL ALT 58 H (4-49) U/L Lactate Dehydrogenase 1458 H (313-618) U/L Creatine Kinase 34 L (55-170) U/L Total Protein 5.6 L (6.3-8.2) g/dL Albumin 3.1 L (3.5-5.0) g/dL Microbiology - Last 24 Hours (Table) 07/14/19 01:00 Gram Stain - Preliminary Sputum Sputum Culture - Preliminary Gram Neg Bacilli Lolis albicans 07/13/19 09:31 Blood Culture - Preliminary Blood No Growth after 48 hours 07/13/19 09:43 Blood Culture - Preliminary Blood No Growth after 48 hours Assessment and Plan Plan: Assessment: #1. Acute hypoxic respiratory failure secondary to acute COVID 19 pneumonitis, underlying bacterial pneumonitis is not entirely ruled out, since covered with empiric antibiotics including Zosyn and vancomycin #2. Elevated inflammatory markers including LDH, CRP, and interleukin-6 level related to acute COVID 19 pneumonia #3. History of ischemic cardiomyopathy and AICD placement for previous history of ventricular fibrillation #4. History of coronary artery disease with previous bypass grafting in 2012 #5. Hyperlipidemia #6. Carotid artery disease with previous left carotid endarterectomy Plan: Continue same medical treatment, continue weaning Fio2, patient remains on high flow oxygen, oxygenation seems to be slightly better. Chest x-ray shows no significant change from prior chest x-rays still showing bilateral infiltrates. Afebrile, he is covered with the Zosyn and vancomycin, will await final results of the sputum culture, still awaiting convalescent plasma, Remdesivir not avail able, despite announcement of expanded used by FDA. Continue IV steroids, continue Lovenox, we'll repeat inflammatory markers tomorrow. Encourage oral intake, encourage patient to sit up in the chair, will continue to closely follow his course in the ICU I performed a history & physical examination of the patient and discussed their management with my nurse practitioner, Nicky Carrillo. I reviewed the nurse practitioner's note and agree with the documented findings and plan of care. Lung sounds are positive for diffuse wheezes throughout the lung gilliam. The findings and the impression was discussed with the patient. I attest to the documentation by the nurse practitioner. Time with Patient: Greater than 30
[2019-07-16 11:08] LABS: Ferritin 1060.3 ng/mL (22.0-322.0)
[2019-07-16 11:29] LABS: Glucose,Whole Blood 85 mg/dL (75-99)
--- NOTE | 2019-07-16 11:43 | P.PN ---
Subjective Progress Note Date: 07/16/19 This is a pleasant 68-year-old gentleman recently admitted on the testing positive for Covid 19, received Plaquenil ,discharged on 07/02/2019 ,with history of CAD, hyperlipidemia, DE, CABG, osteoarthritis, ischemic cardiomyopathy, AICD, V. fib, peripheral vascular disease, former nicotine dependence and multiple other medical issues presented to the ER with worsening shortness of breath accompanied by fevers, fatigue. EMS reports patient tachypneic, tachycardic with O2 sats in the mid 70s on arrival .patient was placed on nonrebreather mask with improvement.afebrile admission, T-max 102.5. WBC 17.9 .Lactic acid 3.2 down to 1.5.Blood cultures obtained. Chest x-ray reporting bilateral patchy pneumonia slightly worse than last exam without heart failure. Denies chest pain, palpitations or shortness of breath. Denies lightheadedness, dizziness or focal deficits. EKG reporting normal sinus rhythm, left anterior fascicular block. Ferritin 1480.5. ( prev. 1146.7) C reactive protein 221( prev. 64.2) LDH 642 (prev 534) ,d-dimer 1.46( prev. 0.38.) BUN 22, creatinine 0.96. Na WNL. Procalcitonin levels elevated. Influenza A and B not detected. Pulmonary consulted. Interleukin 6 pending. Patient is being transferred to the ICU. 07/07/2019 maintaining O2 sats in the 90s on nonrebreather mask with additional high flow nasal cannula. Received Actemra yesterday. Chest x-ray reporting slightly worsening multifocal bilateral airspace disease with multifocal pneumonia. T-max 99.3. Ferritin down to 1581.9, LDH up to 800 mL, Creactive protein down to 80, d-dimer down to 1.26 on 07/04. Lymphocytes 7. WBC 15.6, on steroids. Hemoglobin 13 07/08/2019 Converted to 95% high flow airflow, maintaining O2 sats of mid to high 80s. ABGS reporting PH 7.45, PO2 46 pCO2 41, bicarb 28, total CO2 30 with O2 sat of 80.7 on 100% FiO2, base excess 4.3, yet patient denies increased shortness of breath, waving hi. Chest x-ray reporting persistent peripheral and lower lung patchy and confluent airspace disease. Inflammatory markers trending down, d-dimer minimally increased yesterday to 1.33. Lovenox dose increased Receiving second dose of Actemra. Tested negative for C. difficile colitis. Blood sugars controlled. 07/09/2019. Maintained on high flow 90% maintaining O2 sats of 80s to low 90s, currently in the prone position. Chest x-ray reports stable patchy bilateral lung infiltrates. Inflammatory markers about the same. Afebrile, WBC increased to 15.6. 07/10/2019 Maintained on IV steroids, Zosyn . Anticoagulated on Lovenox. Patient reports he feels better today. Tolerating prone positioning. Maintained on FiO2 100% nonrebreather +60% airvo, maintaining O2 sats of high 80s. Chest x-ray reporting no significant change. T-max 99, WBC trending up to 20.4. LDH, CRP trending up. LFTs mildly increased. 07/11/2019 continues on nonrebreather +60% airflow. Feels well, laid on his side throughout the night versus prone. Maintaining O2 sats in the high 80s to low 90s. Chest x-ray reporting worsening left lower lung capacity with persistent change right lower lobe opacity. Currently on back, diet intake increased to 50%, with assistance. Afebrile, WBC increased to 24.6, d-dimer trending up 1.44. LDH, CRP decreased. Blood sugars controlled. 07/14/2019 No further proning as patient was not able to tolerate. Maintaining O2 sats in the low 90s on nonrebreather +60% airvo. Chest x-ray reporting stable bilateral consolidations, somewhat masslike, follow-up CT thorax after symptom resolution recommended to exclude underlying mass. Scheduled for mid line placement Diet intake improving. Afebrile, WBC up to 30.8 . D-dimer, LDH trending up. CRP normal. creatinine 0.88. Sputum culture pending. 07/15/2019 no overnight events. Continues on Zosyn and vancomycin. Sputum culture pending. Remains on nonrebreather mask/15 L +60%Airvo, maintaining O2 sats in the high 80s to low 90s. Chest x-ray reporting stable persistent scattered airspace and interstitial infiltrates. Afebrile, WBC mildly decreased to 29.7. Maintained on IV steroids. CRP within normal limits, LDH trending up. Mild hyperkalemia, potassium 5.3. Creatinine 0.77. Up in chair yesterday, Feels better. 07/16/2019 sitting up in chair, maintaining O2 sats up into the mid 90s on nonrebreather 15 L, airflow 60 L/85%FIO2. Chest x-ray reporting no significant change. Sputum culture reporting gram-negative bacilli, maintained on vancomycin and Zosyn. WBC trending down. D-dimer 1.46, CRP within normal limits, ferritin and LDH decreasing. Sodium 132, potassium 5.5. Objective - Vital Signs Vital signs: Vital Signs Temp 97.7 F 07/16/19 08:00 Pulse 86 07/16/19 10:00 Resp 24 07/16/19 10:00 BP 111/58 07/16/19 10:00 Pulse Ox 94 L 07/16/19 10:00 Intake & Output 07/15/19 07/16/19 07/16/19 18:59 06:59 18:59 Intake Total 2110 580 410 Output Total 759 1085 336 Balance 1351 -505 74 Weight 90.1 kg Intake: IV 610 580 410 Piperacillin-Tazobactam 3 200 100 100 .375 gm In Sodium Chloride 0.9% 100 ml @ 25 mls/hr IVPB Q8HR [facility] Rx# :[id number] Sodium Chloride 0.9% 1, 160 230 60 000 ml @ 20 mls/hr IV . Q24H [facility] Rx#:[id number] Vancomycin 1,500 mg In 250 250 250 Sodium Chloride 0.9% 250 ml @ 125 mls/hr IVPB BID@ 0800,2000 JE[facility] Rx#: [id number] Oral 1500 0 Output: Urine 758 1085 335 Stool 1 1 Other: Voiding Method Indwelling Catheter Indwelling Catheter Indwelling Catheter # Bowel Movements 1 1 - Exam VITAL SIGNS: [as above] GENERAL: Sitting up in chair, no acute distress, tired appearing HEENT: Conjunctivae normal. eyes normal. Mucosa moist NECK: No JVD. No thyroid enlargement. No LNs CARDIOVASCULAR: S1, S2 regular.No murmur. RESPIRATION: Improving air entry, Breath sounds diminished in the bases. Occasional scattered rhonchi, basilar crackles, occasional expiratory wheeze ABDOMEN: Soft, nontender . No guarding. no masses palpable.Bowel sounds heard. LEGS: No edema. no swelling PSYCHIATRY: Alert and oriented X3, mood and affect normal. NERVOUS SYSTEM: Cranial N 2-12 grossly normal. Moves all 4 limbs. Diffuse weakness ,No focal deficits. Strength and sensation grossly intact. Skin: no rash - Labs CBC & Chem 7: 07/16/19 04:28 07/16/19 04:35 Labs: Abnormal Lab Results - Last 24 Hours (Table) 07/15/19 07/16/19 07/16/19 Range/Units 03:43 04:28 04:28 WBC 22.3 H (3.8-10.6) k/uL Neutrophils # 20.6 H (1.3-7.7) k/uL Lymphocytes # 0.9 L (1.0-4.8) k/uL D-Dimer 1.46 H (<0.60) mg/L FEU Sodium (137-145) mmol/L Potassium (3.5-5.1) mmol/L Carbon Dioxide (22-30) mmol/L BUN (9-20) mg/dL Glucose (74-99) mg/dL Ferritin 1443.0 H (22.0-322.0) ng/mL ALT (4-49) U/L Lactate Dehydrogenase (313-618) U/L Creatine Kinase (55-170) U/L Total Protein (6.3-8.2) g/dL Albumin (3.5-5.0) g/dL 07/16/19 Range/Units 04:35 WBC (3.8-10.6) k/uL Neutrophils # (1.3-7.7) k/uL Lymphocytes # (1.0-4.8) k/uL D-Dimer (<0.60) mg/L FEU Sodium 132 L (137-145) mmol/L Potassium 5.5 H (3.5-5.1) mmol/L Carbon Dioxide 31 H (22-30) mmol/L BUN 22 H (9-20) mg/dL Glucose 111 H (74-99) mg/dL Ferritin 1060.3 H (22.0-322.0) ng/mL ALT 58 H (4-49) U/L Lactate Dehydrogenase 1458 H (313-618) U/L Creatine Kinase 34 L (55-170) U/L Total Protein 5.6 L (6.3-8.2) g/dL Albumin 3.1 L (3.5-5.0) g/dL Microbiology - Last 24 Hours (Table) 07/14/19 01:00 Gram Stain - Final Sputum Sputum Culture - Final Enterobacter aerogenes Lolis albicans 07/13/19 09:31 Blood Culture - Preliminary Blood No Growth after 48 hours 07/13/19 09:43 Blood Culture - Preliminary Blood No Growth after 48 hours Assessment and Plan Assessment: Acute COVID 19 bilateral pneumonia, possible underlying pneumonitis, bacterial pneumonitis as well. Sputum culture reporting gram-negative bacilli. Leukocytosis secondary to the above and on steroids Acute hypoxic and hypercapnic respiratory failure secondary to Covid 19 pneumonia CAD with history of DE, CABG, stenting Ischemic cardiomyopathy, history of V. fib, with AICD Hyperlipidemia Plan: Continue on current medication regime ,monitoring and symptomatic treatment. Final sputum culture results pending. Maintained on high levels of O2,antibiotics, IV steroids, Lovenox as per cds sales advisor. Prognosis guarded given multiple complex medical issues. The impression and plan of care has been dictated as directed. : I performed a history and examination of this patient, discussed the same with the dictator. I agree with the dictator's note ,documented as a scribe. Any additional findings or plans will be noted.
[2019-07-16 15:16] VITALS: BMI 30.2
[2019-07-16 17:17] LABS: Glucose,Whole Blood 99 mg/dL (75-99)
[2019-07-16 20:23] LABS: Glucose,Whole Blood 87 mg/dL (75-99)
[2019-07-16] MEDS: ATORVASTATIN 80 MG TAB PO SCH (20:33)
[2019-07-17] MEDS: SODIUM CHLORIDE 0.9% 1,000 ML IV SCH (05:04)
[2019-07-17 06:43] LABS: Glucose,Whole Blood 95 mg/dL (75-99)
[2019-07-17] MEDS: INSULIN ASPART (NovoLOG) 100 UNIT/ML VIAL SQ SCH ×4 (06:49→21:24)
[2019-07-17] MEDS ORDERED: VANCOMYCIN TROUGH DUE 1 EACH MISC MISCELLANE ONE (07:00)
--- NOTE | 2019-07-17 07:15 | XR ---
EXAMINATION TYPE: XR chest 1V portable DATE OF EXAM: 07/17/2019 HISTORY: Shortness of breath. COMPARISON: 07/16/2019 TECHNIQUE: Single view of the chest is submitted. FINDINGS: Demonstrated are scattered senescent parenchymal change. Midlung and basilar infiltrates persist without significant interval change. The heart is stable. Hilar and mediastinal structures are within normal limits. Degenerative changes are seen of the dorsal spine. IMPRESSION: 1. Midlung and basilar infiltrates persist without significant interval change.
[2019-07-17 07:22] LABS: Basophils % (A) 0 %; Eosinophils # (A) 0.1 k/uL (0-0.7); Eosinophils % (A) 0 %; HCT 42.3 % (39.0-53.0); HGB 13.3 gm/dL (13.0-17.5); Lymphocytes % (A) 5 %; MCH 28.6 pg (25.0-35.0); MCHC 31.4 g/dL (31.0-37.0); MCV 91.1 fL (80.0-100.0); Monocytes # (A) 0.7 k/uL (0-1.0); Monocytes % (A) 4 %; Neutrophils # (A) 18.9 k/uL (1.3-7.7); Neutrophils % (A) 90 %; Platelet Count 191 k/uL (150-450); RBC 4.65 m/uL (4.30-5.90); RDW 13.6 % (11.5-15.5)
[2019-07-17 07:27] LABS: ALT 54 U/L (4-49); AST 39 U/L (17-59); African American GFR (CKD) >90 (>60 ml/min/1.73 sqM); Alkaline Phosphatase 92 U/L (38-126); Anion Gap 6 mmol/L; Blood Urea Nitrogen 20 mg/dL (9-20); Calcium 8.7 mg/dL (8.4-10.2); Carbon Dioxide 31 mmol/L (22-30); Chloride 98 mmol/L (98-107); Creatine Kinase 25 U/L (55-170); Glucose 97 mg/dL (74-99); LDH 1149 U/L (313-618); Non-African American GFR(CKD) >90 (>60 ml/min/1.73 sqM); Potassium 5.2 mmol/L (3.5-5.1); Sodium 135 mmol/L (137-145); Total Bilirubin 0.8 mg/dL (0.2-1.3); Total Protein 5.6 g/dL (6.3-8.2)
[2019-07-17 08:03] LABS: C Reactive Protein <5.0 mg/L (<10.0)
[2019-07-17] MEDS: PIPERACILLIN-TAZOBACTAM 3.375 GM in SODIUM CHLORIDE 0.9% 100 ML IVPB SCH ×2 (08:32→16:51)
[2019-07-17] MEDS: methylPREDNISolone SOD SUCCI 40 MG/ML 1 ML VIAL IV SCH ×2 (08:33→21:29)
[2019-07-17] MEDS: CARVEDILOL 3.125 MG TAB PO SCH (08:33)
[2019-07-17] MEDS: ENOXAPARIN 100 MG/ML SYRINGE SQ SCH ×2 (08:33→21:28)
[2019-07-17] MEDS: PANTOPRAZOLE 40 MG TABLET PO SCH (08:33)
[2019-07-17] MEDS: EZETIMIBE 10 MG TAB PO SCH (08:33)
[2019-07-17] MEDS: ASPIRIN 81 MG PO SCH (08:33)
[2019-07-17] MEDS: LOSARTAN 25 MG TAB PO SCH (08:33)
[2019-07-17] MEDS: SPIRONOLACTONE 25 MG TAB PO SCH ×2 (08:33→21:29)
[2019-07-17] MEDS: CLOPIDOGREL 75 MG TAB PO SCH (08:33)
--- NOTE | 2019-07-17 10:35 | P.PN ---
Subjective Progress Note Date: 07/17/19 Principal diagnosis: Acute hypoxic respiratory failure related to COVID 19 infection On 07/15/2019 patient seen in follow-up in the intensive care unit, he remains on AIRVO at 60 L/m, and FiO2 of 90% in addition to the nonrebreather and his pulse ox is around 80-89%, seems comfortable, does not appear to be in any respiratory distress, afebrile, hemodynamically stable, as become tachypneic with any activity, but tolerates getting up out of bed with assistance well, yesterday she set up in the chair, today we will attempt to get him up in the chair again and let him sit up for a few hours. Today's labs have been reviewed including dental, 29.7, hemoglobin of 14.6, lymphocyte count of 0.30, sodium 133, potassium is 5.3, BUN of 29 creatinine 0.7. LDH is trending up, 1523, CRP is less than 5. Patient remains on empiric antibiotics in the form of vancomycin and Zosyn. So far blood and sputum cultures have shown no growth, final cultures are pending. Today's chest x-ray has been reviewed showing stable scattered airspace and interstitial infiltrates stable in appearance. Appetite is improving, and per nursing report patient is consuming about 75% of his meals in addition to a transient supplements in the form of ensure. Patient is on a waiting list for convalescent plasma, he has signed consent, we're awaiting for convalescent plasma to become available for him through [facility] On 07/16/2019 patient seen in follow-up in intensive care unit, slightly better oxygenation on today's exam, with a pulse ox of 92-94% on a combination of Airvo at 60 L/m, and FiO2 is 85% in addition to 100% nonrebreather. Patient is afebrile, hemodynamically he is stable, his breathing seems to be nonlabored, only occasionally tachypneic, he is tolerating activity, he is currently sitting up in the recliner, appears fatigued but no acute distress, today's chest x-ray has been reviewed showing chronic parenchymal changes with bilateral mid to lower lung areas of acute infiltrate no significant change from prior exam. Today's labs have been reviewed showing white blood cell count of 22.3, hemoglobin is 14.4, lymphocyte count of 0.9, d-dimer is 1.46, sodium is 132, potassium is 5.5, chloride is 98, CO2 31, BUN is 22, creatinine 0.72. LDH is slightly down to 1458, CK-MB is 34, CRP is less than 5.0. Patient's sputum culture is showing gram-negative bacilli, final culture is pending. Patient is covered with empiric antibiotics in the form of Zosyn and vancomycin. On 07/17/2019 patient seen in follow-up in the intensive care unit, he remains on high flow oxygen, on Airvo at 60 l/min, Bun486%, in addition to 100% nonrebreather, and his pulse ox is 88-94%, afebrile, hemodynamically stable, patient significant a short of breath with any exertion, but his been getting up in the chair sitting up in the chair for several hours every day. Denies any fever or chills, today's lab work has been reviewed, white count is down trending, and is down to 21, hemoglobin is 13.3, sodium is 135, potassium is 5.2, chloride is 98, CO2 31, BUN of 20, creatinine 0.81, AST is 39, ALT is 54, LDH is trending down, and is at 1149, CK is 25, CRP is less than 5.0. Today's chest x-ray showed midlung and basilar infiltrates persistence without significant interval change. Patient remains on empiric antibiotics in the form of Zosyn and vancomycin, he is on therapeutic doses of Lovenox at 90 mg subcu every 12 hours, and IV steroids, sputum cultures showed Enterobacter aerogenes. Objective - Vital Signs Vital signs: Vital Signs Temp 98.3 F 07/17/19 08:00 Pulse 98 07/17/19 10:00 Resp 28 H 07/17/19 10:00 BP 112/66 07/17/19 10:00 Pulse Ox 88 L 07/17/19 10:00 Intake & Output 07/16/19 07/17/19 07/17/19 18:59 06:59 18:59 Intake Total 1070 590 170 Output Total 1283 1220 365 Balance -213 -529 -869 Weight 90.1 kg 89.9 kg Intake: IV 570 590 170 Piperacillin-Tazobactam 3 100 100 100 .375 gm In Sodium Chloride 0.9% 100 ml @ 25 mls/hr IVPB Q8HR [facility] Rx# :[id number] Sodium Chloride 0.9% 1, 220 240 70 000 ml @ 20 mls/hr IV . Q24H [facility] Rx#:[id number] Vancomycin 1,500 mg In 250 250 Sodium Chloride 0.9% 250 ml @ 125 mls/hr IVPB BID@ 0800,2000 [facility] Rx#: [id number] Oral 500 Output: Urine 1280 1220 365 Stool 3 Other: Voiding Method Indwelling Catheter Indwelling Catheter Indwelling Catheter # Bowel Movements 1 1 - Exam GENERAL EXAM: Alert, very pleasant, 68-year-old white male, on AIrvo at 60 l/min, Fio2 85% in addition to her percent nonrebreather of the pulse ox of 88- 94%, comfortable in no apparent distress. HEAD: Normocephalic/atraumatic. EYES: Normal reaction of pupils, equal size. Conjunctiva pink, sclera white. NOSE: Clear with pink turbinates. THROAT: No erythema or exudates. NECK: No masses, no JVD, no thyroid enlargement, no adenopathy. CHEST: No chest wall deformity. Symmetrical expansion. LUNGS: Equal air entry with some scattered bibasilar crackles, wheeze, rhonchi or dullness. CVS: Regular rate and rhythm, normal S1 and S2, no gallops, no murmurs, no rubs ABDOMEN: Soft, nontender. No hepatosplenomegaly, normal bowel sounds, no guarding or rigidity. EXTREMITIES: No clubbing, no edema, no cyanosis, 2+ pulses and upper and lower extremities. MUSCULOSKELETAL: Muscle strength and tone normal. SPINE: No scoliosis or deformity SKIN: No rashes CENTRAL NERVOUS SYSTEM: Alert and oriented -3. No focal deficits, tone is normal in all 4 extremities. PSYCHIATRIC: Alert and oriented -3. Appropriate affect. Intact judgment and insight. - Labs CBC & Chem 7: 07/17/19 07:02 07/17/19 07:02 Labs: Abnormal Lab Results - Last 24 Hours (Table) 07/16/19 07/17/19 07/17/19 Range/Units 04:35 07:02 07:02 WBC 21.0 H (3.8-10.6) k/uL Neutrophils # 18.9 H (1.3-7.7) k/uL Sodium 135 L (137-145) mmol/L Potassium 5.2 H (3.5-5.1) mmol/L Carbon Dioxide 31 H (22-30) mmol/L Ferritin 1060.3 H (22.0-322.0) ng/mL ALT 54 H (4-49) U/L Lactate Dehydrogenase 1149 H (313-618) U/L Creatine Kinase 25 L (55-170) U/L Total Protein 5.6 L (6.3-8.2) g/dL Albumin 3.0 L (3.5-5.0) g/dL Microbiology - Last 24 Hours (Table) 07/13/19 09:31 Blood Culture - Preliminary Blood No Growth after 72 hours 07/13/19 09:43 Blood Culture - Preliminary Blood No Growth after 72 hours 07/14/19 01:00 Gram Stain - Final Sputum Sputum Culture - Final Enterobacter aerogenes Lolis albicans Assessment and Plan Plan: Assessment: #1. Acute hypoxic respiratory failure secondary to acute COVID 19 pneumonitis, patient had a sputum culture positive for Enterobacter aerogenes, patient was empirically covered with Zosyn and vancomycin, patient is now on monotherapy with Zosyn #2. Elevated inflammatory markers including LDH, CRP, and interleukin-6 level related to acute COVID 19 pneumonia #3. History of ischemic cardiomyopathy and AICD placement for previous history of ventricular fibrillation #4. History of coronary artery disease with previous bypass grafting in 2012 #5. Hyperlipidemia #6. Carotid artery disease with previous left carotid endarterectomy Plan: Continue current medical treatment, IV steroids, therapeutic doses of Lovenox, continue Zosyn, will discontinue vancomycin, sputum culture showed Enterobacter aerogens with sensitivity to Zosyn. Patient is afebrile, his inflammatory markers are slightly downtrending, but chest x-ray has shown no significant change with persistence of mid to lower lung infiltrates. Still awaiting convalescent plasma. We'll continue to closely follow, encourage oral intake, encouraged patient to sit up in the chair. I performed a history & physical examination of the patient and discussed their management with my nurse practitioner, Nicky Carrillo. I reviewed the nurse practitioner's note and agree with the documented findings and plan of care. Lung sounds are positive for diffuse wheezes throughout the lung gilliam. The findings and the impression was discussed with the patient. I attest to the documentation by the nurse practitioner. Time with Patient: Less than 30
[2019-07-17 11:37] LABS: Glucose,Whole Blood 101 mg/dL (75-99)
--- NOTE | 2019-07-17 14:09 | P.PN ---
Subjective Progress Note Date: 07/17/19 This is a pleasant 68-year-old gentleman recently admitted on the testing positive for Covid 19, received Plaquenil ,discharged on 07/02/2019 ,with history of CAD, hyperlipidemia, TX, CABG, osteoarthritis, ischemic cardiomyopathy, AICD, V. fib, peripheral vascular disease, former nicotine dependence and multiple other medical issues presented to the ER with worsening shortness of breath accompanied by fevers, fatigue. EMS reports patient tachypneic, tachycardic with O2 sats in the mid 70s on arrival .patient was placed on nonrebreather mask with improvement.afebrile admission, T-max 102.5. WBC 17.9 .Lactic acid 3.2 down to 1.5.Blood cultures obtained. Chest x-ray reporting bilateral patchy pneumonia slightly worse than last exam without heart failure. Denies chest pain, palpitations or shortness of breath. Denies lightheadedness, dizziness or focal deficits. EKG reporting normal sinus rhythm, left anterior fascicular block. Ferritin 1480.5. ( prev. 1146.7) C reactive protein 221( prev. 64.2) LDH 642 (prev 534) ,d-dimer 1.46( prev. 0.38.) BUN 22, creatinine 0.96. Na WNL. Procalcitonin levels elevated. Influenza A and B not detected. Pulmonary consulted. Interleukin 6 pending. Patient is being transferred to the ICU. 07/07/2019 maintaining O2 sats in the 90s on nonrebreather mask with additional high flow nasal cannula. Received Actemra yesterday. Chest x-ray reporting slightly worsening multifocal bilateral airspace disease with multifocal pneumonia. T-max 99.3. Ferritin down to 1581.9, LDH up to 800 mL, Creactive protein down to 80, d-dimer down to 1.26 on 07/04. Lymphocytes 7. WBC 15.6, on steroids. Hemoglobin 13 07/08/2019 Converted to 95% high flow airflow, maintaining O2 sats of mid to high 80s. ABGS reporting PH 7.45, PO2 46 pCO2 41, bicarb 28, total CO2 30 with O2 sat of 80.7 on 100% FiO2, base excess 4.3, yet patient denies increased shortness of breath, waving hi. Chest x-ray reporting persistent peripheral and lower lung patchy and confluent airspace disease. Inflammatory markers trending down, d-dimer minimally increased yesterday to 1.33. Lovenox dose increased Receiving second dose of Actemra. Tested negative for C. difficile colitis. Blood sugars controlled. 07/09/2019. Maintained on high flow 90% maintaining O2 sats of 80s to low 90s, currently in the prone position. Chest x-ray reports stable patchy bilateral lung infiltrates. Inflammatory markers about the same. Afebrile, WBC increased to 15.6. 07/10/2019 Maintained on IV steroids, Zosyn . Anticoagulated on Lovenox. Patient reports he feels better today. Tolerating prone positioning. Maintained on FiO2 100% nonrebreather +60% airvo, maintaining O2 sats of high 80s. Chest x-ray reporting no significant change. T-max 99, WBC trending up to 20.4. LDH, CRP trending up. LFTs mildly increased. 07/11/2019 continues on nonrebreather +60% airflow. Feels well, laid on his side throughout the night versus prone. Maintaining O2 sats in the high 80s to low 90s. Chest x-ray reporting worsening left lower lung capacity with persistent change right lower lobe opacity. Currently on back, diet intake increased to 50%, with assistance. Afebrile, WBC increased to 24.6, d-dimer trending up 1.44. LDH, CRP decreased. Blood sugars controlled. 07/14/2019 No further proning as patient was not able to tolerate. Maintaining O2 sats in the low 90s on nonrebreather +60% airvo. Chest x-ray reporting stable bilateral consolidations, somewhat masslike, follow-up CT thorax after symptom resolution recommended to exclude underlying mass. Scheduled for mid line placement Diet intake improving. Afebrile, WBC up to 30.8 . D-dimer, LDH trending up. CRP normal. creatinine 0.88. Sputum culture pending. 07/15/2019 no overnight events. Continues on Zosyn and vancomycin. Sputum culture pending. Remains on nonrebreather mask/15 L +60%Airvo, maintaining O2 sats in the high 80s to low 90s. Chest x-ray reporting stable persistent scattered airspace and interstitial infiltrates. Afebrile, WBC mildly decreased to 29.7. Maintained on IV steroids. CRP within normal limits, LDH trending up. Mild hyperkalemia, potassium 5.3. Creatinine 0.77. Up in chair yesterday, Feels better. 07/16/2019 sitting up in chair, maintaining O2 sats up into the mid 90s on nonrebreather 15 L, airflow 60 L/85%FIO2. Chest x-ray reporting no significant change. Sputum culture reporting gram-negative bacilli, maintained on vancomycin and Zosyn. WBC trending down. D-dimer 1.46, CRP within normal limits, ferritin and LDH decreasing. Sodium 132, potassium 5.5. 07/17/2019 maintained on unchanged ,high flow oxygen via nonrebreather and airvo. Continues on Zosyn and vancomycin. Maintaining O2 sats in the high 80s to mid 90s. Chest x-ray reporting without significant interval change, mid lung and bibasilar infiltrates persist. Occasional mild tachycardia, low 100s. Sputum culture reporting Enterobacter aerogenes. Afebrile, WBC continues trending do wn. Ferritin pending. LDH trending down. CRP less than 5. Objective - Vital Signs Vital signs: Vital Signs Temp 98.3 F 07/17/19 08:00 Pulse 93 07/17/19 09:00 Resp 28 H 07/17/19 09:00 BP 112/66 07/17/19 09:00 Pulse Ox 94 L 07/17/19 09:00 Intake & Output 07/16/19 07/17/19 07/17/19 18:59 06:59 18:59 Intake Total 1070 590 160 Output Total 1283 1220 165 Balance -213 -630 -5 Weight 90.1 kg 89.9 kg Intake: IV 570 590 160 Piperacillin-Tazobactam 3 100 100 100 .375 gm In Sodium Chloride 0.9% 100 ml @ 25 mls/hr IVPB Q8HR JEAN Rx# :[id number] Sodium Chloride 0.9% 1, 220 240 60 000 ml @ 20 mls/hr IV . Q24H JEAN Rx#:[id number] Vancomycin 1,500 mg In 250 250 Sodium Chloride 0.9% 250 ml @ 125 mls/hr IVPB BID@ 0800,2000 JAEN Rx#: [id number] Oral 500 Output: Urine 1280 1220 165 Stool 3 Other: Voiding Method Indwelling Catheter Indwelling Catheter Indwelling Catheter # Bowel Movements 1 - Exam VITAL SIGNS: [as above] GENERAL: Sitting up in chair, no acute distress HEENT: Conjunctivae normal. eyes normal. Mucosa moist NECK: No JVD. No thyroid enlargement. No LNs CARDIOVASCULAR: S1, S2 regular.No murmur. RESPIRATION: Improving air entry, Breath sounds diminished in the bases. Occasional scattered rhonchi, basilar crackles, occasional expiratory wheeze ABDOMEN: Soft, nontender . No guarding. no masses palpable.Bowel sounds heard. LEGS: No edema. no swelling PSYCHIATRY: Alert and oriented X3, mood and affect normal. NERVOUS SYSTEM: Cranial N 2-12 grossly normal. Moves all 4 limbs. Diffuse weakness ,No focal deficits. Strength and sensation grossly intact. Skin: no rash Microbiology 07/13/19 09:43 Blood Blood Culture - Preliminary No Growth after 96 hours 07/13/19 09:31 Blood Blood Culture - Preliminary No Growth after 96 hours 07/14/19 01:00 Sputum Gram Stain - Final 07/14/19 01:00 Sputum Sputum Culture - Final Enterobacter aerogenes Lolis albicans 07/04/19 06:17 Blood Blood Culture - Final No Growth after 144 hours - Labs CBC & Chem 7: 07/17/19 07:02 07/17/19 07:02 Labs: Abnormal Lab Results - Last 24 Hours (Table) 07/16/19 07/17/19 07/17/19 Range/Units 04:35 07:02 07:02 WBC 21.0 H (3.8-10.6) k/uL Neutrophils # 18.9 H (1.3-7.7) k/uL Sodium 135 L (137-145) mmol/L Potassium 5.2 H (3.5-5.1) mmol/L Carbon Dioxide 31 H (22-30) mmol/L Ferritin 1060.3 H (22.0-322.0) ng/mL ALT 54 H (4-49) U/L Lactate Dehydrogenase 1149 H (313-618) U/L Creatine Kinase 25 L (55-170) U/L Total Protein 5.6 L (6.3-8.2) g/dL Albumin 3.0 L (3.5-5.0) g/dL Microbiology - Last 24 Hours (Table) 07/13/19 09:31 Blood Culture - Preliminary Blood No Growth after 72 hours 07/13/19 09:43 Blood Culture - Preliminary Blood No Growth after 72 hours 07/14/19 01:00 Gram Stain - Final Sputum Sputum Culture - Final Enterobacter aerogenes Lolis albicans Assessment and Plan Assessment: Acute COVID 19 bilateral pneumonia, possible underlying pneumonitis, bacterial pneumonitis as well. Sputum culture reporting Enterobacter aerogenes. Leukocytosis secondary to the above and on steroids Acute hypoxic and hypercapnic respiratory failure secondary to Covid 19 pneumonia CAD with history of TX, CABG, stenting Ischemic cardiomyopathy, history of V. fib, with AICD Hyperlipidemia Plan: Continue on current medication regime ,monitoring and symptomatic treatment. Antibiotics further adjusted with vancomycin discontinued. Continue on high levels of O2,antibiotics, IV steroids, Lovenox as per tool marker. Prognosis guarded given multiple complex medical issues. The impression and plan of care has been dictated as directed. : I performed a history and examination of this patient, discussed the same with the dictator. I agree with the dictator's note ,documented as a scribe. Any additional findings or plans will be noted.
[2019-07-17 16:56] LABS: Glucose,Whole Blood 102 mg/dL (75-99)
[2019-07-17 17:20] LABS: Ferritin 910.7 ng/mL (22.0-322.0)
[2019-07-17 21:25] LABS: Glucose,Whole Blood 103 mg/dL (75-99)
[2019-07-17] MEDS: ATORVASTATIN 80 MG TAB PO SCH (21:28)
[2019-07-18] MEDS: PIPERACILLIN-TAZOBACTAM 3.375 GM in SODIUM CHLORIDE 0.9% 100 ML IVPB SCH ×4 (00:11→23:09)
[2019-07-18] MEDS: SODIUM CHLORIDE 0.9% 1,000 ML IV SCH (04:36)
[2019-07-18 05:19] LABS: Basophils % (A) 0 %; Eosinophils # (A) 0.3 k/uL (0-0.7); Eosinophils % (A) 2 %; HCT 41.4 % (39.0-53.0); HGB 13.8 gm/dL (13.0-17.5); Lymphocytes # (A) 0.9 k/uL (1.0-4.8); Lymphocytes % (A) 4 %; MCH 30.5 pg (25.0-35.0); MCHC 33.4 g/dL (31.0-37.0); MCV 91.2 fL (80.0-100.0); Monocytes # (A) 0.4 k/uL (0-1.0); Monocytes % (A) 2 %; Neutrophils # (A) 18.2 k/uL (1.3-7.7); Neutrophils % (A) 91 %; Platelet Count 208 k/uL (150-450); RBC 4.54 m/uL (4.30-5.90); RDW 13.6 % (11.5-15.5)
[2019-07-18 05:30] LABS: ALT 56 U/L (4-49); AST 40 U/L (17-59); African American GFR (CKD) >90 (>60 ml/min/1.73 sqM); Albumin 3.1 g/dL (3.5-5.0); Alkaline Phosphatase 85 U/L (38-126); Anion Gap 6 mmol/L; Blood Urea Nitrogen 22 mg/dL (9-20); C Reactive Protein <5.0 mg/L (<10.0); Carbon Dioxide 28 mmol/L (22-30); Chloride 98 mmol/L (98-107); Creatine Kinase 31 U/L (55-170); Glucose 110 mg/dL (74-99); LDH 1347 U/L (313-618); Non-African American GFR(CKD) >90 (>60 ml/min/1.73 sqM); Potassium 5.1 mmol/L (3.5-5.1); Sodium 132 mmol/L (137-145); Total Protein 5.7 g/dL (6.3-8.2)
[2019-07-18 07:15] LABS: Glucose,Whole Blood 99 mg/dL (75-99)
--- NOTE | 2019-07-18 07:54 | XR ---
EXAMINATION TYPE: XR chest 1V portable DATE OF EXAM: 07/18/2019 COMPARISON: 07/17/2019 HISTORY: Follow-up for shortness of breath TECHNIQUE: Single frontal view of the chest is obtained. FINDINGS: There is slightly improved aeration of the right-sided consolidation in comparison to the prior and right infrahilar region. Left-sided cardiac device partially obscures the left consolidatio n. Post annuloplasty changes of the chest. Stable size of the cardiomediastinal silhouette. No acute osseous pathology. IMPRESSION: Slightly improved multifocal right-sided airspace disease and partially obscured left-si ded airspace disease in the left cardiac device.
[2019-07-18] MEDS: INSULIN ASPART (NovoLOG) 100 UNIT/ML VIAL SQ SCH ×4 (07:56→21:06)
[2019-07-18] MEDS: CLOPIDOGREL 75 MG TAB PO SCH (08:53)
[2019-07-18] MEDS: CARVEDILOL 3.125 MG TAB PO SCH (08:53)
[2019-07-18] MEDS: ASPIRIN 81 MG PO SCH (08:53)
[2019-07-18] MEDS: ENOXAPARIN 100 MG/ML SYRINGE SQ SCH ×2 (08:53→21:04)
[2019-07-18] MEDS: EZETIMIBE 10 MG TAB PO SCH (08:54)
[2019-07-18] MEDS: methylPREDNISolone SOD SUCCI 40 MG/ML 1 ML VIAL IV SCH ×2 (08:54→21:04)
[2019-07-18] MEDS: PANTOPRAZOLE 40 MG TABLET PO SCH (08:54)
[2019-07-18] MEDS: LOSARTAN 25 MG TAB PO SCH (08:54)
[2019-07-18] MEDS: SPIRONOLACTONE 25 MG TAB PO SCH ×2 (08:55→21:04)
--- NOTE | 2019-07-18 11:57 | P.PN ---
Subjective Progress Note Date: 07/18/19 Principal diagnosis: Acute hypoxic respiratory failure related to COVID 19 infection On 07/15/2019 patient seen in follow-up in the intensive care unit, he remains on AIRVO at 60 L/m, and FiO2 of 90% in addition to the nonrebreather and his pulse ox is around 80-89%, seems comfortable, does not appear to be in any respiratory distress, afebrile, hemodynamically stable, as become tachypneic with any activity, but tolerates getting up out of bed with assistance well, yesterday she set up in the chair, today we will attempt to get him up in the chair again and let him sit up for a few hours. Today's labs have been reviewed including dental, 29.7, hemoglobin of 14.6, lymphocyte count of 0.30, sodium 133, potassium is 5.3, BUN of 29 creatinine 0.7. LDH is trending up, 1523, CRP is less than 5. Patient remains on empiric antibiotics in the form of vancomycin and Zosyn. So far blood and sputum cultures have shown no growth, final cultures are pending. Today's chest x-ray has been reviewed showing stable scattered airspace and interstitial infiltrates stable in appearance. Appetite is improving, and per nursing report patient is consuming about 75% of his meals in addition to a transient supplements in the form of ensure. Patient is on a waiting list for convalescent plasma, he has signed consent, we're awaiting for convalescent plasma to become available for him through [facility] On 07/16/2019 patient seen in follow-up in intensive care unit, slightly better oxygenation on today's exam, with a pulse ox of 92-94% on a combination of Airvo at 60 L/m, and FiO2 is 85% in addition to 100% nonrebreather. Patient is afebrile, hemodynamically he is stable, his breathing seems to be nonlabored, only occasionally tachypneic, he is tolerating activity, he is currently sitting up in the recliner, appears fatigued but no acute distress, today's chest x-ray has been reviewed showing chronic parenchymal changes with bilateral mid to lower lung areas of acute infiltrate no significant change from prior exam. Today's labs have been reviewed showing white blood cell count of 22.3, hemoglobin is 14.4, lymphocyte count of 0.9, d-dimer is 1.46, sodium is 132, potassium is 5.5, chloride is 98, CO2 31, BUN is 22, creatinine 0.72. LDH is slightly down to 1458, CK-MB is 34, CRP is less than 5.0. Patient's sputum culture is showing gram-negative bacilli, final culture is pending. Patient is covered with empiric antibiotics in the form of Zosyn and vancomycin. On 07/17/2019 patient seen in follow-up in the intensive care unit, he remains on high flow oxygen, on Airvo at 60 l/min, Lzy161%, in addition to 100% nonrebreather, and his pulse ox is 88-94%, afebrile, hemodynamically stable, patient significant a short of breath with any exertion, but his been getting up in the chair sitting up in the chair for several hours every day. Denies any fever or chills, today's lab work has been reviewed, white count is down trending, and is down to 21, hemoglobin is 13.3, sodium is 135, potassium is 5.2, chloride is 98, CO2 31, BUN of 20, creatinine 0.81, AST is 39, ALT is 54, LDH is trending down, and is at 1149, CK is 25, CRP is less than 5.0. Today's chest x-ray showed midlung and basilar infiltrates persistence without significant interval change. Patient remains on empiric antibiotics in the form of Zosyn and vancomycin, he is on therapeutic doses of Lovenox at 90 mg subcu every 12 hours, and IV steroids, sputum cultures showed Enterobacter aerogenes. On 07/18/2019 patient seen in follow-up in the intensive care unit, he remains on high flow oxygen delivered via Airvo at 60l/min, Fiow 85%, and 100% nonrebreather, and pulse ox is around 93-94%. Patient continues on empiric antibiotics in the form of Zosyn, IV steroids, today's chest x-ray shows slightly improved multifocal right-sided airspace disease. Patient is weak, has significant exertional dyspnea, but he is tolerating activity as far as sitting up in the chair getting up out of bed with assistance quite well, no acute distress, he is tolerating oral intake he is receiving nutritional supplements. Objective - Vital Signs Vital signs: Vital Signs Temp 98.1 F 07/18/19 08:00 Pulse 108 H 07/18/19 11:00 Resp 25 H 07/18/19 11:00 BP 110/64 07/18/19 11:00 Pulse Ox 93 L 07/18/19 11:00 Intake & Output 07/17/19 07/18/19 07/18/19 18:59 06:59 18:59 Intake Total 450 320 40 Output Total 1270 895 200 Balance -820 -575 -160 Weight 90.3 kg 90.3 kg Intake: IV 450 320 40 Piperacillin-Tazobactam 3 200 100 .375 gm In Sodium Chloride 0.9% 100 ml @ 25 mls/hr IVPB Q8HR [facility] Rx# :[id number] Sodium Chloride 0.9% 1, 250 220 40 000 ml @ 20 mls/hr IV . Q24H JEAN Rx#:[id number] Output: Urine 1270 895 200 Other: Voiding Method Indwelling Catheter Indwelling Catheter Indwelling Catheter # Bowel Movements 1 - Exam GENERAL EXAM: Alert, very pleasant, 68-year-old white male, on AIrvo at 60 l/min, Fio2 85% in addition to her percent nonrebreather of the pulse ox of 93- 94%, comfortable in no apparent distress. HEAD: Normocephalic/atraumatic. EYES: Normal reaction of pupils, equal size. Conjunctiva pink, sclera white. NOSE: Clear with pink turbinates. THROAT: No erythema or exudates. NECK: No masses, no JVD, no thyroid enlargement, no adenopathy. CHEST: No chest wall deformity. Symmetrical expansion. LUNGS: Equal air entry with some scattered bibasilar crackles, wheeze, rhonchi or dullness. CVS: Regular rate and rhythm, normal S1 and S2, no gallops, no murmurs, no rubs ABDOMEN: Soft, nontender. No hepatosplenomegaly, normal bowel sounds, no gu arding or rigidity. EXTREMITIES: No clubbing, no edema, no cyanosis, 2+ pulses and upper and lower e xtremities. MUSCULOSKELETAL: Muscle strength and tone normal. SPINE: No scoliosis or deformity SKIN: No rashes CENTRAL NERVOUS SYSTEM: Alert and oriented -3. No focal deficits, tone is normal in all 4 extremities. PSYCHIATRIC: Alert and oriented -3. Appropriate affect. Intact judgment and insight. - Labs CBC & Chem 7: 07/18/19 05:03 07/18/19 05:03 Labs: Abnormal Lab Results - Last 24 Hours (Table) 07/17/19 07/17/19 07/17/19 Range/Units 07:02 16:54 21:23 WBC (3.8-10.6) k/uL Neutrophils # (1.3-7.7) k/uL Lymphocytes # (1.0-4.8) k/uL D-Dimer (<0.60) mg/L FEU Sodium (137-145) mmol/L BUN (9-20) mg/dL Glucose (74-99) mg/dL POC Glucose (mg/dL) 102 H 103 H (75-99) mg/dL Ferritin 910.7 H (22.0-322.0) ng/mL ALT (4-49) U/L Lactate Dehydrogenase (313-618) U/L Creatine Kinase (55-170) U/L Total Protein (6.3-8.2) g/dL Albumin (3.5-5.0) g/dL 07/18/19 07/18/19 07/18/19 Range/Units 05:03 05:03 05:03 WBC 20.0 H (3.8-10.6) k/uL Neutrophils # 18.2 H (1.3-7.7) k/uL Lymphocytes # 0.9 L (1.0-4.8) k/uL D-Dimer 1.35 H (<0.60) mg/L FEU Sodium 132 L (137-145) mmol/L BUN 22 H (9-20) mg/dL Glucose 110 H (74-99) mg/dL POC Glucose (mg/dL) (75-99) mg/dL Ferritin 822.0 H (22.0-322.0) ng/mL ALT 56 H (4-49) U/L Lactate Dehydrogenase 1347 H (313-618) U/L Creatine Kinase 31 L (55-170) U/L Total Protein 5.7 L (6.3-8.2) g/dL Albumin 3.1 L (3.5-5.0) g/dL Microbiology - Last 24 Hours (Table) 07/13/19 09:31 Blood Culture - Preliminary Blood No Growth after 120 hours 07/13/19 09:43 Blood Culture - Preliminary Blood No Growth after 120 hours Assessment and Plan Plan: Assessment: #1. Acute hypoxic respiratory failure secondary to acute COVID 19 pneumonitis, patient had a sputum culture positive for Enterobacter aerogenes, patient was empirically covered with Zosyn and vancomycin, patient is now on monotherapy with Zosyn #2. Elevated inflammatory markers including LDH, CRP, and interleukin-6 level related to acute COVID 19 pneumonia #3. History of ischemic cardiomyopathy and AICD placement for previous history of ventricular fibrillation #4. History of coronary artery disease with previous bypass grafting in 2013 #5. Hyperlipidemia #6. Carotid artery disease with previous left carotid endarterectomy Plan: Continue current antibiotics, continue current dose of IV steroids, continue weaning FiO2, encouraged patient to sit up in a chair, still awaiting convalescent plasma. Today's chest x-ray shows maybe slight improvement in the appearance of right-sided airspace disease. Clinically patient is stable, has not significantly improved but has not significantly deteriorated either. We will continue supportive treatment. I performed a history & physical examination of the patient and discussed their management with my nurse practitioner, Nicky Carrillo. I reviewed the nurse practitioner's note and agree with the documented findings and plan of care. Lung sounds are positive for diffuse wheezes throughout the lung gilliam. The findings and the impression was discussed with the patient. I attest to the documentation by the nurse practitioner. Time with Patient: Greater than 30
[2019-07-18 12:03] LABS: Glucose,Whole Blood 117 mg/dL (75-99)
--- NOTE | 2019-07-18 12:50 | P.PN ---
Subjective Progress Note Date: 07/18/19 This is a pleasant 68-year-old gentleman recently admitted on the testing positive for Covid 19, received Plaquenil ,discharged on 07/02/2019 ,with history of CAD, hyperlipidemia, [place], CABG, osteoarthritis, ischemic cardiomyopathy, AICD, V. fib, peripheral vascular disease, former nicotine dependence and multiple other medical issues presented to the ER with worsening shortness of breath accompanied by fevers, fatigue. EMS reports patient tachypneic, tachycardic with O2 sats in the mid 70s on arrival .patient was placed on nonrebreather mask with improvement.afebrile admission, T-max 102.5. WBC 17.9 .Lactic acid 3.2 down to 1.5.Blood cultures obtained. Chest x-ray reporting bilateral patchy pneumonia slightly worse than last exam without heart failure. Denies chest pain, palpitations or shortness of breath. Denies lightheadedness, dizziness or focal deficits. EKG reporting normal sinus rhythm, left anterior fascicular block. Ferritin 1480.5. ( prev. 1146.7) C reactive protein 221( prev. 64.2) LDH 642 (prev 534) ,d-dimer 1.46( prev. 0.38.) BUN 22, creatinine 0.96. Na WNL. Procalcitonin levels elevated. Influenza A and B not detected. Pulmonary consulted. Interleukin 6 pending. Patient is being transferred to the ICU. 07/07/2019 maintaining O2 sats in the 90s on nonrebreather mask with additional high flow nasal cannula. Received Actemra yesterday. Chest x-ray reporting slightly worsening multifocal bilateral airspace disease with multifocal pneumonia. T-max 99.3. Ferritin down to 1581.9, LDH up to 800 mL, Creactive protein down to 80, d-dimer down to 1.26 on 07/04. Lymphocytes 7. WBC 15.6, on steroids. Hemoglobin 13 07/08/2019 Converted to 95% high flow airflow, maintaining O2 sats of mid to high 80s. ABGS reporting PH 7.45, PO2 46 pCO2 41, bicarb 28, total CO2 30 with O2 sat of 80.7 on 100% FiO2, base excess 4.3, yet patient denies increased shortness of breath, waving hi. Chest x-ray reporting persistent peripheral and lower lung patchy and confluent airspace disease. Inflammatory markers trending down, d-dimer minimally increased yesterday to 1.33. Lovenox dose increased Receiving second dose of Actemra. Tested negative for C. difficile colitis. Blood sugars controlled. 07/09/2019. Maintained on high flow 90% maintaining O2 sats of 80s to low 90s, currently in the prone position. Chest x-ray reports stable patchy bilateral lung infiltrates. Inflammatory markers about the same. Afebrile, WBC increased to 15.6. 07/10/2019 Maintained on IV steroids, Zosyn . Anticoagulated on Lovenox. Patient reports he feels better today. Tolerating prone positioning. Maintained on FiO2 100% nonrebreather +60% airvo, maintaining O2 sats of high 80s. Chest x-ray reporting no significant change. T-max 99, WBC trending up to 20.4. LDH, CRP trending up. LFTs mildly increased. 07/11/2019 continues on nonrebreather +60% airflow. Feels well, laid on his side throughout the night versus prone. Maintaining O2 sats in the high 80s to low 90s. Chest x-ray reporting worsening left lower lung capacity with persistent change right lower lobe opacity. Currently on back, diet intake increased to 50%, with assistance. Afebrile, WBC increased to 24.6, d-dimer trending up 1.44. LDH, CRP decreased. Blood sugars controlled. 07/14/2019 No further proning as patient was not able to tolerate. Maintaining O2 sats in the low 90s on nonrebreather +60% airvo. Chest x-ray reporting stable bilateral consolidations, somewhat masslike, follow-up CT thorax after symptom resolution recommended to exclude underlying mass. Scheduled for mid line placement Diet intake improving. Afebrile, WBC up to 30.8 . D-dimer, LDH trending up. CRP normal. creatinine 0.88. Sputum culture pending. 07/15/2019 no overnight events. Continues on Zosyn and vancomycin. Sputum culture pending. Remains on nonrebreather mask/15 L +60%Airvo, maintaining O2 sats in the high 80s to low 90s. Chest x-ray reporting stable persistent scattered airspace and interstitial infiltrates. Afebrile, WBC mildly decreased to 29.7. Maintained on IV steroids. CRP within normal limits, LDH trending up. Mild hyperkalemia, potassium 5.3. Creatinine 0.77. Up in chair yesterday, Feels better. 07/16/2019 sitting up in chair, maintaining O2 sats up into the mid 90s on nonrebreather 15 L, airflow 60 L/85%FIO2. Chest x-ray reporting no significant change. Sputum culture reporting gram-negative bacilli, maintained on vancomycin and Zosyn. WBC trending down. D-dimer 1.46, CRP within normal limits, ferritin and LDH decreasing. Sodium 132, potassium 5.5. 07/17/2019 maintained on unchanged ,high flow oxygen via nonrebreather and airvo. Continues on Zosyn and vancomycin. Maintaining O2 sats in the high 80s to mid 90s. Chest x-ray reporting without significant interval change, mid lung and bibasilar infiltrates persist. Occasional mild tachycardia, low 100s. Sputum culture reporting Enterobacter aerogenes. Afebrile, WBC continues trending do wn. Ferritin pending. LDH trending down. CRP less than 5. 07/18/2019 continues on Zosyn, IV steroids, maintaining O2 sats in the 90s on the same high flow oxygen via airvo and nonrebreather. Chest x-ray reporting slight improvement. Patient reports feeling a little bit stronger today though still significantly weak. Consumed 75% of breakfast. Objective - Vital Signs Vital signs: Vital Signs Temp 98.1 F 07/18/19 08:00 Pulse 108 H 07/18/19 11:00 Resp 25 H 07/18/19 11:00 BP 110/64 07/18/19 11:00 Pulse Ox 94 L 07/18/19 12:11 Intake & Output 07/17/19 07/18/19 07/18/19 18:59 06:59 18:59 Intake Total 450 320 40 Output Total 1270 895 200 Balance -825 -575 -160 Weight 90.3 kg 90.3 kg Intake: IV 450 320 40 Piperacillin-Tazobactam 3 200 100 .375 gm In Sodium Chloride 0.9% 100 ml @ 25 mls/hr IVPB Q8HR JEAN Rx# :[id number] Sodium Chloride 0.9% 1, 250 220 40 000 ml @ 20 mls/hr IV . Q24H JEAN Rx#:[id number] Output: Urine 1270 895 200 Other: Voiding Method Indwelling Catheter Indwelling Catheter Indwelling Catheter # Bowel Movements 1 - Exam VITAL SIGNS: [as above] GENERAL: Sitting up in chair, no acute distress HEENT: Conjunctivae normal. eyes normal. Mucosa moist NECK: No JVD. No thyroid enlargement. No LNs CARDIOVASCULAR: S1, S2 regular.No murmur. RESPIRATION: Improving air entry, Breath sounds diminished in the bases. Occasional scattered rhonchi, basilar crackles, expiratory wheezes ABDOMEN: Soft, nontender . No guarding. no masses palpable.positive bowel sounds. LEGS: No edema. no swelling PSYCHIATRY: Alert and oriented X3, mood and affect normal. NERVOUS SYSTEM: Cranial N 2-12 grossly normal. Moves all 4 limbs. Diffuse weakness ,No focal deficits. Strength and sensation grossly intact. Skin: no rash - Labs CBC & Chem 7: 07/18/19 05:03 07/18/19 05:03 Labs: Abnormal Lab Results - Last 24 Hours (Table) 07/17/19 07/17/19 07/17/19 Range/Units 07:02 16:54 21:23 WBC (3.8-10.6) k/uL Neutrophils # (1.3-7.7) k/uL Lymphocytes # (1.0-4.8) k/uL D-Dimer (<0.60) mg/L FEU Sodium (137-145) mmol/L BUN (9-20) mg/dL Glucose (74-99) mg/dL POC Glucose (mg/dL) 102 H 103 H (75-99) mg/dL Ferritin 910.7 H (22.0-322.0) ng/mL ALT (4-49) U/L Lactate Dehydrogenase (313-618) U/L Creatine Kinase (55-170) U/L Total Protein (6.3-8.2) g/dL Albumin (3.5-5.0) g/dL 07/18/19 07/18/19 07/18/19 Range/Units 05:03 05:03 05:03 WBC 20.0 H (3.8-10.6) k/uL Neutrophils # 18.2 H (1.3-7.7) k/uL Lymphocytes # 0.9 L (1.0-4.8) k/uL D-Dimer 1.35 H (<0.60) mg/L FEU Sodium 132 L (137-145) mmol/L BUN 22 H (9-20) mg/dL Glucose 110 H (74-99) mg/dL POC Glucose (mg/dL) (75-99) mg/dL Ferritin 822.0 H (22.0-322.0) ng/mL ALT 56 H (4-49) U/L Lactate Dehydrogenase 1347 H (313-618) U/L Creatine Kinase 31 L (55-170) U/L Total Protein 5.7 L (6.3-8.2) g/dL Albumin 3.1 L (3.5-5.0) g/dL 07/18/19 Range/Units 12:01 WBC (3.8-10.6) k/uL Neutrophils # (1.3-7.7) k/uL Lymphocytes # (1.0-4.8) k/uL D-Dimer (<0.60) mg/L FEU Sodium (137-145) mmol/L BUN (9-20) mg/dL Glucose (74-99) mg/dL POC Glucose (mg/dL) 117 H (75-99) mg/dL Ferritin (22.0-322.0) ng/mL ALT (4-49) U/L Lactate Dehydrogenase (313-618) U/L Creatine Kinase (55-170) U/L Total Protein (6.3-8.2) g/dL Albumin (3.5-5.0) g/dL Microbiology - Last 24 Hours (Table) 07/13/19 09:31 Blood Culture - Preliminary Blood No Growth after 120 hours 07/13/19 09:43 Blood Culture - Preliminary Blood No Growth after 120 hours Assessment and Plan Assessment: Acute COVID 19 bilateral pneumonia, possible underlying pneumonitis, bacterial pneumonitis as well. Sputum culture reporting Enterobacter aerogenes. Leukocytosis secondary to the above and on steroids Acute hypoxic and hypercapnic respiratory failure secondary to Covid 19 pneumonia CAD with history of IN, CABG, stenting Ischemic cardiomyopathy, history of V. fib, with AICD Hyperlipidemia Plan: Continue on current medication regime ,monitoring and symptomatic treatment. Maintain high levels of O2,antibiotics, IV steroids, Lovenox as per beaming machine operator. Supportive care. Prognosis guarded given multiple complex medical issues. The impression and plan of care has been dictated as directed. : I performed a history and examination of this patient, discussed the same with the dictator. I agree with the dictator's note ,documented as a scribe. Any additional findings or plans will be noted.
[2019-07-18 17:00] LABS: Glucose,Whole Blood 118 mg/dL (75-99)
[2019-07-18] MEDS: ACETAMINOPHEN TAB 325 MG TAB PO PRN (18:29)
[2019-07-18] MEDS ORDERED: PIPERACILLIN-TAZOBACTAM 3.375 GM in SODIUM CHLORIDE 0.9% 100 ML IVPB SCH (20:00)
[2019-07-18 20:34] LABS: Glucose,Whole Blood 133 mg/dL (75-99)
[2019-07-18] MEDS: ATORVASTATIN 80 MG TAB PO SCH (21:04)
[2019-07-19 05:56] LABS: Basophils % (A) 0 %; Eosinophils # (A) 0.3 k/uL (0-0.7); Eosinophils % (A) 1 %; HCT 40.6 % (39.0-53.0); HGB 13.3 gm/dL (13.0-17.5); Lymphocytes % (A) 5 %; MCH 29.7 pg (25.0-35.0); MCHC 32.8 g/dL (31.0-37.0); MCV 90.6 fL (80.0-100.0); Mean Platelet Volume 9.9; Monocytes # (A) 0.6 k/uL (0-1.0); Monocytes % (A) 3 %; Neutrophils # (A) 17.3 k/uL (1.3-7.7); Neutrophils % (A) 90 %; Platelet Count 217 k/uL (150-450); RBC 4.49 m/uL (4.30-5.90); RDW 13.8 % (11.5-15.5); WBC 19.4 k/uL (3.8-10.6)
[2019-07-19 06:08] LABS: ALT 59 U/L (4-49); AST 38 U/L (17-59); African American GFR (CKD) >90 (>60 ml/min/1.73 sqM); Albumin 3.4 g/dL (3.5-5.0); Alkaline Phosphatase 78 U/L (38-126); Anion Gap 6 mmol/L; Blood Urea Nitrogen 25 mg/dL (9-20); C Reactive Protein <5.0 mg/L (<10.0); Calcium 9.2 mg/dL (8.4-10.2); Carbon Dioxide 29 mmol/L (22-30); Chloride 96 mmol/L (98-107); Creatine Kinase 72 U/L (55-170); Glucose 109 mg/dL (74-99); LDH 1260 U/L (313-618); Non-African American GFR(CKD) >90 (>60 ml/min/1.73 sqM); Potassium 5.1 mmol/L (3.5-5.1); Sodium 131 mmol/L (137-145); Total Bilirubin 0.9 mg/dL (0.2-1.3); Total Protein 5.9 g/dL (6.3-8.2)
--- NOTE | 2019-07-19 06:16 | XR ---
EXAMINATION TYPE: XR chest 1V portable DATE OF EXAM: 07/19/2019 HISTORY: assess lungs. REFERENCE: Previous study dated 07/18/2019. FINDINGS: There has been a midline sternotomy. A unipolar pacemaker is in place on the left. There is patchy bilateral airspace disease. The heart is not enlarged. There is blunting of both CP a ngles and I could not exclude small effusions. IMPRESSION: CONTINUING, PATCHY, BILATERAL AIRSPACE DISEASE.
[2019-07-19 07:04] LABS: Glucose,Whole Blood 101 mg/dL (75-99)
[2019-07-19] MEDS: PIPERACILLIN-TAZOBACTAM 3.375 GM in SODIUM CHLORIDE 0.9% 100 ML IVPB SCH ×3 (08:31→22:59)
[2019-07-19] MEDS: INSULIN ASPART (NovoLOG) 100 UNIT/ML VIAL SQ SCH ×4 (08:32→21:14)
[2019-07-19] MEDS: methylPREDNISolone SOD SUCCI 40 MG/ML 1 ML VIAL IV SCH ×2 (08:39→21:13)
[2019-07-19] MEDS: ENOXAPARIN 100 MG/ML SYRINGE SQ SCH ×2 (08:40→21:14)
[2019-07-19] MEDS: ASPIRIN 81 MG PO SCH (08:40)
[2019-07-19] MEDS: CLOPIDOGREL 75 MG TAB PO SCH (08:40)
[2019-07-19] MEDS: CARVEDILOL 3.125 MG TAB PO SCH (08:40)
[2019-07-19] MEDS: LOSARTAN 25 MG TAB PO SCH (08:40)
[2019-07-19] MEDS: PANTOPRAZOLE 40 MG TABLET PO SCH (08:40)
[2019-07-19] MEDS: EZETIMIBE 10 MG TAB PO SCH (08:40)
[2019-07-19] MEDS: SPIRONOLACTONE 25 MG TAB PO SCH ×2 (08:40→21:13)
[2019-07-19 11:07] LABS: Ferritin 931.9 ng/mL (22.0-322.0)
--- NOTE | 2019-07-19 11:32 | P.PN ---
Subjective Progress Note Date: 07/19/19 Principal diagnosis: Acute hypoxic respiratory failure related to CoVID 19 infection The patient is seen today 07/19/2019 in follow-up in the intensive care unit. He remains awake and alert in no acute distress. He is continued on the airflow at 60 L/m and 85% FiO2 along with a nonrebreather mask and 100% FiO2. He is maintaining O2 saturations in the high 80s and low 90s. Respiratory rate 26. He is afebrile. Hemodynamically stable. He is 0.9 at a KVO. He remains on L ovenox, IV Solu-Medrol. Antibiotics in the form of Zosyn. Sputum sample is positive for Enterobacter aerogenes. White count 19.4. Hemoglobin 13.3. Sodium 131. Potassium 5.1. Creatinine 0.71. Ferritin level 931. LDH 1260. C-reactive protein less than 5. Objective - Vital Signs Vital signs: Vital Signs Temp 98.8 F 07/19/19 08:00 Pulse 98 07/19/19 10:00 Resp 29 H 07/19/19 10:00 BP 120/77 07/19/19 10:00 Pulse Ox 92 L 07/19/19 10:00 Intake & Output 07/18/19 07/19/19 07/19/19 18:59 06:59 18:59 Intake Total 840 380 160 Output Total 1105 1020 251 Balance -265 -640 -91 Weight 90.3 kg 88.2 kg Intake: IV 240 380 160 Piperacillin-Tazobactam 3 200 100 .375 gm In Sodium Chloride 0.9% 100 ml @ 25 mls/hr IVPB Q8HR JEAN Rx# :[id number] Sodium Chloride 0.9% 1, 240 180 60 000 ml @ 20 mls/hr IV . Q24H JEAN Rx#:[id number] Oral 600 Output: Urine 1105 1020 250 Stool 1 Other: Voiding Method Indwelling Catheter Indwelling Catheter Indwelling Catheter - Exam GENERAL EXAM: Alert, very pleasant, 68-year-old male patient, on AIrvo at 60 l/min, Fio2 85% in addition to her percent nonrebreather of the pulse ox of 89- 92% comfortable in no apparent distress. HEAD: Normocephalic/atraumatic. EYES: Normal reaction of pupils, equal size. Conjunctiva pink, sclera white. NOSE: Clear with pink turbinates. THROAT: No erythema or exudates. NECK: No masses, no JVD, no thyroid enlargement, no adenopathy. CHEST: No chest wall deformity. Symmetrical expansion. LUNGS: Equal air entry with some scattered bibasilar crackles, no wheeze, rhonchi or dullness. CVS: Regular rate and rhythm, normal S1 and S2, no gallops, no murmurs, no rubs ABDOMEN: Soft, nontender. No hepatosplenomegaly, normal bowel sounds, no guarding or rigidity. EXTREMITIES: No clubbing, no edema, no cyanosis, 2+ pulses and upper and lower extremities. MUSCULOSKELETAL: Muscle strength and tone normal. SPINE: No scoliosis or deformity SKIN: No rashes CENTRAL NERVOUS SYSTEM: No focal deficits, tone is normal in all 4 extremities. PSYCHIATRIC: Alert and oriented -3. Appropriate affect. Intact judgment and insight. - Labs CBC & Chem 7: 07/19/19 05:07/19/19 05:17 Labs: Abnormal Lab Results - Last 24 Hours (Table) 07/18/19 07/18/19 07/18/19 Range/Units 12:01 16:59 20:33 WBC (3.8-10.6) k/uL Neutrophils # (1.3-7.7) k/uL Sodium (137-145) mmol/L Chloride (98-107) mmol/L BUN (9-20) mg/dL Glucose (74-99) mg/dL POC Glucose (mg/dL) 117 H 118 H 133 H (75-99) mg/dL Ferritin (22.0-322.0) ng/mL ALT (4-49) U/L Lactate Dehydrogenase (313-618) U/L Total Protein (6.3-8.2) g/dL Albumin (3.5-5.0) g/dL 07/19/19 07/19/19 07/19/19 Range/Units 05:17 05:17 07:03 WBC 19.4 H (3.8-10.6) k/uL Neutrophils # 17.3 H (1.3-7.7) k/uL Sodium 131 L (137-145) mmol/L Chloride 96 L (98-107) mmol/L BUN 25 H (9-20) mg/dL Glucose 109 H (74-99) mg/dL POC Glucose (mg/dL) 101 H (75-99) mg/dL Ferritin 931.9 H (22.0-322.0) ng/mL ALT 59 H (4-49) U/L Lactate Dehydrogenase 1260 H (313-618) U/L Total Protein 5.9 L (6.3-8.2) g/dL Albumin 3.4 L (3.5-5.0) g/dL Microbiology - Last 24 Hours (Table) 07/13/19 09:31 Blood Culture - Preliminary Blood No Growth after 120 hours 07/13/19 09:43 Blood Culture - Preliminary Blood No Growth after 120 hours Assessment and Plan Assessment: #1. Acute hypoxic respiratory failure secondary to acute COVID 19 pneumonitis, patient had a sputum culture positive for Enterobacter aerogenes, patient was empirically covered with Zosyn and vancomycin, patient is now on monotherapy with Zosyn #2. Elevated inflammatory markers including LDH, CRP, and interleukin-6 level related to acute COVID 19 pneumonia #3. History of ischemic cardiomyopathy and AICD placement for previous history of ventricular fibrillation #4. History of coronary artery disease with previous bypass grafting in 2012 #5. Hyperlipidemia #6. Carotid artery disease with previous left carotid endarterectomy Plan: The patient was seen and evaluated by Dr. Astorga Chest x-ray and labs reviewed Inflammatory markers trending down Continue the current treatment plan No word yet on convalescent plasma We'll continue to follow I, the cosigning physician, performed a history & physical examination of the patient. Lungs sounds with basilar crackles. Maintaining good O2 saturations in the 90s on AirVo at 60 L/m and 85% along with nonrebreather mask at 100% FiO2. I discussed the assessment and plan of care with my nurse practitioner, Kathrin Rayo. I attest to the above note as dictated by her.
[2019-07-19 11:52] LABS: Glucose,Whole Blood 202 mg/dL (75-99)
--- NOTE | 2019-07-19 12:35 | P.PN ---
Subjective On-call hospitalist covering Dr. Silva over the weekend, Dr. Silva and his team will resume the care of the patient on 07/21/2019 From the records This is a pleasant 68-year-old gentleman recently admitted on the testing positive for Covid 19, received Plaquenil ,discharged on 07/02/2019 ,with history of CAD, hyperlipidemia, [place], CABG, osteoarthritis, ischemic cardiomyopathy, AICD, V. fib, peripheral vascular disease, former nicotine dependence and multiple other medical issues presented to the ER with worsening shortness of breath accompanied by fevers, fatigue. Patient was found to have Covid pneumonia with positive sputum culture for Enterobacter suspicious for superimposed bacterial infection on the top of his significant history of ischemic cardiomyopathy status post AICD. Checked with the staff today and he looks the same compared to yesterday. He is awake and oriented 3, he follows commands. He shows understanding. He got still short of breath especially with activities associated with nonproductive dry cough. He is hemodynamically stable with blood pressure 118/68, however he still tachypneic at 29-31/m. He saturating 94% on 60 oxygen flow rate. She left showing leukocytosis of 19.4 however he is on Solu-Medrol IV. Sodium 131 and creatinine normal at 0.7. Sugar controlled Remains on Zosyn, somatropin 40 mg twice daily and aspirin and Plavix. Patient is still waiting for convalescent plasma Case was discussed with the staff Review of systems CONSTITUTIONAL: No fever, no malaise, no fatigue. HEENT: No recent visual problems or hearing problems. Denied any sore throat. CARDIOVASCULAR: No orthopnea, PND, no palpitations, no syncope. GASTROINTESTINAL: No diarrhea, no nausea, no vomiting, no abdominal pain. Normoactive bowel sounds. NEUROLOGICAL: No headaches, no weakness, no numbness. HEMATOLOGICAL: Denies any bleeding or petechiae. GENITOURINARY: Denies any burning micturition, frequency, or urgency. MUSCULOSKELETAL/RHEUMATOLOGICAL: Denies any joint pain, swelling, or any muscle pain. ENDOCRINE: Denies any polyuria or polydipsia. Active Medications Generic Name Dose Route Start Last Admin Trade Name Freq PRN Reason Stop Dose Admin Acetaminophen 650 mg 07/04/19 05:38 07/18/19 18:29 Tylenol Tab PO 650 mg Q4HR PRN Administration Fever>101 Aspirin 81 mg 07/04/19 09:00 07/19/19 08:40 Aspirin PO 81 mg DAILY JEAN Administration Atorvastatin Calcium 80 mg 07/04/19 21:00 07/18/19 21:04 Lipitor PO 80 mg HS JEAN Administration Carvedilol 3.125 mg 07/04/19 09:00 07/19/19 08:40 Coreg PO 3.125 mg DAILY JEAN Administration Clopidogrel Bisulfate 75 mg 07/04/19 09:00 07/19/19 08:40 Plavix PO 75 mg DAILY JEAN Administration Ezetimibe 10 mg 07/04/19 09:00 07/19/19 08:40 Zetia PO 10 mg DAILY JEAN Administration Enoxaparin Sodium 90 mg 07/07/19 21:00 07/19/19 08:40 Lovenox SQ 90 mg Q12HR JEAN Administration Sodium Chloride 1,000 mls @ 20 mls/hr 07/04/19 06:15 07/18/19 04:36 Saline 0.9% IV Not Given .Q24H JEAN Piperacillin Sod/Tazobactam 100 mls @ 25 mls/hr 07/12/19 09:45 07/19/19 08:31 Sod 3.375 gm/ Sodium Chloride IVPB 25 mls/hr Q8HR JEAN Administration Insulin Aspart 0 unit 07/12/19 17:30 07/19/19 11:59 Novolog SQ 6 unit ACHS JEAN Administration Protocol Losartan Potassium 25 mg 07/04/19 09:00 07/19/19 08:40 Cozaar PO 25 mg DAILY JEAN Administration Methylprednisolone Sodium Succinate 40 mg 07/04/19 21:00 07/19/19 08:39 Solu-Medrol IV 40 mg Q12HR JEAN Administration Naloxone HCl 0.2 mg 07/04/19 06:10 Narcan IV Q2M PRN Opioid Reversal Pantoprazole Sodium 40 mg 07/07/19 09:00 07/19/19 08:40 Protonix PO 40 mg DAILY JEAN Administration Spironolactone 25 mg 07/08/19 21:00 07/19/19 08:40 Aldactone PO 25 mg BID JEAN Administration Objective - Vital Signs Vital signs: Vital Signs Temp 97.7 F 07/19/19 12:00 Pulse 107 H 07/19/19 12:00 Resp 31 H 07/19/19 12:00 BP 118/68 07/19/19 12:00 Pulse Ox 94 L 07/19/19 11:00 Intake & Output 07/18/19 07/19/19 07/19/19 18:59 06:59 18:59 Intake Total 840 380 220 Output Total 1105 1020 476 Balance -265 -640 -256 Weight 90.3 kg 88.2 kg Intake: IV 240 380 220 Piperacillin-Tazobactam 3 200 100 .375 gm In Sodium Chloride 0.9% 100 ml @ 25 mls/hr IVPB Q8HR JEAN Rx# :[id number] Sodium Chloride 0.9% 1, 240 180 120 000 ml @ 20 mls/hr IV . Q24H JEAN Rx#:[id number] Oral 600 Output: Urine 1105 1020 475 Stool 1 Other: Voiding Method Indwelling Catheter Indwelling Catheter Indwelling Catheter - Exam GENERAL: The patient is alert and oriented x3, not in any acute distress. Well developed, well nourished. HEENT: Pupils are round and equally reacting to light. EOMI. No scleral icterus. No conjunctival pallor. Normocephalic, atraumatic. No pharyngeal erythema. No thyromegaly. CARDIOVASCULAR: S1 and S2 present. No murmurs, rubs, or gallops. -PULMONARY: Chest is clear to auscultation, tachypneic with decreased breath sounds on both sides ABDOMEN: Soft, nontender, nondistended, normoactive bowel sounds. No palpable organomegaly. MUSCULOSKELETAL: No joint swelling or deformity. EXTREMITIES: No cyanosis, clubbing, or pedal edema. NEUROLOGICAL: Gross neurological examination did not reveal any focal deficits. SKIN: No rashes. no petechiae. - Labs CBC & Chem 7: 07/19/19 05:17 07/19/19 05:17 Labs: Abnormal Lab Results - Last 24 Hours (Table) 07/18/19 07/18/19 07/19/19 Range/Units 16:59 20:33 05:17 WBC 19.4 H (3.8-10.6) k/uL Neutrophils # 17.3 H (1.3-7.7) k/uL Sodium (137-145) mmol/L Chloride (98-107) mmol/L BUN (9-20) mg/dL Glucose (74-99) mg/dL POC Glucose (mg/dL) 118 H 133 H (75-99) mg/dL Ferritin (22.0-322.0) ng/mL ALT (4-49) U/L Lactate Dehydrogenase (313-618) U/L Total Protein (6.3-8.2) g/dL Albumin (3.5-5.0) g/dL 07/19/19 07/19/19 07/19/19 Range/Units 05:17 07:03 11:50 WBC (3.8-10.6) k/uL Neutrophils # (1.3-7.7) k/uL Sodium 131 L (137-145) mmol/L Chloride 96 L (98-107) mmol/L BUN 25 H (9-20) mg/dL Glucose 109 H (74-99) mg/dL POC Glucose (mg/dL) 101 H 202 H (75-99) mg/dL Ferritin 931.9 H (22.0-322.0) ng/mL ALT 59 H (4-49) U/L Lactate Dehydrogenase 1260 H (313-618) U/L Total Protein 5.9 L (6.3-8.2) g/dL Albumin 3.4 L (3.5-5.0) g/dL Microbiology - Last 24 Hours (Table) 07/13/19 09:31 Blood Culture - Final Blood No Growth after 144 hours 07/13/19 09:43 Blood Culture - Final Blood No Growth after 144 hours Assessment and Plan Assessment: -Covid 19 pneumonia with sepsis. With possible superimposed bacterial infection, suspected hospital-acquired pneumonia currently on Zosyn. on plaquenil currently as he finished his treatment earlier -Acute hypoxic respiratory failure -Sepsis with SIRS criteria with fever, tachypnea and leukocytosis -History of coronary artery disease status post CABG and stenting -Ischemic cardiomyopathy with history of V. fib status post AICD -Hyperlipidemia Plan: This is a pleasant 68 years old male who presents with worsening Covid-19 infection with possible superimposed bacterial infection. Patient already received Plaquenil previously. Currently on Zosyn. . Continue with oxygen therapy. Monitor closely in the ICU, patient still awaited for convalescent plasma replacement. pulmonary/critical care team on the case. Labs and medication were reviewed.. Continue same treatment. Continue with symptomatic treatment. Resume home medication. Monitor lytes and vitals. DVT and GI prophylaxis. Further recommendations of the clinical course of the pa tient DVT prophylaxis: Subcutaneous heparin GI Prophylaxis: Ppi Prognosis is guarded
[2019-07-19] MEDS: SODIUM CHLORIDE 0.9% 1,000 ML IV SCH (15:55)
[2019-07-19 16:32] LABS: Glucose,Whole Blood 100 mg/dL (75-99)
[2019-07-19 20:55] LABS: Glucose,Whole Blood 143 mg/dL (75-99)
[2019-07-19] MEDS: ATORVASTATIN 80 MG TAB PO SCH (21:13)
[2019-07-19] MEDS: ACETAMINOPHEN TAB 325 MG TAB PO PRN (21:16)
--- NOTE | 2019-07-20 05:48 | XR ---
EXAMINATION TYPE: XR chest 1V DATE OF EXAM: 07/20/2019 HISTORY: SOB. REFERENCE: NONE. FINDINGS: There has been a midline sternotomy. There is a unipolar pacemaker place on the left. There continues to be patchy, bilateral airspace disease. This has not changed significantly from pre vious. The heart is not enlarged. There is blunting of the left CP angle and I could not exclude a sm all left effusion. IMPRESSION: NO SIGNIFICANT INTERVAL CHANGE IN THE APPEARANCE OF THE CHEST.
[2019-07-20 05:56] LABS: Basophils % (A) 0 %; Eosinophils # (A) 0.1 k/uL (0-0.7); Eosinophils % (A) 0 %; HCT 35.3 % (39.0-53.0); HGB 11.1 gm/dL (13.0-17.5); Lymphocytes # (A) 1.4 k/uL (1.0-4.8); Lymphocytes % (A) 7 %; MCH 28.9 pg (25.0-35.0); MCHC 31.3 g/dL (31.0-37.0); MCV 92.1 fL (80.0-100.0); Mean Platelet Volume 8.9; Monocytes # (A) 0.8 k/uL (0-1.0); Monocytes % (A) 4 %; Neutrophils # (A) 18.8 k/uL (1.3-7.7); Neutrophils % (A) 88 %; Platelet Count 249 k/uL (150-450); RBC 3.83 m/uL (4.30-5.90); RDW 14.1 % (11.5-15.5); WBC 21.3 k/uL (3.8-10.6)
[2019-07-20 06:06] LABS: ALT 64 U/L (4-49); AST 46 U/L (17-59); African American GFR (CKD) >90 (>60 ml/min/1.73 sqM); Albumin 3.2 g/dL (3.5-5.0); Alkaline Phosphatase 66 U/L (38-126); Anion Gap 6 mmol/L; Blood Urea Nitrogen 27 mg/dL (9-20); C Reactive Protein <5.0 mg/L (<10.0); Calcium 9.1 mg/dL (8.4-10.2); Carbon Dioxide 31 mmol/L (22-30); Chloride 94 mmol/L (98-107); Creatine Kinase 273 U/L (55-170); Glucose 126 mg/dL (74-99); Non-African American GFR(CKD) 86 (>60 ml/min/1.73 sqM); Potassium 5.3 mmol/L (3.5-5.1); Sodium 131 mmol/L (137-145); Total Bilirubin 0.8 mg/dL (0.2-1.3); Total Protein 5.7 g/dL (6.3-8.2)
[2019-07-20 06:59] LABS: Glucose,Whole Blood 147 mg/dL (75-99)
[2019-07-20] MEDS: INSULIN ASPART (NovoLOG) 100 UNIT/ML VIAL SQ SCH ×4 (07:06→21:13)
[2019-07-20] MEDS: SODIUM CHLORIDE 0.9% 1,000 ML IV SCH ×2 (07:07→15:57)
[2019-07-20] MEDS: PIPERACILLIN-TAZOBACTAM 3.375 GM in SODIUM CHLORIDE 0.9% 100 ML IVPB SCH ×3 (08:10→23:10)
[2019-07-20] MEDS: ENOXAPARIN 100 MG/ML SYRINGE SQ SCH ×2 (08:11→20:33)
[2019-07-20] MEDS: methylPREDNISolone SOD SUCCI 40 MG/ML 1 ML VIAL IV SCH ×2 (08:11→20:33)
[2019-07-20] MEDS: PANTOPRAZOLE 40 MG TABLET PO SCH (08:11)
[2019-07-20] MEDS: CLOPIDOGREL 75 MG TAB PO SCH (08:12)
[2019-07-20] MEDS: ASPIRIN 81 MG PO SCH (08:12)
[2019-07-20] MEDS ORDERED: SODIUM CHLORIDE 0.9% 1,000 ML IV ONE ×2 (10:10→14:12)
[2019-07-20] MEDS: EZETIMIBE 10 MG TAB PO SCH (10:14)
[2019-07-20] MEDS: CARVEDILOL 3.125 MG TAB PO SCH (10:14)
[2019-07-20] MEDS: SPIRONOLACTONE 25 MG TAB PO SCH ×2 (10:15→20:33)
[2019-07-20] MEDS: LOSARTAN 25 MG TAB PO SCH (10:15)
--- NOTE | 2019-07-20 10:56 | P.PN ---
Subjective Progress Note Date: 07/20/19 Principal diagnosis: Acute hypoxic respiratory failure related to CoVID 19 infection The patient is seen today 07/19/2019 in follow-up in the intensive care unit. He remains awake and alert in no acute distress. He is continued on the airflow at 60 L/m and 85% FiO2 along with a nonrebreather mask and 100% FiO2. He is maintaining O2 saturations in the high 80s and low 90s. Respiratory rate 26. He is afebrile. Hemodynamically stable. He is 0.9 at a KVO. He remains on L ovenox, IV Solu-Medrol. Antibiotics in the form of Zosyn. Sputum sample is positive for Enterobacter aerogenes. White count 19.4. Hemoglobin 13.3. Sodium 131. Potassium 5.1. Creatinine 0.71. Ferritin level 931. LDH 1260. C-reactive protein less than 5. The patient is seen today 07/20/2019 in follow-up in the intensive care unit. He is currently resting comfortably in bed. Awake and alert in no acute distress. He remains on the airflow high flow oxygen at 60 L/m and down to 80% FiO2 along with 100% nonrebreather. He has 0.9 normal saline at 20 ML's per hour. He did receive convalescent plasma last evening. Today's chest x-ray does reveal some mild improvement in the bilateral patchy airspace disease. He was having some issues with hypotension. He is receiving 1 L of fluid resuscitation currently. White count 21.3. Hemoglobin 11.1. Lymphocytes 1.4. D-dimer 1.16. Sodium 131. Potassium 5.3. Creatinine 0.90. C-reactive protein less than 5. Ferritin level pending. He is currently on Zosyn. Remains on Lovenox Objective - Vital Signs Vital signs: Vital Signs Temp 97.7 F 07/20/19 08:00 Pulse 112 H 07/20/19 10:00 Resp 27 H 07/20/19 10:00 BP 95/52 07/20/19 10:00 Pulse Ox 95 07/20/19 10:00 Intake & Output 07/19/19 07/20/19 07/20/19 18:59 06:59 18:59 Intake Total 842 587 2548 Output Total 914 645 75 Balance -456 -36 1405 Weight 87.7 kg Intake: IV 460 350 180 Piperacillin-Tazobactam 3 200 200 100 .375 gm In Sodium Chloride 0.9% 100 ml @ 25 mls/hr IVPB Q8HR [facility] Rx# :[id number] Sodium Chloride 0.9% 1, 260 150 80 000 ml @ 20 mls/hr IV . Q24H [facility] Rx#:[id number] Intake, IV Titration 1000 Amount Sodium Chloride 0.9% 1, 1000 000 ml @ 999 mls/hr IV . Q1H1M ONE Rx#:[id number] Oral 300 Blood Product 209 Ffp Pher Conval Covid19 209 Acda 2 Unit [id number] Other 50 Ffp Pher Conval Covid19 50 Acda 2 Unit [id number] Output: Urine 915 645 75 Stool 1 Other: Voiding Method Indwelling Catheter Indwelling Catheter Indwelling Catheter # Bowel Movements 1 1 1 - Exam GENERAL EXAM: Alert, very pleasant, 68-year-old male patient, on AIrvo at 60 l/min, Fio2 80% in addition to her percent nonrebreather of the pulse ox of 94-95% comfortable in no apparent distress. HEAD: Normocephalic/atraumatic. EYES: Normal reaction of pupils, equal size. Conjunctiva pink, sclera white. NOSE: Clear with pink turbinates. THROAT: No erythema or exudates. NECK: No masses, no JVD, no thyroid enlargement, no adenopathy. CHEST: No chest wall deformity. Symmetrical expansion. LUNGS: Equal air entry with some scattered bibasilar crackles, no wheeze, rhonchi or dullness. CVS: Regular rate and rhythm, normal S1 and S2, no gallops, no murmurs, no rubs ABDOMEN: Soft, nontender. No hepatosplenomegaly, normal bowel sounds, no guarding or rigidity. EXTREMITIES: No clubbing, no edema, no cyanosis, 2+ pulses and upper and lower extremities. MUSCULOSKELETAL: Muscle strength and tone normal. SPINE: No scoliosis or deformity SKIN: No rashes CENTRAL NERVOUS SYSTEM: No focal deficits, tone is normal in all 4 extremities. PSYCHIATRIC: Alert and oriented -3. Appropriate affect. Intact judgment and insight. - Labs CBC & Chem 7: 07/20/19 05:37 07/20/19 05:37 Labs: Abnormal Lab Results - Last 24 Hours (Table) 07/19/19 07/19/19 07/19/19 Range/Units 05:17 11:50 16:31 WBC (3.8-10.6) k/uL RBC (4.30-5.90) m/uL Hgb (13.0-17.5) gm/dL Hct (39.0-53.0) % Neutrophils # (1.3-7.7) k/uL D-Dimer (<0.60) mg/L FEU Sodium (137-145) mmol/L Potassium (3.5-5.1) mmol/L Chloride (98-107) mmol/L Carbon Dioxide (22-30) mmol/L BUN (9-20) mg/dL Glucose (74-99) mg/dL POC Glucose (mg/dL) 202 H 100 H (75-99) mg/dL Ferritin 931.9 H (22.0-322.0) ng/mL ALT (4-49) U/L Creatine Kinase (55-170) U/L Total Protein (6.3-8.2) g/dL Albumin (3.5-5.0) g/dL 07/19/19 07/20/19 07/20/19 Range/Units 20:52 05:37 05:37 WBC 21.3 H (3.8-10.6) k/uL RBC 3.83 L (4.30-5.90) m/uL Hgb 11.1 L (13.0-17.5) gm/dL Hct 35.3 L (39.0-53.0) % Neutrophils # 18.8 H (1.3-7.7) k/uL D-Dimer 1.16 H (<0.60) mg/L FEU Sodium (137-145) mmol/L Potassium (3.5-5.1) mmol/L Chloride (98-107) mmol/L Carbon Dioxide (22-30) mmol/L BUN (9-20) mg/dL Glucose (74-99) mg/dL POC Glucose (mg/dL) 143 H (75-99) mg/dL Ferritin (22.0-322.0) ng/mL ALT (4-49) U/L Creatine Kinase (55-170) U/L Total Protein (6.3-8.2) g/dL Albumin (3.5-5.0) g/dL 07/20/19 07/20/19 Range/Units 05:37 06:57 WBC (3.8-10.6) k/uL RBC (4.30-5.90) m/uL Hgb (13.0-17.5) gm/dL Hct (39.0-53.0) % Neutrophils # (1.3-7.7) k/uL D-Dimer (<0.60) mg/L FEU Sodium 131 L (137-145) mmol/L Potassium 5.3 H (3.5-5.1) mmol/L Chloride 94 L (98-107) mmol/L Carbon Dioxide 31 H (22-30) mmol/L BUN 27 H (9-20) mg/dL Glucose 126 H (74-99) mg/dL POC Glucose (mg/dL) 147 H (75-99) mg/dL Ferritin (22.0-322.0) ng/mL ALT 64 H (4-49) U/L Creatine Kinase 273 H (55-170) U/L Total Protein 5.7 L (6.3-8.2) g/dL Albumin 3.2 L (3.5-5.0) g/dL Microbiology - Last 24 Hours (Table) 07/13/19 09:31 Blood Culture - Final Blood No Growth after 144 hours 07/13/19 09:43 Blood Culture - Final Blood No Growth after 144 hours Assessment and Plan Assessment: #1. Acute hypoxic respiratory failure secondary to acute COVID 19 pneumonitis, patient had a sputum culture positive for Enterobacter aerogenes, patient was empirically covered with Zosyn and vancomycin, patient is now on monotherapy with Zosyn. The patient has been treated with tocilizumab 2. Completed Plaquenil. Did receive convalescent plasma on 07/19/2019 #2. Elevated inflammatory markers including LDH, CRP, and interleukin-6 level related to acute COVID 19 pneumonia #3. Hypotension, requiring fluid resuscitation #4. History of ischemic cardiomyopathy and AICD placement for previous history of ventricular fibrillation #5. History of coronary artery disease with previous bypass grafting in 2012 #6. Hyperlipidemia #7. Carotid artery disease with previous left carotid endarterectomy Plan: The patient was seen and evaluated by Dr. Astorga Chest x-ray and labs reviewed He did receive convalescent plasma last evening 1 L of fluid resuscitation for hypotension this morning Continue the current treatment plan Titrate down the FiO2 as tolerated Repeat chest x-ray inflammatory markers in the a.m. We'll continue to follow and make further recommendations based on his clinical status I, the cosigning physician, performed a history & physical examination of the patient. Lungs sounds with basilar crackles. Maintaining good O2 saturations in the 90s on AirVo at 60 L/m and 80% along with nonrebreather mask at 100% FiO2. I discussed the assessment and plan of care with my nurse practitioner, Kathrin Rayo. I attest to the above note as dictated by her.
[2019-07-20 12:11] LABS: Glucose,Whole Blood 146 mg/dL (75-99)
[2019-07-20 15:53] LABS: Creatine Kinase MB 1.4 ng/mL (0.0-2.4); Troponin I 0.019 ng/mL (0.000-0.034)
[2019-07-20] MEDS: NOREPINEPHRINE 4 MG in SODIUM CHLORIDE 0.9% 250 ML IV SCH ×2 (16:16→21:42)
[2019-07-20 16:34] LABS: Glucose,Whole Blood 128 mg/dL (75-99)
--- NOTE | 2019-07-20 16:46 | P.PN ---
Subjective On-call hospitalist covering Dr. Silva over the weekend, Dr. Silva and his team will resume the care of the patient on 07/21/2019 From the records This is a pleasant 68-year-old gentleman recently admitted on the testing positive for Covid 19, received Plaquenil ,discharged on 07/02/2019 ,with history of CAD, hyperlipidemia, DC, CABG, osteoarthritis, ischemic cardiomyopathy, AICD, V. fib, peripheral vascular disease, former nicotine dependence and multiple other medical issues presented to the ER with worsening shortness of breath accompanied by fevers, fatigue. Patient was found to have Covid pneumonia with positive sputum culture for Enterobacter suspicious for superimposed bacterial infection on the top of his significant history of ischemic cardiomyopathy status post AICD. Checked with the staff today and he looks the same compared to yesterday. He is awake and oriented 3, he follows commands. He shows understanding. He got still short of breath especially with activities associated with nonproductive dry cough. He is hemodynamically stable with blood pressure 118/68, however he still tachypneic at 29-31/m. He saturating 94% on 60 oxygen flow rate. She left showing leukocytosis of 19.4 however he is on Solu-Medrol IV. Sodium 131 and creatinine normal at 0.7. Sugar controlled Remains on Zosyn, somatropin 40 mg twice daily and aspirin and Plavix. Patient is still waiting for convalescent plasma Case was discussed with the staff 07/20/2019 Patient is seen in the ICU, he still critical This morning his systolic blood pressure dropped below 100, and he was started on levo fed and Dr. liters of normal saline Patient [facility] plasma last evening He is alert awake and oriented 3, he is aware to the surrounding, he has some dry cough but no chest pain. Still dyspneic, his tachycardic, tachypneic and saturating 95% on 15 L oxygen via nonrebreather WBC is 20 1.3K, sodium 131, potassium 5.3, creatinine 0.9 He remains on Zosyn, Solu-Medrol 40 mg, Lovenox 90 mg twice daily, is also on aspirin and Plavix Review of systems CONSTITUTIONAL: No fever, no malaise, no fatigue. HEENT: No recent visual problems or hearing problems. Denied any sore throat. CARDIOVASCULAR: No orthopnea, PND, no palpitations, no syncope. GASTROINTESTINAL: No diarrhea, no nausea, no vomiting, no abdominal pain. Normoactive bowel sounds. NEUROLOGICAL: No headaches, no weakness, no numbness. HEMATOLOGICAL: Denies any bleeding or petechiae. GENITOURINARY: Denies any burning micturition, frequency, or urgency. MUSCULOSKELETAL/RHEUMATOLOGICAL: Denies any joint pain, swelling, or any muscle pain. ENDOCRINE: Denies any polyuria or polydipsia. Active Medications Generic Name Dose Route Start Last Admin Trade Name Freq PRN Reason Stop Dose Admin Acetaminophen 650 mg 07/04/19 05:38 07/19/19 21:16 Tylenol Tab PO 650 mg Q4HR PRN Administration Fever>101 Aspirin 81 mg 07/04/19 09:00 07/20/19 08:12 Aspirin PO 81 mg DAILY JEAN Administration Atorvastatin Calcium 80 mg 07/04/19 21:00 07/19/19 21:13 Lipitor PO 80 mg HS JEAN Administration Carvedilol 3.125 mg 07/04/19 09:00 07/20/19 10:14 Coreg PO Not Given DAILY JEAN Clopidogrel Bisulfate 75 mg 07/04/19 09:00 07/20/19 08:12 Plavix PO 75 mg DAILY JEAN Administration Ezetimibe 10 mg 07/04/19 09:00 07/20/19 10:14 Zetia PO Not Given DAILY JEAN Enoxaparin Sodium 90 mg 07/07/19 21:00 07/20/19 08:11 Lovenox SQ 90 mg Q12HR JEAN Administration Sodium Chloride 1,000 mls @ 20 mls/hr 07/04/19 06:15 07/20/19 15:57 Saline 0.9% IV 20 mls/hr .Q24H JEAN Administration Piperacillin Sod/Tazobactam 100 mls @ 25 mls/hr 07/12/19 09:45 07/20/19 15:57 Sod 3.375 gm/ Sodium Chloride IVPB 25 mls/hr Q8HR JEAN Administration Norepinephrine Bitartrate 4 mg 254 mls @ 16.707 mls/hr 07/20/19 16:15 07/20/19 16:16 / Sodium Chloride IV 0.05 mcg/kg/min .[id number] JEAN 16.707 mls/hr Administration Protocol 0.05 MCG/KG/MIN Insulin Aspart 0 unit 07/12/19 17:30 07/20/19 12:47 Novolog SQ 2 unit ACHS JEAN Administration Protocol Losartan Potassium 25 mg 07/04/19 09:00 07/20/19 10:15 Cozaar PO Not Given DAILY [facility] Methylprednisolone Sodium Succinate 40 mg 07/04/19 21:00 07/20/19 08:11 Solu-Medrol IV 40 mg Q12HR JEAN Administration Naloxone HCl 0.2 mg 07/04/19 06:10 Narcan IV Q2M PRN Opioid Reversal Pantoprazole Sodium 40 mg 07/07/19 09:00 07/20/19 08:11 Protonix PO 40 mg DAILY [facility] Administration Spironolactone 25 mg 07/08/19 21:00 07/20/19 10:15 Aldactone PO Not Given BID [facility] Objective - Vital Signs Vital signs: Vital Signs Temp 98.1 F 07/20/19 12:00 Pulse 112 H 07/20/19 15:00 Resp 21 07/20/19 15:00 BP 80/57 07/20/19 15:00 Pulse Ox 97 07/20/19 15:00 Intake & Output 07/19/19 07/20/19 07/20/19 18:59 06:59 18:59 Intake Total 152 754 8955 Output Total 916 645 195 Balance -456 -36 1365 Weight 87.7 kg Intake: IV 460 350 260 Piperacillin-Tazobactam 3 200 200 100 .375 gm In Sodium Chloride 0.9% 100 ml @ 25 mls/hr IVPB Q8HR [facility] Rx# :[id number] Sodium Chloride 0.9% 1, 260 150 160 000 ml @ 20 mls/hr IV . Q24H [facility] Rx#:[id number] Intake, IV Titration 1000 Amount Sodium Chloride 0.9% 1, 1000 000 ml @ 999 mls/hr IV . Q1H1M [facility] Rx#:[id number] Oral 300 Blood Product 209 Ffp Pher Conval Covid19 209 Acda 2 Unit [id number] Other 50 Ffp Pher Conval Covid19 50 Acda 2 Unit [id number] Output: Urine 915 645 195 Stool 1 Other: Voiding Method Indwelling Catheter Indwelling Catheter Indwelling Catheter # Bowel Movements 1 1 1 - Exam GENERAL: The patient is alert and oriented x3, not in any acute distress. Well developed, well nourished. HEENT: Pupils are round and equally reacting to light. EOMI. No scleral icterus. No conjunctival pallor. Normocephalic, atraumatic. No pharyngeal erythema. No thyromegaly. CARDIOVASCULAR: S1 and S2 present. No murmurs, rubs, or gallops. -PULMONARY: Chest is clear to auscultation, tachypneic with decreased breath sounds on both sides ABDOMEN: Soft, nontender, nondistended, normoactive bowel sounds. No palpable organomegaly. MUSCULOSKELETAL: No joint swelling or deformity. EXTREMITIES: No cyanosis, clubbing, or pedal edema. NEUROLOGICAL: Gross neurological examination did not reveal any focal deficits. SKIN: No rashes. no petechiae. - Labs CBC & Chem 7: 07/20/19 05:37 07/20/19 05:37 Labs: Abnormal Lab Results - Last 24 Hours (Table) 07/19/19 07/19/19 07/20/19 Range/Units 16:31 20:52 05:37 WBC 21.3 H (3.8-10.6) k/uL RBC 3.83 L (4.30-5.90) m/uL Hgb 11.1 L (13.0-17.5) gm/dL Hct 35.3 L (39.0-53.0) % Neutrophils # 18.8 H (1.3-7.7) k/uL D-Dimer (<0.60) mg/L FEU Sodium (137-145) mmol/L Potassium (3.5-5.1) mmol/L Chloride (98-107) mmol/L Carbon Dioxide (22-30) mmol/L BUN (9-20) mg/dL Glucose (74-99) mg/dL POC Glucose (mg/dL) 100 H 143 H (75-99) mg/dL ALT (4-49) U/L Creatine Kinase (55-170) U/L Total Protein (6.3-8.2) g/dL Albumin (3.5-5.0) g/dL 07/20/19 07/20/19 07/20/19 Range/Units 05:37 05:37 06:57 WBC (3.8-10.6) k/uL RBC (4.30-5.90) m/uL Hgb (13.0-17.5) gm/dL Hct (39.0-53.0) % Neutrophils # (1.3-7.7) k/uL D-Dimer 1.16 H (<0.60) mg/L FEU Sodium 131 L (137-145) mmol/L Potassium 5.3 H (3.5-5.1) mmol/L Chloride 94 L (98-107) mmol/L Carbon Dioxide 31 H (22-30) mmol/L BUN 27 H (9-20) mg/dL Glucose 126 H (74-99) mg/dL POC Glucose (mg/dL) 147 H (75-99) mg/dL ALT 64 H (4-49) U/L Creatine Kinase 273 H (55-170) U/L Total Protein 5.7 L (6.3-8.2) g/dL Albumin 3.2 L (3.5-5.0) g/dL 07/20/19 Range/Units 12:10 WBC (3.8-10.6) k/uL RBC (4.30-5.90) m/uL Hgb (13.0-17.5) gm/dL Hct (39.0-53.0) % Neutrophils # (1.3-7.7) k/uL D-Dimer (<0.60) mg/L FEU Sodium (137-145) mmol/L Potassium (3.5-5.1) mmol/L Chloride (98-107) mmol/L Carbon Dioxide (22-30) mmol/L BUN (9-20) mg/dL Glucose (74-99) mg/dL POC Glucose (mg/dL) 146 H (75-99) mg/dL ALT (4-49) U/L Creatine Kinase (55-170) U/L Total Protein (6.3-8.2) g/dL Albumin (3.5-5.0) g/dL Microbiology - Last 24 Hours (Table) 07/13/19 09:31 Blood Culture - Final Blood No Growth after 144 hours 07/13/19 09:43 Blood Culture - Final Blood No Growth after 144 hours Assessment and Plan Assessment: -Covid 19 pneumonia with sepsis. With possible superimposed bacterial infection, suspected hospital-acquired pneumonia currently on Zosyn. on plaquenil currently as he finished his treatment earlier -Acute hypoxic respiratory failure -Sepsis with SIRS criteria with fever, tachypnea and leukocytosis -History of coronary artery disease status post CABG and stenting -Ischemic cardiomyopathy with history of V. fib status post AICD -Hyperlipidemia Plan: This is a pleasant 68 years old male who presents with worsening Covid-19 infection with possible superimposed bacterial infection. Patient already received Plaquenil previously. Currently on Zosyn. . Continue with oxygen therapy. Monitor closely in the ICU, patient still awaited for convalescent plasma replacement. pulmonary/critical care team on the case. Labs and medication were reviewed.. Continue same treatment. Continue with symptomatic treatment. Resume home medication. Monitor lytes and vitals. DVT and GI prophylaxis. Further recommendations of the clinical course of the patient DVT prophylaxis: Subcutaneous heparin GI Prophylaxis: Ppi Prognosis is guarded
[2019-07-20] MEDS: ATORVASTATIN 80 MG TAB PO SCH (20:33)
[2019-07-20 21:08] LABS: Glucose,Whole Blood 179 mg/dL (75-99)
[2019-07-21] MEDS ORDERED: CALCIUM CHLORIDE 100 MG/ML 10 ML SYRINGE ONE (01:48)
[2019-07-21] MEDS ORDERED: SODIUM BICARB 8.4% 50 ML SYR (1 MEQ/ML) ONE ×3 (01:48→02:32)
[2019-07-21] MEDS ORDERED: EPINEPHrine 10 ML SYRINGE (0.1 MG/ML) ONE ×2 (01:48)
[2019-07-21] MEDS ORDERED: NOREPINEPHRIN 4 MG-0.9% NS PMX 4 MG/250 ML ML IV ONE (02:08)
[2019-07-21] MEDS ORDERED: PROPOFOL 100 ML IV ONE ×2 (02:14→13:55)
[2019-07-21] MEDS: PROPOFOL 100 ML IV ONE ×2 (02:14→02:15)
[2019-07-21 02:19] LABS: Glucose,Whole Blood 216 mg/dL (75-99)
[2019-07-21] MEDS ORDERED: PROPOFOL 1,000 MG in EMPTY BAG 1 BAG IV SCH (02:30)
--- NOTE | 2019-07-21 02:58 | XR ---
EXAMINATION TYPE: XR chest 1V portable DATE OF EXAM: 07/21/2019 COMPARISON: Yesterday HISTORY: Intubation. Respiratory failure. TECHNIQUE: Single view FINDINGS: Endotracheal tube is 3.5 cm from the nola. There is diffuse pulmonary interstitial infilt rates. There is a left axillary pacemaker. There is no pleural effusion or pneumothorax. IMPRESSION: Diffuse predominantly interstitial pulmonary infiltrates and pulmonary edema not signific antly different than exam this morning.
[2019-07-21] MEDS ORDERED: SODIUM CHLORIDE 0.9% 50 ML with VASOPRESSIN 20 UNIT IVPB SCH ×2 (03:00)
--- NOTE | 2019-07-21 03:45 | ED ---
Medical Decision Making - Medical Decision Making 07/21/2019 03 30 I received a call from Dr. Woods, regarding this patient who had just been resuscitated from CODE BLUE. I requested that I place a central line to facilitate vasopressors and other critical care medications. Consent is emergent. I placed a left femoral vein triple-lumen catheter via Seldinger technique without complication. See the procedure note - Lab Data Result diagrams: 07/20/19 05:37 07/20/19 05:37 Lab Results 07/04/19 07/04/19 07/04/19 Range/Units 05:36 05:38 05:38 WBC 17.9 H (3.8-10.6) k/uL RBC 4.83 (4.30-5.90) m/uL Hgb 14.5 (13.0-17.5) gm/dL Hct 44.2 (39.0-53.0) % MCV 91.5 (80.0-100.0) fL MCH 30.0 (25.0-35.0) pg MCHC 32.8 (31.0-37.0) g/dL RDW 13.3 (11.5-15.5) % Plt Count 231 (150-450) k/uL Neutrophils % 92 % Lymphocytes % 5 % Monocytes % 2 % Eosinophils % 0 % Basophils % 0 % Neutrophils # 16.4 H (1.3-7.7) k/uL Lymphocytes # 0.9 L (1.0-4.8) k/uL Monocytes # 0.4 (0-1.0) k/uL Eosinophils # 0.0 (0-0.7) k/uL Basophils # 0.0 (0-0.2) k/uL PT 10.5 (9.0-12.0) sec INR 1.0 (<1.2) APTT 23.0 (22.0-30.0) sec D-Dimer 1.46 H (<0.60) mg/L FEU Sodium (137-145) mmol/L Potassium (3.5-5.1) mmol/L Chloride (98-107) mmol/L Carbon Dioxide (22-30) mmol/L Anion Gap mmol/L BUN (9-20) mg/dL Creatinine (0.66-1.25) mg/dL Est GFR (CKD-EPI)AfAm (>60 ml/min/1.73 sqM) Est GFR (CKD-EPI)NonAf (>60 ml/min/1.73 sqM) Glucose (74-99) mg/dL Plasma Lactic Acid Sabas (0.7-2.0) mmol/L Calcium (8.4-10.2) mg/dL Magnesium (1.6-2.3) mg/dL Ferritin (22.0-322.0) ng/mL Total Bilirubin (0.2-1.3) mg/dL AST (17-59) U/L ALT (4-49) U/L Alkaline Phosphatase (38-126) U/L Lactate Dehydrogenase (313-618) U/L C-Reactive Protein (<10.0) mg/L NT-Pro-B Natriuret Pep 1230 pg/mL Total Protein (6.3-8.2) g/dL Albumin (3.5-5.0) g/dL Procalcitonin (0.02-0.09) ng/mL Influenza Type A RNA (Not Detectd) Influenza Type B (PCR) (Not Detectd) 07/04/19 07/04/19 07/04/19 Range/Units 05:38 05:38 05:38 WBC (3.8-10.6) k/uL RBC (4.30-5.90) m/uL Hgb (13.0-17.5) gm/dL Hct (39.0-53.0) % MCV (80.0-100.0) fL MCH (25.0-35.0) pg MCHC (31.0-37.0) g/dL RDW (11.5-15.5) % Plt Count (150-450) k/uL Neutrophils % % Lymphocytes % % Monocytes % % Eosinophils % % Basophils % % Neutrophils # (1.3-7.7) k/uL Lymphocytes # (1.0-4.8) k/uL Monocytes # (0-1.0) k/uL Eosinophils # (0-0.7) k/uL Basophils # (0-0.2) k/uL PT (9.0-12.0) sec INR (<1.2) APTT (22.0-30.0) sec D-Dimer (<0.60) mg/L FEU Sodium 137 (137-145) mmol/L Potassium 4.6 (3.5-5.1) mmol/L Chloride 100 (98-107) mmol/L Carbon Dioxide 24 (22-30) mmol/L Anion Gap 13 mmol/L BUN 22 H (9-20) mg/dL Creatinine 0.96 (0.66-1.25) mg/dL Est GFR (CKD-EPI)AfAm >90 (>60 ml/min/1.73 sqM) Est GFR (CKD-EPI)NonAf 80 (>60 ml/min/1.73 sqM) Glucose 117 H (74-99) mg/dL Plasma Lactic Acid Sabas 3.2 H* (0.7-2.0) mmol/L Calcium 8.9 (8.4-10.2) mg/dL Magnesium 1.8 (1.6-2.3) mg/dL Ferritin 1480.5 H (22.0-322.0) ng/mL Total Bilirubin 1.0 (0.2-1.3) mg/dL AST 35 (17-59) U/L ALT 26 (4-49) U/L Alkaline Phosphatase 57 (38-126) U/L Lactate Dehydrogenase 642 H (313-618) U/L C-Reactive Protein 221.0 H (<10.0) mg/L NT-Pro-B Natriuret Pep pg/mL Total Protein 6.7 (6.3-8.2) g/dL Albumin 3.7 (3.5-5.0) g/dL Procalcitonin 0.15 H (0.02-0.09) ng/mL Influenza Type A RNA (Not Detectd) Influenza Type B (PCR) (Not Detectd) 07/04/19 Range/Units 06:01 WBC (3.8-10.6) k/uL RBC (4.30-5.90) m/uL Hgb (13.0-17.5) gm/dL Hct (39.0-53.0) % MCV (80.0-100.0) fL MCH (25.0-35.0) pg MCHC (31.0-37.0) g/dL RDW (11.5-15.5) % Plt Count (150-450) k/uL Neutrophils % % Lymphocytes % % Monocytes % % Eosinophils % % Basophils % % Neutrophils # (1.3-7.7) k/uL Lymphocytes # (1.0-4.8) k/uL Monocytes # (0-1.0) k/uL Eosinophils # (0-0.7) k/uL Basophils # (0-0.2) k/uL PT (9.0-12.0) sec INR (<1.2) APTT (22.0-30.0) sec D-Dimer (<0.60) mg/L FEU Sodium (137-145) mmol/L Potassium (3.5-5.1) mmol/L Chloride (98-107) mmol/L Carbon Dioxide (22-30) mmol/L Anion Gap mmol/L BUN (9-20) mg/dL Creatinine (0.66-1.25) mg/dL Est GFR (CKD-EPI)AfAm (>60 ml/min/1.73 sqM) Est GFR (CKD-EPI)NonAf (>60 ml/min/1.73 sqM) Glucose (74-99) mg/dL Plasma Lactic Acid Sabas (0.7-2.0) mmol/L Calcium (8.4-10.2) mg/dL Magnesium (1.6-2.3) mg/dL Ferritin (22.0-322.0) ng/mL Total Bilirubin (0.2-1.3) mg/dL AST (17-59) U/L ALT (4-49) U/L Alkaline Phosphatase (38-126) U/L Lactate Dehydrogenase (313-618) U/L C-Reactive Protein (<10.0) mg/L NT-Pro-B Natriuret Pep pg/mL Total Protein (6.3-8.2) g/dL Albumin (3.5-5.0) g/dL Procalcitonin (0.02-0.09) ng/mL Influenza Type A RNA Not Detected (Not Detectd) Influenza Type B (PCR) Not Detected (Not Detectd) Disposition Clinical Impression: COVID-19, Acute respiratory failure, Hypoxemia Disposition: ADMITTED IP TO THIS HOSP Condition: Serious Procedures - [place] Protocol (Time Out) Patient Identification (2 identifiers required): Verbal, Arm Band, Name, Birthdate - Central Line Placement Left Femoral Consent Obtained: emergent situation Patient Placed on Monitor/Pulse Ox: Yes MD Prep: mask, gown, gloves Central Line Prep: Chlorhexidine scrub Local Anesthesia Used: Lidocaine 1% Central Line Lumen Inserted: triple Central Line Position: good blood return, all ports aspirated, flushed, capped, sutured in place with nylon Dressing Applied: Tegaderm Patient Tolerated Procedure: well Complications: none
[2019-07-21 03:58] LABS: Allen Test Performed? Yes
[2019-07-21] MEDS ORDERED: NOREPINEPHRINE 32 MG in SODIUM CHLORIDE 0.9% 218 ML IV SCH (04:00)
[2019-07-21 04:12] LABS: ABG Base Excess -26.3 mmol/L; ABG Oxygen Saturation 49.7 % (94-97); ABG TCO2 12 mmol/L (19-24)
[2019-07-21 04:17] LABS: ABG PH <6.80 (7.35-7.45); ABG PO2 54 mmHg (83-108)
--- NOTE | 2019-07-21 04:49 | P.PN ---
Progress Note - Text Progress Note Date: 07/21/19 Code Blue Team Note Code Juan activated at 0148 on 07/20. Arrived on the scene at 0150. The patient was undergoing CPR. Reviewed case with RN who noted that the patient had gradually worsening hypoxia throughout the day and had become unresponsive and lost his pulse, prompting the CODE BLUE. The chart was reviewed. The patient was noted to be in PEA. The patient was intubated by COACH TOUR DRIVER. He was given 2 boluses of epinephrine, 1 bolus of calcium chloride, and one of sodium bicarbonate with subsequent ROSC at 0158. No shocks were given. The patient was started on levophed infusion and calcium gluconate was administered. The patient subsequently lost pulse again at 0226 with PEA on monitor. He was given another 2 boluses of Epinephrine, and 1 of bicarb with subsequent ROSC at 0236. The patient was started on Levophed and vasopressin and a central line was placed by ED physician. Discussed the case with patient's daughter (power of assistant district attorney) who noted that her father wouldn't wish to undergo any further aggressive intervention or suffering. She noted that if he undergoes another cardiac arrest, that he should be allowed to pass peacefully. She requested to have the patient be made DO NOT RESUSCITATE, though would like to continue with all current care at this time. The patient's primary hospitalist team and manager of engineering were both notified by patient's RN.
[2019-07-21] MEDS ORDERED: SODIUM BICARB 8.4% 50 ML SYR (1 MEQ/ML) IV STA ×3 (05:11→05:13)
[2019-07-21] MEDS ORDERED: DEXTROSE 5% IN WATER 1,000 ML with SODIUM BICARB (1 MEQ/ML) 150 ML IV SCH (05:15)
[2019-07-21 05:23] LABS: Hypochromasia Marked; MCH 29.9 pg (25.0-35.0); MCHC 28.2 g/dL (31.0-37.0); Macrocytosis Moderate; Mean Platelet Volume 10.8; Platelet Count 204 k/uL (150-450); RBC 1.66 m/uL (4.30-5.90); RDW 15.1 % (11.5-15.5); WBC 31.3 k/uL (3.8-10.6)
[2019-07-21 05:32] LABS: HCT 17.6 % (39.0-53.0)
[2019-07-21 06:00] LABS: Band Neutrophils % 6 %; Eosinophils # (M) 0.31 k/uL (0-0.7); Lymphocytes # (M) 4.38 k/uL (1.0-4.8); Metamyelocytes # (M) 0.31 k/uL (0); Metamyelocytes % 1 %; Monocytes # (M) 0.63 k/uL (0-1.0); Myelocytes # (M) 2.19 k/uL (0); Myelocytes % 7 %; Neutrophils % (M) 71 %; Nucleated Red Blood Cells 0 /100 WBC (0-0); Total Cells Counted 200
[2019-07-21 06:01] LABS: Crenated RBC Present
[2019-07-21 06:07] LABS: African American GFR (CKD) 24 (>60 ml/min/1.73 sqM); Albumin 1.6 g/dL (3.5-5.0); Alkaline Phosphatase 52 U/L (38-126); Anion Gap 25 mmol/L; Blood Urea Nitrogen 39 mg/dL (9-20); C Reactive Protein <5.0 mg/L (<10.0); Calcium 8.7 mg/dL (8.4-10.2); Carbon Dioxide 10 mmol/L (22-30); Chloride 105 mmol/L (98-107); Glucose 107 mg/dL (74-99); Non-African American GFR(CKD) 21 (>60 ml/min/1.73 sqM); Sodium 140 mmol/L (137-145); Total Bilirubin 0.4 mg/dL (0.2-1.3); Total Protein 3.1 g/dL (6.3-8.2)
[2019-07-21 06:25] LABS: Potassium 6.6 mmol/L (3.5-5.1)
[2019-07-21 06:51] LABS: AST 2962 U/L (17-59)
[2019-07-21 07:08] LABS: LDH 16367 U/L (313-618)
[2019-07-21 07:20] LABS: ALT 4682 U/L (4-49)
[2019-07-21 07:24] LABS: MCV 106.1 fL (80.0-100.0)
[2019-07-21] MEDS: NOREPINEPHRINE 4 MG in SODIUM CHLORIDE 0.9% 250 ML IV SCH (08:00)
[2019-07-21 08:31] VITALS: BP 135/99; PULSE 83; RESP 301; TEMP 98.7
[2019-07-21] MEDS ORDERED: CHLORHEXIDINE GLUCONATE 15 ML CUP MUCOUS MEM SCH (09:00)
[2019-07-21] MEDS: INSULIN ASPART (NovoLOG) 100 UNIT/ML VIAL SQ SCH (09:26)
[2019-07-21 10:20] LABS: Ferritin 804.3 ng/mL (22.0-322.0)
[2019-07-21 13:05] LABS: Ferritin >16500.0 ng/mL (10.0-291.0)
[2019-07-22] MEDS ORDERED: ENOXAPARIN 100 MG/ML SYRINGE SQ SCH (09:00)
--- NOTE | 2019-07-22 10:11 | CDI ---
Documentation Clarification Form Date: 07/22/19 From: Anjali Patino CCS Phone: If you have a question about this query, please contact Melissa Santo, Personal Fitness Trainer at [phone] between 8am and 5pm. Admit Date: 07/04/19 Discharge Date:07/21/19 Patient Name: Randal Anne Visit Number: [id number] ATTENTION: The Clinical Documentation Specialists (CDI) and [facility] Coding Staff appreciate your assistance in clarifying documentation. Please respond to the clarification below the line at the bottom and electronically sign. The CDI & [facility] Coding staff will review the response and follow-up if needed. Please note: Queries are made part of the Legal Health Record. If you have any questions, please contact the author of this message via ITS. Dear Dr. Silva, The patient presented with sepsis due to COVID. PN 07/20 documents:The patient had gradually worsening hypoxia throughout the day and had become unresponsive and lost his pulse, prompting the CODE BLUE. Levophed administration started 07/19- Having issues with hypotension. Blood pressure 07/19- 73/49 (10:30am), 07/20- 73/57 (3:00am) History/Risk Factors: Sepsis, COVID, PNA, Resp Failure Clinical Indicators: Hypotension, Cardiac arrest, Lab findings: WBC 07/19- 21.3, 07/20-31.3 Vital Signs: BP 73/49, 73/57 Treatment: Levophed 4 mg, Vasopressin 20 units In your professional opinion, can you please clarify the diagnosis treated with Levophed? Hypotension Septic shock Cardiogenic shock Hypovolemic shock Neurogenic shock Shock due to Other, please specify Unable to determine septic shock confirmed MTDD
[2019-07-23 10:16] LABS: ABG PCO2 82 mmHg (35-45)
[2019-07-23 10:17] LABS: ABG HCO3 10 mmol/L (21-25)
[2019-07-26 19:38] LABS: LD Isoenzymes 1 4 % (19-38); LD Isoenzymes 2 7 % (30-43); LD Isoenzymes 3 6 % (16-26); LD Isoenzymes 4 13 % (3-12); LD Isoenzymes 5 70 % (3-14)
--- NOTE | 2019-07-30 08:19 | CDI ---
Documentation Clarification Form Date: 07/30/19 From: Anjali Patino CCS Phone: If you have a question about this query, please contact Melissa Santo, Glue Cook at [phone] between 8am and 5pm. Admit Date: 07/04/19 Discharge Date:07/21/19 Patient Name: Randal Anne Visit Number: [id number] ATTENTION: The Clinical Documentation Specialists (CDI) and [facility] Coding Staff appreciate your assistance in clarifying documentation. Please respond to the clarification below the line at the bottom and electronically sign. The CDI & [facility] Coding staff will review the response and follow-up if needed. Please note: Queries are made part of the Legal Health Record. If you have any questions, please contact the author of this message via ITS. Dear Dr. Silva, Documentation states: Hemoglobin 11.1, 5.0- Hemoglobin 35.3, 17.6 History/Risk Factors: COVID, Sepsis, Acute Resp Failure, PNA, Malnutrition, Hypotension Clinical indicators: Reviewed case with RN who noted that the patient had gradually worsening hypoxia throughout the day and had become unresponsive and lost his pulse, prompting the CODE BLUE Hgb: 07/20 dropped to 5.0 Hct: 07/20 dropped to 17.6 Treatment: Patient Clinical significance of diagnostic testing and treatment CANNOT be assumed or coded without physician documentation of significance if any. Please clarify what abnormal laboratory signifies: Acute blood loss anemia due to Other anemia, please specify Disease process, please specify Infectious process, please specify Abnormal Lab Value Unable to determine Other, please specify MTDD
--- NOTE | 2019-07-30 08:31 | CDI ---
Documentation Clarification Form Date: 07/30/19 From: Anjali Patino CCS Phone: If you have a question about this query, please contact Melissa Santo, Accountant Certified Public at [phone] between 8am and 5pm. Admit Date: 07/04/19 Discharge Date:07/21/19 Patient Name: Randal Anne Visit Number: [id number] ATTENTION: The Clinical Documentation Specialists (CDI) and [facility] Coding Staff appreciate your assistance in clarifying documentation. Please respond to the clarification below the line at the bottom and electronically sign. The CDI & [facility] Coding staff will review the response and follow-up if needed. Please note: Queries are made part of the Legal Health Record. If you have any questions, please contact the author of this message via ITS. Dear Dr. Silva, Documentation states: BUN 39, Creatinine 2.90 History/Risk Factors: COVID, Sepsis, PNA, Acute Resp Failure, Malnutrition Clinical indicators: Reviewed case with RN who noted that the patient had gradually worsening hypoxia throughout the day and had become unresponsive and lost his pulse, prompting the CODE BLUE. BUN: 07/20 39 Creatinine: 07/20- 2.90 Treatment: Patient Clinical significance of diagnostic testing and treatment CANNOT be assumed or coded without physician documentation of significance if any. Please clarify what abnormal laboratory signifies: JOHANNE ATN due to hypoperfusion Disease process, please specify Infectious process, please specify Abnormal Lab Value Unable to determine Other, please specify disease process due to COVID 19 MTDD
--- NOTE | 2019-07-31 08:49 | CDI ---
Documentation Clarification Form Date: 08/12/19 From: Anjali Patino CCS Phone: If you have a question about this query, please contact Melissa Santo, Market Maker at [phone] between 8am and 5pm. Admit Date: 07/04/19 Discharge Date:07/21/19 Patient Name: Randal Anne Visit Number: [id number] ATTENTION: The Clinical Documentation Specialists (CDI) and [facility] Coding Staff appreciate your assistance in clarifying documentation. Please respond to the clarification below the line at the bottom and electronically sign. The CDI & [facility] Coding staff will review the response and follow-up if needed. Please note: Queries are made part of the Legal Health Record. If you have any questions, please contact the author of this message via ITS. Dear Dr. Graf, Documentation states: Hemoglobin 11.1, 5.0- Hemoglobin 35.3, 17.6 History/Risk Factors: COVID, Sepsis, Acute Resp Failure, PNA, Malnutrition, Hypotension Clinical indicators: Reviewed case with RN who noted that the patient had gradually worsening hypoxia throughout the day and had become unresponsive and lost his pulse, prompting the CODE BLUE Hgb: 07/20 dropped to 5.0 Hct: 07/20 dropped to 17.6 Treatment: Patient Clinical significance of diagnostic testing and treatment CANNOT be assumed or coded without physician documentation of significance if any. Please clarify what abnormal laboratory signifies: Acute blood loss anemia due to Other anemia, please specify Disease process, please specify Infectious process, please specify Abnormal Lab Value Unable to determine Other, please specify Unable to determine MTDD
--- NOTE | 2019-08-05 23:20 | P.DS ---
Providers Date of admission: 07/04/19 06:11 Attending physician: Quan Silva Consults: 07/04/19 06:12 Consult Physician Routine Consulting Provider: Jamal Luther Consult Reason/Comments: Acute respiratory failure with hypoxemia. Do you want consulting provider notified?: Yes Primary care physician: Quan Silva [place] Hospital Course: On-call hospitalist covering Dr. Silva over the weekends only Diagnoses: -Covid 19 pneumonia with sepsis. With superimposed bacterial infection, suspected hospital-acquired pneumonia currently on Zosyn. -Acute hypoxic respiratory failure -Sepsis with SIRS criteria with fever, tachypnea and leukocytosis -History of coronary artery disease status post CABG and stenting -Ischemic cardiomyopathy with history of V. fib status post AICD -Hyperlipidemia Hospital course: This is a pleasant 68-year-old gentleman recently admitted on the 29 of June testing positive for Covid 19, received Plaquenil ,discharged on 07/02/2019 ,with history of CAD, hyperlipidemia, [place], CABG, osteoarthritis, ischemic cardiomyopathy, AICD, V. fib, peripheral vascular disease, former nicotine dependence and multiple other medical issues presented to the ER on 07/04/19 with worsening shortness of breath accompanied by fevers, fatigue. He was hypoxic with saturations in the 70s and patient eventually was admitted to the ICU with pulmonary/critical care consult. Patient was found to have Covid pneumonia with positive sputum culture for Enterobacter suspicious for superimposed bacterial infection on the top of his significant history of ischemic cardiomyopathy status post AICD. He received several treatments including steroids, Zosyn, and aspirin and Plavix. As well as Lovenox at therapeutic doses. Patient also received [facility] plasma Remains in the ICU throughout his length of stay for more than 3 weeks and his condition remained critical. Pulmonary/critical care team were following him closely. However patient respiratory distress worsened and patient on 07/21/2019 Please refer to nursing and pulmonary notes for more details Patient Condition at Discharge: Critical Plan - Discharge Summary Discharge Rx Participant: No New Discharge Prescriptions: No Action Spironolactone [Aldactone] 25 mg PO DAILY Aspirin 81 mg PO DAILY Losartan [Cozaar] 25 mg PO DAILY Atorvastatin [Lipitor] 80 mg PO HS Clopidogrel [Plavix] 75 mg PO DAILY Carvedilol 3.125 mg PO DAILY Multivitamins, Thera [Multivitamin (formulary)] 1 tab PO DAILY Ezetimibe [Zetia] 10 mg PO DAILY Hydroxychloroquine Sulfate [Plaquenil] 200 mg PO BID #5 tab predniSONE See Taper PO DIRECTED Discharge Medication List Aspirin 81 mg PO DAILY 03/20/14 [History] Spironolactone [Aldactone] 25 mg PO DAILY 03/20/14 [History] Atorvastatin [Lipitor] 80 mg PO HS 05/20/15 [History] Carvedilol 3.125 mg PO DAILY 05/20/15 [History] Clopidogrel [Plavix] 75 mg PO DAILY 05/20/15 [History] Losartan [Cozaar] 25 mg PO DAILY 05/20/15 [History] Ezetimibe [Zetia] 10 mg PO DAILY 06/30/19 [History] Multivitamins, Thera [Multivitamin (formulary)] 1 tab PO DAILY 06/30/19 [History] Hydroxychloroquine Sulfate [Plaquenil] 200 mg PO BID #5 tab 07/02/19 [Rx] predniSONE See Taper PO DIRECTED 07/04/19 [History] Follow up Appointment(s)/Referral(s): Quan Silva DO [Primary Care Provider] - 1 Week [facility], [NON-STAFF] - Discharge Disposition: - Preliminary Cause of Preliminary Cause of : covid pna causing sepsis and resp failure
== END 2019-07-21 11:02 | disposition expired | DRG 871 ==
LOC: EC 05:25 → 3SCARD 06:11 → 2SICU 11:48
PROVIDERS: ADMIT Family Medicine; ATTEND Family Medicine
PROC: 05HD33Z Insertion of Infusion Device into Right Cephalic Vein, Percutaneous Approach (ICD-10-PCS; 2019-07-09)
PROC: 05HF33Z Insertion of Infusion Device into Left Cephalic Vein, Percutaneous Approach (ICD-10-PCS; 2019-07-14)
PROC: 30233K1 Transfusion of Nonautologous Frozen Plasma into Peripheral Vein, Percutaneous Approach (ICD-10-PCS; 2019-07-19)
PROC: 3E033XZ Introduction of Vasopressor into Peripheral Vein, Percutaneous Approach (ICD-10-PCS; 2019-07-20)
PROC: 5A1935Z Respiratory Ventilation, Less than 24 Consecutive Hours (ICD-10-PCS; principal; 2019-07-21)
PROC: 5A12012 Performance of Cardiac Output, Single, Manual (ICD-10-PCS; 2019-07-21)
PROC: 02HV33Z Insertion of Infusion Device into Superior Vena Cava, Percutaneous Approach (ICD-10-PCS; 2019-07-21)
PROC: 0BH17EZ Insertion of Endotracheal Airway into Trachea, Via Natural or Artificial Opening (ICD-10-PCS; 2019-07-21)
PROC: 0D9670Z Drainage of Stomach with Drainage Device, Via Natural or Artificial Opening (ICD-10-PCS; 2019-07-21)
DX: A41.89 Other specified sepsis (principal); U07.1 COVID-19; J96.02 Acute respiratory failure with hypercapnia; J96.01 Acute respiratory failure with hypoxia; R65.21 Severe sepsis with septic shock; J15.9 Unspecified bacterial pneumonia; J12.89 Other viral pneumonia; E44.0 Moderate protein-calorie malnutrition; E87.3 Alkalosis; E87.1 Hypo-osmolality and hyponatremia; I49.01 Ventricular fibrillation; D69.59 Other secondary thrombocytopenia; I95.9 Hypotension, unspecified; Z66 Do not resuscitate; I73.9 Peripheral vascular disease, unspecified; I46.8 Cardiac arrest due to other underlying condition; I25.10 Atherosclerotic heart disease of native coronary artery without angina pectoris; E78.5 Hyperlipidemia, unspecified; M19.90 Unspecified osteoarthritis, unspecified site; I25.5 Ischemic cardiomyopathy; I44.4 Left anterior fascicular block; D72.810 Lymphocytopenia; E87.5 Hyperkalemia; R19.7 Diarrhea, unspecified; R60.9 Edema, unspecified; I25.2 Old myocardial infarction; Z68.29 Body mass index [BMI] 29.0-29.9, adult; Z71.3 Dietary counseling and surveillance; Z79.82 Long term (current) use of aspirin; Z79.899 Other long term (current) drug therapy; Z79.02 Long term (current) use of antithrombotics/antiplatelets; Z95.810 Presence of automatic (implantable) cardiac defibrillator; Z86.79 Personal history of other diseases of the circulatory system; Z95.1 Presence of aortocoronary bypass graft; Z95.5 Presence of coronary angioplasty implant and graft; Z87.891 Personal history of nicotine dependence; Z82.49 Family history of ischemic heart disease and other diseases of the circulatory system; Z80.9 Family history of malignant neoplasm, unspecified; Z84.1 Family history of disorders of kidney and ureter
CPT/HCPCS: 36410; 36415; 36600; 71045; 76937; 80053; 80202; 82550; 82553; 82728; 82805; 83036; 83520; 83605; 83615; 83625; 83735; 83880; 84145; 84484; 85025; 85379; 85610; 85730; 86140; 86850; 86900; 86901; 87040; 87070; 87077; 87186; 87205; 87324; 87502; 93005; 94002; 99285